=== PATIENT | male | born 1970 | race Caucasian/White ===

== ENCOUNTER 2020-09-21 17:57 | Outpatient (CLI) | payer OTHER, SELFPAY ==
--- NOTE | ~2020-09-21 | XR_ITS ---
EXAMINATION: XR chest 2V DATE: 09/21/2020 18:23 INDICATION: Cough and wheezing and shortness of breath. TECHNIQUE: Frontal and lateral views of the chest were obtained. COMPARISON: Chest 2 views 05/18/2015 FINDINGS: The chest demonstrates clear lungs without pneumonia, pleural effusion, or pneumothorax. Th e heart size is normal. Calcified hilar and mediastinal lymph nodes are consistent with old granuloma tous disease. IMPRESSION: 1. No acute cardiopulmonary disease. Reviewed, dictated and finalized at location A. 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
== END 2020-09-21 17:58 | disposition home or self-care (01) ==
PROVIDERS: PCP Family Medicine; Visit Provider Family Medicine
DX: R05 Cough (principal); R06.2 Wheezing; R06.02 Shortness of breath
CPT/HCPCS: 71046

== ENCOUNTER 2020-12-08 13:31 | Outpatient (CLI) | payer OTHER, SELFPAY ==
--- NOTE | 2020-12-12 09:39 | WPDPFTINT ---
PFT Interpretation PFT Interpretation: This PFT met all criteria for ATS standards and reproducibility FEV/FVC post bronchodilator 69% FEV1 89% FVC 97% TLC 95% RV 75% RV/TLC 25% DLCO 81% when adjusted for alveolar volume but not adjusted for hemoglobin Flow volume loops showed some expiratory coving Impression: Mild airflow obstruction. This pattern may be suggestive of asthma or COPD. Clinical correlation is advised.
== END 2020-12-08 13:32 | disposition home or self-care (01) ==
PROVIDERS: Family Provider Family Medicine Adolescent Medicine; PCP Family Medicine; Visit Provider Family Medicine
DX: R06.2 Wheezing (principal); F17.200 Nicotine dependence, unspecified, uncomplicated; R94.2 Abnormal results of pulmonary function studies
CPT/HCPCS: 94060; 94726; 94729

== ENCOUNTER 2021-07-12 17:14 | Outpatient (CLI) | payer OTHER, SELFPAY ==
--- NOTE | ~2021-07-12 | XR_ITS ---
XR shoulder RT min 2V DATE: 07/12/2021 17:33 INDICATION: Shoulder pain for 2.5 mm TECHNIQUE: 4 views COMPARISON: None FINDINGS: Normal alignment at the acromioclavicular and glenohumeral joints. No fracture or dislocati on, periosteal reaction or bone destruction or abnormal soft tissue calcification. IMPRESSION: Negative Reviewed, dictated and finalized at location A. IMPRESSION: Negative
--- NOTE | ~2021-07-12 | XR_ITS ---
XR shoulder LT min 2V DATE: 07/12/2021 17:34 INDICATION: Left shoulder pain for 2.5 years TECHNIQUE: 4 views COMPARISON: None FINDINGS: There is mild degenerative spurring of the left acromioclavicular joint. No fracture, dislocation, periosteal reaction or bone destruction or abnormal soft tissue calcificati on. IMPRESSION: Mild degenerative change at the left acromioclavicular joint Reviewed, dictated and finalized at location A.
== END 2021-07-12 17:15 | disposition home or self-care (01) ==
LOC: ANHIMG 17:16
PROVIDERS: PCP Family Medicine; Visit Provider Family Medicine
DX: M25.511 Pain in right shoulder (principal); M25.512 Pain in left shoulder
CPT/HCPCS: 73030

== ENCOUNTER 2022-04-12 00:37 | Day surgery (SDC) | payer OTHER, SELFPAY ==
[2022-04-02 10:29] VITALS: BMI 31.1
[2022-04-12 06:58] VITALS: BP 117/90; PULSE 67; RESP 17; O2SAT 100
[2022-04-12] MEDS: LACTATED RINGERS 1,000 ML 150 ML IV CONT (07:05)
--- NOTE | 2022-04-12 07:27 | WPDANESEPPF ---
Anes - Initial Pre Proc Eval Procedure: Operation Date: 04/12/22 08:00 Proposed Procedures p Screening Colonoscopy - Kostas Holm MD Date/Time: 04/12/22 07:27 Surgeon: Kostas Holm MD Pre Op Diagnosis: hx of colon polyps Patient Data Age: 51 Gender: M Height: 1.73 m Weight: 92.6 kg Last Vital Signs Pulse 67 04/12/22 06:58 Resp 17 04/12/22 06:58 BP 117/90 04/12/22 06:58 Pulse Ox 100 04/12/22 06:58 O2 Del Method Room Air 04/12/22 06:58 Allergies Allergy/AdvReac Type Severity Reaction Status Date / Time No Known Allergies Allergy Verified 04/12/22 06:55 Home Medications Medication Instructions Recorded Confirmed Type omeprazole 20 mg capsule,delayed 20 mg PO DAILY #30 caps 03/14/20 04/12/22 Rx release carbamazepine 200 mg tablet 200 mg PO Q12H #60 tabs 12/24/20 04/12/22 Rx icosapent ethyl 1 gram capsule 2 g PO BID #120 caps 11/07/21 04/12/22 Rx (Vascepa) atorvastatin 20 mg tablet 20 mg PO DAILY 04/02/22 04/12/22 History celecoxib 200 mg capsule 200 mg PO BID 04/02/22 04/12/22 History varenicline 1 mg tablet 1 mg PO BID 04/02/22 04/12/22 History Patient hx anesthesia problems: none Family hx anesthesia problems: none Results Review: All pre-operative results and documents have been reviewed as part of the pre-operative evaluation. [facility] Past Medical History Medical History (Updated 08/29/21 @ 08:25 by Patrizia Khalil, PARitikaC) Bipolar disorder Bipolar disorder in remission Chronic otitis media GERD (gastroesophageal reflux disease) Mixed hyperlipidemia Tobacco dependence Surgical History Surgical History Myringotomy tube status Family History Family History Father Hypertension Mother Family history of diabetes mellitus in first degree relative Family history of malignant neoplasm of bone Family history of malignant neoplasm of urinary bladder Family history of malignant neoplasm of kidney Patient's mother is Social History Social History (Updated 08/27/21 @ 15:31 by Nata Mcdonald) Social History: Smoking packs per day: 1 Smoking cigarettes per day: 20.0 Years smoked: 35 Smoking pack-years: 35.00 Smoking status: Current some day smoker Tobacco type: cigarettes Second hand tobacco smoke exposure: No Smoking end date: 10/17/20 Alcohol intake: never Substance use: never Substance use type: does not use Living arrangements: with family Gender identity (if verbalized by the patient): Male Sexual Orientation (if Verbalized by the Patient): Straight or Heterosexual Spiritual care concerns: No Anes - Eval Final PreProcedure Day of Procedure 04/12/22 07:27 Patient weight: obese Heart: regular rate and rhythm Lungs: clear to auscultation Airway: Mallampati scale class II Neurological: alert and oriented Last oral intake: >/= 8 hours ASA classification: III Emergent: no Anesthetic plan: proceed Anesthesia type and monitoring: general GIVS and standard monitoring Results Review: All pre-operative results and documents have been reviewed as part of the pre-operative evaluation. Informed Consent: The patient's anesthetic plan and its attendant risks and benefits were discussed with the patient/family/POA. Questions were solicited and answers provided to the satisfaction of the patient/family/POA.
--- NOTE | 2022-04-12 07:56 | PM.HPGS ---
History of Present Illness History of Present Illness Consent: Risks, benefits, and alternatives have been discussed and questions answered. Patient agrees to proceed with procedure. Chief complaint: hx of colon polyps Narrative: Dagoberto Marcial Jr. is a 51 year old male with history of polyp, last colonoscopy ~ 5 years ago. Review of Systems Constitutional: Constitutional: Denies headache(s) and Denies weakness Eyes: Eyes: Denies blurry vision ENT: Reports Normal hearing present, Denies headache(s) and Denies neck pain Cardiovascular: Cardiovascular: Denies chest pain and Denies dyspnea Respiratory: Respiratory: Denies dyspnea Gastrointestinal: Gastrointestinal: Reports no additional gastrointestinal complaints Genitourinary: Genitourinary: Denies dysuria Musculoskeletal: Musculoskeletal: Denies neck pain Integumentary/Breasts: Skin/Breast: Denies dry skin Neurologic: Reports Normal hearing present, Denies headache(s) and Denies weakness Psychiatric: Psychiatric: Denies anxiety Endocrine: Endocrine: Denies change in body appearance Hematologic/Lymphatic: Hematologic/Lymphatic: Denies easy bleeding Allergic/Immunologic: Allergic/Immunologic: Denies urticaria PMFSH Past Medical History Medical History (Updated 08/29/21 @ 08:25 by Patrizia Khalil, CHAVA) Bipolar disorder Bipolar disorder in remission Chronic otitis media GERD (gastroesophageal reflux disease) Mixed hyperlipidemia Tobacco dependence Surgical History Surgical History Myringotomy tube status Family History Family History Father Hypertension Mother Family history of diabetes mellitus in first degree relative Family history of malignant neoplasm of bone Family history of malignant neoplasm of urinary bladder Family history of malignant neoplasm of kidney Patient's mother is Social History Social History (Updated 08/27/21 @ 15:31 by Nata Mcdonald) Social History: Smoking packs per day: 1 Smoking cigarettes per day: 20.0 Years smoked: 35 Smoking pack-years: 35.00 Smoking status: Current some day smoker Tobacco type: cigarettes Second hand tobacco smoke exposure: No Smoking end date: 10/17/20 Alcohol intake: never Substance use: never Substance use type: does not use Living arrangements: with family Gender identity (if verbalized by the patient): Male Sexual Orientation (if Verbalized by the Patient): Straight or Heterosexual Spiritual care concerns: No Meds Home Medications and Allergies Home Medications Medication Instructions Recorded Confirmed Type omeprazole 20 mg capsule,delayed 20 mg PO DAILY #30 caps 03/14/20 04/12/22 Rx release carbamazepine 200 mg tablet 200 mg PO Q12H #60 tabs 12/24/20 04/12/22 Rx icosapent ethyl 1 gram capsule 2 g PO BID #120 caps 11/07/21 04/12/22 Rx (Vascepa) atorvastatin 20 mg tablet 20 mg PO DAILY 04/02/22 04/12/22 History celecoxib 200 mg capsule 200 mg PO BID 04/02/22 04/12/22 History varenicline 1 mg tablet 1 mg PO BID 04/02/22 04/12/22 History Allergies Allergy/AdvReac Type Severity Reaction Status Date / Time No Known Allergies Allergy Verified 04/12/22 06:55 Vital Signs Vital Signs - 24 hr 04/12/22 06:58 Pulse Rate 67 Respiratory Rate 17 Blood Pressure 117/90 Pulse Oximetry 100 Oxygen Delivery Room Air Exam Const: General: comfortable and no acute distress HENMT: General nose exam: Normal nares present Eyes: General: appearance normal, both eyes and all related structures Neck: Neck: no JVD Resp: Auscultation: clear to auscultation bilaterally Cardio: Rate: regular rate Rhythm: regular rhythm GI: Inspection: non-distended GI Palp: Yes Soft to palpation Skin: General skin exam: normal color Neuro: General: gait normal Speech: normal speech Extrem:
[2022-04-12 08:13] VITALS: BP 116/75; PULSE 83; RESP 27; O2SAT 96
[2022-04-12 08:23] VITALS: BP 115/80; PULSE 66; RESP 23; O2SAT 99
[2022-04-12 08:33] VITALS: BP 122/88; PULSE 64; RESP 21; O2SAT 100
== END 2022-04-12 08:37 | disposition home or self-care (01) ==
PROVIDERS: PCP Family Medicine; Visit Provider Internal Medicine Gastroenterology
PROC: 0DJD8ZZ Inspection of Lower Intestinal Tract, Via Natural or Artificial Opening Endoscopic (ICD-10-PCS; CPT 45378; principal; 2022-04-12 08:00)
DX: Z12.11 Encounter for screening for malignant neoplasm of colon (principal); K57.30 Diverticulosis of large intestine without perforation or abscess without bleeding; D12.2 Benign neoplasm of ascending colon; E78.2 Mixed hyperlipidemia; K21.9 Gastro-esophageal reflux disease without esophagitis; F31.70 Bipolar disorder, currently in remission, most recent episode unspecified; F17.210 Nicotine dependence, cigarettes, uncomplicated; E66.9 Obesity, unspecified; Z68.31 Body mass index [BMI] 31.0-31.9, adult
CPT/HCPCS: 45380; 88305; J2704; J7120

== ENCOUNTER 2022-10-24 16:49 | Outpatient (CLI) | payer OTHER, SELFPAY ==
--- NOTE | ~2022-10-24 | XR_ITS ---
XR abdomen/kub 1V 10/24/2022 17:07 INDICATION: Right flank pain TECHNIQUE: KUB COMPARISON: None FINDINGS: Bowel gas pattern is normal. There is no evidence of free air, mass, organomegaly, ascites or obstruction. There is a radiopaque capsule of the right abdomen, presumably bowel content. There is a more medial radiodensity at the L2-3 level which could represent a renal stone or bowel content. Consider correlation with CT. No definite calcifications in the expected course of ureters. There ar e pelvic phleboliths. The bones appear intact. IMPRESSION: 1: Possible right renal stone versus bowel content, i.e. ingested capsule. 2: No acute abdominal abnormality. Reviewed, dictated and finalized at location A. 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
== END 2022-10-24 16:50 | disposition home or self-care (01) ==
LOC: ANHIMG 16:50
PROVIDERS: PCP Family Medicine; Visit Provider Physician Assistant
DX: R10.9 Unspecified abdominal pain (principal)
CPT/HCPCS: 74018

== ENCOUNTER 2022-10-26 09:37 | Outpatient (CLI) | payer OTHER, SELFPAY ==
[2022-10-26 10:22] LABS: Basophils Absolute Auto 0.1 K/mm3 (0.0-0.1); Basophils Percent Auto 0.6 % (0.2-1.2); Eosinophils Absolute Auto 0.3 K/mm3 (0-0.3); Eosinophils Percent Auto 2.9 % (0-4.4); Hematocrit 47.9 % (42.0-52.0); Hemoglobin 15.8 g/dL (14.0-18.0); Immature Granulocyte Absolute 0.08 K/mm3 (0.00-0.031); Immature Granulocyte Percent A 0.9 % (0-0.5); Lymphocytes Absolute Auto 2.16 K/mm3 (0.9-3.2); Lymphocytes Percent Auto 25.2 % (18.3-44.2); Mean Corpuscular Hemoglobin 30.3 pg (26-34); Mean Corpuscular Volume 91.8 fl (80-100); Mean Platelet Volume 11.6 fl (7.4-10.4); Monocytes Absolute Auto 0.6 K/mm3 (0.1-0.6); Monocytes Percent Auto 7.1 % (2.6-8.5); Neutrophils Absolute Auto 5.4 K/mm3 (1.3-6.7); Neutrophils Percent Auto 63.3 % (45.5-73.1); Platelet Count Result 197 k/mm3 (150-375); Red Blood Count 5.22 M/mm3 (4.6-6.20); Red Cell Distribution Width 12.9 % (11.5-14.5); White Blood Count 8.6 K/mm3 (4.5-10.0)
[2022-10-26 10:46] LABS: Alanine Aminotransferase 40 U/L (6-50); Albumin Level 4.3 g/dL (3.5-5.1); Alkaline Phosphatase 127 U/L (38-126); Anion Gap 5 mmol/L (8-16); Aspartate Amino Transferase 30 U/L (17-59); Bilirubin,Total 0.6 mg/dL (0.2-1.3); Blood Urea Nitrogen 11 mg/dL (9-20); Calcium 8.5 mg/dL (8.4-10.2); Carbon Dioxide 28 mmol/L (22-30); Chloride 109 mmol/L (98-107); Estimated Glomerular Filt Rate > 60; Glucose 104 mg/dL (65-110); Potassium 4.4 mmol/L (3.4-5.0); Sodium 142 mmol/L (137-145); Uric Acid 5.6 mg/dL (3.5-8.5)
[2022-10-26 12:34] LABS: Hemoglobin A1C 5.5 % (<5.7)
== END 2022-10-26 09:38 | disposition home or self-care (01) ==
PROVIDERS: Visit Provider Physician Assistant
DX: F31.9 Bipolar disorder, unspecified (principal); E79.0 Hyperuricemia without signs of inflammatory arthritis and tophaceous disease; Z13.1 Encounter for screening for diabetes mellitus
CPT/HCPCS: 36415; 80053; 83036; 84550; 85025

== ENCOUNTER → 2022-10-29 15:37 | Outpatient (CLI) | payer OTHER, SELFPAY ==
--- NOTE | ~2022-10-29 | CT_ITS ---
Non-contrast CT scan of the Abdomen and Pelvis Clinical indication: Nephrolithiasis Technique: 5 mm axial scans were obtained through the abdomen and pelvis without intravenous or oral contrast. Dose reduction technique was used on this scan by utilizing automated exposure control and iterative reconstruction technique. The dose-length product (DLP) was 486.20 mGy-cm. Findings: Images through the lung bases reveal no abnormalities. There is no evidence of renal or ureteral calculi. The kidneys and the ureters are nondilated. The liver, spleen, pancreas, gallbladder, and adrenals appear normal. There is no aortic aneurysm. There is no evidence of bowel obstruction. Images through the pelvis were performed. There is no evidence of ascites or lymphadenopathy. Urinary bladder unremarkable. Prostate gland and seminal vesicles are unremarkable. Impression: Unremarkable exam. No renal, ureteral, or bladder stone. Reviewed, dictated and finalized at location [] NISTRATIVE FELLOW Impression: Unremarkable exam. No renal, ureteral, or bladder stone.
== END ==
PROVIDERS: PCP Family Medicine; Visit Provider Physician Assistant
DX: R93.89 Abnormal findings on diagnostic imaging of other specified body structures (principal)
CPT/HCPCS: 74176

== ENCOUNTER → 2022-12-06 15:23 | Outpatient (CLI) | payer OTHER, SELFPAY ==
--- NOTE | ~2022-12-06 | CT_ITS ---
EXAMINATION:CT lung screening DATE: 12/06/2022 15:38 INDICATION: Tobacco use. Current smoker with 60 pack year history. TECHNIQUE: Computed tomography (CT) of the chest was performed without intravenous contrast. Automate d exposure control and iterative reconstruction technique were employed. The dose-length product (DLP ) was 129.51 mGy-cm. COMPARISON: CT abdomen and pelvis 10/29/2022 FINDINGS: There is mild emphysema. There is minimal atelectasis bilaterally. There is a 2 mm nodule i n right middle lobe. Calcified bilateral lung nodules and calcified left hilar and mediastinal lymph nodes are consistent with old granulomatous disease. No pleural effusion. The heart size is normal. T here are coronary artery calcifications. No pericardial effusion. There are bridging endplate osteoph ytes at multiple levels in the spine, consistent with diffuse idiopathic skeletal hyperostosis (DISH) . IMPRESSION: 1. Lung-RADS category 2: Benign appearance or behavior. Continue annual screening with noncontrast lo w-dose chest CT in 12 months. Reviewed, dictated and finalized at location A. SYSTEM OPERATOR IMPRESSION: 1. Lung-RADS category 2: Benign appearance or behavior. Continue annual screeni ng with noncontrast low-dose chest CT in 12 months.
== END ==
PROVIDERS: PCP Family Medicine; Visit Provider Nurse Practitioner Gerontology
DX: Z12.2 Encounter for screening for malignant neoplasm of respiratory organs (principal); F17.210 Nicotine dependence, cigarettes, uncomplicated
CPT/HCPCS: 71271

== ENCOUNTER 2023-06-28 07:24 | Outpatient (CLI) | payer OTHER, SELFPAY ==
[2023-06-28 07:47] LABS: Basophils Percent Auto 0.4 % (0.2-1.2); Eosinophils Absolute Auto 0.5 K/mm3 (0-0.3); Eosinophils Percent Auto 6.4 % (0-4.4); Hematocrit 50.7 % (42.0-52.0); Hemoglobin 16.8 g/dL (14.0-18.0); Immature Granulocyte Absolute 0.05 K/mm3 (0.00-0.031); Immature Granulocyte Percent A 0.7 % (0-0.5); Lymphocytes Absolute Auto 2.13 K/mm3 (0.9-3.2); Lymphocytes Percent Auto 29.2 % (18.3-44.2); Mean Corpuscular HGB Conc 33.1 g/dl (32-36); Mean Corpuscular Hemoglobin 30.4 pg (26-34); Mean Corpuscular Volume 91.8 fl (80-100); Mean Platelet Volume 11.3 fl (7.4-10.4); Monocytes Absolute Auto 0.6 K/mm3 (0.1-0.6); Monocytes Percent Auto 7.7 % (2.6-8.5); Neutrophils Absolute Auto 4.1 K/mm3 (1.3-6.7); Neutrophils Percent Auto 55.6 % (45.5-73.1); Platelet Count Result 157 k/mm3 (150-375); Red Blood Count 5.52 M/mm3 (4.6-6.20); Red Cell Distribution Width 12.7 % (11.5-14.5); White Blood Count 7.3 K/mm3 (4.5-10.0)
[2023-06-28 08:00] LABS: Alanine Aminotransferase 33 U/L (6-50); Albumin Level 4.4 g/dL (3.5-5.1); Alkaline Phosphatase 130 U/L (38-126); Anion Gap 5 mmol/L (8-16); Aspartate Amino Transferase 29 U/L (17-59); Bilirubin,Total 0.5 mg/dL (0.2-1.3); Blood Urea Nitrogen 12 mg/dL (9-20); Calcium 9.1 mg/dL (8.4-10.2); Carbon Dioxide 27 mmol/L (22-30); Chloride 105 mmol/L (98-107); Cholesterol 166 mg/dL (0-200); Estimated Glomerular Filt Rate > 60; Glucose 104 mg/dL (65-110); HDL Direct 36 mg/dL; Potassium 4.2 mmol/L (3.4-5.0); Sodium 137 mmol/L (137-145); Triglycerides 98 mg/dL (<150); Uric Acid 6.2 mg/dL (3.5-8.5)
[2023-06-28 08:11] LABS: LDL Cholesterol Direct 100 mg/dL
[2023-06-28 08:39] LABS: Hemoglobin A1C 5.3 % (<5.7)
== END 2023-06-28 07:25 | disposition home or self-care (01) ==
PROVIDERS: PCP Family Medicine; Visit Provider Physician Assistant
DX: F31.9 Bipolar disorder, unspecified (principal); Z13.1 Encounter for screening for diabetes mellitus; E79.0 Hyperuricemia without signs of inflammatory arthritis and tophaceous disease; E78.2 Mixed hyperlipidemia
CPT/HCPCS: 36415; 80053; 80061; 83036; 84550; 85025

== ENCOUNTER 2023-08-11 07:48 | Outpatient (CLI) | payer OTHER, SELFPAY ==
[2023-08-11 09:35] LABS: Estimated Glomerular Filt Rate > 60
[2023-08-11 14:06] LABS: Collection Time Urine 24 HOURS
[2023-08-11 14:14] LABS: Creatinine Urine 161.8 mg/dL
[2023-08-11 14:19] LABS: Total Volume 24 Hour Urine 1200 ml
[2023-08-11 17:35] LABS: Serum Creat 0.8
[2023-08-12 11:04] LABS: Creatinine Clearance Urine 146.4 ml/min (75-125); Patient Weight 185 Lbs
== END 2023-08-11 07:49 | disposition home or self-care (01) ==
LOC: ANHLAB 07:49
PROVIDERS: PCP Family Medicine; Visit Provider Internal Medicine Nephrology
DX: Z52.4 Kidney donor (principal)
CPT/HCPCS: 36415; 82565; 82575

== ENCOUNTER 2024-11-13 07:06 | Outpatient (CLI) | payer OTHER, SELFPAY ==
[2024-11-13 08:12] LABS: Basophils Absolute Auto 0.1 K/mm3 (0.0-0.1); Basophils Percent Auto 0.5 % (0.2-1.2); Eosinophils Absolute Auto 0.4 K/mm3 (0-0.3); Eosinophils Percent Auto 4.3 % (0-4.4); Hematocrit 46.9 % (42.0-52.0); Hemoglobin 15.9 g/dL (14.0-18.0); Immature Granulocyte Absolute 0.06 K/mm3 (0.00-0.031); Immature Granulocyte Percent A 0.6 % (0-0.5); Lymphocytes Absolute Auto 1.88 K/mm3 (0.9-3.2); Mean Corpuscular HGB Conc 33.9 g/dl (32-36); Mean Corpuscular Hemoglobin 30.8 pg (26-34); Mean Corpuscular Volume 90.9 fl (80-100); Mean Platelet Volume 11.4 fl (7.4-10.4); Monocytes Absolute Auto 0.6 K/mm3 (0.1-0.6); Monocytes Percent Auto 6.1 % (2.6-8.5); Neutrophils Absolute Auto 6.4 K/mm3 (1.3-6.7); Neutrophils Percent Auto 68.5 % (45.5-73.1); Platelet Count Result 153 k/mm3 (150-375); Red Blood Count 5.16 M/mm3 (4.6-6.20); Red Cell Distribution Width 12.9 % (11.5-14.5); White Blood Count 9.4 K/mm3 (4.5-10.0)
[2024-11-13 08:23] LABS: Alanine Aminotransferase 34 U/L (6-50); Albumin Level 4.2 g/dL (3.5-5.1); Alkaline Phosphatase 123 U/L (38-126); Anion Gap 1 mmol/L (4-12); Aspartate Amino Transferase 28 U/L (17-59); Bilirubin,Total 0.4 mg/dL (0.2-1.3); Blood Urea Nitrogen 13 mg/dL (9-20); Calcium 8.9 mg/dL (8.4-10.2); Carbon Dioxide 26 mmol/L (22-30); Chloride 113 mmol/L (98-107); Cholesterol 249 mg/dL (0-200); Estimated Glomerular Filt Rate 58; Glucose 97 mg/dL (65-110); HDL Direct 31 mg/dL; Phosphorus 3.1 mg/dL (2.5-4.5); Potassium 4.4 mmol/L (3.4-5.0); Sodium 140 mmol/L (137-145); Triglycerides 356 mg/dL (<150)
[2024-11-13 08:34] LABS: LDL Cholesterol Direct 116 mg/dL
--- OUTSIDE RECORDS SUMMARY | 2024-11-20 04:22 | XMS_ITS | Encounter Summary ---
Author Organization [facility] Healthcare Address [address] [place] [address] Care Team Providers Care Dermatology Technician Name Role Phone Lindsey Bal RN Unavailable [phone] Elke Mcmillan MD Primary Care Provider Reason for Visit * Reason Onset Date Comments Post Donation Follow Up 08/04/2024 Encounter Details Date Type Department Care Team (Late st Contact Info) Description 08/04/[address] [facility] Transplant Kidney [address] [facility] [address] [phone] [place], [place] [id number] Lindsey Bal, ROSANGELA [address] [facility] [address] [place], [place] [id number] Post Donation Follow Up Social History Tobacco Use Types Packs/Day Years Used Date Smoking Tobacco: Every Day Cigarettes Smokeless Tobacco: Never [facility] Utilities Answer Date Recorded In the past 12 months has [employer], [employer], oil, or water [employer] threatened to shut off services in your home? No 03/10/2024 Social Connection and Isolat ion Panel [NHANES] Answer Date Recorded In a typical week, how many times do you talk on the phone with family, friends, or neighbors? More than three times a week 03/10/2024 How often do you get togethe r with friends or relatives? More than three times a week 03/10/2024 How often do you attend chur or episcopal services? More than 4 times per year 03/10/2024 Do you belong to any clubs o r organizations such as judaism groups, unions, fraternal or athletic groups, or school groups? Yes 03/10/2024 How often do you attend meet ings of the clubs or organizations you belong to? More than 4 times per year 03/10/2024 Are you , , di vorced, , never , or living with a partner? 03/10/2024 AUDIT-C Answer Date Recorded Q1: How often do you have a drink containing alcohol? Never 02/10/2024 Q2: How many drinks containi ng alcohol do you have on a typical day when you are drinking? Patient does not drink Q3: How often do you have si x or more drinks on one occasion? Never 02/10/2024 Overall Financial Resource Strain (CARDIA) Answe r Date Recorded How hard is it for you to pa y for the very basics like food, housing, medical care, and heating? Somewhat hard 03/10/2024 Hunger Vital Sign Answer Date Recorded Within the past 12 months, y ou worried that your food would run out before you got the money to buy more. Never true 03/10/20 Within the past 12 months, t he food you bought just didn't last and you didn't have money to get more. Never true 03/10/2024 PRAPARE - Transportation Answer Date Re corded In the past 12 months, has l ack of transportation kept you from medical appointments or from getting medications? No 02/16 In the past 12 months, has l ack of transportation kept you from meetings, work, or from getting things needed for daily living? No 03/10/2024 Housing Stability Vital Sign Answer [place] e Recorded In the last 12 months, was t here a time when you were not able to pay the mortgage or rent on time? No 03/10/2024 In the last 12 months, how many places have you lived? 1 03/10/2024 In the last 12 months, was t here a time when you did not have a steady place to sleep or slept in a jail (including now)? No 03/10/2024 Personal Safety Answer Date Recorded Have you ever been in or are you currently in a harmful physical or emotional relationship or is someone making you feel afraid or unsafe? 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 Reminded him that orders are in system for [facility]. Re-sent copy of follow-up questionnaire. Smita- I am going to forward document to you. Can you please have it mailed to this donor the next time you are in the office. Thanks! * Telephone Encounter - Lindsey Bal RN - 08/04/2024 10:15 AM CDT Sent reminder that we still need to complete donor follow-up. Reviewed orders are in for [facility] . Included a copy of questionnaire. Told to let me know if there's any questions. documented in this encounter Plan of Treatment Not on file documented as of this encounter Visit Diagnoses Not on filedocumented in this encounter Care Teams Dermatology Technician Relationship Specialty Start Date End Date Elke Mcmillan MD [address] [place] [address] PCP - General Family Medicine 08/15/23 Lindsey Bal, ROSANGELA [address] [place] [address] Hydroelectric Component Machinist 07/04/23 documented as of this encounter
--- OUTSIDE RECORDS SUMMARY | 2024-11-20 04:22 | XMS_ITS | Encounter Summary ---
Author Organization [facility] Healthcare Address [address] [place] [address] Care Team Providers Care Traffic Enumerator Name Role Phone Lindsey Bal RN Unavailable [phone] Elke Mcmillan MD Primary Care Provider Reason for Visit * Reason Onset Date Comments Post-Op Call 03/19/2024 Encounter Details Date Type Department Care Team (Late st Contact Info) Description 03/19/2024 Telephone [facility] Transplant Kidney [address] [facility] [address] [phone] [place], [place] [phone] Lindsey Bal, ROSANGELA [address] [facility] [address] [place], [place] [phone] Post-Op Call Social History Tobacco Use Types Packs/Day Years Used Date Smoking Tobacco: Every Day Cigarettes Smokeless Tobacco: Never [facility] Utilities Answer Date Recorded In the past 12 months has [employer], [employer], oil, or water [employer] threatened to shut off services in your [...] How often do you attend chur or tenriism services? More than 4 times per year [...] place to sleep or slept in a retirement (including now)? No 03/10/2024 Personal Safety Answer Date Recorded Have you ever been in or are you currently in a harmful physical or emotional relationship or is someone making you feel afraid or unsafe? 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 He reports to be doing well. Incisions are getting a little itchy. Discussed that is his incisions healing/ closing. He reports that he has some aches when he coughs at times, but otherwise doing well. He also reports to be having 1-2 BM's a day. Staying active. Reminded him to contact sheet ironworker coordinator if he needs anything over the weekend. Verbalized understanding. * Telephone Encounter - Lindsey Bal RN - 03/19/2024 12:27 PM CDT Attempted to call Avel to see how he was doing. Not able to leave a VM. Emailed him and let him know that I was just checking in. Told him to let me or call nurse know if he needs anything. documented in this encounter Plan of Treatment Not on file documented as of this encounter Visit Diagnoses Not on filedocumented in this encounter Care Teams Traffic Enumerator Relationship Specialty Start Date End Date Elke Mcmillan MD [address] [place] [address] PCP - General Family Medicine 08/15/23 Lindsey Bal, RN [address] [facility] [address] [place] [address] Instrument Tech 07/04/23 documented as of this encounter
--- OUTSIDE RECORDS SUMMARY | 2024-11-20 04:22 | XMS_ITS | Encounter Summary ---
Author Organization [facility] Healthcare Address [address] [place] [address] Care Team Providers Care Stove Polisher Name Role Phone Lindsey Bal RN Unavailable [phone] Elke Mcmillan MD Primary Care Provider Reason for Visit * Auth/Cert (Routine) Specialty Diagnoses / Procedures Referred By Anne melton Referred To Contact Diagnoses Kidney donor Kidney donor [Z52.4] Procedures [place] LAPAROSCOPY DONOR NEPHRECTOMY LIVING DONOR XI ROBOTIC ASSISTED DONOR NEPHRECTOMY Referral ID Status Reason Start Date Expiration Date Visits Re quested Visits Authorized [id number] 1 1 Encounter Details Date Type Department Care Team (Latest Contact Info) Description 03/09/2024 5:20 AM CDT - 03/10/2024 1:32 PM CDT Hospital Encounter [facility] [address] [place] [address] Roberto Cannon MD 1 [facility] [address] [place] [address] Discharge Disposition: Discharge to home or self care Social History Tobacco Use Types Packs/Day Years Used Date Smoking Tobacco: Every Day Cigarettes Smokeless Tobacco: Never Tobacco Cessation:Ready to Q uit: No; Counseling Given: No [facility] Utilities Answer Date Recorded In the past 12 months has [employer], gas, oil, or water company threatened to shut off services in your [...] 03/10/2024 How often do you attend chur ch or oriental orthodox services? More than 4 times per year 03/10/2024 Do you belong to any clubs o r organizations such as yarsani groups, unions, fraternal or athletic groups, or [...] money to buy more. Never true 03/10/20 24 Within the past 12 months, t he [...] place to sleep or slept in a [facility] (including now)? No 03/10/2024 Personal Safety Answer Date Recorded Have you ever been in or are you currently in a harmful physical or emotional relationship or is someone making you feel afraid or unsafe? 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[employer] Gender Identity Not on file Sexual Orientation Not on file documented as of this encounter Last Filed Vital Signs Vital Sign Reading Time Taken Comments Blood Pressure 103/60 03/10/2024 3:15 AM CDT Pulse 75 03/10/2024 3:15 AM CDT Temperature 36.7 ??C (98.1 ??F) 03/10/2024 3:15 AM CD T Respiratory Rate 16 03/10/2024 3:15 AM CDT Oxygen Saturation 94% 03/10/2024 3:15 AM CDT Inhaled Oxygen Concentration - - Weight 86.5 kg (190 lb 11.2 oz) 03/10/2024 3:15 AM CDT Height 175.3 cm (5' 9 ) 02/10/2024 10:4 0 AM CDT Body Mass Index 28.16 02/27/2024 1:17 PM CDT documented in this encounter Discharge Summaries * Nela Canales NP - 03/10/2024 10:32 AM CDT Inpatient Discharge Summary BRIEF OVERVIEW Admitting Provider: Roberto Cannon MD Discharge Provider: Roberto Cannon MD Primary Care Physician at Discharge: Elke Mcmillan MD [phone] Admission Date: 03/09/2024 Discharge Date: 03/10/2024 Admission Location: [facility] Problems/Diagnoses: Principal Problem: Kidney donor Resolved Problems: No resolved hospital problems. DETAILS OF HOSPITAL STAY Presenting Problem/History of Present Illness: Mr. Marcial is a 53 y.o. male wishing to donate a kidney to his cousin, who began the donor evaluation in 11/19/2023 and has been cleared by our independent donor advocate for donation. A right LEFTdonor nephrectomy is scheduled on 03/09/2024. He denies changes in health since evaluation by nephrology. No history of diabetes, hypertension, kidney stones, or frequent urinary tract infections. Hospital Course: The patient was taken to the OR on 03/[address] Cannon for a robotic left donor nephrectomy. For details of the operation, please see the OP note in EPIC. Postoperatively, pain controlled with PO medications. Diet slowly advanced to low fat. Carrasco removed on POD 1 without incident. Discharge creatinine of 1.56. The patient was discharged to home on 03/10 in stable condition. Scripts: Oxycodone 5mg (#15), senna-s, miralax, gabapentin x2 weeks, zofran ODT (#10) Follow-up with Dr. Cannon on 04/01 @ 1030 Test Results Pending at Discharge: Operative Procedures Performed: Procedure(s): XI ROBOTIC ASSISTED LEFT DONOR NEPHRECTOMY and TAP BLOCK Discharge Details Physical Exam at Discharge: Discharge Condition: good Pulse: 75 Resp: 16 BP: 103/60 Temp: 36.7 ??C (98.1 ??F) Weight: 86.5 kg (190 lb 11.2 oz) Pertinent Exam Findings at Discharge: none Discharge Disposition: Discharge to home or self care Code Status at Discharge: full Discharge Instructions: Kidney Donor Discharge Instructions: Call 911 or go to your local emergency room if: You have worrisome bleeding from your wound. You have chest pain. You feel like you can???t catch your breath. You faint or pass out. Call your metal control coordinator if: You have a fever of 101.5 F degrees or higher. It is hard for you to urinate. You have nausea, vomiting or diarrhea. You have bright red blood or bad smelling drainage from your incision site(s). You have any questions about your medications. You have belly pain that is getting worse. The kidney transplant office is open Friday-Friday from 8:00am-4:30pm. The phone number is or . If you need to talk to a transplant nurse after regular hours; you will still need to call the office. Follow the directions for an emergency on the voice mail and someone will call you back. Do NOT leave a message on the voice mail. These messages won???t be heard until the next business day. Diet low fat diet x7 days then regular diet Activity: You may perform activities as you feel up to it. It is very important to stay active. Try to take several short walks each day. Do NOT lift anything over 10 pounds until approved by your surgeon. This includes babies and pets. Do NOT drive while taking narcotic pain medicine. Care Instructions: You may take showers. Pat wounds dry. Do NOT rub. Keep your incision site dry and clean. Do NOT take tub baths, go swimming or use a hot tub until approved by your doctor. You may have shoulder pain after your surgery. This is very common. It is also normal to have swelling in your belly. Walking and staying active will help ease these symptoms. If you are still takingpain medications, continue to take a stool softener. However, do NOT use stool softeners if you have loose stools or diarrhea. Follow Up You should have been given a follow up appointment by your transplant nurse before discharge. If you were not given an appointment or have questions, call your nurse coordinator at or . Discharge Medications: Current Medications TAKE these medications acetaminophen 500 mg tablet Take 2 tablets (1,000 mg total) by mouth every 6 (six) hours as needed Commonly known as: TYLENOL atorvastatin 20 mg tablet Take 1 tablet (20 mg total) by mouth nightly For: excessive fat in the blood Commonly known as: LIPITOR carBAMazepine 200 mg tablet Take 1 tablet (200 mg total) by mouth nightly For: manic-depression Commonly known as: TEGretol gabapentin 100 mg capsule Take 1 capsule (100 mg total) by mouth 2 (two) times a day for 14 days Commonly known as: NEURONTIN icosapent ethyL 1 gram capsule Take 2 capsules (2 g total) by mouth 2 (two) times a day For: high amount of triglyceride in the blood Commonly known as: VASCEPA omeprazole 20 mg capsule Take 1 capsule (20 mg total) by mouth nightly For: Treatment of Non-Bleeding Gastric Disorder Commonly known as: PriLOSEC ondansetron ODT 4 mg disintegrating tablet Take 1 tablet (4 mg total) by mouth every 8 (eight) hours as needed for nausea or vomiting Commonly known as: ZOFRAN-ODT oxyCODONE 5 mg immediate release tablet Take 1 tablet (5 mg total) by mouth every 4 (four) hours as needed for pain For: pain Commonly known as: ROXICODONE polyethylene glycol 17 gram packet Take 1 packet (17 g total) by mouth daily For: constipation Commonly known as: MIRALAX senna-docusate 8.6-50 mg Take 1 tablet by mouth 2 (two) times a day Commonly known as: PERICOLACE Outpatient Follow-Up: Future Appointments Date Time Provider Department Center 04/01/2024 10:30 AM Roberto Cannon MD [facility] Cosigned by Roberto Cannon MD at 03/19/2024 10:31 AM CDT documented in this encounter Discharge Instructions * Discharge Instructions* Nela Canales NP - 03/09/2024 12:52 PM CDT Kidney Donor Discharge Instructions: Call 911 or go to your local emergency room if: You have worrisome bleeding from your wound. You have chest pain. You feel like you can???t catch your breath. You faint or pass out. Call your metal control coordinator if: You have a fever of 101.5 F degrees or higher. It is hard for you to urinate. You have nausea, vomiting or diarrhea. You have bright red blood or bad smelling drainage from your incision site(s). You have any questions about your medications. You have belly pain that is getting worse. The kidney transplant office is open Friday-Friday from 8:00am-4:30pm. The phone number is or . If you need to talk to a transplant nurse after regular hours; you will still need to call the office. Follow the directions for an emergency on the voice mail and someone will call you back. Do NOT leave a message on the voice mail. These messages won???t be heard until the next business day. Diet low fat diet x7 days then regular diet Activity: You may perform activities as you feel up to it. It is very important to stay active. Try to take several short walks each day. Do NOT lift anything over 10 pounds until approved by your surgeon. This includes babies and pets. Do NOT drive while taking narcotic pain medicine. Care Instructions: You may take showers. Pat wounds dry. Do NOT rub. Keep your incision site dry and clean. Do NOT take tub baths, go swimming or use a hot tub until approved by your doctor. You may have shoulder pain after your surgery. This is very common. It is also normal to have swelling in your belly. Walking and staying active will help ease these symptoms. If you are still takingpain medications, continue to take a stool softener. However, do NOT use stool softeners if you have loose stools or diarrhea. Follow Up You should have been given a follow up appointment by your transplant nurse before discharge. If you were not given an appointment or have questions, call your nurse coordinator at or . documented in this encounter Medications at Time of Discharge acetaminophen (TYLENOL) 500 mg tablet Take 2 tablets (1,000 mg total) by mouth every 6 (six) hours as needed 01/28/2024 atorvastatin (LIPITOR) 20 mg tabletIndications:hy perlipidemia Take 1 tablet (20 mg total) by mouth nightly 06/30/2023 carBAMazepine (TEGretol) 200 mg tabletIndications:Bi polar Disorder Take 1 tablet (200 mg total) by mouth nightly 05/30/2023 gabapentin (NEURONTIN) 100 mg capsule Take 1 capsule (100 mg total) by mouth 2 (two) times a day for 14 days 28 capsule 03/09/2024 icosapent ethyL (VASCEPA) 1 gram capsuleIndications:h ypertriglyceridemia Take 2 capsules (2 g total) by mouth 2 (two) times a day 07/30/2023 omeprazole (PriLOSEC) 20 mg capsuleIndications:T reatment of Non-Bleeding Gastric Disorder Take 1 capsule (20 mg total) by mouth nightly ondansetron ODT (ZOFRAN-ODT) 4 mg disintegrating tablet Take 1 tablet (4 mg total) by mouth every 8 (eight) hours as needed for nausea or vomiting 10 tablet 03/09/2024 oxyCODONE (ROXICODONE) 5 mg immediate release tabletIndications:Pa in Take 1 tablet (5 mg total) by mouth every 4 (four) hours as needed for pain 15 tablet 03/09/2024 polyethylene glycol (MIRALAX) 17 gram packetIndications:co nstipation Take 1 packet (17 g total) by mouth daily 30 packet 03/09/2024 senna-docusate (PERICOLACE) 8.6-50 mg Take 1 tablet by mouth 2 (two) times a day 60 tablet 03/09/2024 documented as of this encounter Ordered Prescriptions Prescription Sig Dispense Quantity Refills Last Filled Start Date End Date senna-docusate (PERICOLACE) 8.6-50 mg Take 1 tablet by mouth 2 (two) times a day 60 tablet 03/09/2024 polyethylene glycol (MIRALAX) 17 gram packetIndications:co nstipation Take 1 packet (17 g total) by mouth daily 30 packet 03/09/2024 ondansetron ODT (ZOFRAN-ODT) 4 mg disintegrating tablet Take 1 tablet (4 mg total) by mouth every 8 (eight) hours as needed for nausea or vomiting 10 tablet 03/09/2024 gabapentin (NEURONTIN) 100 mg capsule Take 1 capsule (100 mg total) by mouth 2 (two) times a day for 14 days 28 capsule 03/09/2024 oxyCODONE (ROXICODONE) 5 mg immediate release tabletIndications:Pa in Take 1 tablet (5 mg total) by mouth every 4 (four) hours as needed for pain 15 tablet 03/09/2024 documented in this encounter Discharge Disposition Disposition Code Departure Means Destination Comment s Discharge to home or self care documented in this encounter Progress Notes * Godwin Castaneda RD - 03/10/2024 11:41 AM CDT NUTRITION ASSESSMENT Nutrition Status: Patient appears adequately nourished at this time. REASON FOR ASSESSMENT: renal donor nutrition assessment Encounter Date: 03/10/24 11:42 AM Admission Date: 03/09/2024 LOS: 1 days HPI: Patient is a 53 y.o. male no pertinent nutrition assessment Objective Past Medical History: Diagnosis Date GERD (gastroesophageal reflux disease) Hyperlipidemia Past Surgical History: Procedure Laterality Date RECTAL SURGERY fissure repair and polyps-unsure of date Social History Tobacco Use Smoking status: Every Day Current packs/day: 1.00 Types: Cigarettes Smokeless tobacco: Never Substance and Sexual Activity Drug use: Never Sexual activity: Defer Alcohol Use: Not At Risk (02/10/2024) AUDIT-C Frequency of Alcohol Consumption: Never Average Number of Drinks: Patient does not drink Frequency of Binge Drinking: Never MEDICATION/LAB REVIEW: Scheduled Meds: acetaminophen, 1,000 mg, oral, Q6H atorvastatin, 20 mg, oral, Nightly carBAMazepine, 200 mg, oral, Nightly gabapentin, 100 mg, oral, BID heparin, 5,000 Units, subcutaneous, Q8H SHAHZAD pantoprazole DR, 40 mg, oral, Daily polyethylene glycol, 17 g, oral, Daily ramelteon, 8 mg, oral, Nightly senna-docusate, 1 tablet, oral, BID Continuous Infusions: Lactated Ringer's, 75 mL/hr, Last Rate: 75 mL/hr (03/10/24 0601) PRN Meds: ondansetron oxyCODONE Recent Labs Lab Units 03/10/24 0247 SODIUM mmol/L 139 POTASSIUM PLASMA mmol/L 4.2 CHLORIDE mmol/L 107 CO2 mmol/L 24 BUN SERUM mg/dL 15 CREATININE mg/dL 1.56* WFC-ANB-VKFRROH mL/min/1.73 m2 53* CALCIUM mg/dL 8.2* PHOSPHORUS PLASMA mg/dL 3.4 MAGNESIUM mg/dL 2.3 Recent Labs Lab Units 03/10/24 0247 GLUCOSE mg/dL 114 No results found for: ALT , AST , BILIRUBIN , ALKPHOS , LIPASE Lab Results Component Value Date HGBA1C 5.1 07/15/2023 HDL 38 (L) 07/15/2023 CHOL 177 07/15/2023 TRIG 204 (H) 07/15/2023 NURSING ASSESSMENT: Last BM Date: 03/09/24 Bowel Sounds (All Quadrants): Active, Passing flatus Aakash Scale Score: 20 Skin Integrity: Surgical incision Type of Wound (LDA): Surgical site Vital Signs BP: 103/60 Temp: 36.7 ??C (98.1 ??F) Pulse: 75 Resp: 16 SpO2: 94 % Intake/Output Summary (Last 24 hours) at 03/10/2024 1142 Last data filed at 03/10/2024 1017 Gross per 24 hour Intake 4274.58 ml Output 2975 ml Net 1299.58 ml Adult Malnutrition Scoring Tool (MST) What diet do you follow at home?: Rgular Have You Recently Lost Weight Without Trying?: No Have you been eating poorly because of a decreased appetite?: No Malnutrition Screening Tool (MST) Score: 0 Anthropometrics Weight: 86.5 kg (190 lb 11.2 oz) Admission Weight : 86.5 kg Weight Change: 0.31 kg (0.70 lbs) IBW/kg (Calculated) : 72.6 kg Height: 175.3 cm (5' 9 ) Weight in (lb) to have BMI = 25: 168.9 BMI (Calculated): 28.1 Wt Readings from Last 10 Encounters: 03/10/24 86.5 kg (190 lb 11.2 oz) 02/27/24 86.2 kg (190 lb) 11/19/23 86.7 kg (191 lb 3.2 oz) 08/18/23 86 kg (189 lb 9.5 oz) 08/15/23 84.6 kg (186 lb 8.2 oz) ESTIMATED NEEDS: Total Kcal/kg Estimated Needs : 1989.52 Kcal/k. Type of Weight Used for Estimated Kcals: Admission Total Fat Estimated Needs (gm): 44.21 Fat Needs Based on % of Calories: 20 Calories Used for Grams of Fat: Total Kcal/kg estimated needs Dietary Orders (From admission, onward) Start Ordered 03/10/24 0519 Adult Diet Restricted; Low Fat, Low Chol Diet effective now Question Answer Comment (BJ) Diet type Restricted Fat / Sodium Restriction: Low Fat, Low Chol 03/10/24 0519 Allergies: Reviewed. IMPRESSION: Pt reports good intake, stable weight before surgery. No diet restrictions or nutritional issues. Usually eats one large meal in the evenings. Appears to have been well nourished before surgery. ASPEN MALNUTRITION ASSESSMENT: Date of completion: 03/10/24 NUTRITION FOCUSED PHYSICAL EXAM: Not clinically indicated, no concerns for malnutrition at this time. NUTRITION DIAGNOSIS: Nutrition Diagnosis 1: Food and nutrition-related knowledge deficit Related to: Recent surgery Evidenced by: Patient interview, Physical finding INTERVENTION(S): Summary: Meals and snacks, Education, nutrition, Encouragement Continue with low fat diet. Discussed with pt reason for low fat diet and to aim for max of 45g fat (<20% jennifer/fat) per day. Provided restricted fat nutrition therapy and contact info. After 1 week, can resume regular home diet. Discussed that there are no restrictions from the kidney donation. Discussed generally healthy eating and monitoring to maintain normal BP, chol, and to attempt to prevent diabetes. Encouraged activity and good intake. Denied questions. Will continue to monitor. GOAL(S): Continue adequate PO intakes, Patient/caregiver able to teach back understanding of role of diet indisease process prior to discharge MONITORING/EVALUATION: Appetite, Plan of care, PO intake Godwin Castaneda RD LD CDE [phone]. Weekends [phone] * [place] Jose R, [facility] - 03/10/2024 11:33 AM CDT Dagoberto Marcial is a living donor who is POD1 from living donor nephrectomy. His profile has been reviewed by transplant pharmacist specialist on 03/10/24. Case reviewed on rounds with multidisciplinary team or outside of rounds with prescribers as necessary. Additional significant interventions or issues related to ongoing monitoring are listed below as appropriate. Current Medications Current Facility-Administered Medications: acetaminophen (TYLENOL) tablet 1,000 mg, 1,000 mg, oral, Q6H, Deepak Kline MD, 1,000 mg at 03/10/24 0603 atorvastatin (LIPITOR) tablet 20 mg, 20 mg, oral, Nightly, Deepak Kline MD, 20 mg at 03/09/242019 carBAMazepine (TEGretol) tablet 200 mg, 200 mg, oral, Nightly, Deepak Kline MD, 200 mg at 03/09/242019 gabapentin (NEURONTIN) capsule 100 mg, 100 mg, oral, BID, Deepak Kline MD, 100 mg at 03/10/24 0936 heparin 5,000 unit/mL injection 5,000 Units, 5,000 Units, subcutaneous, Q8H [facility], Deepak Kline MD, 5,000 Units at 03/10/24602 Lactated Ringer's (LR) infusion, 75 mL/hr, intravenous, Continuous, Nela Canales NP, Last Rate: 75 mL/hr at 03/10/24600, 75 mL/hr at 03/10/24600 ondansetron (ZOFRAN) injection 4 mg, 4 mg, intravenous, Q6H PRN, Depeak Kline MD oxyCODONE (ROXICODONE) tablet 5 mg, 5 mg, oral, Q4H PRN, Deepak Kline MD, 5 mg at 03/10/[address] (PROTONIX) extended release tablet 40 mg, 40 mg, oral, Daily, Nela Canales NP, 40 mg at 03/10/24935 polyethylene glycol (MIRALAX) packet 17 g, 17 g, oral, Daily, Deepak Kline MD, 17 g at 03/10/24935 ramelteon (ROZEREM) tablet 8 mg, 8 mg, oral, Nightly, Andi Monroe MD, 8 mg at 03/09/242026 senna-docusate (PERICOLACE) 8.6-50 mg per tablet 1 tablet, 1 tablet, oral, BID, Deepak Kline MD, 1 tablet at 03/10/24935 Objective Data Blood pressure 103/60, pulse 75, temperature 36.7 ??C (98.1 ??F), temperature source Oral, resp. rate 16, height 175.3 cm (5' 9 ), weight 86.5 kg (190 lb 11.2 oz), SpO2 94%. I and Os: I/O last 3 completed shifts: In: 3920 [P.O.:1200; I.V.:2700; IV Piggyback:20] Out: 3525 [Urine:3500; Blood:25] Recent Labs Lab Units 03/10/24 0247 WBC K/cumm 13.1* HEMOGLOBIN g/dL 13.0 HEMATOCRIT % 36.7* PLATELETS K/cumm 121* Recent Labs Lab Units 03/10/24 0247 CREATININE mg/dL 1.56* GAQ-QIN-BNPSUPX mL/min/1.73 m2 53* Brief Pharmacist Summary 53 yo M s/p living donor nephrectomy Recommendations Okay to resume home atorvastatin 20 mg daily, carbamazepine 200 mg nightly, and pantoprazole 40 mg daily (in place of home omeprazole). Hold Vascepa in immediate post-op period, but okay resume on discharge if no bleeding concerns. Signed, Jose R Bar, PharmD, BCTXP Clinical Specialist - Solid Organ Transplant * Donna Nazario LCSW - 03/09/2024 1:50 PM CDT Donor has been approved for travel expenses and lost wage reimbursement through [employer] [facility] [employer] [facility]. Living donor SW has updated [facility] that surgery was completed today so they canrelease the funds. SW to meet with donor tomorrow for SW initial inpatient assessment. * Nela Canales NP - 03/09/2024 12:48 PM CDT Kidney Donor Postoperative Check S: [place] [id number] after undergoing a Procedure(s) (LRB): XI ROBOTIC ASSISTED LEFT DONOR NEPHRECTOMY and TAP BLOCK (Left). He denies CP/SOB, Nausea/Vomiting. O: Blood pressure 134/90, pulse 79, temperature 36.7 ??C (98 ??F), resp. rate 16, height 175.3 cm (5' 9 ), weight 83.9 kg (185 lb), SpO2 95%. Abdomen: Soft, appropriately tender. Lap sites clean/dry. : Carrasco catheter in place. +Clear, yellow urine in the bag. LE: SCD's in place. A/P: S/P Donor nephrectomy. 1. IVF @125/hour. 2. Clears tonight. Plan to advance tomorrow if tolerated 3. SQH for DVT Prophylaxis. 4. Keep carrasco tonight for close I & O monitoring 5. Pain control with scheduled APAP/Toradol/Gabapentin. Breakthrough pain control with oxycodone asneeded. 6. Anticipate discharge on POD #2. documented in this encounter H&P Notes * Eduardo Navarro MD - 03/09/2024 5:53 AM CDT I have reviewed the H&P, examined the patient, and endorse the findings as written. Plan of Care : Based on the above findings, I consider Dagoberto Marcial Jr. to be an acceptable risk for : Procedure(s): XI ROBOTIC ASSISTED DONOR NEPHRECTOMY LEFT Cosigned by Roberto Cannon MD at 03/09/2024 7:24 AM CDT Source Note - Catia West NP - 02/27/2024 1:30 PM CDT PATIENT NAME: Dagoberto Marcial Jr. : 1970 02/27/2024 CHIEF COMPLAINT: Potential Kidney Donor HISTORY OF PRESENT ILLNESS: Mr. Marcial is a 53 y.o. male wishing to donate a kidney to his cousin, who began the donor evaluation in 11/19/2023 and has been cleared by our independent donor advocate for donation. A right LEFTdonor nephrectomy is scheduled on 03/09/2024. He denies changes in health since evaluation by nephrology. No history of diabetes, hypertension, kidney stones, or frequent urinary tract infections. PAST MEDICAL HISTORY: No past medical history on file. PAST SURGICAL HISTORY: Past Surgical History: Procedure Laterality Date RECTAL SURGERY fissure repair and polyps-unsure of date CURRENT MEDICATIONS: Current Outpatient Medications: atorvastatin (LIPITOR) 20 mg tablet, Take 1 tablet (20 mg total) by mouth nightly, Disp: , Rfl: azithromycin (ZITHROMAX) 500 mg tablet, Take 1 tablet (500 mg total) by mouth daily, Disp: , Rfl: carBAMazepine (TEGretol) 200 mg tablet, Take 1 tablet (200 mg total) by mouth nightly, Disp: , Rfl: fluticasone propionate (FLONASE) 50 mcg/actuation nasal spray, Administer 1 spray into each nostrilas needed for rhinitis, Disp: , Rfl: icosapent ethyL (VASCEPA) 1 gram capsule, Take 2 capsules (2 g total) by mouth 2 (two) times a day,Disp: , Rfl: omeprazole (PriLOSEC) 20 mg capsule, Take 1 capsule (20 mg total) by mouth nightly, Disp: , Rfl: ALLERGIES: No Known Allergies SOCIAL HISTORY: Social History Tobacco Use Smoking Status Every Day Current packs/day: 1.00 Types: Cigarettes Smokeless Tobacco Never Alcohol: Rarely Cigarettes: 1 - 1.5 ppd x 35 years reports no history of drug use. 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 REVIEW OF SYSTEMS: Review of Systems All other systems reviewed and are negative. Denies fever/chills, hematuria, dysuria, SOB, or Chest pain. All other systems were reviewed and are negative. PHYSICAL EXAM: Physical Exam Constitutional: General: He is not in acute distress. Appearance: Normal appearance. He is well-developed. He is not ill-appearing, toxic-appearing or diaphoretic. HENT: Head: Normocephalic and atraumatic. Right Ear: External ear normal. Left Ear: External ear normal. Cardiovascular: Rate and Rhythm: Normal rate and regular rhythm. Pulses: Normal pulses. Pulmonary: Effort: Pulmonary effort is normal. No respiratory distress. Abdominal: General: Abdomen is flat. There is no distension. Palpations: Abdomen is soft. There is no mass. Tenderness: There is no abdominal tenderness. There is no guarding. Hernia: No hernia is present. Musculoskeletal: General: No tenderness or deformity. Skin: General: Skin is warm and dry. Coloration: Skin is not pale. Findings: No erythema or rash. Neurological: Mental Status: He is alert and oriented to person, place, and time. Sensory: No sensory deficit. Psychiatric: Mood and Affect: Mood normal. Behavior: Behavior normal. Thought Content: Thought content normal. Judgment: Judgment normal. ASSESSMENT AND PLAN: 53 y.o. male without significant past medical history wishing to donate a kidney, here for preoperative evaluation prior to planned living donor nephrectomy. LABS: ABO: O Positive Lab Results Component Value Date WBC 7.9 02/27/2024 HGB 16.5 02/27/2024 HCT 50.7 (H) 02/27/2024 MCV 90.7 02/27/2024 Lab Results Component Value Date SODIUM 141 08/18/2023 POTASSIUM 4.9 08/18/2023 CHLORIDE 108 08/18/2023 CO2 26 08/18/2023 ANIONGAP 7 08/18/2023 GLUCOSE 100 08/18/2023 BUNSER 21 08/18/2023 CREATININE 0.8 11/19/2023 CALCIUM 9.3 08/18/2023 PROTEIN 7.4 07/15/2023 ALBUMIN 4.6 08/18/2023 ALKPHOS 145 (H) 08/18/2023 ALT 22 08/18/2023 AST 19 08/18/2023 BILITOT 0.2 08/18/2023 IMAGING: CTA abdomen/pelvis: RENAL FINDINGS: Right Kidney: Length: 12.9 cm Calculi: None Number of arteries: 1 Number of veins: 1 Renal artery #1 length to first bifurcation: 46 mm Renal vein #1 length to first bifurcation: 10 mm Urothelium: Normal Parenchyma: Normal Total right renal volume: 224 cc Left kidney: Length: 13.2 cm Calculi: None Number of arteries: 1 Number of veins: 1 Renal artery #1 length to first bifurcation: 42 mm Renal vein #1 length to first bifurcation: 68 mm Urothelium: Normal Parenchyma: 4 mm cyst in the mid portion, otherwise normal Total left renal volume: 234 cc Plan: -- Discussion with patient and family (if applicable ) expectations for surgery - day of planning, as well as pre-op, surgery, pain control and post-op recovery plan. -- Patient was advised to follow up with the anaesthesia department at [facility] for instructions regarding medication, surgical planning and additional testing that may be necessary -- Educated patient regarding the need for consent with procedures, including discussion of blood products and consent, if necessary. -- Discussed with patient and family expectations of post-op stay and they are aware that these expectations for [id number] and post-op planning are dependent on intraoperative findings, complications and recovery -- We discussed with him the risks, benefits, and alternatives to proceeding with robotic donor nephrectomy, including a brief description of the operative procedure and expected convalescence. He states understanding and would like to proceed with surgery. I, Catia West [facility]-, have personally taken a history, examined the patient, and documented the assessment and plan as noted. The patient was reviewed with Dr. Cannon in the [facility]. Catia West NP-BC, MSN Patient Care Team: Elke Mcmillan MD as PCP - General (Family Medicine) Lindsey Bal RN as Academic Computing Director documented in this encounter Consult Notes * Kevin Escalera MD - 03/10/2024 1:32 PM CDTAssociated Order(s): IP CONSULT TO RENAL TRANSPLANT Nephrology Consult Reason for Consult: kidney donor Requesting Provider: Dr. Cannon Subjective Patient is a 53 y.o. male with chief complaint of kidney donor. HPI: 53 y.o. yo male with no PMHx admitted for kidney donation. S/p Lt robotic nephrectomy with no immediate complication No complaint PMH As above Past Surgical History: Procedure Laterality Date RECTAL SURGERY fissure repair and polyps-unsure of date No medications prior to admission. No Known Allergies Social History Tobacco Use Smoking status: Every Day Current packs/day: 1.00 Types: Cigarettes Smokeless tobacco: Never Substance and Sexual Activity Drug use: Never Sexual activity: Defer Alcohol Use: Not At Risk (02/10/2024) AUDIT-C Frequency of Alcohol Consumption: Never Average Number of Drinks: Patient does not drink Frequency of Binge Drinking: Never History reviewed. No pertinent family history. Review of Systems: Review of systems per HPI and otherwise all systems are negative Objective Vitals: 24hr Min/Max: Temp Min: 36.7 ??C (98.1 ??F) Max: 37.2 ??C (99 ??F) Pulse Min: 73 Max: 81 BP Min: 103/60 Max: 149/87 Resp Min: 16 Max: 16 SpO2 Min: 94 % Max: 96 % Most Recent: Vitals: 03/10/24 0315 BP: 103/60 Pulse: 75 Resp: 16 Temp: 36.7 ??C (98.1 ??F) SpO2: 94% I/O last 2 completed shifts: In: 3920 [P.O.:1200; I.V.:2700; IV Piggyback:20] Out: 3525 [Urine:3500; Blood:25] I/O this shift: In: 3074.6 [P.O.:420; I.V.:2654.6] Out: 175 [Urine:175] Physical Exam: Gen: comfortable, NAD HEENT: MMM Neck: no JVD Eyes: no scleral icterus CV: RRR no m/r/g, no LE edema Resp: CTA b/l no w/r/r Abd: soft NT/ND, normoactive bowel sounds Skin: no rashes noted Psych: appropriate Neuro: CN II-XII grossly intact Lab/Radiology/Diagnostic Review: Lab Results Component Value Date WBC 13.1 (H) 03/10/2024 HGB 13.0 03/10/2024 HCT 36.7 (L) 03/10/2024 MCV 88.9 03/10/2024 LABPLAT 121 (L) 03/10/2024 Lab Results Component Value Date GLUCOSE 114 03/10/2024 CALCIUM 8.2 (L) 03/10/2024 SODIUM 139 03/10/2024 POTASSIUM 4.2 03/10/2024 CO2 24 03/10/2024 CHLORIDE 107 03/10/2024 BUNSER 15 03/10/2024 CREATININE 1.56 (H) 03/10/2024 No results found. ASSESSMENT AND PLAN S/p Lt robotic nephrectomy 03/09/24, Cr 1.5 from 0.9 - Encourage hydration - Avoid NSAID - Follow up with PCP and nephrology after discharge Seen and evaluated with the attending on service Dr. Willian Lopez. Kevin Escalera MD Transplant Nephrology Fellow PGY6 Cosigned by Krissy Gómez MD at 03/10/2024 3:48 PM CDT Associated attestation - Krissy Gómez MD - 03/10/2024 3:48 PM CDT I have seen and examined the patient on 03/10/2024. I agree with the findings and plan of care as documented in the resident's/fellow's note.. Assessment/Plan Kidney Transplant Donor on 03/09/24 Doing well post donation. Cr rise not unexpected given nephrectomy yesterday. Reminded patient to monitor his BP moving forward and f/u with surgery as scheduled, and labs at timed intervals post donation through his coordinator. We will continue to monitor. Krissy Lopez MD documented in this encounter Miscellaneous Notes * Plan of Care - Marcella Soto RN - 03/10/2024 10:29 AM CDT Goals: Clinical Goals for the Shift: monitor labs and vitals, pain control, i&o's, carrasco care, safe transfers, promote rest Summary: Problem: Discharge Planning Goal: Understanding discharge needs will improve Outcome: Progressing Problem: Lack of Knowledge Goal: Ability to develop a pain control plan will improve Outcome: Progressing Problem: Medication Goal: Satisfaction with pain management medication regimen will improve Outcome: Progressing Problem: Sensory Goal: Ability to identify factors that increase pain levels will improve while working to decrease the patient's pain levels Outcome: Progressing Problem: Coping Goal: Ability to cope will improve Outcome: Progressing Problem: Health Behavior Goal: Identification of resources available to assist in meeting health care needs will improve Outcome: Progressing Problem: Discharge Planning Goal: Understanding discharge needs will improve Outcome: Progressing Problem: Lack of Knowledge Goal: Ability to develop a pain control plan will improve Outcome: Progressing Problem: Medication Goal: Satisfaction with pain management medication regimen will improve Outcome: Progressing Problem: Sensory Goal: Ability to identify factors that increase pain levels will improve while working to decrease the patient's pain levels Outcome: Progressing Problem: Coping Goal: Ability to cope will improve Outcome: Progressing Problem: Health Behavior Goal: Identification of resources available to assist in meeting health care needs will improve Outcome: Progressing * Initial Assessments - Donna Nazario LCSW - 03/10/2024 10:14 AM CDT Living Kidney Donor Social Work Psychosocial Evaluation Donor Assessment Patient had a living donor surgery on 03/09/2024. SW met with patient inpatient at bedside to complete the initial assessment. Outpatient SW assessment was completed on 11/21/2023. Patient reports feeling well, and is ready to discharge today. He reports that he has seen his recipient and reports he is doing well. Pt's spouse is at bedside. They plan to discharge today and go stay in recipients roomto visit this afternoon. SW discussed that pt had been approved for [place] [facility] for lost wage reimbursement and travel expenses. SW explained that SW has updated DA that surgery was completed. Pt reports that he doesn't know why more people dont donate, as he has had a good experience. Patient reports feeling well. SW explained to contact SW if any additional need arise. Inpatient SW psychosocial assessment has been completed. Pt continues to be appropriate. Independent living donor advocate will continue to follow-up with pt on an outpatient bases. Outpatient assessment: Patient referred to social work per protocol for a psychosocial evaluation related to living kidneydonation. Patient referred by living donor coordinator Lindsey Bal. Assessment completed with patient via the phone on 11/21/2023. Patient's step 3 testing was scheduled on 11/19/2023. AD/DPOA Patient does not have AD/DPOA and denies the need for assistance at this time. Pt verbally names his spouse Viridiana Marcial ([phone]) as his surrogate decision maker. Care Comment Patient???s primary caregiver will be spouse Viridiana. She has paid time off. Other assistance will be available from pt's step-son. Transportation can be provided by spouse Viridiana post-donation. Family Hx and Support Patient lives with spouse Viridiana and her son in a house they own located at [address] [place] [address]. [facility], which is [place] [address] from [facility]. Patient and spouse have been for 13 years. Pt hastwo sons and a daughter. Patient was born and raised in [place]. Patient???s parents are .Patient has two brothers that he sees every once and a while. Patient reports that family is supportive of donation. Patient is independent with ADLs and drives. Education/Work Hx Patient completed a GED and an electrical science degree. 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 After recovery from donation, patient plans to return back to work. Discussed 1-3 night hospital stay, no lifting over 10lbs for 2-4 weeks, and no driving. Discussed time off work varies, but will be further discussed by medical team, likely 2-12 weeks depending on pt's type of employment. 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 Pt states he has the ability to return to work on light duty . Patient's spouse works as a high school foreign language teacher. Patient reports finances to be tight but stable. He anticipates some financial challenges due to donation. Patient denied any concerns related to S [place] questions; reports no difficulty with affording bills/food/medication, and reports no issues with transportation. Patient's household wages are through his employment, and spouse's employment. Patient reports employer is supportive of donation. Social Work provided information, and emailed brochure/application for [facility] Assistance Program for lost wages, travel expenses and dependent care expenses reimbursement. Social Work explained that applications must be submitted and approved prior to surgery. Patient has been informed to update Social Work of updates regarding possible surgery date. Coverage Information/Details Patient states he has [facility] health insurance through his employer. Patient does not anticipate any changes to insurance. Social Work discussed for patient to let coordinator know if they receive a billrelated to donor workup as bills should be filed under recipient's insurance. Alcohol Drug Tobacco Hx ETOH: Pt denies alcohol use. He denies any alcohol abuse, or concerns with his usage. Illicit Drugs: Pt denies the current use of illicit drugs. Pt states he used marijuana and cocaine when he was younger , but states that has been over 20 years ago now. Tobacco: Pt states he smokes 1 pack to 1.5 packs of cigarettes per day. Legal Issues Patient denies any legal concerns. Psychiatric history Patient states he has previous diagnosis of Bipolar disorder and depression. He was diagnosed in 1999 and states he hasn't had issues since 2008. In 2008, the pt met with a doctor who found that the pt was having seizures and this was causing some of his behaviors. This MD prescribed the pt carbamazepine. This MD has since retired and the medication is now prescribed by his PCP. Pt reports since starting this medication, he has not had any metal health episodes. He denies mental health concerns at this time. Patient denies any past suicide attempts but states he did have hospitalizations related to mental health. Pt's mental health is well managed at this time. No current mental health concerns. Social Work discussed that sometimes donor workup, surgery, and recovery can be anxiety provoking, and offered to provide resources if needed at any point. Understanding of Illness/Coping The potential recipient is the patient???s cousin Dagoberto Parrish. Patient states he has considered donating since his cousin has needed one, which has been roughly 6 months. Patient states his motivation to donate is because he has two and his cousin needs one. Patient denies receiving compensation for donation or feeling pressured. Patient recognizes that there is a chance the transplant could fail and that medical team will discuss this with him, including risks to his remaining kidney, and risk of donated kidney failing in recipient. Patient states he enjoys collecting dolls, playing video games, and fixing up cars. Patient states he randy by playing video games and putting in the work raúl task. Patient denied any significant medical/surgical history. Patient plans to use the above to cope with living donor surgery. Patient denies concerns about the medical/psychosocial/financial risks identified Social Determinants of Health: Transportation Needs: No Transportation Needs (03/10/2024) PRAPARE - Transportation Lack of Transportation (Medical): No Lack of Transportation (Non-Medical): No Social Connections: Socially Integrated (03/10/2024) Social Connection and Isolation Panel [NHANES] Frequency of Communication with Friends and Family: More than three times a week Frequency of Social Gatherings with Friends and Family: More than three times a week Attends Jain Services: More than 4 times per year Active Member of Clubs or Organizations: Yes Attends Club or Organization Meetings: More than 4 times per year Marital Status: Food Insecurity: No Food Insecurity (03/10/2024) Hunger Vital Sign Worried About Running Out of Food in the Last Year: Never true Ran Out of Food in the Last Year: Never true Housing Stability: Low Risk (03/10/2024) Housing Stability Vital Sign Unable to Pay for Housing in the Last Year: No Number of Places Lived in the Last Year: 1 Unstable Housing in the Last Year: No Financial Resource Strain: Medium Risk (03/10/2024) Overall Financial Resource Strain (CARDIA) Difficulty of Paying Living Expenses: Somewhat hard Patient is a 53 year old male, who would like to be considered for living kidney donation. Assessment was completed via the phone. Patient presents to the interview on time and was pleasant and agreeable to social work intervention. Overall, patient was a reliable historian who was forth coming with information. His affect was appropriate and he was at ease discussing personal information related to his health and relationships. 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 After donation, patient plans to return to work as soon aspossible. Spouse Viridiana and pt's step-son will be the primary caregiver support. Patient denies any current mental health concerns. Patient states finances are stable and has insurance coverage through [facility]. Patient reports no substance usage concerns. He denies any compensation has been offered for donation. He denies any coercion in his decision todonate. He is aware of risks and benefits of donation, including psychosocial risks. Social Work has determined that the living donor understands the short and long-term medical and psychosocial riskfor both the living donor and recipient associated with living donation. There were no high risk behaviors identified from the living donor questionnaire which could preclude him from donation. Patient appears to be capable of following a medical care regimen after donation. Based on the information patient provided, patient is considered an appropriate candidate for living kidney donation from a psychosocial perspective. Problems / Plans 1. Psychosocial assessment complete. 2. AD/DPOA: Patient does not have AD/DPOA and denies the need for assistance at this time. Pt verbally names his spouse Viridiana Marcial ([phone]) as his surrogate decision maker. 3. Increased Risk Behavior Assessment: Completed. 4. Education: Patient was provided information on the donation process, including psychosocial / financial / medical / surgical risks, and expectations while in the hospital and after donation. Patient was also provided with the transplant office contact information and encouraged to call with questions or concerns. 5. Employment Plan and Medication Access after Donation: Patient is employed full-time and does not plan to change at this time. Spouse is employed full-time. Per patient, household finances are considered stable. Patient has insurance through [facility] and doesnot expect to have any issues with coverage. Plan for Transplant Transplant team to determine if patient is an acceptable candidate for living kidney donation. Patient will continue to complete evaluation testing and follow the recommendations of the transplant team. Inpatient SW psychosocial assessment has been completed. Pt continues to be appropriate. Independent living donor advocate will continue to follow-up with pt on an outpatient bases. Donna Nazario RECONCILEMENT CLERK, CUSTOMER SUCCESS MANAGER Transplant Social Work [phone] * Plan of Care - Yeimy Mason RN - 03/09/2024 10:23 PM CDT Goals: Clinical Goals for the Shift: monitor labs and vitals, pain control, i&o's, carrasco care, safe transfers, promote rest Summary: * Plan of Care - Christina Olivares RN - 03/09/2024 3:01 PM CDT Goals: Summary: Problem: Discharge Planning Goal: Understanding discharge needs will improve Outcome: Progressing * Op Note - Roberto Cannon MD - 03/09/2024 8:12 AM CDT OPERATIVE REPORT DATE OF SURGERY 03/09/2024 SURGEON Roberto Cannon MD FIRST BSW MD Dr Eliud Burger is the transplant surgery fellow and services were required since there was no suitableresident available. They assisted with all portions of the case including port placement, robot docking, dissection, kidney extraction, TAP block and closure. SECOND BSW DARIEN Howard PREOPERATIVE DIAGNOSIS Living kidney donor POSTOPERATIVE DIAGNOSIS Living kidney donor SURGERY PERFORMED Robot assisted left donor nephrectomy TAP block ANESTHESIA General endotracheal. PREOPERATIVE ANTIBIOTICS Iv antibiotics within 30 minutes of incision DVT PROPHYLAXIS TEDs and SCDs. INDICATIONS Dagoberto Marcial Jr. is a 53 y.o. male was evaluated for a living donor for his cousin and found to be a suitable candidate for robot assisted LEFT nephrectomy. Informed consent has been obtained and the patient has been made aware of the risks and possible complications including risk of infection, bleeding, renal failure, need for additional surgery and small possibility of requiring larger incision. Preoperative imaging including CT angiogram has been reviewed for pertinent vascular anatomy. Decision has been made to proceed with robot assisted LEFTdonor nephrectomy FINDINGS Uneventful left donor nephrectomy Renal artery: 1 Renal vein: 1 Ureter: Single Good hemostasis at the end of the case SURGERY DETAILS The patient was taken to the operating room and placed supine on the table. After identification and timeout, anesthesia was administered and airway was established. The patient received intravenous antibiotics within 30 minutes of incision and TEDs and SCDs were used for DVT prophylaxis. Patient was positioned with left side up on a loyola bag and all bony prominences suitably padded. Safety straps were applied and abdomen was prepped with ChloraPrep and draped following sterile technique. 7 cm pfannenstiel incision was made with a skin knife. Fascia was divided transversely and peritoneum was incised longitudinally between the rectus muscles to gain access to the peritoneal cavity. GelPort was inserted and abdominal cavity was insufflated with CO2 at a pressure of 15 mm of mercury. I nspection did not reveal any obvious abnormality. Two 8 mm ports were inserted in the left subcostal and du-umbilical areas and a third 12 mm port was inserted in the left lower abdomen. PlumTV Xirobotic system was docked and instruments inserted. The left colon was carefully reflected medially keeping the mesentery intact using combination of fenestrated bipolar grasper, monopolar cautery and vessel sealant device. This was continued down to the level of the pelvic brim. Gonadal vein was identified and dissected superiorly to the junction with the left renal vein was seen. Gonadal vein was divided after clipping both sides with robotic locking clips. The ureter was similarly identified and freed up distally to the level of the pelvic brim. Care was taken to maintain its vasculature. We then dissected out the left renal vein and the adrenal vein superiorly was identified. Circumferential control was obtained and the adrenal vein was d ivided after placing robotic clips on either side. We then carefully dissected the adrenal gland off the kidney and continued the dissection superiorly dividing the splenorenal ligament. The renal artery was then identified adjacent to the renal vein and was cleared down to the level of the aorta. We then continued with lateral mobilization of the kidney and attachments were taken down using vessel sealant device extending posteriorly. Dissection was carried out carefully till the area of the hilum was reached and then the renal artery and the veins were identified from posterioraspect The remaining tissue tethering these two structures was carefully taken down. Lumbar veins draining in renal vein were clipped and divided. At this time the kidney had been completely mobilized and was only attached via the renal artery, the vein and the ureter The recipient surgeon then came into the room and after confirmation that the recipient team was ready, 2000 units of intravenous heparin was administered along with 12.5 g of mannitol and 20 mg of intravenous Lasix. The kidney was placed in neutral position. The ureter was clipped twice distally and then the renal artery was divided close to site of origin from the aorta using single firing of the robotic stapler through the 12 mm port This was followed by division of the renal vein proximal to the level of the gonadal and the adrenal veins. The ureter was then divided above the level of theclips and the kidney was extracted from the body, placed in an iced basin and handed to the recipient surgeon for back table preparation and flush The nephrectomy bed was examined for hemostasis which appeared to be good. Staple lines were intactand no bleeding was noted. Colon was reflected to its original position. TAP block was performed under direct visualization. Robot was undocked. 12 mm port site was closed using trans fascial sutures. Peritoneum was approximated using 2-O Vicryl suture. Fascia was closed using 1 PDS. Subcutaneous tissue was approximated using 3 0 Vicryl and skin for all incisions was closed using 4 Monocryl subcuticular stitch. Dermabond dressing was fashioned. ESTIMATED BLOOD LOSS <50 cc COMPLICATIONS No immediate complications. PRESENCE STATEMENT I was present and scrubbed for the entire duration of the case. Instrument, needle and sponge countwas correct at the end of surgery DISPOSITION The patient was transferred to PACU in stable condition. Roberto Cannon MD Transplant Surgery * Brief Op Note - Deepak Kline MD - 03/09/2024 8:12 AM CDT Operative Progress Note Surgical Team: Surgeons and Role: * Roberto Cannon MD - Primary * Deepak Kline MD - Fellow * Luisito Singletary MD - Co-Surgeon Anesthesiologist: Benja Bhatia MD PhD MIXER OPERATOR HELPER HOT METAL: Mannie Montgomery CRNA Signal Intelligence Analyst: Dayna Bhakta RN Physician Rfid Manager: Gracy Millan PA Signal Intelligence Analyst Relief: Maria Del Carmen Jarrett RN Scrub: Nidhi Almazan RN Orientee Signal Intelligence Analyst: Ashley Lazcano RN FLOAT: Maria Del Carmen Jarrett RN; Nata Plata RN DATE OF SURGERY : 03/09/2024 Preoperative Diagnosis: Pre-op Diagnosis * Kidney donor [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] Postoperative Diagnosis: Post-op Diagnosis * Kidney donor [Z52.4] Procedure(s): Procedure(s) (LRB): XI ROBOTIC ASSISTED LEFT DONOR NEPHRECTOMY and TAP BLOCK (Left) Operative Findings: Xi assisted left donor nephrectomy Single artery, vein, ureter Estimated Blood Loss: 25 mL Intraoperative Fluids: 2500 mls Specimens: No specimen collected in procedure Implants: Nothing was implanted during the procedure Blood/Blood Products Transfused: 0 mls Complications: None Condition on Discharge from the operating room was stable Deepak Kline MD Date: 03/09/2024 Time: 10:33 AM TEACHING ATTESTATION : I was present and directly participated in the entire procedure (including opening and closing). Cosigned by Roberto Cannon MD at 03/10/2024 11:34 AM CDT * Pre-Procedure Instructions - Deanna De La Torre NP - 03/01/2024 2:52 PM CDT [facility] Planning CPAP Clinic Location: [facility] The night before your surgery: * Do not eat anything after midnight the night before your procedure. The morning of your surgery: * You may have clear liquids on your surgery day. You must stop drinking two hours before you arrive to the surgery facility. Acceptable clear liquids include water, clear sports drinks, black coffee, tea, or clear soda. DO NOT drink any milk, creamer, or alcohol. * Your surgeon's office may have provided additional instructions or restrictions. Please follow those instructions. * You may brush your teeth and rinse your mouth out. * Do not glue your dentures. * Do not wear jewelry, body piercings, makeup, hairpins, false eyelashes or contact lenses to the hospital. * Leave any valuables at home or with your family. * If you are going to be admitted after surgery at [facility], COVID testing may be performed on the day of surgery, even if you are up to date on your COVID-19 vaccine. * If having surgery at [facility], you may want to bring a credit card if you want to use our Mobile Pharmacy for your discharge medications. Mobile pharmacy is not available at [facility], the Orthopedic Center, or the [place] for [facility]. If you are a smoker: * You should prepare for your surgery and recovery well ahead of time. Stop smoking at least 2 weeks before surgery to help prevent infection and help your body recover faster. Ask your surgeon for tools to help you quit or call 9-945-DEZSNDE ( ). Visit Smokefree.gov for more information. * Do not smoke during the 24 hours before surgery. Instructions For Your Medications: Pre-Surgery Instructions: Medication Instructions atorvastatin (LIPITOR) 20 mg tablet Take as normal azithromycin (ZITHROMAX) 500 mg tablet Take morning of surgery carBAMazepine (TEGretol) 200 mg tablet Take as normal fluticasone propionate (FLONASE) 50 mcg/actuation nasal spray Use on day of surgery if needed icosapent ethyL (VASCEPA) 1 gram capsule Take as normal omeprazole (PriLOSEC) 20 mg capsule Take as normal General Instructions For Medications: For medications that you are instructed to take on the morning of surgery, take the medications with a few sips of water. Stop all of these medications 7-14 days prior to your surgery: Vitamin E, Herbal medicines, Diet Pills If you have pain, you may take tylenol (acetaminophen). Do not take more than 6 tablets or 3000 mg (3 g) within a 24 period. Call your surgeon and the CPAP clinic if any of the following happens before surgery: Any changes in your health You have a fever You have any signs of an infection (chest, urinary tract or tooth) You have been to the Emergency Room or were in the hospital You have started taking any new medications You have questions about a bowel prep or special diet before surgery You have symptoms of COVID-19 such as a new or worsening cough, shortness of breath, fever, body aches, loss of taste or smell, diarrhea or vomiting, or sore throat. You have a household contact with COVID-19. You test positive for COVID-19. * Perioperative Nursing Note - Rissa Joyce RN - 02/10/2024 10:44 AM CDT Center for Preoperative Assessment and Planning Perioperative Nursing Note Telephone Preoperative Evaluation ([facility]) - TELEPHONE ONLY, NO PHYSICAL EXAM Date: 02/10/24 This assessment was completed with the patient. Vitals: 02/10/24 1040 Weight: 83.9 kg (185 lb) Height: 175.3 cm (5' 9 ) Social History Tobacco Use Smoking Status Every Day Current packs/day: 1.00 Types: Cigarettes Smokeless Tobacco Never Substance and Sexual Activity Drug Use Never Alcohol Use Q1: How often do you have a drink containing alcohol?: Never Q2: How many drinks containing alcohol do you have on a typical day when you are drinking?: Patientdoes not drink Q3: How often do you have six or more drinks on one occasion?: Never Outpatient Medications Marked as Taking for the 03/09/24 encounter (Hospital Encounter) Medication Sig Dispense Refill atorvastatin (LIPITOR) 20 mg tablet Take 1 tablet (20 mg total) by mouth nightly azithromycin (ZITHROMAX) 500 mg tablet Take 1 tablet (500 mg total) by mouth daily carBAMazepine (TEGretol) 200 mg tablet Take 1 tablet (200 mg total) by mouth nightly fluticasone propionate (FLONASE) 50 mcg/actuation nasal spray Administer 1 spray into each nostril as needed for rhinitis icosapent ethyL (VASCEPA) 1 gram capsule Take 2 capsules (2 g total) by mouth 2 (two) times a day omeprazole (PriLOSEC) 20 mg capsule Take 1 capsule (20 mg total) by mouth nightly Implants No active implants to display in this view. SKIN Piercings Remaining: No Wound (LDAs) Type of Wound (LDA): (denies) SCREENINGS Gadiel index score: 100 PATIENT CARE PLANNING Advance Directives (For Healthcare) Have you reviewed your Advance Directive and is it valid for this stay?: No Advance Directive: Patient does not have advance directive Communication/Medical Records Supervisor Needs Communication Needs: None Assistive Devices/DME: Dentures upper Hearing - Right Ear: Functional Hearing - Left Ear: Functional Discharge Planning Type of Residence: Private residence Living Arrangements: Spouse/significant other Support Systems: Spouse/significant other Patient expects to be discharged to:: Private residence [facility] HOST NO ADDITIONAL COMMENTS/ FOLLOW UP * Pre-Procedure Instructions - Rissa Joyce RN - 02/10/2024 10:43 AM CDT CENTER FOR PREOPERATIVE ASSESSMENT AND PLANNING (CPAP) PRE-SURGICAL NURSING INSTRUCTIONS Telephone Assessment General Information Discussed with Patient: Surgery location provided to patient. Arrival time and surgical time will be provided to the patient by their surgeon. You should wear clothing that is clean, loose, comfortable and easy to get in and out of on the dayof surgery. You should remove nail coverings, artificial nails and nail hong konger prior to the day of surgery. You should leave your valuables and any jewelry at home. No metal or piercings are allowed in the operating room. You should bring your insurance card, a photo ID (example: Work From Home's License) and a method of payment for any insurance copay, deductible or copay for discharge medications. You should bring a complete, up-to-date, list of all your medications on the day of surgery, including any over the counter medications or supplements you may take. Please note on your medication list, the last date & time you took each medication. The healthcare team, on the day of surgery, will ask for this information. You should bring your Advanced Directive and/or Living Will with you on the day of surgery if you have not verified a copy is already in your Epic Chart. A Guide for Patients Having Surgery: Your Pathway to Excellent Care OUR GOAL IS TO PROVIDE YOU WITH EXCELLENT CARE Use this guide to learn about what you can do before, during and after surgery to help your recovery. You are the most important person on your health care team. By becoming informed and involved, you can contribute to the success of your surgery. If your surgeon's directions are different than those in this guide, talk with your nurse or surgeon to confirm the information. It is important that you understand how to take care of yourself at home after surgery. Be sure to bring this guide with you on the day of surgery and take it home with you after surgery. Write down questions for your nurse or surgeon on the last page of this booklet. Important pages to be reviewed BEFORE surgery: Page 1: QR codes for Surgery Center maps Page 3: Types of Anesthesia Page 5: Tips for the day & night before surgery Page 6: When to stop eating BEFORE surgery and examples of clear liquids Page 7-10: Preventing Infection: Chlorhexidine Gluconate (CHG) Bathing Instructions You may access A Guide for Patients Having Surgery: Your Pathway to Excellent Care by the followinglink: [email or web address] How To Prepare Your Skin For Surgery Below is the Pre-Surgical Bathing Protocol you should follow for your surgery. If your surgeon provides you different bathing instructions, please follow your surgeon's orders. 2 Day CHG Bathing Protocol (no nasal ointment) PREVENTING INFECTION (DECOLONIZATION): Decolonization is the use of a topical antiseptic soap and sometimes a nasal ointment to remove bacteria (germs) from the skin's surface. Antiseptic soap: Chlorhexidine gluconate or CHG (brand name: Hibiclens??) Before surgery, your entire body must be thoroughly cleaned. CHG helps to reduce the bacteria on your skin. You may be given one or more bottles of CHG or you may be asked to obtain from your preferred pharmacy. Be sure to ask your pharmacist if you need help finding this product. SHOWERING WITH ANTISEPTIC SOAP (CHG) What You Need For Each Shower 60 mL (?? cup) of CHG 2 clean washcloths CHG Bathing Instructions First, shampoo and rinse your hair with your own shampoo (no conditioners). Do this so the antiseptic soap isn't washed off by your shampoo. Wash face with warm water. Turn off shower and stand away from the water. Use 2 clean washcloths to apply the antiseptic soap to all areas as described below: Pour 30 mL (1/8 cup) of CHG on washcloth #1: Using washcloth- start at jawline and firmly massage the soap into the skin in a circular motion to clean neck, shoulders, chest, back, both armpits, arms, hands and abdomen. Finish with legs and feet. Pour 30 mL (1/8 cup) of CHG on washcloth #2: Using washcloth- firmly massage the soap into the skinin a circular motion to clean groin area, perineum and buttocks. (Do not use CHG on genital area.) [place] Points: The CHG antiseptic soap will not bubble or lather very much. If you get soap in your eyes, ears or mouth, rinse well with cool water. When finished, leave the soap on your skin for 2 minutes before rinsing. Dry off with a clean fresh towel. Wear clean clothes or pajamas to sleep in. After showering DO NOT put on deodorant, hair products or conditioners, lotions or creams, powders,Vaseline or any non-essential products. If you cannot reach the surgical site, such as the back, please have someone help you. Shaving: You may shave your face, legs and underarms during your evening shower before you apply the CHG antiseptic soap. Be careful not to cut or bharath your skin. Avoid shaving on the day of surgery. 2-Day CHG Bathing Protocol The Evening Before Surgery: Take a shower with Antiseptic soap (CHG). Follow the steps for ???Showering with Antiseptic Soap (CHG)?? above. Change all linens on your bed so you are sleeping in clean fresh sheets and pillowcases. Remove nail coverings, artificial nails and nail hong konger. The Morning of Surgery: Take a shower with Antiseptic soap (CHG). Follow the steps for ???Showering with Antiseptic Soap (CHG)?? above. Put clean clothes on after you shower. Travel/Exposure Screening: Travel Screening Have you traveled outside the [place] in the last 6 months?: No Exposure Screening Have you been exposed to anyone who is sick in the last 30 days?: No Have you been exposed to or tested positive for COVID-19 within the last 10 days?: No Infectious Disease Screening Are you having any of the following:: None As of 09/10/2022 any COVID TESTING required for surgery will be set up by your surgeon's office. Please reach out to your surgeon's office if you develop any COVID symptoms, test positive for COVID or are exposed to a COVID positive person. If you have questions, please call the CPAP Staff at [phone], Friday-Friday 8am-4:30pm. All patients should read the below section: COVID 19 Updates & Visitor Policy: Please access [email or web address] for the most updated information. Information on [facility] & the Orthopedic Center: Please view [email or web address] (Patient & Visitor Information) for additional details regarding Advanced Directive forms, AWARE, directions, parking information, lodging, Internet access, dining and more. Information on [facility] or [facility] ([facility]): Please view [email or web address] (Patient and Visitor Information) for parking/directions and more. For MyChart information, to activate account or password recovery, please go to [email or web address] or call [phone] (toll-free: [phone]), Fri- Friday 8am-5pm. Information for Suicide Prevention: National Suicide Prevention [employer] (6-051- 618-FPPI (0214)) or call or text 137. Chat resources: [employer].PolicyStat. Surgery Times: For patients having surgery @ [facility] or [facility] ([facility]), if your surgeon's office has not notified you of your surgery time by NOON THE BUSINESS DAY BEFORE your surgery, please call [phone] and ask for your surgeon's office Dr. Al Cannon. The Center for Preoperative Assessment & Planning (CPAP) does not provide arrival times for the day of surgery or provide the duration of surgery. This information is provided by your surgeon'soffice or by the center where you are having surgery. We appreciate your understanding. documented in this encounter Plan of Treatment Not on file documented as of this encounter Procedures Procedure Name Priority Date/Time Associated Diagnosis Comments EGFR Routine 03/10/2024 2:47 AM CDT DIFFERENTIAL AUTO Routine 03/10/2024 2:4 7 AM CDT CBC WITH AUTO DIFFERENTIAL Routine 03/10/2024 2:47 AM CDT PHOSPHORUS Routine 03/10/2024 2:47 AM CDT MAGNESIUM Routine 03/10/2024 2:47 AM CDT BASIC METABOLIC PANEL Routine 03/10/2024 2:47 AM CDT XI ROBOTIC ASSISTED DONOR NEPHRECTOMY 03/09/2024 7:31 AM CDT Kidney donor Case Notes 03/01@1351 Per Jing via phone, I need to add a note to the case, please drop to the depot CF TYPE AND SCREEN Timed 03/09/2024 7:26 AM CDT COLLECTION TASK FOR HLA PLASMA STORAGE Routine 03/09/2024 5:47 AM CDT COLLECTION TASK FOR HLA SERUM STORAGE Routine 03/09/2024 5:47 AM CDT documented in this encounter Results * (ABNORMAL) eGFR (03/10/2024 2:47 AM CDT) eGFR 53(L) >=60 mL/min/1. 73 m2 Comment: Interpretive Data Reference Interval Normal ?>/= 90 mL/min/1.73m2 Mildly decreased* ? 60 - 89 mL/min/1.73m2 Mildly to moderately decreased ?45 - 59 mL/min/1.73m2 Moderately to severely decreased ??30 - 44 mL/min/1.73m2 Severely decreased ?15 - 29 mL/min/1.73m2 Kidney Failure ?< 15 ??mL/min/1.73m2 *Relative to young adult level Estimated glomerular filtration rate is determined by the 2020 CKD-EPI equation recommended by the National Kidney Foundation (A Unifying Approach to GFR Estimation: Recommendations of the NKF-ASK Task Force on Reassessing the Inclusion of Race in Diagnosing Kidney Disease, JASN 2020). The CKD-EPI equation should not be used for patients with unstable renal function and has not been validated in children and those over 70. Current interpretive data was last reviewed 2021. Blood 03/10/2024 2:47 AM CDT 03/10/2024 3:53 AM CDT us Roberto Cannon MD LAB BLOOD ORDERABLES Final Result [facility] [place] [address] * (ABNORMAL) Differential, auto (03/10/2024 2:47 AM CDT) Neutrophil abs 10.2(H) 1.5 - 6.5 K/cumm Imm gran abs 0.1 0.0 - 0.1 K/cumm [facility] Lymphocyte abs 1.8 0.8 - 3.3 K/cumm [facility] Monocyte abs 0.9(H) 0.2 - 0.8 K/cumm [facility] Eosinophil abs 0.0 0.0 - 0.5 K/cumm [facility] Basophil abs 0.0 0.0 - 0.1 K/cumm [facility] Neutrophil pct 78.2 % [facility] Comment: Interpretive Data Percent cell count reference ranges are not reported, since discordance with absolute values may lead to misinterpretation of CBC data. Current Interpretive Data was last revised on 2018. Imm gran pct 0.5 % [facility] Comment: Interpretive Data Percent cell count reference ranges are not reported, since discordance with absolute values may lead to misinterpretation of CBC data. Current Interpretive Data was last revised on 2018. Lymphocyte pct 13.9 % [facility] Comment: Interpretive Data Percent cell count reference ranges are not reported, since discordance with absolute values may lead to misinterpretation of CBC data. Current Interpretive Data was last revised on 2018. Monocyte pct 7.0 % [facility] Comment: Interpretive Data Percent cell count reference ranges are not reported, since discordance with absolute values may lead to misinterpretation of CBC data. Current Interpretive Data was last revised on 2018. Eosinophil pct 0.2 % [facility] Comment: Interpretive Data Percent cell count reference ranges are not reported, since discordance with absolute values may lead to misinterpretation of CBC data. Current Interpretive Data was last revised on 2018. Basophil pct 0.2 % [facility] Comment: Interpretive Data Percent cell count reference ranges are not reported, since discordance with absolute values may lead to misinterpretation of CBC data. Current Interpretive Data was last revised on 2018. Blood 03/10/2024 2:47 AM CDT 03/10/2024 3:53 AM CDT us Roberto Cannon MD LAB BLOOD ORDERABLES Final Result [facility] [place] [address] * (ABNORMAL) CBC with auto differential (03/10/2024 2:47 AM CDT) WBC 13.1(H) 3.8 - 9.9 K/cumm Hgb 13.0 13.0 - 17.5 g/dL [facility] Hct 36.7(L) 38.9 - 50.3 % [facility] Plt 121(L) 150 - 400 K/cumm [facility] MPV 12.1 9.1 - 12.3 fL [facility] RBC 4.13(L) 4.30 - 5.80 M/cumm [facility] MCV 88.9 81.3 - 96.4 fL [facility] MCH 31.5 27.1 - 33.3 pg [facility] MCHC 35.4 32.3 - 35.7 g/dL [facility] RDW CV 12.9 11.1 - 14.9 % [facility] RDW SD 42.2 35.7 - 48.1 fL [facility] NRBC abs 0.00 0.00 - 0.01 K/cumm [facility] Blood 03/10/2024 2:47 AM CDT 03/10/2024 3:53 AM CDT Roberto Cannon MD LAB BLOOD ORDERABLES Final Result Performing Organization Address City/[facility]/ZIP Co de Phone Number [facility] [place] [address] * Phosphorus (03/10/2024 2:47 AM CDT) [facility] Phosphorus, pl 3.4 2.3 - 4.5 mg/dL Blood 03/10/2024 2:47 AM CDT 03/10/2024 3:53 AM CDT Roberto Cannon MD LAB BLOOD ORDERABLES Final Result Performing Organization Address City/[facility] Co de Phone Number [facility] [place] [address] * Magnesium (03/10/2024 2:47 AM CDT) [facility] Magnesium 2.3 1.4 - 2.5 mg/dL Blood 03/10/2024 2:47 AM CDT 03/10/2024 3:53 AM CDT Roberto Cannon MD LAB BLOOD ORDERABLES Final Result Performing Organization Address City/[facility]/ZIP Co de Phone Number [facility] [place] [address] * (ABNORMAL) Basic metabolic panel (03/10/2024 2:47 AM CDT) [facility] Sodium 139 135 - 145 mmol/L Potassium, pl 4.2 3.3 - 4.9 mmol/L [facility] Chloride 107 97 - 110 mmol/L [facility] CO2 24 22 - 32 mmol/L [facility] Anion gap 8 2 - 15 mmol/L [facility] BUN 15 6 - 25 mg/dL [facility] Creatinine 1.56(H) 0.80 - 1.30 mg/dL [facility] Glucose 114 70 - 199 mg/dL [facility] Comment: Interpretive Data Fasting glucose >/= 126 mg/dl is diagnostic for diabetes. ?? Fasting is defined as no caloric intake for at least 8 hours. Fasting glucose between 100 mg/dl to 125 mg/dl is diagnostic of prediabetes. In a patient with classic symptoms of hyperglycemia or hyperglycemic crisis, a random glucose >/= 200 mg/dl is diagnostic for diabetes. In the absence of unequivocal hyperglycemia, results should be confirmed by repeat testing. The classification and Diagnosis of Diabetes Diabetes Care 2021; 46: S19-S40. Current interpretive data was last revised 2022. Calcium 8.2(L) 8.5 - 10.3 mg/dL [facility] Blood 03/10/2024 2:47 AM CDT 03/10/2024 3:53 AM CDT us Roberto Cannon MD LAB BLOOD ORDERABLES Final Result Performing Organization Address City/[facility]/ZIP Co de Phone Number [facility] [place] [address] * Type and screen (03/09/2024 7:26 AM CDT) Monster, indirect Negative ABO Rh O Positive [facility] Blood 03/09/2024 7:26 AM CDT 03/09/2024 7:32 AM CDT Narrative [facility] - 03/09/2024 8:27 AM CDT Has the patient had Daratumumab or Isatuximab in the past 6 months?->No us Gracy LEDEZMA LAB BLOOD BANK TEST OR DERABLES Final Result [facility] [place] [address] * Collection task for HLA plasma storage (03/09/2024 5:47 AM CDT) HLA Plasma Storage Received Blood 03/09/2024 5:47 AM CDT 03/09/2024 2:12 PM CDT Roberto Cannon MD LAB BLOOD ORDERABLES Final Result Performing Organization Address [facility] Co de Phone Number [facility] [place] [address] * Collection task for HLA serum storage (03/09/2024 5:47 AM CDT) Pathologist [facility] HLA Serum Storage Received Blood 03/09/2024 5:47 AM CDT 03/09/2024 2:12 PM CDT Roberto Cannon MD LAB BLOOD ORDERABLES Final Result Performing Organization Address [facility] de Phone Number [facility] [place] [id number] documented in this encounter Visit Diagnoses Diagnosis Kidney donor- Primary documented in this encounter Admitting Diagnoses Diagnosis Kidney donor documented in this encounter Administered Medications Inactive Administered Medications - up to 3 most recent administrations Medication Order MAR Action Action Date Dose Rate Site acetaminophen (TYLENOL) tablet 1,000 mg 1,000 mg, oral, Every 6 hours, First dose on Fri03/09/24 at 1315 Given 03/10/2024 6:03 AM CDT 1,000 mg Given 03/10/2024 1:22 AM CDT 1,000 mg Given 03/09/2024 8:19 PM CDT 1,000 mg atorvastatin (LIPITOR) tablet 20 mg 20 mg, oral, Nightly, First dose on Fri03/09/24 at 2100, Indications: hyperlipidemiaIndications:hyperlipidemia Given 03/09/2024 8:20 PM CDT 20 mg carBAMazepine (TEGretol) tablet 200 mg 200 mg, oral, Nightly, First dose on Fri03/09/24 at 2100, Indications: Bipolar DisorderIndications:Bipolar Disorder Given 03/09/2024 8:20 PM CDT 200 mg diphenhydrAMINE (BENADRYL) tab/cap 25 mg 25 mg, oral, Once, On Fri03/09/24 at 2345, For 1 dose Given 03/09/2024 11:20 PM CDT 25 mg gabapentin (NEURONTIN) capsule 100 mg 100 mg, oral, 2 times daily, First dose on Fri03/09/24 at 1315 Given 03/10/2024 9:36 AM CDT 100 mg Given 03/09/2024 8:20 PM CDT 100 mg Given 03/09/2024 1:07 PM CDT 100 mg heparin 5,000 unit/mL injection 5,000 Units 5,000 Units, subcutaneous, Every 8 hours scheduled, First dose on Fri03/09/24 at 2200, Indications: Deep Vein Thrombosis PreventionIndications:Deep Vein Thrombosis Prevention Given 03/10/2024 6:03 AM CDT 5,000 Units Left Lower Abdomen Given 03/09/2024 8:19 PM CDT 5,000 Units L eft Lower Abdomen ketorolac (TORADOL) 15 mg/mL injection 15 mg 15 mg, intravenous, Every 6 hours, First dose on Fri03/09/24 at 1315, For 24 hours, For Adult IV push, administer over 15 seconds Given 03/10/2024 6:03 AM CDT 15 mg Given 03/10/2024 1:22 AM CDT 15 mg Given 03/09/2024 8:19 PM CDT 15 mg Lactated Ringer's (LR) infusion 30 mL/hr, intravenous, Continuous, Starting on Fri03/09/24 at 0615, Pre-Op New Bag 03/09/2024 8:45 AM CDT Restarted 03/09/2024 7:28 AM CDT New Bag 03/09/2024 6:03 AM CDT 30 mL/hr 30 mL/hr Lactated Ringer's (LR) infusion 75 mL/hr, intravenous, Continuous, Starting on Fri03/09/24 at 1130 Rate/Dose Change 03/10/2024 6:01 AM CDT 75 mL/hr 75 mL/hr New Bag 03/10/2024 2:56 AM CDT 125 mL/hr 125 mL/hr New Bag 03/09/2024 7:17 PM CDT 125 mL/hr 125 mL/hr oxyCODONE (ROXICODONE) tablet 5 mg 5 mg, oral, Every 4 hours PRN, 1st line for pain, Starting on Fri03/09/24 at 1243, Indications: PainIndications:Pain Given 03/10/2024 9:36 AM CDT 5 mg Given 03/09/2024 9:39 PM CDT [address] (PROTONIX) extended release tablet 40 mg 40 mg, oral, Daily, First dose on Fri03/10/24 at 0900, Do not crush, chew, cut, dissolve, open or otherwise manipulate tablet/capsule., Indications: Stress Ulcer ProphylaxisIndications:Stress Ulcer Prophylaxis Given 03/10/2024 9:36 AM CDT 40 mg polyethylene glycol (MIRALAX) packet 17 g 17 g, oral, Daily, First dose on Fri03/09/24 at 1315, Hold for diarrhea., Indications: constipationIndications:constipation Given 03/10/2024 9:36 AM CDT 17 g Given 03/09/2024 1:06 PM CDT 17 g ramelteon (ROZEREM) tablet 8 mg 8 mg, oral, Nightly, First dose on Fri03/09/24 at 2100, Indications: Sleep-Onset InsomniaIndications:Sleep-Onset Insomnia Given 03/09/2024 8:27 PM CDT 8 m g senna-docusate (PERICOLACE) 8.6-50 mg per tablet 1 tablet 1 tablet, oral, 2 times daily, First dose on Fri03/09/24 at 1315, Hold for diarrhea. Given 03/10/2024 9:36 A M CDT 1 tablet Given 03/09/2024 8:19 PM CDT 1 tablet Given 03/09/2024 1:07 PM CDT 1 tablet documented in this encounter Discontinued Medications Medication Sig Discontinue Reason Start Date End Da te azithromycin (ZITHROMAX) 500 mg tabletIndications:ear infection Take 1 tablet (500 mg total) by mouth daily Therapy completed 03/09/2024 cefdinir (OMNICEF) 300 mg capsule Take 1 capsule (300 mg total) by mouth every 12 (twelve) hours Therapy completed 02/03/2024 03/09/2024 fluticasone propionate (FLONASE) 50 mcg/actuation nasal spray Administer 1 spray into each nostril as needed for rhinitis Therapy completed 12/22/2023 03/09/2024 lidocaine (LIDODERM) 5 % Apply 1 patch topically daily Therapy completed 01/28/2024 03/09/2024 methocarbamoL (ROBAXIN) 500 mg tablet Take 1 tablet (500 mg total) by mouth 4 (four) times a day Therapy completed 01/28/2024 03/09/2024 naproxen (NAPROSYN) 500 mg tablet Take 1 tablet (500 mg total) by mouth every 12 (twelve) hours as needed Therapy completed 01/28/2024 03/09/2024 documented as of this encounter Historical Medications * This list may reflect changes made after this encounter. acetaminophen (TYLENOL) 500 mg tablet Take 2 tablets (1,000 mg total) by mouth every 6 (six) hours as needed 01/28/2024 naproxen (NAPROSYN) 500 mg tablet Take 1 tablet (500 mg total) by mouth every 12 (twelve) hours as needed 01/28/2024 methocarbamoL (ROBAXIN) 500 mg tablet Take 1 tablet (500 mg total) by mouth 4 (four) times a day 01/28/2024 lidocaine (LIDODERM) 5 % Apply 1 patch topically daily 01/28/2024 cefdinir (OMNICEF) 300 mg capsule Take 1 capsule (300 mg total) by mouth every 12 (twelve) hours 02/03/2024 azithromycin (ZITHROMAX) 500 mg tabletIndication s:ear infection Take 1 tablet (500 mg total) by mouth daily fluticasone propionate (FLONASE) 50 mcg/actuation nasal spray Administer 1 spray into each nostril as needed for rhinitis 12/22/2023 added in this encounter Active and Recently Administered Medications Times are shown in CDT. Scheduled Medication Order 03/08/2024 03/09/2024 03/10/2024 acetaminophen (TYLENOL) tablet 1,000 mg 1,000 mg, oral, Every 6 hours, First dose on Fri03/09/24 at 1315 1307 (Given - Provider: Christina Olivares RN)2019 (Given - Provider: Yeimy Mason RN) 0122 (Given - Provider: Yeimy Mason RN)0603 (Given - Provider: Yeimy Mason RN)1315 (Due) atorvastatin (LIPITOR) tablet 20 mg 20 mg, oral, Nightly, First dose on Fri03/09/24 at 2100, Indications: hyperlipidemia 2020 (Given - Provider: Yeimy Mason RN) carBAMazepine (TEGretol) tablet 200 mg 200 mg, oral, Nightly, First dose on Fri03/09/24 at 2100, Indications: Bipolar Disorder 2020 (Given - Provider: Yeimy Mason RN) ceFAZolin (ANCEF) 2,000 mg/20 mL in sterile water (premix) 2,000 mg (COMPLETED) 2,000 mg, intravenous, at 400 mL/hr, Administer over 3 Minutes, Once, On Fri03/09/24 at 0615, For 1 dose, Pre-Op, Indications: Prophylaxis, Surgical 0743 (Given - Provider: Mannie Montgomery CRNA) diphenhydrAMINE (BENADRYL) tab/cap 25 mg (COMPLETED) 25 mg, oral, Once, On Fri03/09/24 at 2345, For 1 dose 2320 (Given - Provider: Yeimy Mason RN) gabapentin (NEURONTIN) capsule 100 mg 100 mg, oral, 2 times daily, First dose on Fri03/09/24 at 1315 1307 (Given - Provider: Christina Olivares RN)2020 (Given - Provider: Yeimy Mason RN) 0936 (Given - Provider: Marcella Soto RN) heparin 5,000 unit/mL injection 5,000 Units 5,000 Units, subcutaneous, Every 8 hours scheduled, First dose on Fri03/09/24 at 2200, Indications: Deep Vein Thrombosis Prevention 2019 (Given - Provider: Yeimy Mason RN) 0603 (Given - Provider: Yeimy Mason RN) ketorolac (TORADOL) 15 mg/mL injection 15 mg (COMPLETED) 15 mg, intravenous, Every 6 hours, First dose on Fri03/09/24 at 1315, For 24 hours, For Adult IV push, administer over 15 seconds 1307 (Given - Provider: Christina Olivares RN)2019 (Given - Provider: Yeimy Mason RN) 012 (Given - Provider: Yeimy Mason RN)0603 (Given - Provider: Yeimy Mason RN) pantoprazole DR (PROTONIX) extended release tablet 40 mg 40 mg, oral, Daily, First dose on Fri03/10/24 at 0900, Do not crush, chew, cut, dissolve, open or otherwise manipulate tablet/capsule., Indications: Stress Ulcer Prophylaxis 0936 (Given - Provid er: Marcella Soto RN) polyethylene glycol (MIRALAX) packet 17 g 17 g, oral, Daily, First dose on Fri03/09/24 at 1315, Hold for diarrhea., Indications: constipation 1306 (Given - Provider: Christina Olivares RN) 0936 (Given - Provider: Marcella Soto RN) ramelteon (ROZEREM) tablet 8 mg 8 mg, oral, Nightly, First dose on Fri03/09/24 at 2100, Indications: Sleep-Onset Insomnia 2026 (Given - Provider: Yeimy Mason RN) senna-docusate (PERICOLACE) 8.6-50 mg per tablet 1 tablet 1 tablet, oral, 2 times daily, First dose on Fri03/09/24 at 1315, Hold for diarrhea. 1307 (Given - Provider: Christina Olivares RN)2018 (Given - Provider: Yeimy Mason RN) 0936 (Given - Provider: Marcella Soto RN) Continuous Medication Order 03/08/2024 03/09/2024 03/10/2024 Lactated Ringer's (LR) infusion (CANCELED) 30 mL/hr, intravenous, Continuous, Starting on Fri03/09/24 at 0615, Pre-Op 0603 (New Bag - Provider: Vikki Reagan, ROSANGELA)0727 (Paused - Provider: Mannie Montgomery CRNA - Comment: Switch to gravity)0728 (Restarted - Provider: Mannie Montgomery CRNA)0845 (New Bag - Provider: Mannie Montgomery CRNA)1025 (Anesthesia Volume Adjustment - Provider: Mannie Montgomery CRNA)1254 (Stopped - Provider: Christina Olivares RN) Lactated Ringer's (LR) infusion 75 mL/hr, intravenous, Continuous, Starting on Fri03/09/24 at 1130 1055 (Canceled Entry - Provider: Gibran Kaye RN)1103 (New Bag - Provider: Gibran Kaye RN)1917 (New Bag - Provider: Yeimy Mason RN) 0256 (New Bag - Provider: Beatriz Ridley RN)0601 (Rate/Dose Change - Provider: Yeimy Mason RN)1732 (Due: Stopped) PRN Medication Order 03/08/2024 03/09/2024 03/10/2024 dexAMETHasone (DECADRON) 4 mg, BUPivacaine (MARCAINE) 60 mL solution (CANCELED) As needed, Starting on Fri03/09/24 at 1003, Intra-Op 1003 (Given - Provider: Ashley Lazcano RN - Comment: TAP block) ondansetron (ZOFRAN) injection 4 mg 4 mg, intravenous, Administer over 2 Minutes, Every 6 hours PRN, nausea, vomiting, Starting on Fri03/09/24 at 1243, Indications: Nausea and Vomiting oxyCODONE (ROXICODONE) tablet 5 mg 5 mg, oral, Every 4 hours PRN, 1st line for pain, Starting on Fri03/09/24 at 1243, Indications: Pain 2139 (Given - Provider: Yeimy Mason RN) 0936 (Given - Provider: Marcella Soto RN) sodium chloride 0.9% irrigation (CANCELED) As needed, Starting on Fri03/09/24 at 0809, Intra-Op 0809 (Given - Provider: Roberto Cannon MD - Comment: 1L suction spent grain dryer 3L for slush) documented in this encounter Orders Medications Ordered That Cayden ht Not Have Been Administered Count Last Ordered Date First Ordered Date Carrier Fluids for Secondary Infusion - 0.9% Sodium Chloride 1 03/09/2024 ceFAZolin (ANCEF) 2,000 mg/2 0 mL in sterile water (premix) 2,000 mg 1 03/09/2024 dexAMETHasone (DECADRON) 4 m g, BUPivacaine (MARCAINE) 60 mL solution 1 03/09/2024 famotidine (PEPCID) tablet 20 mg 1 03/09/20 fentaNYL (SUBLIMAZE) preserv ative free injection 50 mcg 1 03/09/2024 heparin 10,000 units in HTK (CUSTODIOL) 1,000 mL 1 03/09/2024 HYDROmorphone (DILAUDID) injection 0.2 mg 1 03/09/2024 lidocaine (PF) (XYLOCAINE) 1 0 mg/mL (1 %) preservative free injection 2-10 mg 1 03/09/2024 naloxone (NARCAN) 0.4 mg/mL injection 0.04-0.4 mg 1 03/09/2024 ondansetron (ZOFRAN) injection 4 mg 1 03/09 sodium chloride 0.9% flush 0.5-20 mL 1 02/16 sodium chloride 0.9% irrigation 1 Nursing Count Last Ordered Date First Orde red Date CARRASCO CATHETER - DISCONTINUE 1 03/10/2024 Consult Count Last Ordered Date First Orde red Date IP CONSULT TO RENAL TRANSPLANT 1 03/09/2024 Admission Count Last Ordered Date First Orde red Date ADMIT TO INPATIENT 1 03/09/2024 Discharge Count Last Ordered Date First Orde red Date DISCHARGE PATIENT 1 03/10/2024 documented in this encounter Care Teams Stove Polisher Relationship Specialty Start Date End Date Elke Mcmillan MD [address] [address] PCP - General Family Medicine 08/15/23 Lindsey Bal, RN [address] [facility] [address] [place] [address] Academic Computing Director 07/04/23 documented as of this encounter
--- OUTSIDE RECORDS SUMMARY | 2024-11-20 04:22 | XMS_ITS | Encounter Summary ---
Author Organization [facility] Healthcare Address [address] [place] [address] Care Team Providers Care Guitar Repairer Name Role Phone Lindsey Bal RN Unavailable [phone] Elke Mcmillan MD Primary Care Provider Reason for Visit * Reason Onset Date Comments SETH 4-5 Week Post-Op 04/08/2024 Encounter Details Date Type Department Care Team (Late st Contact Info) Description 04/08/2024 Documentation [facility] [address] [facility], [address] Floor, [place] [address] Jason Chambers, MECHANICAL DRAWING TEACHER SETH 4-5 Week Post-Op Social History Tobacco Use Types Packs/Day Years Used Date Smoking Tobacco: Every Day Cigarettes Smokeless Tobacco: Never [facility] Utilities Answer Date Recorded In the past 12 months has [employer] Writer electric, gas, oil, or water company threatened to [...] often do you attend chur ch or scientology services? More than 4 times per year 03/10/2024 Do you belong to any clubs o r organizations such as congregation groups, unions, fraternal or athletic groups, or [...] place to sleep or slept in a correction (including now)? No 03/10/2024 Personal Safety Answer Date Recorded Have you ever been in or are you currently in a harmful physical or emotional relationship or is someone making you feel afraid or unsafe? 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 Goal/plan: SETH spoke with donor via phone 4-5 weeks post-surgery to provide support and assess coping with ongoing recovery. From our discussion, SETH notes that pt seems to be coping within normal limits and denied any concerns at this time. SETH terminated with donor at this time given no needs and encouraged patient to follow-up with primary care provider or kidney donor team for any needs moving forward. Patient verbalized understanding and agreement with plan. TYRA Francisco, LOG[facility] Advocate [phone] documented in this encounter Plan of Treatment Not on file documented as of this encounter Visit Diagnoses Not on filedocumented in this encounter Care Teams Guitar Repairer Relationship Specialty Start Date End Date Elke Mcmillan MD [address] [place] [address] PCP - General Family Medicine 08/15/23 Lindsey Bal, ROSANGELA [address] [facility] [address] [place] [address] Logistics Clerk 07/04/23 documented as of this encounter
--- OUTSIDE RECORDS SUMMARY | 2024-11-20 04:22 | XMS_ITS | Data Portability ---
Author Organization [facility], [facility] IP Address [address] [place] [id number] Assessment No assessment recorded. Plan of Treatment Reminders Order Date Submit Date Provider Last Modified By Organization Details Last Modified Time Details Appointments None recorded. Lab None recorded. Referral None recorded. Procedures None recorded. Surgeries myringotomy , with ventilating tube insertion (SURG) 2023 [facility] (Surgery Sched), [address] [place], [address], 08:39:11 Imaging None recorded. Medication Orders Zithromax Z-Everette 250 mg tablet 2023 [facility] [id number], [place], [address], 4 15:29:21 fluticasone propionate 50 mcg/actuati on nasal spray,suspe nsion 2023 [facility] [address], [place], [address], 15:29:21 Patient TargetsNo targets recorded. Patient InstructionsNo instructions recorded. Reason for Referral None Reported. Procedures Surgical History Date Name Laterality Status Provider Name and Address Organization Details Recorded Time 4 MYRINGOTOMY, WITH VENTILATING TUBE INSERTION (SURG) completed Paul Zelaya MD [address] [place], [address], [facility] 09/21/2024 14:10:42 4 Cerumen removal without microscope completed Lizbeth Gan MA [facility] 12/22/2023 15:26:18 Imaging Results None recorded. Procedure Notes None recorded. Medical Equipment None Reported. Allergies No known drug allergies Medications Name Sig Start Date Stop Date Status Note LastModified by Organization Details LastModified Time celecoxib 200 mg capsule TAKE 1 CAPSULE BY MOUTH TWICE A DAY active Not Available Not Available No t Available amoxicillin 500 mg capsule 500 MG ORALLY EVERY 8 HOURS active Not Available Not Available No t Available methocarbamo l 500 mg tablet TAKE 1 TABLET (500 MG) BY MOUTH 4 TIMES DAILY. active Not Available Not Available No t Available atorvastatin 20 mg tablet TAKE 1 TABLET BY MOUTH EVERY DAY active Not Available Not Available No t Available azithromycin 250 mg tablet TAKE 2 TABLETS BY MOUTH TODAY, THEN TAKE 1 TABLET DAILY FOR 4 DAYS DIRECTED active Not Available Not Available No t Available ketorolac 10 mg tablet TAKE 1 TABLET BY MOUTH EVERY 6 HOURS NEEDED FOR PAIN active Not Available Not Available No t Available carbamazepin e 200 mg tablet TAKE 1 TABLET BY MOUTH EVERY 12 HOURS active Not Available Not Available No t Available olopatadine 0.1 % eye drops 1 DROP INTO EACH EYE TWICE A DAY SEPARATE DOSES BY AT LEAST 6-8 HOURS active Not Available Not Available No t Available lidocaine 5 % topical patch APPLY 1 PATCH TO AFFECTED AREA EVERY 24 HOURS. active Not Available Not Available No t Available cefdinir 300 mg capsule TAKE 1 CAPSULE BY MOUTH EVERY 12 HOURS active Not Available Not Available No t Available fluticasone propionate 50 mcg/actuatio n nasal spray,suspen nelida INSTILL 2 SPRAYS BY INTRANASAL ROUTE EVERY DAY active Not Available Not Available No t Available naproxen 500 mg tablet TAKE 1 TABLET (500 MG) BY MOUTH EVERY 12 HOURS NEEDED FOR PAIN. active Not Available Not Available No t Available icosapent ethyl 1 gram capsule TAKE 2 CAPSULES BY MOUTH TWICE A DAY active Not Available Not Available No t Available Vitals Date Recorded Body height Body mass index (BMI) Body weight Heart rate Respiratory rate Body temperature Systolic blood pressure Diastolic blood pressure Provider Name and Address Organization Details Last Updated DateTime 4 175.26 cm 28.2 kg/m2 71290.8 6 g 82 /min 18 /min 99.7 [degF] 138 mm[Hg] 98 mm[Hg] Lizbeth Gan [place] - [facility] 4 15:26:54 Date Recorded Body height Body mass index (BMI) Body weight Heart rate Body temperature Systolic blood pressure Diastolic blood pressure Provider Name and Address Organization Details Last Updated DateTime 4 175.26 cm 27.7 kg/m2 35285.9 3 g 68 /min 98.8 [degF] 137 mm[Hg] 85 mm[Hg] Sebas Coulter MA [facility] 4 16:29:39 Date Recorded Body height Body mass index (BMI) Body weight Heart rate Body temperature Systolic blood pressure Diastolic blood pressure Provider Name and Address Organization Details Last Updated DateTime 4 175.26 cm 27.5 kg/m2 68759.1 8 g 71 /min 98 [degF] 134 mm[Hg] 86 mm[Hg] Arley Pereira MA [facility] 15:34:08 Social History Question Answer Notes LastModified by Organization Details LastModified Time Tobacco Smoking Status Current Every Day Smoker Lizbeth Gan MA null, [facility] 12/22/2023 15:27:37 Do You Have An Advance Directive? No [email or web address] Information not available 12/22/2023 What Is Your Level Of Alcohol Consumption? None Information not available 01/19/2024 Are You Blind Or Do You Have Difficulty Seeing? No Information not available 01/19/2024 What Is Your Level Of Caffeine Consumption? Occasional Information not available 01/19/2024 In The 14 Days Before Symptom Onset, Have You Had Close Contact With A Laboratory-con firmed COVID-19 While That Case Was Ill? No Information not available 01/19/2024 In The 14 Days Before Symptom Onset, Have You Had Close Contact With A Person Who Is Under Investigation For COVID-19 While That Person Was Ill? No Information not available 01/19/2024 Have You Been To An Area Known To Be High Risk For COVID-19? No Information not available 01/19/2024 Are You Deaf Or Do You Have Serious Difficulty Hearing? No Information not available 01/19/2024 What Type Of Diet Are You Following? REGULAR Information not available 01/19/2024 What Was The Date Of Your Most Recent Tobacco Screening? 01/19/2024 Information not available 01/19/2024 Do You Have Any Pets? No Information not available 01/19/2024 How Much Tobacco Do You Smoke? 1 PPW Information not available 01/19/2024 Do You Feel Stressed (tense, Restless, Nervous, Or Anxious, Or Unable To Sleep At Night)? [id number] Information not available 01/19/2024 Do You Use Any Illicit Or Recreational Drugs? No Information not available 01/19/2024 Do You Use Sunscreen Routinely? No Information not available 01/19/2024 Has Tobacco Cessation Counseling Been Provided? No Information not available 01/19/2024 What Type Of Noise Exposure Are You Exposed To? NoExposureToExcessiveNoise Infor mation not available 01/19/2024 Do You Or Have You Ever Used Any Other Forms Of Tobacco Or Nicotine? No Information not available 01/19/2024 Sex: Male Functional Status Question Answer Note LastModified by Organization D etails LastModified Time What is your exercise level? Heavy Information not available 01/19/2024 Mental Status None recorded. Family History Nothing Reported. Medical History No medical history recorded. Past Encounters Encounter ID Performer Location Encounter Start Date Encounter Closed Date Diagnosis/Indication Diagnosis SNOMED-CT Code Diagnosis ICD10 Code Diagnosis Note [id number] Paul Zelaya MD [facility] [address] [place] [address] 12/22/2023 15:05:32 12/23/2023 08:16:28 Impacted cerumen 98199376 H61.20 Chronic se jake otitis media of left ear 590566255 H65.22 follow-up 1 month Chronic rhinitis 6398723 6 J31.0 [id number] Paul Zelaya MD [facility] [address] [place] [address] 01/19/2024 15:59:08 01/23/2024 12:59:04 Chronic serous otitis media of left ear 589387549 H65.22 follow-up 1 month continue Flonase follow back in a month if it does not clear he will need a tube [id number] Paul Zelaya MD [facility] [address] [place] [address] 02/23/2024 15:11:44 02/26/2024 13:17:59 Chronic serous otitis media of left ear 716495732 H65.22 follow-up 1 month continue Flonase follow back in a month if it does not clear he will need a tube Health Concerns Section Related Observation LastModified by Organization Detai ls LastModified Time None Recorded Concern Status LastModified by Organization Details LastModified Time None Recorded Advance Directives Directive N: Payers Encounter Date Sequence Insurance Name Policy Number Policy Abdi Covered Member ID Abdi Member ID Guarantor Name 12/22/2023 1 [facility] [id number] Evan Yadira Marcial [id number] Dagoberto Marcial 01/19/2024 1 [facility] [id number] Evan May Marcial [id number] Dagoberto Marcial 02/23/2024 1 [facility] [id number] Evan Yadira Marcial [id number] Dagoberto Marcial Notes Date Note Type Note Provider Name and Address Organization Details Recorded Time 12/22/2023 text/html patient complaining of blockage of his left ear. He has a long history of serous otitis media and has had multiple tubes in the past. He is looking for other options. Paul Zelaya MD [address], [place], [address], [facility] 12/22/2023 15:29:39 01/19/2024 text/html patient complaining of blockage of his left ear. He has a history of serous otitis media with tubes in the past. He is recently started Flonase and thinks it might be a bit better. Paul Zelaya MD [address], [place], [address], [facility] 01/19/2024 16:40:26 02/23/2024 text/html patient complaining of persistent fluid in his left ear. He has had tubes in the past. He did not respond to Flonase. Paul Zelaya MD [address], [place], [address], [facility] 02/23/2024 15:42:21
--- OUTSIDE RECORDS SUMMARY | 2024-11-20 04:22 | XMS_ITS | Encounter Summary ---
Author Organization [facility] Healthcare Address [address] [place] [address] Care Team Providers Care Bicycle Inspector Name Role Phone Lindsey Bal RN Unavailable [phone] Elke Mcmillan MD Primary Care Provider Reason for Visit * Reason Onset Date Comments Post-Op Call 03/10/2024 Encounter Details Date Type Department Care Team (Late st Contact Info) Description 03/10/2024 Telephone [facility] Transplant Kidney [address] [facility] [address] [phone] [place], [place] [phone] Lindsey Bal, ROSANGELA [address] [facility] [address] [place], [place] [phone] Post-Op Call Social History Tobacco Use Types Packs/Day Years Used Date Smoking Tobacco: Every Day Cigarettes Smokeless Tobacco: Never [facility] Utilities Answer Date Recorded In the past 12 months has [employer], [employer], oil, or water [employer] threatened to shut off services in your [...] How often do you attend chur or gnosticism services? 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 He is just getting home from being discharged from the hospital. He is doing great. Reports some aches in his abdomen, but manageable with Gabapentin. Slightly bloated, butis passing gas and moving around good. Reviewed medication regimen. Told him to let meknow if he needs anything. Reviewed certified personal finance counselor coordinator is available should he need anything. Verbalized understanding. Told him I would check on him tomorrow. Smita- can we please ship this donor a size L hoodie the next time you are in the office. Thanks! documented in this encounter Plan of Treatment Not on file documented as of this encounter Visit Diagnoses Not on filedocumented in this encounter Care Teams Bicycle Inspector Relationship Specialty Start Date End Date Elke Mcmillan MD [address] [place] [address] PCP - General Family Medicine 08/15/23 Lindsey Bal RN [address] [facility] [address] [place] [address] Power Generation Technician 07/04/23 documented as of this encounter
--- OUTSIDE RECORDS SUMMARY | 2024-11-20 04:22 | XMS_ITS | Clinical Summary ---
Author Organization [facility] Address [facility] [place] [address] Care Team Providers Care Hoop Driving Machine Operator Name Role Phone Lindsey Bal RN Unavailable [phone] Elke Mcmillan MD Primary Care Provider Allergies No known active allergies Medications atorvastatin (LIPITOR) 20 mg tabletIndications:h yperlipidemia Take 1 tablet (20 mg total) by mouth nightly 3 Active carBAMazepine (TEGretol) 200 mg tabletIndications:B ipolar Disorder Take 1 tablet (200 mg total) by mouth nightly 3 Active icosapent ethyL (VASCEPA) 1 gram capsuleIndications: hypertriglyceridemi a Take 2 capsules (2 g total) by mouth 2 (two) times a day 3 Active omeprazole (PriLOSEC) 20 mg capsuleIndications: Treatment of Non-Bleeding Gastric Disorder Take 1 capsule (20 mg total) by mouth nightly Active acetaminophen (TYLENOL) 500 mg tablet Take 2 tablets (1,000 mg total) by mouth every 6 (six) hours as needed 4 Active oxyCODONE (ROXICODONE) 5 mg immediate release tabletIndications:P ain Take 1 tablet (5 mg total) by mouth every 4 (four) hours as needed for pain 15 tablet 4 Active gabapentin (NEURONTIN) 100 mg capsule Take 1 capsule (100 mg total) by mouth 2 (two) times a day for 14 days 28 capsule 4 Active ondansetron ODT (ZOFRAN-ODT) 4 mg disintegrating tablet Take 1 tablet (4 mg total) by mouth every 8 (eight) hours as needed for nausea or vomiting 10 tablet 4 Active polyethylene glycol (MIRALAX) 17 gram packetIndications:c onstipation Take 1 packet (17 g total) by mouth daily 30 packet 4 Active senna-docusate (PERICOLACE) 8.6-50 mg Take 1 tablet by mouth 2 (two) times a day 60 tablet 4 Active Active Problems Problem Noted Date Diagnosed Date Kidney donor 11/19/2023 Encounters Date Type Department Care Team Description 11/16/2024 Documentation [facility] Transplant Kidney [address] [facility] [address] [phone] [place] [address] Lindsey Bal RN Post Donation Follow Up 11/16/2024 Telephone [facility] Transplant Kidney [address] [facility] [address] [phone] [place] [address] Lindsey Bal, ROSANGELA Post Donation Follow Up 11/16/2024 Documentation [facility] Transplant Kidney [address] [facility] [address] -[phone] [place] [address] Smita Lancaster 11/15/2024 Documentation [facility] Transplant Kidney [address] [facility] [address] [phone] [place] [address] Smita Lancaster 11/15/2024 Telephone [facility] Transplant Kidney [address] [facility] [address] [phone] [place] [address] Lindsey Bal, ROSANGELA Post Donation Follow Up from Last 3 Months Surgical History Surgery Date Site/Laterality Comments RECTAL SURGERY fissure repair and polyps-unsure of date Medical History Medical History Date Comments Hyperlipidemia GERD (gastroesophageal reflux disease) Social History Tobacco Use Types Packs/Day Years Used Date Smoking Tobacco: Every Day Cigarettes Smokeless Tobacco: Never Tobacco Cessation:Ready to Q uit: Not Asked; Counseling Given: Not Answered [facility] Utilities Answer Date Recorded In the past 12 months has th e electric, gas, oil, or water company threatened [...] often do you attend chur ch or quaker services? 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 Gender Identity Not on file Sexual Orientation Not on file Obstetrics History Last Filed Vital Signs Vital Sign Reading [...] CDT Height 175.3 cm (5' 9 ) 02/27/2024 1:17 PM CDT Body Mass Index 28.16 02/27/2024 1:17 PM CDT Plan of Treatment Health Maintenance Due Date Last Done Comments Colon Cancer Screening-Colonoscopy 1971 Depression Screening 1971 Pneumococcal vaccine <65 (1 of 2 - PCV) 1977 DTaP/Tdap/Td Vaccine (1 - Tdap) 1982 Regular Well Visit/Exam 18-64 1989 Zoster Vaccine (1 of 2) 1990 Covid-19 Vaccine (3 - Pfizer risk series) 08/24/2021 07/27/2021, 06/28/2021 Influenza Vaccine (#1) 2024 Prostate Cancer Screening-PSA 07/15/2025 07/15/2023 Hepatitis B Screening Completed 02/27/2024 Hepatitis C Screening Completed 02/27/2024 , 02/27/2024, 07/15/2023 Procedures Procedure Name Priority Date/Time Associated Diagnosis Comments HEPATITIS C ANTIBODY Routine 02/27/2024 12:22 PM CDT Kidney donor PSA SCREEN Routine 07/15/2023 3:01 PM CDT from Last 3 Months or Most Recently Relevant to Health Maintenance Results * Hepatitis C antibody Blood (02/27/2024 12:22 PM CDT) Hep C Ab Nonreactive Nonreactive Comment:Antibodies to HCV no t detected. Does NOT exclude the possibility of recent exposure to HCV. Current interpretive data was last revised on 22 Blood 02/27/2024 12:2 2 PM CDT 02/27/2024 1:16 PM CDT Roberto Cannon MD LAB MICROBIOLOGY - GENERAL ORDERABLES Final Result [facility] [address] [facility] [place] [address] * PSA screen (07/15/2023 3:01 PM CDT) PSA 0.46 < OR = 4.00 ng/mL [facility] Comment: The total PSA value from this assay system is standardized against the WHO standard. The test result will be approximately 20% lower when compared to the equimolar-standardized total PSA (Johnna Ariella). Comparison of serial PSA results should be interpreted with this fact in mind. This test was performed using the Siemens chemiluminescent method. Values obtained from different assay methods cannot be used interchangeably. PSA levels, regardless of value, should not be interpreted as absolute evidence of the presence or absence of disease. 07/15/2023 3:01 PM CDT 07/15/2023 3:07 PM CDT Narrative [facility] - 07/16/2023 9:08 PM CDT FASTING:NO FASTING: NO us Zach Morocho MD LAB BLOOD ORDERABLES Final Resu lt [employer] [address] [place] [phone] from Last 3 Months or Most Recently Relevant to Health Maintenance Insurance * Guarantor: [facility] Account Type Relation to Patient Date of Phone Billing Address Donor Other [facility] Advance Directives For more information, please contact: [phone] * Full Code (Latest Code Status on File) Date Activated Date Inactivated Comments 03/09/2024 12:43 PM 03/10/2024 5:32 PM Care Teams Hoop Driving Machine Operator Relationship Specialty Start Date End Date Elke Mcmillan MD [address] [place] [address] PCP - General Family Medicine 08/15/23 Lindsey Bal, RN [address] [address] High Pressure Operator 07/04/23
--- OUTSIDE RECORDS SUMMARY | 2024-11-20 04:22 | XMS_ITS | Encounter Summary ---
Author Organization [facility] Healthcare Address [address] [place] [address] Care Team Providers Care Wafer Line Worker Name Role Phone Lindsey Bal RN Unavailable [phone] Elke Mcmillan MD Primary Care Provider Encounter Details Date Type Department Care Team (Late st Contact Info) Description 03/10/2024 Telephone [facility] Transplant Kidney [address] [facility] [address] [phone] [place] [address] Anna San Social History Tobacco Use Types Packs/Day Years Used Date Smoking Tobacco: Every Day Cigarettes Smokeless Tobacco: Never [facility] Utilities Answer Date Recorded In the past 12 months has [employer] electric, gas, oil, or water company threatened [...] often do you attend chur ch or lutheran services? More than 4 times per year 03/10/2024 Do you belong to any clubs o r organizations such as anglican groups, unions, fraternal or athletic groups, or [...] place to sleep or slept in a intermediate (including now)? No 03/10/2024 Personal Safety Answer Date Recorded Have you ever been in or are you currently in a harmful physical or emotional relationship or is someone making you feel afraid or unsafe? 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 The patient is scheduled to be discharged. Please dispense medications. documented in this encounter Plan of Treatment Not on file documented as of this encounter Visit Diagnoses Not on filedocumented in this encounter Care Teams Wafer Line Worker Relationship Specialty Start Date End Date Elke Mcmillan MD [address] [place] [address] PCP - General Family Medicine 08/15/23 Lindsey Bal RN 4590 [facility] [address] [place] [address] Glove Former 07/04/23 documented as of this encounter
--- OUTSIDE RECORDS SUMMARY | 2024-11-20 04:22 | XMS_ITS | Data Portability ---
Author Organization [place] [facility] Address [address] [place] [address] [address] [place] [address] Assessment No assessment recorded. Plan of Treatment Reminders Order Date Submit Date Provider Last Modified By Organization Details Last Modified Time Details Appointments None recorded. Lab rapid flu (A+B) 2021 [facility], [address] [place] [address], [address], [place], [address], 10:27:44 Referral None recorded. Procedures None recorded. Surgeries None recorded. Imaging None recorded. Medication Orders Tamiflu 75 mg capsule 2021 [id number], [address] [place], [address], 10:27:47 Ventolin HFA 90 mcg/actuat ion aerosol inhaler 2021 [id number], [address] [place], [address], 10:31:22 codeine 10 mg-guaifen esin 100 mg/5 mL oral liquid 2021 [id number], [address] [place], [address], 10:31:22 Patient TargetsNo targets recorded. Patient Instructions Encounter Date Encounter Id Patient Instructions Last Modified By Organization Details Last Modified Time 10/14/2022 [id number] Discharge Instructions Not available 10/14/2022 10:27:44 influenza (flu): care instructions Not available 10/14/2022 10:27:44 Reason for Referral None Reported. Results Created Date Observation Date Name Description Value Unit Range Abnormal Flag Note LastModifiedBy Organization Detail LastModifiedTime 10/14/2010/14/2022 rapid flu (A+B) Flu A positi ve [place] [address] [address], [place], [address], 10/14/2022 10:16:53 10/14/20 22 10/14/2022 rapid flu (A+B) Flu B negati ve [place] [address] [address] [address], [place], [address], 10/14/2022 10:16:53 Result Notes None recorded. Problems Name Problem SNOMED Code Status Onset Date Resolution Date Notes Provider Name and Address Organization Details Recorded Time Sweating 225555534 Active [facility], [facility] 10:19:30 Stomach ache 604330861 [facility], [facility] 10:19:40 Dyspnea 026773495 Active [facility] 10:19:50 Cough 53540039 [facility], [facility] 10:19:58 Nasal congestion 54609780 Active [facility] 10:20:08 Problem Notes None recorded. Medical Equipment None Reported. Allergies No known drug allergies Medications Name Sig Start Date Stop Date Status Note LastModified by Organization Details LastModified Time celecoxib 200 mg capsule TAKE 1 CAPSULE BY MOUTH TWICE A DAY 10/14 completed Not Available Not Available Not Available amoxicillin 500 mg capsule TAKE 1 CAPSULE BY MOUTH EVERY 8 HOURS 10/14 completed Not Available Not Available Not Available atorvastati n 20 mg tablet TAKE 1 TABLET BY MOUTH EVERY DAY active Not Available Not Available No t Available nicotine 14 mg/24 hr daily transdermal patch APPLY 1 PATCH TRANSDERM AL DAILY FOR 4 WEEKS 10/14 completed Not Available Not Available Not Available acetaminoph en 300 mg-codeine 30 mg tablet TAKE 1 TABLET BY MOUTH FOUR TIMES A DAY NEEDED FOR PAIN 10/14 completed Not Available Not Available Not Available amoxicillin 500 mg tablet TAKE 1 TABLET BY MOUTH EVERY 8 HOURS 10/14 completed Not Available Not Available Not Available carbamazepi ne 200 mg tablet TAKE 1 TABLET BY MOUTH EVERY 12 HOURS active Not Available Not Available No t Available Guaiatussin AC 10 mg-100 mg/5 mL oral liquid TAKE 10 ML EVERY 4 HOURS BY ORAL ROUTE NEEDED FOR 3 DAYS. active Not Available Not Available No t Available tamsulosin 0.4 mg capsule TAKE 1 CAPSULE BY MOUTH EVERYDAY AT BEDTIME active Not Available Not Available No t Available oseltamivir 75 mg capsule TAKE 1 CAPSULE BY MOUTH TWICE A DAY FOR 5 DAYS active Not Available Not Available No t Available azelastine 137 mcg (0.1 %) nasal spray USE 1 SPRAY INTO EACH NOSTRIL EVERY 12 HOURS active Not Available Not Available No t Available albuterol sulfate HFA 90 mcg/actuati on aerosol inhaler INHALE 2 PUFFS EVERY 4 HOURS BY INHALATIO N ROUTE NEEDED active Not Available Not Available No t Available fluticasone propionate 50 mcg/actuati on nasal spray,suspe nsion SPRAY 1 SPRAY INTO EACH NOSTRIL DAILY active Not Available Not Available No t Available varenicline tartrate 1 mg tablet TAKE 1 TABLET BY MOUTH TWICE A DAY 10/14 completed Not Available Not Available Not Available icosapent ethyl 1 gram capsule TAKE 2 CAPSULES BY MOUTH TWICE A DAY active Not Available Not Available No t Available Vitals Date Recorded Heart rate Respiratory rate Oxygen saturation Oxygen saturation in Arterial blood by Pulse oximetry Body temperature Body height Body weight Systolic blood pressure Diastolic blood pressure Provider Name and Address Organization Details Last Updated DateTime 2 102 /min 18 /min 97 % 97 % 97.8 [degF] 175.26 cm 06684.5 5 g 144 mm[Hg] 84 mm[Hg] Maggy Dobson [place] - [facility] 10:18:37 Social History Question Answer Notes LastModified by Organizat ion Details LastModified Time Tobacco Smoking Status Current Every Day Smoker Maggy Dobson [place], [place] - [facility] 10/14/2022 10:20:28 Alcohol Use None [email or web address] Information n ot available 10/14/2022 What Was The Date Of Your Most Recent Tobacco Screening? 10/14/2022 [email or web address] Information not available 10/14/2022 Are You Passively Exposed To Smoke? No [email or web address] Information not available 10/14/2022 How Much Tobacco Do You Smoke? 2 PPD [email or web address] Information not available 10/14/2022 Do You Or Have You Ever Used Any Other Forms Of Tobacco Or Nicotine? No [email or web address] Information not available 10/14/2022 Sex: Unknown Functional Status None recorded. Mental Status None recorded. Family History Nothing Reported. Medical History Condition Response Discussed with patient No Past Medical H x Y Past Encounters Encounter ID Performer Location Encounter Start Date Encounter Closed Date Diagnosis/Indication Diagnosis SNOMED-CT Code Diagnosis ICD10 Code [id number] Jeb Noriega MD [facility] [address] [facility] [address] [place] [address] 10/14/2022 10:02:25 10/14/2022 10:34:05 Influenza caused by Influenza A virus 295731631 J09.X2 Health Concerns Section Related Observation LastModified by Organization Detai ls LastModified Time None Recorded Concern Status LastModified by Organization Details LastModified Time None Recorded Advance Directives Directive None Recorded Payers Encounter Date Sequence Insurance Name Policy Number Policy Abdi Covered Member ID Abdi Member ID Guarantor Name 10/14/2022 1 [facility] [id number] Evan Marcial [id number] Dagoberto Marcial Notes Date Note Type Note Provider Name and Address Organization Details Recorded Time 10/14/2022 text/html InfluenzaReporte d bypatient.Location:hea d; chest; throat Quality:hacking cough;productive cough;congested Severity:moderate Onset/Duration:1-2 day(s) ago Timing:episodic; constant Context:no foreign travel;sick contact Associated Symptoms:fatigue;sweat s;fever Took home Covid [place] [address], [place], [address], [facility] - [facility], [facility] 10/14/2022 10:31:25
--- OUTSIDE RECORDS SUMMARY | 2024-11-20 04:22 | XMS_ITS | Encounter Summary ---
Author Organization [facility] Healthcare Address [address] [place] [address] Care Team Providers Care Computing Architect Name Role Phone Yoshi Razo RN Unavailable [phone] Elke Mcmillan MD Primary Care Provider Reason for Visit * Reason Onset Date Comments Post Donation Follow Up 06/30/2024 Encounter Details Date Type Department Care Team (Late st Contact Info) Description 06/30/2024 Telephone [facility] Transplant Kidney 4590 [facility] [address] [phone] [place], [place] [phone] Yoshi Razo, ROSANGELA 45[address] [facility] [address] [place], [place] [phone] Post Donation Follow Up Social History Tobacco Use Types Packs/Day Years Used Date Smoking Tobacco: Every Day Cigarettes Smokeless Tobacco: Never [facility] Utilities Answer Date Recorded In the past 12 months has [employer], [employer], oil, or water [employer] threatened to shut off services in your [...] How often do you attend chur or jewish services? More than 4 times per year 03/10/2024 Do you belong to any clubs o r organizations such as sikh groups, unions, fraternal or athletic groups, or [...] place to sleep or slept in a fpc (including now)? No 03/10/2024 Personal Safety Answer Date Recorded Have you ever been in or are you currently in a harmful physical or emotional relationship or is someone making you feel afraid or unsafe? 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 Please send labs to [facility] in [place], [place]. Put orders in for [facility] and confirmed with Avel. * Telephone Encounter - Yoshi Razo RN - 06/30/2024 9:46 AM CDT Emailed living donor 6 month Follow-up lab order. Reviewed that follow-up letter and questionnaire was sent to [facility]. Asked to let me know where gets labs completed. Told to let me know if they hadany questions or needed anything. documented in this encounter Plan of Treatment Scheduled Orders Name Type Priority Associated Diagnoses Orde r Schedule Renal function panel Lab Routine Donor of kidney for transplant Expected: 07/03/2024, Expires: 06/30/2025 CBC with auto differential Lab Routine Donor of kidney for transplant Expected: 07/03/2024, Expires: 06/30/2025 Urinalysis, Complete Lab Routine Donor of kidney for transplant Expected: 07/03/2024, Expires: 06/30/2025 documented as of this encounter Visit Diagnoses Diagnosis Donor of kidney for transplant- Primary Kidney donor documented in this encounter Care Teams Computing Architect Relationship Specialty Start Date End Date Elke Mcmillan MD [address] [address] PCP - General Family Medicine 08/15/23 Yoshi Razo, RN [address] [address] Civil Engineer Land Development 07/04/23 documented as of this encounter
--- OUTSIDE RECORDS SUMMARY | 2024-11-20 04:22 | XMS_ITS | Encounter Summary ---
Author Organization [facility] Healthcare Address [address] [place] [address] Care Team Providers Care Fire Apparatus Engineer Name Role Phone Lindsey Bal RN Unavailable [phone] Elke Mcmillan MD Primary Care Provider Reason for Visit * Reason Onset Date Comments Post-Op Call 03/11/2024 Encounter Details Date Type Department Care Team (Late st Contact Info) Description 03/11/2024 Telephone [facility] Transplant Kidney [address] [facility] [id number] [place], [place] [id number] Lindsey Bal, ROSANGELA [address] [facility] [address] [place], [place] [id number] Post-Op Call Social History Tobacco Use Types Packs/Day Years Used Date Smoking Tobacco: Every Day Cigarettes Smokeless Tobacco: Never [facility] Utilities Answer Date Recorded In the past 12 months has [employer], [employer], oil, or water [employer] threatened to shut off services in your [...] How often do you attend chur or protestant services? More than 4 times per year 03/10/2024 Do you belong to any clubs o r organizations such as faith groups, unions, fraternal or athletic groups, or [...] place to sleep or slept in a assisted (including now)? No 03/10/2024 Personal Safety Answer Date Recorded Have you ever been in or are you currently in a harmful physical or emotional relationship or is someone making you feel afraid or unsafe? 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 He reports that last night was a little rough as far as getting comfortable/ having pain. Today he is doing better. Discussed alternating pain medicine and not taking at sametime. He is going to try alternating Tylenol/ Oxy tonight and encouraged him to time Gabapentin closer to bed time. He reports having a soft BM this morning with no difficulties. Told him to let us know if he needs anything or if anything changes. Reminded him that someone is sponge hooker 09/06. Verbalized understanding. * Telephone Encounter - Lindsey Bal RN - 03/11/2024 2:02 PM CDT Attempted to call and check on Avel. Left VM. Told him that I was just checking in. Told him to please let me know if he needs anything and that I would be checking in on him tomorrow. documented in this encounter Plan of Treatment Not on file documented as of this encounter Visit Diagnoses Not on filedocumented in this encounter Care Teams Fire Apparatus Engineer Relationship Specialty Start Date End Date Elke Mcmillan MD [address] [place] [address] PCP - General Family Medicine 08/15/23 Lindsey Bal RN [address] [facility] [address] [place] [address] Grants Analyst 07/04/23 documented as of this encounter
--- OUTSIDE RECORDS SUMMARY | 2024-11-20 04:22 | XMS_ITS | Referral Summary ---
Author Organization [facility] Address [facility] [place] [address] Care Team Providers Care Employment Specialist/Program Manager Name Role Phone Lindsey Bal RN Unavailable [phone] Elke Mcmillan MD Primary Care Provider Encounters Date Type Department Care Team Description 11/16/2024 Documentation [facility] Transplant Kidney [address] [facility] [address] [place] [address] Lindsey Bal, ROSANGELA Post Donation Follow Up 11/16/2024 Telephone [facility] Transplant Kidney [address] [facility] [address] [place] [address] Lindsey Bal, RN Post Donation Follow Up 11/16/2024 Documentation [facility] Transplant Kidney [address] [facility] [address] [place] [address] Ortbals, Smita 11/15/2024 Documentation [facility] Transplant Kidney [address] [facility] [address] [place] [address] Ortbals, Smita 11/15/2024 Telephone [facility] Transplant Kidney [address] [facility] [address] [place] [address] Lindsey Bal, RN Post Donation Follow Up from Last 3 Months Allergies No known active allergies Medications atorvastatin [...] Noted Date Diagnosed Date 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 More than 4 times per year 03/10/2024 Do you belong to any clubs o r organizations such as scientologist groups, unions, fraternal or athletic groups, or [...] place to sleep or slept in a nursing home (including now)? No 03/10/2024 Personal Safety Answer Date Recorded Have you ever been in or are you currently in a harmful physical or emotional relationship or is someone making you feel afraid or unsafe? 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 Gender Identity Not on file Sexual Orientation Not on file Last Filed Vital Signs Vital Sign Reading [...] 02/27/2024 1:17 PM CDT Plan of Treatment Not on file Procedures Procedure Name Priority Date/Time Associated Diagnosis [...] 2 PM CDT 02/27/2024 1:16 PM CDT us Roberto Cannon MD LAB MICROBIOLOGY - GENERAL ORDERABLES Final Result [facility] Department [place] [address] * PSA screen (07/15/2023 3:01 PM CDT) PSA 0.46 < OR = 4.00 ng/mL [facility] Comment: The total PSA value from this assay system is standardized against the WHO standard. The test result will be approximately 20% lower when compared to the equimolar-standardized total PSA ([place]na [place]). Comparison of serial PSA results should be [...] MD LAB BLOOD ORDERABLES Final Resu lt [facility] [address] [place] [address] from Last 3 Months or Most Recently Relevant to Health Maintenance Insurance [employer] * Guarantor: [facility] Account Type Relation to Patient Date of Phone Billing Address Donor Other [employer] Advance Directives For more information, please contact: [phone] * Full Code (Latest Code Status on File) Date Activated Date Inactivated Comments 03/09/2024 12:43 PM 03/10/2024 5:32 PM Care Teams Employment Specialist/Program Manager Relationship Specialty Start Date End Date Elke Mcmillan MD [address] [place] [address] PCP - General Family Medicine 08/15/23 Lindsey Bal, RN [address] [address] Electronic Engineering Draftsperson 07/04/23
--- OUTSIDE RECORDS SUMMARY | 2024-11-20 04:22 | XMS_ITS | Encounter Summary ---
Author Organization [facility] Healthcare Address [address] [place] [address] Care Team Providers Care Director Of Research Name Role Phone Lindsey Bal RN Unavailable [phone] Elke Mcmillan MD Primary Care Provider Encounter Details Date Type Department Care Team (Late st Contact Info) Description 03/15/2024 Documentation [facility] Transplant Kidney [address] [facility] [phone] [place] [address] Smita Lancaster Social History Tobacco Use Types Packs/Day Years Used Date Smoking Tobacco: Every Day Cigarettes Smokeless Tobacco: Never [facility] Utilities Answer Date Recorded In the past 12 months has e electric, gas, oil, or water company [...] often do you attend chur ch or buddhism services? More than 4 times per year [...] place to sleep or slept in a prison (including now)? No 03/10/2024 Personal Safety Answer Date Recorded Have you ever been in or are you currently in a harmful physical or emotional relationship or is someone making you feel afraid or unsafe? 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 Gender Identity Not on file Sexual Orientation Not on file documented as of this encounter Progress Notes * Smita Lancaster - 03/15/2024 2:27 PM CDT Mailed Large hoodie to patient documented in this encounter Plan of Treatment Not on file documented as of this encounter Visit Diagnoses Not on filedocumented in this encounter Care Teams Director Of Research Relationship Specialty Start Date End Date Elke Mcmillan MD [address] [place] [address] PCP - General Family Medicine 08/15/23 Lindsey Bal, RN [address] [address] Sales Performance Manager 07/04/23 documented as of this encounter
--- OUTSIDE RECORDS SUMMARY | 2024-11-20 04:22 | XMS_ITS | Encounter Summary ---
Author Organization [facility] Healthcare Address [address] [place] [address] Care Team Providers Care Product Support Specialist Name Role Phone Lindsey Bal RN Unavailable [phone] Elke Mcmillan MD Primary Care Provider Reason for Visit * Reason Onset Date Comments [facility] Post-Op Call 03/10/2024 Encounter Details Date Type Department Care Team (Late st Contact Info) Description 03/10/2024 Documentation [facility] and [facility] [address] [facility] Medicine, 8th Floor, [place] [address] Jason Chambers, SURGICAL SUPERVISOR SETH Post-Op Call Social History Tobacco Use Types Packs/Day Years Used Date Smoking Tobacco: Every Day Cigarettes Smokeless Tobacco: Never [facility] Utilities Answer Date Recorded In the past 12 months has [employer] electric, gas, oil, or water company threatened [...] often do you attend chur ch or hoahaoism services? More than 4 times per year 03/10/2024 Do you belong to any clubs o r organizations such as muslim groups, unions, fraternal or athletic groups, or [...] place to sleep or slept in a usp (including now)? No 03/10/2024 Personal Safety Answer Date Recorded Have you ever been in or are you currently in a harmful physical or emotional relationship or is someone making you feel afraid or unsafe? 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 Goal/Plan: SETH spoke with patient via phone following living donation of kidney. Patient seems to be coping within normal limits following surgery and denies any concerns or needs at this time. Pt stated that he was waiting on his ride and was about to discharge home because he had been doing well. Case management staff on unit will continue to assist with discharge planning per hospital protocol. SETH to follow and will continue to coordinate with interdisciplinary team as needed. SETH to follow up 4-5 weeks post-surgery via phone to provide ongoing support and to assess coping. SETH contact information provided to patient should any questions or concerns arise. TYRA Francisco, LOGAN Independent Living Donor Advocate [phone] documented in this encounter Plan of Treatment Not on file documented as of this encounter Visit Diagnoses Not on filedocumented in this encounter Care Teams Product Support Specialist Relationship Specialty Start Date End Date Elke Mcmillan MD [address] [place] [address] PCP - General Family Medicine 08/15/23 Lindsey Bal RN [address] [facility] [address] [place] [address] Simulation Specialist 07/04/23 documented as of this encounter
--- OUTSIDE RECORDS SUMMARY | 2024-11-20 04:22 | XMS_ITS | Encounter Summary ---
Author Organization [facility] Healthcare Address [address] [place] [address] Care Team Providers Care Biology Internship Name Role Phone Lindsey Bal RN Unavailable [phone] Elke Mcmillan MD Primary Care Provider Reason for Visit * Reason Onset Date Comments Post-Op Call 03/15/2024 Encounter Details Date Type Department Care Team (Late st Contact Info) Description 03/15/2024 Telephone [facility] Transplant Kidney [address] [facility] [phone] [place], [place] [phone] Lindsey Bal, ROSANGELA [address] [facility] [address] [place], [place] [phone] Post-Op Call Social History Tobacco Use Types Packs/Day Years Used Date Smoking Tobacco: Every Day Cigarettes Smokeless Tobacco: Never [facility] Utilities Answer Date Recorded In the past 12 months has [employer], [employer], oil, or water [employer] threatened to shut off services in your [...] How often do you attend chur or anabaptist services? 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 He is doing well. Reports some aches, but is managing with Gabpentin andTylenol. Reports to be having regular BM's. Knows to contact if he needs anything. documented in this encounter Plan of Treatment Not on file documented as of this encounter Visit Diagnoses Not on filedocumented in this encounter Care Teams Biology Internship Relationship Specialty Start Date End Date Elke Mcmillan MD [address] [place] [address] PCP - General Family Medicine 08/15/23 Lindsey Bal, ROSANGELA [address] [facility] [address] [place] [address] Director And Professor 07/04/23 documented as of this encounter
--- OUTSIDE RECORDS SUMMARY | 2024-11-20 04:22 | XMS_ITS | CONTINUITY OF CARE DOCUMENT ---
Author Name jimmy marquez Address Unknown Organization [facility] Address [id number] [place] [address] [address] [place] [address] Phone [phone] Care Team Providers Care Control Room Technician Name Role Phone jimmy marquez Unavailable Unavailable
--- OUTSIDE RECORDS SUMMARY | 2024-11-20 04:23 | XMS_ITS | Encounter Summary ---
Author Organization [facility] Healthcare Address [address] [place] [address] Care Team Providers Care Marketing Assistant Manager Name Role Phone Lindsey Bal RN Unavailable Elke Mcmillan MD Primary Care Provider Reason for Referral * Cardiology (Routine) - Closed Specialty Diagnoses / Procedures Referred By Contac t Referred To Contact Diagnoses Kidney donor Procedures ECG 12 lead Roberto Cannon MD [address] [place] [address] [address] [place] [address] Phone: tel: fax: [address] [phone] Referral ID Status Reason Start Date Expiration Date Visits Re quested Visits Authorized [id number] Closed 01/30/2024 02/28/2025 1 1 Reason for Visit * Reason Onset Date Comments Appointment/Schedules 01/30/2024 Encounter Details Date Type Department Care Team (Late st Contact Info) Description 01/30/2024 Telephone [facility] Transplant Kidney [address] [facility] [address] [phone] [place], [place] [id number] Lindsey Bal, ROSANGELA [address] [facility] [address] [place] [address] Appointment/Schedules Social History Tobacco Use Types Packs/Day Years Used Date Smoking Tobacco: Every Day Cigarettes [facility] Utilities Answer Date Recorded In the past 12 months has th e electric, gas, oil, or water company threatened to shut off services in your home? No 11/24/2023 Social Connection and Isolat ion Panel [NHANES] Answer Date Recorded In a typical week, how many times do you talk on the phone with family, friends, or neighbors? More than three times a week 11/24/2023 How often do you get togethe r with friends or relatives? More than three times a week 11/24/2023 How often do you attend chur ch or restorationist services? Patient declined 11/24/2023 Do you belong to any clubs o r organizations such as anglican groups, unions, fraternal or athletic groups, or school groups? Patient declined 11/24/2023 How often do you attend meet ings of the clubs or organizations you belong to? Patient declined 11/24/2023 Are you , , di vorced, , never , or living with a partner? 11/24/2023 Overall Financial Resource Strain (CARDIA) Answe r Date Recorded How hard is it for you to pa y for the very basics like food, housing, medical care, and heating? Somewhat hard 11/24/2023 Hunger Vital Sign Answer Date Recorded Within the past 12 months, y ou worried that your food would run out before you got the money to buy more. Never true 11/24/19 24 Within the past 12 months, t he food you bought just didn't last and you didn't have money to get more. Never true 11/24/2023 PRAPARE - Transportation Answer Date Re corded In the past 12 months, has l ack of transportation kept you from medical appointments or from getting medications? No 06/2024 In the past 12 months, has l ack of transportation kept you from meetings, work, or from getting things needed for daily living? No 11/24/2023 Housing Stability Vital Sign Answer [place] e Recorded In the last 12 months, was t here a time when you were not able to pay the mortgage or rent on time? No 11/24/2023 In the last 12 months, how many places have you lived? 1 11/24/2023 In the last 12 months, was t here a time when you did not have a steady place to sleep or slept in a retirement (including now)? No 11/24/2023 Personal Safety Answer Date Recorded Have you ever been in or are you currently in a harmful physical or emotional relationship or is someone making you feel afraid or unsafe? 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 His surgeon will be Dr. Cannon. Advised that Dr. Cannon does not have any clinics in February, so I had to schedule pre-op appointment with a different surgeon. Advised that they are trying to add a clinic day and if they do that, I will setup a virtual appointment so we can meet with him. Emailed pre-surgery schedule and instructions. Told him to let me know if he had any questions. Uploaded into [employer]. Orders placed. documented in this encounter Plan of Treatment Not on file documented as of this encounter Results * Protime-INR (02/27/2024 12:22 PM CDT) PT 10.9 10.3 - 13.7 sec INR 0.96 0.90 - 1.20 [facility] Comment: Interpretive data Oral anticoagulant therapeutic ranges: Venous thromboembolism prophylaxis or treatment: 2.0-3.0 CARDIOLOGY Standard range: 2.0-3.0 High-intensity range: 2.5-3.5 Refer to indication-specific guidelines for appropriate target ranges for prosthetic heart valve replacement. Current interpretive data was last revised on 2019. Blood 02/27/2024 12:2 2 PM CDT 02/27/2024 1:16 PM CDT Roberto Cannon MD LAB BLOOD ORDERABLES Final Result [facility] [place] [address] * aPTT (02/27/2024 12:22 PM CDT) [facility] aPTT 31 28 - 38 sec Comment: Interpretive Data Heparin therapeutic range: 66.0 - 100.0 seconds. Range based on correlation with therapeutic heparin activity range of 0.3 - 0.7 Units/mL. Current interpretive data was last revised on 2023. Blood 02/27/2024 12:2 2 PM CDT 02/27/2024 1:16 PM CDT us Roberto Cannon MD LAB BLOOD ORDERABLES Final Result Performing Organization Address [facility] [place] [address] * Hepatitis C (HCV) RNA PCR, quantitative Blood (02/27/2024 12:22 PM CDT) [facility] HCV RNA result Not Detected [facility] Comment: The quantifiable range of this assay is 15 IU/mL to 100,000,000 IU/mL (1.18 log IU/mL to 8.00 log IU/mL). Testing was performed by the [facility] HCV Test ([employer] Testing performed at [facility] Current Interpretive Data was last revised on 2021 Blood 02/27/2024 12:2 2 PM CDT 02/27/2024 1:31 PM CDT us Roberto Cannon MD LAB MICROBIOLOGY - GENERAL ORDERABLES Final Result Performing Organization Address [facility] [place] [address] [facility] * Hepatitis C antibody Blood (02/27/2024 12:22 PM CDT) [facility] Hep C Ab Nonreactive Nonreactive Comment:Antibodies to HCV no t detected. Does NOT exclude the possibility of recent exposure to HCV. Current interpretive data was last revised on 22 Blood 02/27/2024 12:2 2 PM CDT 02/27/2024 1:16 PM CDT Roberto Cannon MD LAB MICROBIOLOGY - GENERAL ORDERABLES Final Result [facility] [place] [address] * Hepatitis B Surface Antigen Blood (02/27/2024 12:22 PM CDT) Pathologist [facility] HepBsAg Nonreactive Nonreactive Blood 02/27/2024 12:2 2 PM CDT 02/27/2024 1:16 PM CDT Roberto Cannon MD LAB MICROBIOLOGY - GENERAL ORDERABLES Final Result Performing Organization Address [facility] [place] [address] * Hepatitis B surface antibody (immune status) Blood (02/27/2024 12:22 PM CDT) Pathologist [facility] HBsAb (immune status) Nonreactive Comment:This result is consi stent with a lack of immunity to Hepatitis B Virus when used in the setting of routine screening. Current interpretative data was last revised on 22 Blood 02/27/2024 12:2 2 PM CDT 02/27/2024 1:16 PM CDT Roberto Cannon MD LAB MICROBIOLOGY - GENERAL ORDERABLES Final Result Performing Organization Address City/State/[facility] Co de Phone Number [facility] [place] [address] * Hepatitis B (HBV) DNA PCR, quantitative Blood (02/27/2024 12:22 PM CDT) [facility] HBV DNA Result Not Detected [facility] Comment: The quantifiable range of this assay is 10 IU/mL to 1,000,000,000 IU/mL (1.00 log IU/mL to 9.00 log IU/mL). Testing was performed by the [facility]00 HBV Test version 2.0 ([employer] Testing performed at [facility] Current Interpretive Data was last revised on 2021. Blood 02/27/2024 12:2 2 PM CDT 02/27/2024 1:31 PM CDT Roberto Cannon MD LAB MICROBIOLOGY - GENERAL ORDERABLES Final Result Performing Organization Address City/[facility] Co de Phone Number [facility] Department [place] [address] [facility] * Hepatitis B core antibody, total Blood (02/27/2024 12:22 PM CDT) [facility] Hep B core IgG/IgM Nonreactive Nonreactive Blood 02/27/2024 12:2 2 PM CDT 02/27/2024 1:16 PM CDT Roberto Cannon MD LAB MICROBIOLOGY - GENERAL ORDERABLES Final Result Performing Organization Address City/[facility]/ZIP Co de Phone Number [facility] [place] [address] * HIV-1 RNA PCR, quantitative Blood (02/27/2024 12:22 PM CDT) [facility] HIV-1 RNA Not Detected [facility] Comment: The quantifiable range of this assay is 20 copies/mL to 10,000,000 copies/mL (1.30 log copies/mL to 7.00 log copies/mL). ??Testing was performed by the [facility] HIV-1 Test([employer] Testing performed at [facility] Current Interpretive Data was last revised on 2021. Blood 02/27/2024 12:2 2 PM CDT 02/27/2024 1:31 PM CDT Result [facility] Roberto Cannon MD LAB MICROBIOLOGY - GENERAL ORDERABLES Final Result Performing Organization Address [facility] Co de Phone Number [facility] [place] [address] [facility] * HIV 1/2 Antibody plus p24 Antigen Blood (02/27/2024 12:22 PM CDT) Pathologist [facility] HIV 1/2 ab + p24 ag Nonreactive Nonreactive Comment:Nonreactive for HIV- 1 antigen and HIV-1/HIV-2 antibodies. No laboratory evidence of HIV infection. If acute HIV infection is suspected, consider testing for HIV-1 RNA. Current interpretive data was last revised on 22. Blood 02/27/2024 12:2 2 PM CDT 02/27/2024 1:16 PM CDT Result [facility] Roberto Cannon MD LAB MICROBIOLOGY - GENERAL ORDERABLES Final Result Performing Organization Address [facility] de Phone Number [facility] [place] [address] * (ABNORMAL) Bryan-Winter virus (EBV) antibody panel Blood (02/27/2024 12:22 PM CDT) Pathologist [facility] EBV nuclear Ab Positive(A) Negative Comment:Indicates the presen ce of detectable IgG antibody to EBV Nuclear Antigen. EBV VCA IgG Positive(A) Negative [facility] Comment:Indicates the presen ce of antibody; 90% of the adult population will have been infected with EBV sometime in the past. EBV VCA IgM Negative Negative [facility] EBV interp Past Infection [facility] Blood 02/27/2024 12:2 2 PM CDT 02/27/2024 1:16 PM CDT Result [facility] Roberto Cannon MD LAB MICROBIOLOGY - GENERAL ORDERABLES Final Result [facility] Department [place] [address] * (ABNORMAL) Comprehensive metabolic panel (02/27/2024 12:22 PM CDT) Sodium 141 135 - 145 mmol/L Potassium, pl 4.7 3.3 - 4.9 mmol/L [facility] Chloride 105 97 - 110 mmol/L [facility] CO2 30 22 - 32 mmol/L [facility] Anion gap 6 2 - 15 mmol/L [facility] BUN 9 6 - 25 mg/dL [facility] Creatinine 0.90 0.80 - 1.30 mg/dL [facility] Glucose 86 70 - 199 mg/dL [facility] Comment: Interpretive Data Fasting glucose >/= 126 [...] classification and Diagnosis of Diabetes Diabetes Care 202; 46: S19-S40. Current interpretive data was last revised 2022. Calcium 9.6 8.5 - 10.3 mg/dL [facility] Bilirubin, total 0.2 0.1 - 1.2 mg/dL [facility] Protein, pl 7.7 6.5 - 8.5 g/dL [facility] Albumin 4.7 3.5 - 5.0 g/dL [facility] Alk phos 168(H) 40 - 130 Units/L [facility] ALT 32 7 - 55 Units/L [facility] AST 26 10 - 50 Units/L [facility] Blood 02/27/2024 12:2 2 PM CDT 02/27/2024 1:16 PM CDT Roberto Cannon MD LAB BLOOD ORDERABLES Final Result Performing Organization Address [facility] Co de Phone Number [facility] [place] [address] * CMV, IgG Blood (02/27/2024 12:22 PM CDT) [facility] CMV IgG Negative Negative Comment: Interpretive Data Negative - Individuals with negative CMV IgG results are presumed to not have had prior exposure or infection with CMV and are, therefore, considered susceptible to primary infection. Equivocal - Equivocal results may occur during acute infection or may be due to nonspecific binding reactions. Submit an additional sample for testing if clinically indicated. Positive - Indicates presence of detectable CMV IgG antibody. Results indicate past or recent CMV infection. Blood 02/27/2024 12:2 2 PM CDT 02/27/2024 1:16 PM CDT Roberto Cannon MD LAB MICROBIOLOGY - GENERAL ORDERABLES Final Result Performing Organization Address [facility] de Phone Number [facility] Department [place] [address] * (ABNORMAL) CBC with auto differential (02/27/2024 12:22 PM CDT) [facility] WBC 7.9 3.8 - 9.9 K/cumm Hgb 16.5 13.0 - 17.5 g/dL [facility] Hct 50.7(H) 38.9 - 50.3 % [facility] Plt 162 150 - 400 K/cumm [facility] MPV 12.0 9.1 - 12.3 fL [facility] RBC 5.59 4.30 - 5.80 M/cumm [facility] MCV 90.7 81.3 - 96.4 fL [facility] MCH 29.5 27.1 - 33.3 pg [facility] MCHC 32.5 32.3 - 35.7 g/dL [facility] RDW CV 12.9 11.1 - 14.9 % [facility] RDW SD 42.6 35.7 - 48.1 fL [facility] NRBC abs 0.00 0.00 - 0.01 K/cumm [facility] Blood 02/27/2024 12:2 2 PM CDT 02/27/2024 1:16 PM CDT us Roberto Cannon MD LAB BLOOD ORDERABLES Final Result Performing Organization Address [facility] Co de Phone Number [facility] [place] [address] * ABO/Rh (02/27/2024 12:22 PM CDT) ABO Rh O Positive Blood 02/27/2024 12:2 2 PM CDT 02/27/2024 1:43 PM CDT us Roberto Cannon MD LAB BLOOD BANK TEST ORDERAB LES Final Result Performing Organization Address [facility] de Phone Number [facility] [place] [address] * ECG 12 lead (02/27/2024 12:20 PM CDT) Ventricular Rate EKG/Min 63 BPM [facility] Atrial Rate 63 BPM [facility] SD-Interval (MSEC) 144 ms [facility] QRS-Interval (MSEC) 84 ms [facility] QT-Interval (MSEC) 382 ms [facility] QTc 390 ms [facility] P [place] 34 degrees [facility] R [place] 77 degrees [facility] T [place] 59 degrees [facility] Diagnosis Normal sinus rhythm Normal ECG When compared with ECG of 19-NOV-2023 13:51, No significant change was found Confirmed by REGI MILLAN M.D ([id number]) on 02/28/2024 2:54:22 PM [facility] 02/27/2024 12:2 0 PM CDT 02/28/2024 2:54 PM CDT Roberto Cannon MD ECG ORDERABLES Final Resul t [facility] * Collection Task for HLA Crossmatch, Donor (02/27/2024 12:06 PM CDT) HLA XM Donor Received Blood 02/27/2024 12:0 6 PM CDT 02/27/2024 2:22 PM CDT Roberto Cannon MD LAB BLOOD ORDERABLES Final Result [facility] Department [place] [address] * HLA Crossmatch, Donor (02/27/2024 12:06 PM CDT) NGS HISTOTRAC A First Allele A*02:01 HISTOTRAC A Second Allele A*32:01 HISTOTRAC A First Serological Equivalent A2 H[facility]OT[facility]AC A Second Serological Equivalent A32 [facility] B First Allele B*08:01 HISTOTRAC B Second Allele B*44:02 HISTOTRAC B First Serological Equivalent B8 HISTOTRAC B Second Serological Equivalent B44 HISTOTRAC Bw First Serological Equivalent Bw6 HISTOTRAC Bw Second Serological Equivalent Bw4 HISTOTRAC C First Allele C*05:01 HISTOTRAC C Second Allele C*07:01 HISTOTRAC C First Serological Equivalent Cw5 HISTOTRAC C Second Serological Equivalent Cw7 HISTOTRAC DRB1 First [place]lele DRB1*01:01 HISTOTRAC DRB1 Second Allele DRB1*03:01 HISTOTRAC [address]B1 First Serological Equivalent DR1 HISTOTRAC DRB1 Second Serological Equivalent DR17 HISTOTRAC DRB3 First [place]lele DRB3*01:01 HISTOTRAC [address]B3 First Serological Equivalent DR52 HISTOTRAC DQA1 First Allele DQA1*01:01 HISTOTRAC DQA1 Second Allele DQA1*05:01 HISTOTRAC DQB1 First Allele DQB1*02:EA HEJ HISTOTRAC DQB1 Second Allele DQB1*05:TD HE HISTOTRAC DQB1 First Serological Equivalent DQ2 HISTOTRAC DQB1 Second Serological Equivalent DQ5 HISTOTRAC DPB1 First Allele DPB1*04:02 :01G HISTOTRAC DPB1 Second Allele DBP1*13:01 :01G [facility] Blood 02/27/2024 12:0 6 PM CDT 03/08/2024 9:08 AM CDT Narrative [facility] - 03/08/2024 9:08 AM CDT DNA was extracted from whole blood or buccal cell specimens, and relevant genomic regions were amplified by polymerase chain reaction (PCR). HLA typing was performed on PCR amplicons by next-generation sequencing (NGS) using the AllType NGS assay ([employer]) on the [employer] platform, which outperforms the David Sequence-based typing (SBT) but is not FDA approved for HLA typing. The sequence-specific primers (SSP) method may be employed to resolve ambiguity using FDA approved IVD products ([place] SSP) as indicated. The performance of the above methods are validated by the [facility] Laboratory. For typing results reported using NMDP codes, all unresolved alleles represented by the code are listed under the NMDP Code Translations section. DPB1 typing may be resulted using G group codes when applicable (e.g. DPB1*01:01:01G); all alleles within a G group share the same DNA sequence for the exon 2 of DPB1, and the list of unresolved alleles within a G group can be viewed at http://hla.alleles.org/alleles/g_groups.html. Testing performed at the [facility], [address] [place] [address], 5th floor, [place], [address]. [facility] # [id number]. Albaro Bhatia M.D., Ph.D., HLA Conservation Enforcement Officer Barbara Benoit, Ph.D., Concrete Conveyor Operator, [facility] Clinical Laboratories Current methodology comment last revised on 08/15/2020. us Roberto Cannon MD LAB BLOOD ORDERABLES Edited Result - Final [facility] * Urine culture Urine, clean voided (02/27/2024 12:06 PM CDT) Report Final Report: Less than 100,000 colonies/mL (clinically insignificant growth based on current clinical standards) Organism (CLINICALLY INSIGNIFICANT GROWTH [facility] Urine, clean voided 02/27/2024 12:06 PM CDT 02/27/2024 1:19 PM CDT Narrative [facility] - 02/28/2024 2:45 PM CDT Testing performed by [facility] Microbiology Laboratory ([phone]) us Roberto Cannon MD LAB MICROBIOLOGY - GENERAL ORDERABLES Final Result [facility] Department [place] [address] * XR Chest Pa Lateral 2 Views (02/27/2024 11:59 AM CDT) Anatomical Region Laterality Modality Body, Chest N/A Computed Radiogr aphy 02/27/2024 1:08 PM CDT Impressions 02/27/2024 1:08 PM CDT The current study is compared with the prior radiograph dated ??11/19/2023. ??The heart and mediastinal contours are normal. There is no mass or consolidation. ??There is no lymphadenopathy. There are no pleural effusions. ??There is no pneumothorax.. ??there is no interval change. ??Nipple shadows are seen bilaterally Electronically signed by: Shazia Maciel M.D. Narrative 02/27/2024 1:08 PM CDT EXAMINATION: 2 view chest radiograph Procedure Note Shazia Maciel MD - 02/27/2024 EXAMINATION: 2 view chest radiograph IMPRESSION: The current study is compared with the prior radiograph dated 11/19/2023. The heart and mediastinal contours are normal. There is no mass or consolidation. There is no lymphadenopathy. There are no pleural effusions. There is no pneumothorax.. there is no interval change. Nipple shadows are seen bilaterally Electronically signed by: Shazia Maciel M.D. us Roberto Cannon MD IMG XR PROCEDURES Final Res ult documented in this encounter Visit Diagnoses Diagnosis Kidney donor- Primary Kidney donor Kidney donor documented in this encounter Care Teams Marketing Assistant Manager Relationship Specialty Start Date End Date Elke Mcmillan MD [address] [place] [id number] PCP - General Family Medicine 08/15/23 Lindsey Bal, RN [address] [facility] [address] [place] [id number] Branch Service Specialist 07/04/23 documented as of this encounter
--- OUTSIDE RECORDS SUMMARY | 2024-11-20 04:23 | XMS_ITS | Encounter Summary ---
Author Organization [facility] Healthcare Address [address] [place] [address] Care Team Providers Care Greenhouse Worker Name Role Phone Lindsey Bal RN Unavailable [phone] Elke Mcmillan MD Primary Care Provider Encounter Details Date Type Department Care Team (Latest Contact Info) Description 02/27/2024 11:55 AM CDT - 02/27/2024 11:59 PM CDT Hospital Encounter [facility] [address] [place] [address] Kidney donor Discharge Disposition: Discharge to home or self care Social History Tobacco Use Types Packs/Day Years Used Date Smoking Tobacco: Every Day Cigarettes Smokeless Tobacco: Never [facility] Utilities Answer Date Recorded In the past 12 months has [place] electric, gas, oil, or water company threatened [...] you attend chur ch or lutheran services? Patient declined 11/24/2023 Do you belong to any clubs o r organizations such as jehovah's witness groups, unions, fraternal or athletic groups, or school groups? Patient declined 11/24/2023 How often do you attend meet ings of the clubs or organizations you belong to? Patient declined 11/24/2023 Are you , , di vorced, , never , or living with a partner? 11/24/2023 AUDIT-C Answer Date Recorded Q1: How often [...] slept in a correction (including now)? No 11/24/2023 Personal Safety Answer Date Recorded Have you ever been in or are you currently in a harmful physical or emotional relationship or is someone making you feel afraid or unsafe? Denies 08/18/2023 Sex and Gender Information Value Date Recorded Sex Assigned at Not on file Legal Sex Male 7:09 PM [employer] Gender Identity Not on file Sexual Orientation Not on file documented as of this encounter Medications at Time of Discharge acetaminophen (TYLENOL) 500 mg tablet Take 2 tablets (1,000 mg total) by mouth every 6 (six) hours as needed 01/28/2024 atorvastatin (LIPITOR) 20 mg tabletIndications:h yperlipidemia Take 1 tablet (20 mg total) by mouth nightly 06/30/2023 carBAMazepine (TEGretol) 200 mg tabletIndications:B ipolar Disorder Take 1 tablet (200 mg total) by mouth nightly 05/30/2023 gabapentin (NEURONTIN) 100 mg capsule Take 1 capsule (100 mg total) by mouth 2 (two) times a day for 14 days 28 capsule 03/09/2024 icosapent ethyL (VASCEPA) 1 gram capsuleIndications: hypertriglyceridemi a Take 2 capsules (2 g total) by mouth 2 (two) times a day 07/30/2023 omeprazole (PriLOSEC) 20 mg capsuleIndications: Treatment of Non-Bleeding Gastric Disorder Take 1 capsule (20 mg total) by mouth nightly ondansetron ODT (ZOFRAN-ODT) 4 mg disintegrating tablet Take 1 tablet (4 mg total) by mouth every 8 (eight) hours as needed for nausea or vomiting 10 tablet 03/09/2024 oxyCODONE (ROXICODONE) 5 mg immediate release tabletIndications:P ain Take 1 tablet (5 mg total) by mouth every 4 (four) hours as needed for pain 15 tablet 03/09/2024 polyethylene glycol (MIRALAX) 17 gram packetIndications:c onstipation Take 1 packet (17 g total) by mouth daily 30 packet 03/09/2024 senna-docusate (PERICOLACE) 8.6-50 mg Take 1 tablet by mouth 2 (two) times a day 60 tablet 03/09/2024 azithromycin (ZITHROMAX) 500 mg tabletIndications:e ar infection Take 1 tablet (500 mg total) by mouth daily cefdinir (OMNICEF) 300 mg capsule Take 1 capsule (300 mg total) by mouth every 12 (twelve) hours 02/03/2024 fluticasone propionate (FLONASE) 50 mcg/actuation nasal spray Administer 1 spray into each nostril as needed for rhinitis 12/22/2023 4 lidocaine (LIDODERM) 5 % Apply 1 patch topically daily 01/28/2024 4 methocarbamoL (ROBAXIN) 500 mg tablet Take 1 tablet (500 mg total) by mouth 4 (four) times a day 01/28/2024 4 naproxen (NAPROSYN) 500 mg tablet Take 1 tablet (500 mg total) by mouth every 12 (twelve) hours as needed 01/28/2024 4 documented as of this encounter Discharge Disposition Disposition Code Departure Means Destination Discharge to home or self care documented in this encounter Plan of Treatment Not on file documented as of this encounter Procedures Procedure Name Priority Date/Time Associated Diagnosis Comments XR CHEST PA LATERAL 2 VIEWS Schedule Routine, Read Routine (OP Routine) 02/27/2024 11:59 AM CDT Kidney donor documented in this encounter Results * XR Chest Pa Lateral 2 Views [...] in this encounter Visit Diagnoses Diagnosis Kidney donor documented in this encounter Care Teams Greenhouse Worker Relationship Specialty Start Date End Date Elke Mcmillan MD [address] [place] [address] PCP - General Family Medicine 08/15/23 Lindsey Bal, RN [address] [facility] [address] [place] [address] Restaurant Culinary Manager 07/04/23 documented as of this encounter
--- OUTSIDE RECORDS SUMMARY | 2024-11-20 04:23 | XMS_ITS | Encounter Summary ---
Author Organization [facility] Healthcare Address [address] [place] [address] Care Team Providers Care Bullet Maker Name Role Phone Lindsey Bal RN Unavailable [phone] Elke Mcmillan MD Primary Care Provider Encounter Details Date Type Department Care Team (Late st Contact Info) Description 02/27/2024 12:05 PM CDT Lab [facility] [place] [facility] ([facility]) [address] [place] [phone] Kidney donor Social History Tobacco Use Types Packs/Day Years Used Date Smoking Tobacco: Every Day Cigarettes Smokeless Tobacco: Never [facility] Utilities Answer Date Recorded In [...] often do you attend chur ch or anabaptist services? Patient declined 11/24/2023 Do you belong to any clubs o r organizations such as gnosticism groups, unions, fraternal or athletic groups, or [...] place to sleep or slept in a longterm (including now)? No 11/24/2023 Personal Safety Answer Date Recorded Have you ever been in or are you currently in a harmful physical or emotional relationship or is someone making you feel afraid or unsafe? 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 Gender Identity Not on file Sexual Orientation Not on file documented as of this encounter Plan of Treatment Not on file documented as of this encounter Procedures Procedure Name Priority Date/Time Associated Diagnosis Comments RENAL TRANSPLANT DONOR URINALYSIS AND MICROSCOPY Routine 02/27/2024 12:22 PM CDT Kidney donor EGFR Routine 02/27/2024 12:22 PM CDT Kidney donor DIFFERENTIAL AUTO Routine 02/27/2024 12: 22 PM CDT Kidney donor URINALYSIS, MACROSCOPIC Routine 02/27/2024 12:22 PM CDT Kidney donor HIV 1/2 ANTIBODY PLUS P24 ANTIGEN Routine 02/27/2024 12:22 PM CDT Kidney donor CMV, IGG Routine 02/27/2024 12:22 PM CDT Kidney donor CBC WITH AUTO DIFFERENTIAL Routine 02/27/2024 12:22 PM CDT Kidney donor HEPATITIS C ANTIBODY Routine 02/27/2024 12:22 PM CDT Kidney donor ALEX-WINTER VIRUS VCA ANTIBODY PANEL Routine 02/27/2024 12:22 PM CDT Kidney donor HEPATITIS B CORE ANTIBODY, TOTAL Routine 02/27/2024 12:22 PM CDT Kidney donor HEPATITIS B DNA, QUANTITATIVE, PCR Routine 02/27/2024 12:22 PM CDT Kidney donor HIV-1 RNA, QUANTITATIVE, PCR Routine 02/27/2024 12:22 PM CDT Kidney donor ABO/RH Routine 02/27/2024 12:22 PM CDT Kidney donor HEPATITIS C RNA, QUANTITATIVE, PCR Routine 02/27/2024 12:22 PM CDT Kidney donor HEPATITIS B SURFACE ANTIBODY (IMMUNE STATUS) Routine 02/27/2024 12:22 PM CDT Kidney donor HEPATITIS B SURFACE ANTIGEN Routine 02/27/2024 12:22 PM CDT Kidney donor URINALYSIS, MICROSCOPIC ONLY Routine 02/27/2024 12:22 PM CDT Kidney donor APTT Routine 02/27/2024 12:22 PM CDT Kidney donor PROTIME-INR Routine 02/27/2024 12:22 PM CDT Kidney donor COMPREHENSIVE METABOLIC PANEL Routine 02/27/2024 12:22 PM CDT Kidney donor HLA CROSSMATCH, DONOR Routine 02/27/2024 12:06 PM CDT Kidney donor HLA CROSSMATCH DONOR Routine 02/27/2024 12:06 PM CDT Kidney donor URINE CULTURE Routine 02/27/2024 12:06 PM CDT Kidney donor documented in this encounter Results * eGFR (02/27/2024 12:22 PM CDT) eGFR >90 >=60 mL/min/1. 73 m2 Comment: Interpretive Data [...] Inclusion of Race in Diagnosing Kidney Disease, MISTY 2020). The CKD-EPI equation should not be used for patients with unstable renal function and has not been validated in children and those over 70. Current interpretive data was last reviewed 2021. Blood 02/27/2024 12:2 2 PM CDT 02/27/2024 1:21 PM CDT Roberto Cannon MD LAB BLOOD ORDERABLES Final Result [facility] [place] [address] * Differential, auto (02/27/2024 12:22 PM CDT) Neutrophil abs 4.9 1.5 - 6.5 K/cumm Imm gran abs 0.0 0.0 - 0.1 K/cumm [facility] Lymphocyte abs 2.2 0.8 - 3.3 K/cumm [facility] Monocyte abs 0.5 0.2 - 0.8 K/cumm [facility] Eosinophil abs 0.3 0.0 - 0.5 K/cumm [facility] Basophil abs 0.0 0.0 - 0.1 K/cumm [facility] Neutrophil pct 61.8 % [facility] Comment: Interpretive Data Percent cell count reference ranges are not reported, since discordance with absolute values may lead to misinterpretation of CBC data. Current Interpretive Data was last revised on 2018. Imm gran pct 0.4 % [facility] Comment: Interpretive Data Percent cell count reference ranges are not reported, since discordance with absolute values may lead to misinterpretation of CBC data. Current Interpretive Data was last revised on 2018. Lymphocyte pct 27.4 % [facility] Comment: Interpretive Data Percent cell count reference ranges are not reported, since discordance with absolute values may lead to misinterpretation of CBC data. Current Interpretive Data was last revised on 2018. Monocyte pct 6.2 % [facility] Comment: Interpretive Data Percent cell count reference ranges are not reported, since discordance with absolute values may lead to misinterpretation of CBC data. Current Interpretive Data was last revised on 2018. Eosinophil pct 3.7 % [facility] Comment: Interpretive Data Percent cell count reference ranges are not reported, since discordance with absolute values may lead to misinterpretation of CBC data. Current Interpretive Data was last revised on 2018. Basophil pct 0.5 % [facility] Comment: Interpretive Data Percent cell count reference ranges are not reported, since discordance with absolute values may lead to misinterpretation of CBC data. Current Interpretive Data was last revised on 2018. Blood 02/27/2024 12:2 2 PM CDT 02/27/2024 1:16 PM CDT Roberto Cannon MD LAB BLOOD ORDERABLES Final Result Performing Organization Address [facility] Co de Phone Number [facility] [place] [employer] [place] [address] * (ABNORMAL) Urinalysis, microscopic only (02/27/2024 12:22 PM CDT) WBC, ur 0-5 0 - 5 /HPF RBC, ur 0-2 0 - 2 /HPF [facility] Mucous, ur Present(A) [facility] Urine, clean voided 02/27/2024 12:22 PM CDT 02/27/2024 1:16 PM CDT Roberto Cannon MD LAB URINE ORDERABLES Final Result Performing Organization Address City/[facility] Co de Phone Number [facility] [place] [address] * Urinalysis, macroscopic Urine, clean voided (02/27/2024 12:22 PM CDT) Color, ur Straw Yellow Clarity, ur Clear Clear [facility] Specific gravity, ur 1.015 1.003 - 1.030 [facility] pH, urine 6.5 [facility] Comment: Interpretive Data ? Urine pH is affected by diet, medications, systemic acid-base disturbances, and renal tubular function. ??pH may affect urinary stone formation. ??For example, urine pH below 6.0 may help reduce the tendency for calcium phosphate stones and pH greater than 6.0 may reduce the tendency for uric acid stone formation. Source: [facility] Current Interpretive Data was last revised on 2017 Protein, ur ql Negative Negative [facility] Glucose, ur ql Negative Negative [facility] Ketones, ur Negative Negative [facility] Bilirubin, ur Negative Negative [facility] Blood, ur Negative Negative [facility] Urobilinogen, ur <2.0 <2.0 mg/dL [facility] Nitrite, ur Negative Negative [facility] Leukocyte esterase, ur Negative Negative [facility] Urine, clean voided 02/27/2024 12:22 PM CDT 02/27/2024 1:16 PM CDT Roberto Cannon MD LAB MICROBIOLOGY - GENERAL ORDERABLES Final Result Performing Organization Address [facility] de Phone Number [facility] [place] [address] * ABO/Rh (02/27/2024 12:22 PM CDT) Pathologist [facility] [place] ABO Rh O Positive Blood 02/27/2024 12:2 2 PM CDT 02/27/2024 1:43 PM CDT Roberto Cannon MD LAB BLOOD BANK TEST ORDERAB LES Final Result Performing Organization Address [facility] de Phone Number [facility] [place] [address] * (ABNORMAL) CBC with auto differential (02/27/2024 12:22 PM CDT) Pathologist [facility] WBC 7.9 3.8 - 9.9 K/cumm Hgb 16.5 13.0 - 17.5 g/dL [facility] Hct 50.7(H) 38.9 - 50.3 % [facility] Plt 162 150 - 400 K/cumm [facility] MPV 12.0 9.1 - 12.3 fL [facility] RBC 5.59 4.30 - 5.80 M/cumm [facility] MCV 90.7 81.3 - 96.4 fL [facility] MCH 29.5 27.1 - 33.3 pg [facility] MCHC 32.5 32.3 - 35.7 g/dL [facility] RDW CV 12.9 11.1 - 14.9 % [facility] RDW SD 42.6 35.7 - 48.1 fL [facility] NRBC abs 0.00 0.00 - 0.01 K/cumm [facility] Blood 02/27/2024 12:2 2 PM CDT 02/27/2024 1:16 PM CDT Roberto Cannon MD LAB BLOOD ORDERABLES Final Result Performing Organization Address [facility] de Phone Number [facility] Department [place] [employer] [place] [address] * CMV, IgG Blood (02/27/2024 12:22 PM CDT) [facility] CMV IgG Negative Negative Comment: Interpretive Data [...] GENERAL ORDERABLES Final Result Performing Organization Address [facility]/ZIP Co de Phone Number [facility] [place] [address] * (ABNORMAL) Comprehensive metabolic panel (02/27/2024 12:22 PM CDT) Sodium 141 135 - 145 mmol/L Potassium, pl 4.7 3.3 - 4.9 mmol/L [facility] Chloride 105 97 - 110 mmol/L [facility] CO2 30 22 - 32 mmol/L [facility] Anion gap 6 2 - 15 mmol/L [facility] BUN 9 6 - 25 mg/dL [facility] Creatinine 0.90 0.80 - 1.30 mg/dL [facility] Glucose 86 70 - 199 mg/dL [facility] Comment: Interpretive Data Fasting glucose >/= [...] 2022. Calcium 9.6 8.5 - 10.3 mg/dL [facility] Bilirubin, total 0.2 0.1 - 1.2 mg/dL [facility] Protein, pl 7.7 6.5 - 8.5 g/dL [facility] Albumin 4.7 3.5 - 5.0 g/dL [facility] Alk phos 168(H) 40 - 130 Units/L [facility] ALT 32 7 - 55 Units/L [facility] AST 26 10 - 50 Units/L [facility] Blood 02/27/2024 12:2 2 PM CDT 02/27/2024 1:16 PM CDT us Roberto Cannon MD LAB BLOOD ORDERABLES Final Result [facility] [place] [address] * (ABNORMAL) Alex-Winter virus (EBV) antibody panel Blood (02/27/2024 12:22 PM CDT) [facility] EBV nuclear Ab Positive(A) Negative Comment:Indicates the presen ce of detectable IgG antibody to EBV Nuclear Antigen. EBV VCA IgG Positive(A) Negative [facility] Comment:Indicates the presen ce of antibody; 90% of the adult population will have been infected with EBV sometime in the past. EBV VCA IgM Negative Negative [facility] EBV interp Past Infection [facility] Blood 02/27/2024 12:2 2 PM CDT 02/27/2024 1:16 PM CDT Roberto Cannon MD LAB MICROBIOLOGY - GENERAL ORDERABLES Final Result Performing Organization Address [facility] Co de Phone Number [facility] Department [place] [address] * HIV 1/2 Antibody plus p24 Antigen Blood (02/27/2024 12:22 PM CDT) [facility] HIV 1/2 ab + p24 ag Nonreactive [...] GENERAL ORDERABLES Final Result Performing Organization Address City/[facility]/ZIP Co de Phone Number [facility] [place] [address] * HIV-1 RNA PCR, quantitative Blood (02/27/2024 12:22 PM CDT) [facility] HIV-1 RNA Not Detected [facility] Comment: The quantifiable range of this assay is 20 copies/mL to 10,000,000 copies/mL (1.30 log copies/mL to 7.00 log copies/mL). ??Testing was performed by the [facility]ERN[facility]00 HIV-1 Test([employer] Testing performed at [facility] Current Interpretive Data was last revised on 2021. Blood 02/27/2024 12:2 2 PM CDT 02/27/2024 1:31 PM CDT Roberto Cannon MD LAB MICROBIOLOGY - GENERAL ORDERABLES Final Result Performing Organization Address [facility] Co de Phone Number [facility] [place] [address] [facility] * Hepatitis B core antibody, total Blood (02/27/2024 12:22 PM CDT) Pathologist [facility] Hep B core IgG/IgM Nonreactive Nonreactive Blood 02/27/2024 12:2 2 PM CDT 02/27/2024 1:16 PM CDT Result [facility] Roberto Cannon MD LAB MICROBIOLOGY - GENERAL ORDERABLES Final Result Performing Organization Address [facility] Co de Phone Number [facility] [place] [address] * Hepatitis B (HBV) DNA PCR, quantitative Blood (02/27/2024 12:22 PM CDT) [facility] HBV DNA Result Not Detected [facility] Comment: The quantifiable range of this assay is 10 IU/mL to 1,000,000,000 IU/mL (1.00 log IU/mL to 9.00 log IU/mL). Testing was performed by the [facility]ERNICE [employer] HBV Test version 2.0 ([employer] Testing performed at [facility] Current Interpretive Data was last revised on 2021. Blood 02/27/2024 12:2 2 PM CDT 02/27/2024 1:31 PM CDT Result [facility] Roberto Cannon MD LAB MICROBIOLOGY - GENERAL ORDERABLES Final Result Performing Organization Address [facility] [place] [address] [facility] * Hepatitis B surface antibody (immune status) Blood (02/27/2024 12:22 PM CDT) HBsAb (immune status) Nonreactive Comment:This result is consi stent with a lack of immunity to Hepatitis B Virus when used in the setting of routine screening. Current interpretative data was last revised on 22 Blood 02/27/2024 12:2 2 PM CDT 02/27/2024 1:16 PM CDT Roberto Cannon MD LAB MICROBIOLOGY - GENERAL ORDERABLES Final Result Performing Organization Address [facility] [place] [address] * Hepatitis B Surface Antigen Blood (02/27/2024 12:22 PM CDT) HepBsAg Nonreactive Nonreactive Blood 02/27/2024 12:2 2 PM CDT 02/27/2024 1:16 PM CDT Roberto Cannon MD LAB MICROBIOLOGY - GENERAL ORDERABLES Final Result Performing Organization Address [facility] [place] [address] * Hepatitis C antibody Blood (02/27/2024 12:22 PM CDT) Hep C Ab Nonreactive Nonreactive Comment:Antibodies to HCV no t detected. Does NOT exclude the possibility of recent exposure to HCV. Current interpretive data was last revised on 22 Blood 02/27/2024 12:2 2 PM CDT 02/27/2024 1:16 PM CDT Result [facility] Roberto Cannon MD LAB MICROBIOLOGY - GENERAL ORDERABLES Final Result Performing Organization Address [facility] Co de Phone Number [facility] [place] [address] * Hepatitis C (HCV) RNA PCR, quantitative Blood (02/27/2024 12:22 PM CDT) Pathologist [facility] HCV RNA result Not Detected [facility] Comment: The quantifiable range of this assay is 15 IU/mL to 100,000,000 IU/mL (1.18 log IU/mL to 8.00 log IU/mL). Testing was performed by the [facility]ERN[facility] HCV Test ([employer] Testing performed at [facility] Current Interpretive Data was last revised on 2021 Blood 02/27/2024 12:2 2 PM CDT 02/27/2024 1:31 PM CDT Result [facility] Roberto Cannon MD LAB MICROBIOLOGY - GENERAL ORDERABLES Final Result Performing Organization Address [facility] [place] [address] [facility] * aPTT (02/27/2024 12:22 PM CDT) Pathologist [facility] aPTT 31 28 - 38 sec Comment: Interpretive Data Heparin therapeutic range: 66.0 - 100.0 seconds. Range based on correlation with therapeutic heparin activity range of 0.3 - 0.7 Units/mL. Current interpretive data was last revised on 2023. Blood 02/27/2024 12:2 2 PM CDT 02/27/2024 1:16 PM CDT Result [facility] Roberto Cannon MD LAB BLOOD ORDERABLES Final Result Performing Organization Address [facility] Co de Phone Number [facility] [place] [address] * Protime-INR (02/27/2024 12:22 PM CDT) PT 10.9 10.3 - 13.7 sec INR 0.96 0.90 - 1.20 [facility] Comment: Interpretive data Oral anticoagulant therapeutic ranges: Venous thromboembolism prophylaxis or treatment: 2.0-3.0 CARDIOLOGY Standard range: 2.0-3.0 High-intensity range: 2.5-3.5 Refer to indication-specific guidelines for appropriate target ranges for prosthetic heart valve replacement. Current interpretive data was last revised on 2019. Blood 02/27/2024 12:2 2 PM CDT 02/27/2024 1:16 PM CDT Roberto Cannon MD LAB BLOOD ORDERABLES Final Result [facility] [place] [address] * HLA Crossmatch, Donor (02/27/2024 12:06 PM [...] sequencing (NGS) using the AllType NGS assay ([employer]) on the [employer] platform, which outperforms the David Sequence-based typing (SBT) but is not FDA approved for HLA typing. The sequence-specific primers (SSP) method may be employed to resolve ambiguity using FDA approved IVD products ([employer] SSP) as indicated. The performance of the above methods are validated by the [facility]. For typing results reported using [...] viewed at http://hla.alleles.org/alleles/g_groups.html. Testing performed at the [facility], [address] [place] [address], 5th floor, [place], [address]. [facility] # [id number]. Albaro Bhatia M.D., Ph.D., HLA Dispatcher Chief Oil Barbara Benoit, Ph.D., Courtesy Car Driver, [facility] Current methodology comment last revised on 08/15/2020. Roberto Cannon MD LAB BLOOD ORDERABLES Edited Result - Final Performing Organization Address [facility]/ZIP Co de Phone Number [facility] * Collection Task for HLA Crossmatch, Donor (02/27/2024 12:06 PM CDT) HLA XM Donor Received Blood 02/27/2024 12:0 6 PM CDT 02/27/2024 2:22 PM CDT Roberto Cannon MD LAB BLOOD ORDERABLES Final Result Performing Organization Address [facility] Co de Phone Number [facility] [place] [address] * Urine culture Urine, clean voided (02/27/2024 12:06 PM CDT) Report Final Report: Less than 100,000 colonies/mL (clinically insignificant growth based on current clinical standards) Organism (CLINICALLY INSIGNIFICANT GROWTH [facility] Urine, clean voided 02/27/2024 12:06 PM CDT 02/27/2024 1:19 PM CDT Narrative [facility] - 02/28/2024 2:45 PM CDT Testing performed by [facility] Microbiology Laboratory ([phone]) Roberto Cannon MD LAB MICROBIOLOGY - GENERAL ORDERABLES Final Result Performing Organization Address [facility] Co de Phone Number [facility] [place] [address] documented in this encounter Visit Diagnoses Diagnosis Kidney donor documented in this encounter Care Teams Bullet Maker Relationship Specialty Start Date End Date Elke Mcmillan MD [address] [place], [place] [id number] PCP - General Family Medicine 08/15/23 Lindsey Bal, ROSANGELA [address] [facility] [address] [place] [address] Department Store Manager 07/04/23 documented as of this encounter
--- OUTSIDE RECORDS SUMMARY | 2024-11-20 04:23 | XMS_ITS | Encounter Summary ---
Author Organization [facility] Healthcare Address [address] [place] [address] Care Team Providers Care Inspector Brake Lining Name Role Phone Lindsey Bal RN Unavailable Elke Mcmillan MD Primary Care Provider Encounter Details Date Type Department Care Team (Late st Contact Info) Description 03/02/2024 Telephone [facility] Nutrition Counseling [address] [place] [id number] [address] Social History Tobacco Use Types Packs/Day Years Used Date Smoking Tobacco: Every Day Cigarettes Smokeless Tobacco: Never [facility] Utilities Answer Date Recorded In the past 12 months has [employer] electric, gas, oil, or water company threatened [...] you attend chur ch or buddhism services? Patient declined 11/24/2023 Do you belong to any clubs o r organizations such as gnosticist groups, unions, fraternal or athletic groups, or [...] slept in a assisted (including now)? No 11/24/2023 Personal Safety Answer Date Recorded Have you ever been in or are you currently in a harmful physical or emotional relationship or is someone making you feel afraid or unsafe? 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 He is scheduled to be a kidney donor to his cousin on 03/09/24. Reviewed pts chart, medications, labs. Called him this evening, but call went to [facility] for him to return when able. I also sent him anemail to the address on file in case that is easier. RD will follow w/pt as desired. Becky Cisneros RD [employer] TEACHER LD RD On-Call documented in this encounter Plan of Treatment Not on file documented as of this encounter Visit Diagnoses Not on filedocumented in this encounter Care Teams Inspector Brake Lining Relationship Specialty Start Date End Date Elke Mcmillan MD [address] [place] [address] PCP - General Family Medicine 08/15/23 Lindsey Bal, RN [address] [facility] [address] [place] [address] Gaming Cage Worker 07/04/23 documented as of this encounter
--- OUTSIDE RECORDS SUMMARY | 2024-11-20 04:23 | XMS_ITS | Encounter Summary ---
Author Organization [facility] Healthcare Address [address] [place] [address] Care Team Providers Care Cutting Machine Fixer Name Role Phone Lindsey Bal RN Unavailable [phone] Elke Mcmillan MD Primary Care Provider Reason for Visit * Auth/Cert (Routine) Specialty Diagnoses / Procedures Referred By Anne melton Referred To Contact Diagnoses Kidney donor Kidney donor [Z52.4] Procedures AK LAPAROSCOPY DONOR NEPHRECTOMY LIVING DONOR XI ROBOTIC ASSISTED DONOR NEPHRECTOMY Referral ID Status Reason Start Date Expiration Date Visits Re quested Visits Authorized [id number] 1 1 Encounter Details Date Type Department Care Team (Late st Contact Info) Description 03/09/2024 7:30 AM CDT - 03/09/2024 11:45 AM CDT Surgery [facility] Operating Room [address] [place] [address] Roberto Cannon MD 1 [facility] [address] [place] [address] XI ROBOTIC ASSISTED LEFT DONOR NEPHRECTOMY and TAP BLOCK Surgery Details Date/Time Status Location OR Service Patient Class Case Class Case Type Trauma Case? 03/09/2024 7:30 AM Posted [facility] OR POD 5 230 Transplant Surgery Admit Elective Panel 1 Procedure LRB Anes Op Region Wound Class Comments XI ROBOTIC ASSISTED LEFT DONOR NEPHRECTOMY and TAP BLOCK Left General Flank Class II - Clean Contaminated Surgeon Surgeon Role Service Panel Deepak Kline IV, MD Fellow Transplant 1 Luisito Singletary MD Co-Surgeon Transplant 1 Roberto Cannon MD Primary Transplant 1 Case Notes 03/01@1351 Per Jing via phone, I need to add a note to the case, please drop to the depot CF documented in this encounter Social History Tobacco Use Types Packs/Day Years Used Date Smoking Tobacco: Every Day Cigarettes Smokeless Tobacco: Never Tobacco Cessation:Ready to Q uit: No; Counseling Given: No [facility] Utilities Answer Date Recorded In the past 12 months has [employer], gas, oil, or water [employer] threatened to shut off services in your [...] often do you attend chur ch or episcopalian services? More than 4 times per year 03/10/2024 Do you belong to any clubs o r organizations such as evangelical groups, unions, fraternal or athletic groups, or [...] place to sleep or slept in a mcc (including now)? No 03/10/2024 Personal Safety Answer Date Recorded Have you ever been in or are you currently in a harmful physical or emotional relationship or is someone making you feel afraid or unsafe? 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 Gender Identity Not on file Sexual Orientation Not on file documented as of this encounter Last Filed Vital Signs Vital Sign Reading Time Taken Comments Blood Pressure 151/107 03/09/2024 11:40 AM CDT Pulse 89 03/09/2024 11:45 AM CDT Temperature 36.1 ??C (97 ??F) 03/09/2024 10:50 AM CDT Respiratory Rate 16 03/09/2024 11:45 AM CDT Oxygen Saturation 96% 03/09/2024 11:45 AM CDT Inhaled Oxygen Concentration - - Weight 83.9 kg (185 lb) 02/10/2024 10:40 AM CDT Height 175.3 cm (5' 9 ) 02/10/2024 10:40 AM CDT Body Mass Index 28.16 02/27/2024 1:17 PM CDT documented in this encounter Discharge Summaries * Nela Canales NP - 03/10/2024 10:32 AM CDT Inpatient Discharge Summary BRIEF OVERVIEW Admitting Provider: Roberto Cannon MD Discharge Provider: Roberto Cannon MD Primary Care Physician at Discharge: Elke Mcmillan MD [phone] Admission Date: 03/09/2024 Discharge Date: 03/10/2024 Admission Location: [facility] Problems/Diagnoses: Principal Problem: Kidney donor Resolved Problems: [...] You faint or pass out. Call your property management coordinator if: You have a fever of [...] You faint or pass out. Call your property management coordinator if: You have a fever of [...] in this encounter Progress Notes * Godwin Castaneda, RD - 03/10/2024 11:41 AM CDT NUTRITION [...] BUN SERUM mg/dL 15 CREATININE mg/dL 1.56* FEZ-BOS-UGOFHAU mL/min/1.73 m2 53* CALCIUM mg/dL 8.2* PHOSPHORUS [...] Chol Diet effective now Question Answer Comment ([facility]) Diet type Restricted Fat / Sodium Restriction: [...] of care, PO intake Godwin Castaneda RD CDE [phone]. Weekends [phone] * [facility] - 03/10/2024 11:33 AM CDT Dagoberto Marcial . is a living donor who is POD1 [...] BID, Deepak Kline MD, 100 mg at 03/10/24935 heparin 5,000 unit/mL injection 5,000 Units, 5,000 Units, subcutaneous, Q8H SHAHZAD, Deepak Kline MD, 5,000 Units at 03/10/24602 Lactated Ringer's (LR) infusion, 75 mL/hr, intravenous, Continuous, Nela Canales NP, Last Rate: 75 mL/hr at 03/10/24600, 75 mL/hr at 03/10/24600 ondansetron (ZOFRAN) injection 4 mg, 4 mg, intravenous, Q6H PRN, Deepak Kline MD oxyCODONE (ROXICODONE) tablet 5 mg, [...] Lab Units 03/10/24 0247 CREATININE mg/dL 1.56* WNS-NCE-QRUQSPC mL/min/1.73 m2 53* Brief Pharmacist Summary 52 [...] Assistance Center. Living donor SW has updated [facility] that surgery was completed today so they canrelease the funds. SW to meet with donor tomorrow for SW initial inpatient assessment. * Nela Canales NP - 03/09/2024 12:48 PM CDT Kidney Donor Postoperative Check S: Dagoberto Y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 [...] follow up with the anaesthesia department at [facility] for instructions regarding medication, surgical planning and additional testing that may be necessary -- Educated patient regarding the need for consent with procedures, including discussion of blood products and consent, if necessary. -- Discussed with patient and family expectations of post-op stay and they are aware that these expectations for buh-rk-blsydpt and post-op planning are dependent on intraoperative findings, complications and recovery -- We discussed with him the risks, benefits, and alternatives to proceeding with robotic donor nephrectomy, including a brief description of the operative procedure and expected convalescence. He states understanding and would like to proceed with surgery. [facility] have personally taken a history, examined the patient, and documented the assessment and plan as noted. The patient was [facility]. Catia West NP-, MSN Patient Care Team: Elke Mcmillan MD as PCP - General (Family Medicine) Lindsey Bal RN as Pharmacy Operations Manager documented in this encounter Consult Notes * [...] discussed that pt had been approved for National Living Donor Assistance Center for lost wage reimbursement and travel expenses. SW explained that has updated DA that surgery was completed. Pt reports that he doesn't know why more people dont donate, as he has had a good experience. Patient reports feeling well. SW explained to contact if any additional need arise. Inpatient psychosocial assessment has been completed. Pt continues [...] Pt verbally names his spouse Viridiana Marcial ([phone]) as his surrogate decision maker. Care Comment Patient???s primary caregiver will be spouse Viridiana. She has paid time off. Other assistance will be available from pt's step-son. Transportation can be provided by spouse Viridiana post-donation. Family Hx and Support Patient lives with spouse Viridiana and her son in a house they own located at [address] [place] [address]. [facility], which is [place] [address] from [facility]. Patient and spouse have been for 13 years. Pt hastwo sons and a daughter. Patient was born and raised in [place]. Patient???s parents are .Patient has two brothers that he sees every once and a while. Patient reports that family is supportive of donation. Patient is independent with ADLs and drives. Education/Work Hx Patient completed a GED and an electrical science degree. 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 After recovery from donation, patient plans to [...] duty . Patient's spouse works as a school secretary. Patient reports finances to be tight but [...] brochure/application for National Living Donor Assistance Center (NLDAC) Financial Assistance Program for lost wages, travel expenses and dependent care expenses reimbursement. Social Work explained that applications must be submitted and approved prior to surgery. Patient has been informed to update Social Work of updates regarding possible surgery date. Coverage Information/Details Patient states he has [facility] health insurance through his employer. Patient [...] More than three times a week Attends [employer]: More than 4 times per year [...] his health and relationships. Patient is working multimedia artist and likely will nothave paid leave of absence for recovery. After donation, patient plans to return to work as soon aspossible. Spouse Viridiana and pt's step-son will be the primary caregiver support. Patient denies any current mental health concerns. Patient states finances are stable and has insurance coverage through [facility]. Patient reports no substance usage concerns. [...] Pt verbally names his spouse Viridiana Marcial ([phone]) as his surrogate decision maker. 3. Increased [...] are considered stable. Patient has insurance through [facility] and doesnot expect to have any [...] pt on an outpatient bases. Donna Nazario MSW, PSYCHIATRY ADULT PHYSICIAN Transplant Social Work [phone] * Plan of Care - Yeimy Mason [...] SURGERY 03/09/2024 SURGEON Roberto Cannon MD FIRST REGISTER OF DEEDS MD Dr Eliud Burger is the transplant surgery fellow and services were required since there was no suitableresident available. They assisted with all portions of the case including port placement, robot docking, dissection, kidney extraction, TAP block and closure. SECOND REGISTER OF DEEDS DARIEN Howard PREOPERATIVE DIAGNOSIS Living kidney donor [...] was inserted in the left lower abdomen. Elasticainci Xirobotic system was docked and instruments inserted. [...] - Co-Surgeon Anesthesiologist: Benja Bhatia MD PhD AUTOMOTIVE HEAVY MECHANIC: Mannie Montgomery CRNA Vending Supervisor: Dayna Bhakta RN Physician Charter Coordinator: Gracy Millan PA Vending Supervisor Relief: Maria Del Carmen Jarrett RN Scrub: Nidhi Almazan RN Orientee Vending Supervisor: Ashley Lazcano RN FLOAT: Maria Del Carmen [...] Preoperative Assessment and Planning CPAP Clinic Location: [facility] The night before your surgery: * Do [...] going to be admitted after surgery at [facility], COVID testing may be performed on the day of surgery, even if you are up to date on your COVID-19 vaccine. * If having surgery at [facility], you may want to bring a credit card if you want to use our Mobile Pharmacy for your discharge medications. Mobile pharmacy is not available at [facility], the Orthopedic Center, or [facility] [place] [facility]. If you are a smoker: * You should prepare for your surgery and recovery well ahead of time. Stop smoking at least 2 weeks before surgery to help prevent infection and help your body recover faster. Ask your surgeon for tools to help you quit or call 1-588-AJSGZOQ ( ). Visit Smokefree.gov for more information. [...] Planning Perioperative Nursing Note Telephone Preoperative Evaluation ([facility]) - TELEPHONE ONLY, NO PHYSICAL EXAM Date: [...] Directive: Patient does not have advance directive Communication/Publications Production Supervisor Needs Communication Needs: None Assistive Devices/DME: Dentures upper Hearing - Right Ear: Functional Hearing - Left Ear: Functional Discharge Planning Type of Residence: Private residence Living Arrangements: Spouse/significant other Support Systems: Spouse/significant other Patient expects to be discharged to:: Private residence SALON/SPA MANAGER NO ADDITIONAL COMMENTS/ FOLLOW UP * Pre-Procedure [...] remove nail coverings, artificial nails and nail angolan prior to the day of surgery. You should leave your valuables and any jewelry at home. No metal or piercings are allowed in the operating room. You should bring your insurance card, a photo ID (example: Room Service Waiter/Waitress's License) and a method of payment for [...] Remove nail coverings, artificial nails and nail angolan. The Morning of Surgery: Take a shower [...] questions, please call the CPAP Staff at [phone], Friday-Friday 8am-4:30pm. All patients should read the below section: COVID 19 Updates & Visitor Policy: Please access [email or web address] for the most updated information. Information on [facility] & the [facility] Center: Please view [email or web address] (Patient & Visitor Information) for additional details regarding Advanced Directive forms, AWARE, directions, parking information, lodging, Internet access, dining and more. Information on [facility] or [facility] Surgery [place] ([facility]): Please view [email or web address] (Patient and Visitor Information) for parking/directions and more. For MyChart information, to activate account or password recovery, please go to [email or web address] or call [phone] (toll-free: [phone]), Fri- Friday 8am-5pm. Information for Suicide Prevention: National Suicide Prevention Lifeline (6-071- 157-KPAC (1865)) or call or text 022. Chat resources: [email or web address]. Surgery Times: For patients having surgery @ [facility] or [facility] Surgery [place] ([facility]), if your surgeon's office has not notified you of your surgery time by NOON THE BUSINESS DAY BEFORE your surgery, please call [phone] and ask for your surgeon's office Dr. [...] BLOOD ORDERABLES Final Result Performing Organization Address City/State/[facility] Co de Phone Number [facility] [place] [address] * (ABNORMAL) Differential, auto (03/10/2024 2:47 AM CDT) Neutrophil abs 10.2(H) 1.5 - 6.5 K/cumm Imm gran abs 0.1 0.0 - 0.1 K/cumm [facility] Lymphocyte abs 1.8 0.8 - 3.3 K/cumm [facility] Monocyte abs 0.9(H) 0.2 - 0.8 K/cumm [facility] Eosinophil abs 0.0 0.0 - 0.5 K/cumm [facility] Basophil abs 0.0 0.0 - 0.1 K/cumm [facility] Neutrophil pct 78.2 % [facility] Comment: Interpretive Data Percent cell count reference ranges are not reported, since discordance with absolute values may lead to misinterpretation of CBC data. Current Interpretive Data was last revised on 2018. Imm gran pct 0.5 % [facility] Comment: Interpretive Data Percent cell count reference ranges are not reported, since discordance with absolute values may lead to misinterpretation of CBC data. Current Interpretive Data was last revised on 2018. Lymphocyte pct 13.9 % [facility] Comment: Interpretive Data Percent cell count reference ranges are not reported, since discordance with absolute values may lead to misinterpretation of CBC data. Current Interpretive Data was last revised on 2018. Monocyte pct 7.0 % [facility] Comment: Interpretive Data Percent cell count reference ranges are not reported, since discordance with absolute values may lead to misinterpretation of CBC data. Current Interpretive Data was last revised on 2018. Eosinophil pct 0.2 % [facility] Comment: Interpretive Data Percent cell count reference ranges are not reported, since discordance with absolute values may lead to misinterpretation of CBC data. Current Interpretive Data was last revised on 2018. Basophil pct 0.2 % [facility] Comment: Interpretive Data Percent cell count reference ranges are not reported, since discordance with absolute values may lead to misinterpretation of CBC data. Current Interpretive Data was last revised on 2018. Blood 03/10/2024 2:47 AM CDT 03/10/2024 3:53 AM CDT us Roberto Cannon MD LAB BLOOD ORDERABLES Final Result [facility] Department of Laboratories [place], [place] [id number] * (ABNORMAL) CBC with auto differential (03/10/2024 2:47 AM CDT) WBC 13.1(H) 3.8 - 9.9 K/cumm Hgb 13.0 13.0 - 17.5 g/dL [facility] Hct 36.7(L) 38.9 - 50.3 % [facility] Plt 121(L) 150 - 400 K/cumm [facility] MPV 12.1 9.1 - 12.3 fL [facility] RBC 4.13(L) 4.30 - 5.80 M/cumm [facility] MCV 88.9 81.3 - 96.4 fL [facility] MCH 31.5 27.1 - 33.3 pg [facility] MCHC 35.4 32.3 - 35.7 g/dL [facility] RDW CV 12.9 11.1 - 14.9 % [facility] RDW SD 42.2 35.7 - 48.1 fL [facility] NRBC abs 0.00 0.00 - 0.01 K/cumm [facility] Blood 03/10/2024 2:47 AM CDT 03/10/2024 3:53 AM CDT Roberto Cannon MD LAB BLOOD ORDERABLES Final Result [facility] [place] [address] * Phosphorus (03/10/2024 2:47 AM CDT) Pathologist [facility] Phosphorus, pl 3.4 2.3 - 4.5 mg/dL Blood 03/10/2024 2:47 AM CDT 03/10/2024 3:53 AM CDT Roberto Cannon MD LAB BLOOD ORDERABLES Final Result [facility] Department [place] [address] * Magnesium (03/10/2024 2:47 AM CDT) Magnesium 2.3 1.4 - 2.5 mg/dL Blood 03/10/2024 2:47 AM CDT 03/10/2024 3:53 AM CDT us Roberto Cannon MD LAB BLOOD ORDERABLES Final Result [facility] Department [place] [address] * (ABNORMAL) Basic metabolic panel (03/10/2024 2:47 AM CDT) Sodium 139 135 - 145 mmol/L Potassium, pl 4.2 3.3 - 4.9 mmol/L [facility] Chloride 107 97 - 110 mmol/L [facility] CO2 24 22 - 32 mmol/L [facility] Anion gap 8 2 - 15 mmol/L [facility] BUN 15 6 - 25 mg/dL [facility] Creatinine 1.56(H) 0.80 - 1.30 mg/dL [facility] Glucose 114 70 - 199 mg/dL [facility] Comment: Interpretive Data Fasting glucose >/= [...] 2022. Calcium 8.2(L) 8.5 - 10.3 mg/dL [facility] Blood 03/10/2024 2:47 AM CDT 03/10/2024 3:53 AM CDT us Roberto Cannon MD LAB BLOOD ORDERABLES Final Result [facility] [place] [address] * Type and screen (03/09/2024 7:26 AM CDT) Monster, indirect Negative ABO Rh O Positive [facility] Blood 03/09/2024 7:26 AM CDT 03/09/2024 7:32 AM CDT Narrative [facility] - 03/09/2024 8:27 AM CDT Has the patient had Daratumumab or Isatuximab in the past 6 months?->No Gracy LEDEZMA LAB BLOOD BANK TEST OR DERABLES Final Result Performing Organization Address City/[facility] Co de Phone Number [facility] [place] [address] * Collection task for HLA plasma storage (03/09/2024 5:47 AM CDT) HLA Plasma Storage Received Blood 03/09/2024 5:47 AM CDT 03/09/2024 2:12 PM CDT Roberto Cannon MD LAB BLOOD ORDERABLES Final Result Performing Organization Address [facility] Co de Phone Number [facility] [place] [address] * Collection task for HLA serum storage (03/09/2024 5:47 AM CDT) HLA Serum Storage Received Blood 03/09/2024 5:47 AM CDT 03/09/2024 2:12 PM CDT Roberto Cannon MD LAB BLOOD ORDERABLES Final Result Performing Organization Address [facility] Co de Phone Number [facility] [place] [address] documented in this encounter Visit Diagnoses Diagnosis Kidney donor- Primary Kidney donor documented in this encounter Admitting Diagnoses Diagnosis [...] First dose on Fri03/09/24 at 2100, Indications: hyperlipidemiaIndications:hyper lipidemia Given 03/09/2024 8:20 PM CDT 20 mg carBAMazepine (TEGretol) tablet 200 mg 200 mg, oral, Nightly, First dose on Fri03/09/24 at 2100, Indications: Bipolar DisorderIndications:Bipolar Disorder Given 03/09/2024 8:20 PM CDT 200 mg dexAMETHasone (DECADRON) 4 mg, BUPivacaine (MARCAINE) 60 mL solution As needed, Starting on Fri03/09/24 at 1003, Intra-Op Given 03/09/2024 10:03 AM CDT 61 mL Other (Comment) gabapentin (NEURONTIN) capsule 100 mg 100 mg, [...] CDT 5,000 Units L eft Lower Abdomen Lactated Ringer's (LR) infusion 75 mL/hr, intravenous, [...] Given 03/09/2024 1:07 PM CDT 1 tablet sodium chloride 0.9% irrigation As needed, Starting on Fri03/09/24 at 0809, Intra-Op Given 03/09/2024 8:09 AM CDT 4,000 mL Other (Comment) documented in this encounter Discontinued Medications Medication [...] nostril as needed for rhinitis 12/22/2023 4 added in this encounter Active and Recently [...] Provider: Christina Olivares RN)2020 (Given - Provider: eYimy Mason RN) 0936 (Given - Provider: Marcella [...] seconds 1307 (Given - Provider: Christina Olivares RN)2018 (Given - Provider: Yeimy Mason RN) 012 (Given - Provider: Yeimy Mason RN)06 (Given - Provider: Yeimy Mason RN) pantoprazole [...] Pre-Op 0603 (New Bag - Provider: Vikki Reagan RN)0727 (Paused - Provider: Mannie Montgomery CRNA - [...] Roberto Cannon MD - Comment: 1L suction wall scraper 3L for slush) documented in this encounter Orders Medications Ordered That Cayden ht Not Have Been Administered Count Last Ordered Date First Ordered Date acetaminophen (TYLENOL) tablet 1,000 mg 1 0 03/09/2024 atorvastatin (LIPITOR) tablet 20 mg 1 03/09 carBAMazepine (TEGretol) tablet 200 mg 1 Carrier Fluids for Secondary Infusion - 0.9% Sodium Chloride 1 03/09/2024 ceFAZolin (ANCEF) 2,000 mg/2 0 mL in sterile water (premix) 2,000 mg 1 03/09/2024 diphenhydrAMINE (BENADRYL) tab/cap 25 mg 1 03/09/2024 famotidine (PEPCID) tablet 20 mg 1 03/09/20 24 fentaNYL (SUBLIMAZE) preserv ative free injection 50 mcg 03/09/2024 gabapentin (NEURONTIN) capsule 100 mg 1 heparin 10,000 units in HTK (CUSTODIOL) 1,000 mL 03/09/2024 heparin 5,000 unit/mL inject ion 5,000 Units 03/09/2024 HYDROmorphone (DILAUDID) injection 0.2 mg 1 03/09/2024 ketorolac (TORADOL) 15 mg/mL injection 15 mg 1 03/09/2024 Lactated Ringer's (LR) infusion 2 lidocaine (PF) (XYLOCAINE) 1 0 mg/mL (1 %) preservative free injection 2-10 mg 1 03/09/2024 naloxone (NARCAN) 0.4 mg/mL injection 0.04-0.4 mg 1 03/09/2024 ondansetron (ZOFRAN) injection 4 mg 03/09 oxyCODONE (ROXICODONE) tablet 5 mg [address] (PROTONIX) e xtended release tablet 40 mg 03/09/2024 polyethylene glycol (MIRALAX) packet 17 g 03/09/2024 ramelteon (ROZEREM) tablet 8 mg 1 senna-docusate (PERICOLACE) 8.6-50 mg per tablet 1 tablet 1 03/09/2024 sodium chloride 0.9% flush 0.5-20 mL 1 02/16 Nursing Count Last Ordered Date First Orde [...] 03/10/2024 documented in this encounter Care Teams Cutting Machine Fixer Relationship Specialty Start Date End Date Elke Mcmillan MD [address] [place] [address] PCP - General Family Medicine 08/15/23 Lindsey Bal RN [address] [address] Pharmacy Operations Manager 07/04/23 documented as of this encounter
--- OUTSIDE RECORDS SUMMARY | 2024-11-20 04:23 | XMS_ITS | Encounter Summary ---
Author Organization [facility] Healthcare Address [address] [place] [address] Care Team Providers Care Master Sonar Technician Name Role Phone Lindsey Bal RN Unavailable Elke Mcmillan MD Primary Care Provider Reason for Visit * Reason Onset Date Comments Test Results 12/08/2023 Encounter Details Date Type Department Care Team (Late st Contact Info) Description 12/08/2023 Telephone [facility] Transplant Kidney [address] [facility] [address] [id number] [place], [place] [id number] Lindsey Bal, RN [address] [facility] [address] [place], [place] [id number] Test Results Social History Tobacco Use Types Packs/Day Years Used Date Smoking Tobacco: Every Day Cigarettes [facility] Utilities Answer Date Recorded In the past 12 months has [employer], gas, oil, or water [employer] threatened to shut off services in your [...] often do you attend chur ch or latter-day services? 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 He was happy to hear that. Discussed that his approval is good for 1 year. Advised by recipientcoordinator that the recipient isn't quite ready for surgery and has something he needs to take care of. Once he hat that completed we will be okay to proceed with scheduling surgery. Verbalized understanding. ATRIC SURGEON documented in this encounter Plan of Treatment Not on file documented as of this encounter Visit Diagnoses Not on filedocumented in this encounter Care Teams Master Sonar Technician Relationship Specialty Start Date End Date Elke Mcmillan MD [address] [place] [address] PCP - General Family Medicine 08/15/23 Lindsey Bal RN [address] [address] Electrical Superintendent 07/04/23 documented as of this encounter
--- OUTSIDE RECORDS SUMMARY | 2024-11-20 04:23 | XMS_ITS | Encounter Summary ---
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 Name Role Phone Lindsey Bal RN Unavailable [phone] Elke Mcmillan MD Primary Care Provider Encounter Details Date Type Department Care Team (Late st Contact Info) Description 01/28/2024 Documentation [facility] Transplant Kidney [address] [facility][1] [address] [id number] [place] [address] Smita Lancaster Social History Tobacco Use Types Packs/Day Years Used Date Smoking Tobacco: Every Day Cigarettes [facility] Utilities Answer Date Recorded In [...] often do you attend chur ch or voodoo services? Patient declined 11/24/2023 Do you belong to any clubs o r organizations such as scientology groups, unions, fraternal or athletic groups, or [...] place to sleep or slept in a long term (including now)? No 11/24/2023 Personal Safety Answer Date Recorded Have you ever been in or are you currently in a harmful physical or emotional relationship or is someone making you feel afraid or unsafe? 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 Gender Identity Not on file Sexual Orientation Not on file documented as of this encounter Progress Notes * Smita Lancaster - 01/28/2024 10:19 AM CDT Obtained UNOS ID for Left Kidney ID # [id number] documented in this encounter Plan of Treatment Not on file documented as of this encounter Visit Diagnoses Not on filedocumented in this encounter Care Teams Deoiling Machine Operator Relationship Specialty Start Date End Date Rostovtseva, Elke Y., MD [address] [place] [address] PCP - General Family Medicine 08/15/23 Lindsey Bal, ROSANGELA [address] [facility] [address] [place] [id number] Piping Design Specialist 07/04/23 documented as of this encounter
--- OUTSIDE RECORDS SUMMARY | 2024-11-20 04:23 | XMS_ITS | Encounter Summary ---
Author Organization [facility] Healthcare Address [address] [place] [address] Care Team Providers Care Integration Consultant Name Role Phone Lindsey Bal RN Unavailable [phone] Elke Mcmillan MD Primary Care Provider Reason for Visit * Auth/Cert (Routine) Specialty Diagnoses / Procedures Referred By Anne melton Referred To Contact Diagnoses Kidney donor Kidney donor [Z52.4] Procedures ID LAPAROSCOPY DONOR NEPHRECTOMY LIVING DONOR XI ROBOTIC ASSISTED DONOR NEPHRECTOMY Referral ID Status Reason Start Date Expiration Date Visits Re quested Visits Authorized [id number] 1 1 Encounter Details Date Type Department Care Team (Late st Contact Info) Description 03/09/2024 7:28 AM CDT Anesthesia Event [facility] Operating Room [address] [place] [address] Benja Bhatia MD PhD [address] [facility] [address] [place] [address] Deanna De La Torre NP [address] [facility] [id number] [place] [address] Anesthesia Record Procedure Summary Procedure Name Responsible Anesthesiologist Anesthesia Start Time Anesthesia Stop Time XI ROBOTIC ASSISTED LEFT DONOR NEPHRECTOMY and TAP BLOCK (Left: Flank) Benja Bhatia MD PhD 03/09/24 0728 03/09/24 1052 Events Date Time Event Comment 03/09/2024 0529 In Preop 0719 0728 An Start 0731 In Room 0731 An Start Data 0739 An Induction The patient was reevaluated immediately before moderate or deep sedation use and before anesthesia induction. 0742 An Intubation 0745 Anesthesia Ready 0756 Patient Positioned Laterally 0812 Proc Start 0812 Incision Start 0931 Quick Note PEEP and inspir atory time increased in attempt to recruit more lung and improve spo2. 1028 Proc Fin 1038 An Extubation 1041 an stop data 1041 Out of Room 1052 Handoff to RN I completed my handoff to the receiving nurse during which we: 1. Patient identified 2. Responsible provider identified 3. Pertinent medical history reviewed 4. Procedure type and surgical course discussed 5. Intraoperative anesthetic management and any significant issues discussed 6. Expectations and concerns for postop period discussed 7. Questions solicited from receiving nurse 8. Patient disposition at the time of handoff: No value filed. 1052 An Stop Meds Name Total midazolam PF 2 mg lidocaine (cardiac) syringe 2 % 60 mg propofol 150 mg fentaNYL 300 mcg rocuronium 120 mg phenylephrine 1 mg/10 mL syringe (100 mc g/mL) 100 mcg phenylephrine 1 mg/10 mL syringe (100 mc g/mL) 100 mcg ceFAZolin (ANCEF) 2,000 mg/20 mL in ster ile water (premix) 2,000 mg 2,000 mg HYDROmorphone 2 mg/mL 2 mg dexmedeTOMIDine infusion 200mcg/50mL 97. 69 mcg magnesium sulfate 2 g/50 mL 2 g lidocaine (LTA) solution 4 % 4 mL phenylephrine infusion (100 mcg/mL) 0.71 mg heparin 1,000 unit/ml 2,000 Units furosemide 20 mg mannitol 25 % 12.5 g sugammadex 200 mg ondansetron PF (ZOFRAN) 2 mg/mL injectio n 4 mg dexAMETHasone 4 mg/mL 4 mg famotidine 20 mg Lactated Ringer's (LR) infusion 1,300 mL NS 0.9% 1,400 mL * Agents Name O2% N2O O2 Air Sevoflurane Inspired Sevoflurane * Blood No blood administrations on file. Lines, Drains, and Airways Type Details Placement Removal Peripheral IV Placement Date: 03/09/24; Placement Time: 0602; Catheter Size: 18 G; Orientation: Left; Location: Arm; Removal Date: 03/10/24; Removal Time: 1150; Removal Reason: Discharge 03/09/24 0602 by Vikki Reagan, ROSANGELA 03/10/24 1150 by Marcella Soto RN Peripheral IV Placement Date: 03/09/24; Placement Time: 0745 (created via procedure documentation); Catheter Size: 16 G; Orientation: Right; Location: Hand; Site Prep: Chlorhexidine; Insertion Attempts: 1; Removal Date: 03/10/24; Removal Time: 1150; Removal Reason: Discharge 03/09/24 0745 by Benja Bhatia MD PhD 03/10/24 1150 by Marcella Soto RN Urethral Catheter Placement Date: 03/09/24; Placement Time: 0804; Inserted by: DARIEN Zuñiga; Type: Non-latex, Straight-tip; Balloon Size: 10 mL; Urine Returned: Yes; Removal Date: 03/10/24; Removal Time: 0601; Removal Reason: Per order 03/09/24 0804 by Dayna Bhakta RN 03/10/24 0601 by Yeimy Mason RN ETT Placement Date: 03/09/24; Placement Time: 0845 (created via procedure documentation); Mask Ventilation: 0; Technique: Video laryngoscopy; Type: ETT - single; Single Lumen Tube Size: 8 mm; Cuffed: Yes; Laryngoscope: Eve; Blade Size: 4; Location: Oral; Insertion Attempts: 1; Placement Verification: Auscultation, Capnometry; Airway Comment: Atraumatic intubation x 1 attempt. ETT cuff set to 25 cm H20 using manometer. ; Removal Date: 03/09/24; Removal Time: 1038 03/09/24 0845 by Mannie Montgomery CRNA 03/09/24 1038 by Mannie Montgomery CRNA RETIRED Surgical Site 03/09/24; 0846; Le ft; Abdomen; pfannensteil and 3 port sites; 10/19/24 (Retired LDA, Removed/Completed by [facility] with LDA Utility); 1213 (Retired LDA, Removed/Completed by [facility] with LDA Utility) 03/09/24 0846 by Dayna Bhakta RN 10/19/24 1213 by Discharge Provider, Automatic documented in this encounter Social History Tobacco Use Types Packs/Day Years Used Date Smoking Tobacco: Every Day Cigarettes Smokeless Tobacco: Never [facility] Utilities Answer Date Recorded In [...] often do you attend chur ch or anglican services? More than 4 times per year [...] place to sleep or slept in a chcf (including now)? No 03/10/2024 Personal Safety Answer Date Recorded Have you ever been in or are you currently in a harmful physical or emotional relationship or is someone making you feel afraid or unsafe? 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 Procedure Summary Date: 03/09/24 Room / Location: [facility] OR POD 5 ROOM 230 / [facility] OR POD 5 Anesthesia Start: 727 Anesthesia Stop: 1051 Procedure: XI ROBOTIC ASSISTED LEFT DONOR NEPHRECTOMY and TAP BLOCK (Left: Flank) Diagnosis: Kidney donor (Kidney donor [Z52.4]) Surgeons: Roberto Cannon MD Responsible Provider: Benja Bhatia MD PhD Anesthesia Type: general ASA Status: 2 Anesthesia Type: general Last vitals BP (!) 150/115 Pulse 86 Temp 36.1 ??C (97 ??F) (Temporal) Resp 18 SpO2 95% Anesthesia Post Evaluation Patient location during evaluation: PACU Patient participation: complete - patient participated Level of consciousness: fully awake Pain management: adequate Airway patency: adequate Evidence of recall: no Cardiovascular status: acceptable and hemodynamically stable Respiratory status: acceptable Hydration status: acceptable Pt is: normothermic Nausea/Vomiting status: none No notable events documented. * Anesthesia Procedure Notes - Mannie Montgomery CRNA - 03/09/2024 8:51 AM CDTAssociated Order(s): Peripheral IV Catheter Peripheral IV Catheter Patient location: OR End time: 03/09/2024 7:45 AM Staff: Supervising provider: Benja Bhatia MD PhD Placed by: HIV PREVENTION SPECIALIST: Mannie Montgomery CRNA Preprocedure prep: Prep solution: chlorhexadine PPE: provider hat/mask and gloves PIV line: Laterality: right Site: hand Catheter size: 16 g Number of attempts: 1 * Anesthesia Procedure Notes - Mannie Montgomery CRNA - 03/09/2024 8:17 AM CDTAssociated Order(s): Airway Airway Patient location: OR Urgency: elective Indications for airway management: anesthesia Difficult airway: no Staff: Supervising provider: Benja Bhatia MD PhD Placed by: HIV PREVENTION SPECIALIST: Mannie Montgomery CRNA Emergent airway documentation: Risks and benefits discussed: yes Consent obtained: yes Consent given by: patient Airway prep: Preoxygenated: yes Patient position: sniffing and reverse Trendelenburg MILS maintained throughout: yes Mask difficulty assessment: 0 - not attempted Spontaneous ventilation during airway: absent Sedation level during airway: GA Final airway details: Final airway type: endotracheal airway Tube type: ETT ETT size: 8.0 mm Cuffed: yes Technique used for successful ETT placement: video laryngoscopy Devices/Methods used in placement: intubating stylet Insertion site: oral Blade type: Eve Video blade type: Belle Blade size: 4 Cormack-Lehane (video): grade I - full view of glottis Initial cuff pressure: 25 cm H2O Cuff inflated with: air ETT to gums: 24 cm Placement verified by: auscultation and CO2 detection Airway secured with: silk tape Number of attempts: 1 Additional comments: Atraumatic intubation x 1 attempt. ETT cuff set to 25 cm H20 using manometer. * Anesthesia Preprocedure Evaluation - Benja Bhatia MD PhD - 03/01/2024 2:50 PM CDT Images from the original note were not included. [facility]operative Assessment [facility] Planning Preoperative Evaluation Record Evaluation type/location: TPAP from [facility] Planned procedure site: [facility] (Pods 2/3/5/SPICE CLEANER) Date: 03/01/24 Anesthesia Evaluation Dagoberto Marcial Jr. is a 53 y.o. male XI ROBOTIC ASSISTED DONOR NEPHRECTOMY (Left: Flank) Pre-Op Diagnosis Codes: * Kidney donor [Z52.4] HISTORY HPI Dagoberto Riggs Jr is a 53 year old male with a PMH of anxiety/depression, HLD, GERD and current tobacco user who is being evaluated prior to undergoing robotic assisted donor nephrectomy for kidney donor . Past Medical History Information obtained from: patient and chart. Information obtained during: Telephone Visit NOTE: This note represents a preoperative evaluation initiated via virtual (video or telephone) interview. NO PHYSICAL EXAM was performed at the time of initial assessment. A physical exam may be added to this note and documented below. Neurological + Seizures + Psychiatric history - anxiety and depression Pertinent negatives: neuromuscular disease; CVA/stroke; TIA; CEA; ICA stenosis; dementia/mild cognitive impairment and carotid artery stent Cardiovascular + Hyperlipidemia Pertinent negatives: hypertension ; CAD ; PA ; CABG ; valvular heart disease; valve replacement; atrial fibrillation; arrhythmia; pacemaker/ICD; PVD; DVT/PE; negative for CHF; drug-eluting stent(s); bare metal stent(s) and coronary angioplasty Respiratory + Current smoker - Counseled to abstain from smoking the day of surgery. Pertinent negatives: COPD; asthma; sleep apnea (JAMIA); pulmonary hypertension and no O2 use outside the hospital Hepatic / Heme Pertinent negatives: liver disease; history of anemia; history of thrombocytopenia and history of Monster positive Gastrointestinal + GERD - on daily therapy. Asymptomatic. Pertinent negatives: hiatal hernia Renal / Pertinent negatives: renal disease; dialysis and nephrolithiasis Musculoskeletal/Pain Pertinent negatives: chronic pain; chronic opioid use and previous treatment for opioid use disorder Endocrine / Other Pertinent negatives: diabetes mellitus; thyroid disease; obesity (BMI >30); cancer history; rheumatological disease and transplanted organ Functional Capacity Functional capacity: 4-6 METs Comments: Patient states that they can walk 4 blocks at a moderate pace w/no SOB or CP Review of Systems + hard of hearing (reports decreasing B) + dentures/partials (upper denture) Pertinent negatives: productive cough; wheezing; SOB; recent cold/flu; fever; chest pain; palpitations; orthopnea; pedal edema; PND; Sickle Cell disease/trait; previous transfusion; transfusion reaction; melena/hematochezia; easy bruising; bleeding problems; syncope; dizziness; muscle weakness; chronic pain; numbness/tingling; vision loss; heartburn; nausea; dysphagia; diarrhea; chipped/loose teeth; abdominal pain; diaphoresis and no unexpected weight change PAT Summary and Plans Cardiac risk classification of planned procedure: intermediate cardiac risk. Preoperative assessment status: complete. Additional comments: Dagoberto Marcial Jr. is a 53 y.o. male who is being evaluated prior to undergoing an intermediate cardiac risk surgery. Revised Cardiac Risk Index factors are (none) for a totalRCRI of 0 out of 6. Functional capacity is 4-6 METs. Obstructive sleep apnea (JAMIA) screening status is STOP-BANG incomplete at 3-4 suggesting MODERATE risk for JAMIA. Neck circumference pending. May need JAMIA order set initiated if Co2 >27. This assessment was performed via telephone. Therefore the physical exam has been deferred to the day of surgery team. The patient was provided with preoperative instructions for their medications. Patient instructions were provided by telephone and electronically sent via [employer]. Patient verbalized understanding of instructions. Blood bank needs for day of procedure: No type and screen needed Pending labs/tests include: None TPAP process complete. Preoperative evaluation performed by Deanna De La Torre NP on 03/01/24 at 3:02 PM . Patient Active Problem List Diagnosis Date Noted Kidney donor 11/19/2023 Past Medical History: Diagnosis Date GERD (gastroesophageal reflux disease) Hyperlipidemia Past Surgical History: Procedure Laterality Date RECTAL SURGERY fissure repair and polyps-unsure of date No Known Allergies Med List Status: Nurse Complete Set By: Rissa Joyce RN at 02/10/2024 10:40 AM Taking? Last Dose Start Date End Date Provider atorvastatin (LIPITOR) 20 mg tablet 02/09/2024 08/14/23 -- José Miguel Cordero MD azithromycin (ZITHROMAX) 500 mg tablet 02/10/2024 -- -- José Miguel Cordero MD carBAMazepine (TEGretol) 200 mg tablet 02/09/2024 05/30/23 -- José Miguel Cordero MD Notes: Pt taking 200 mg 1 time per day at bedtime fluticasone propionate (FLONASE) 50 mcg/actuation nasal spray Past Month 12/22/23 -- José Miguel Cordero MD icosapent ethyL (VASCEPA) 1 gram capsule 02/10/2024 07/30/23 -- José Miguel Cordero MD Notes: Pt taking 2 capsules 1 timer per day at bedtime omeprazole (PriLOSEC) 20 mg capsule 02/09/2024 -- -- José Miguel Cordero MD No current facility-administered medications for this encounter. Current Outpatient Medications: atorvastatin (LIPITOR) 20 mg tablet azithromycin (ZITHROMAX) 500 mg tablet carBAMazepine (TEGretol) 200 mg tablet fluticasone propionate (FLONASE) 50 mcg/actuation nasal spray icosapent ethyL (VASCEPA) 1 gram capsule omeprazole (PriLOSEC) 20 mg capsule Social History Tobacco Use Smoking Status Every Day Current packs/day: 1.00 Types: Cigarettes Smokeless Tobacco Never Alcohol Use: Not At Risk (02/10/2024) AUDIT-C Frequency of Alcohol Consumption: Never Average Number of Drinks: Patient does not drink Frequency of Binge Drinking: Never Substance and Sexual Activity Drug Use Never History reviewed. No pertinent family history. There were no vitals filed for this visit. PT: 02/27/2024: 10.9 sec INR: 02/27/2024: 0.96 APTT: 02/27/2024: 31 sec Hgb A1C: No results found for requested labs within last 30 days. CBC RBC: 02/27/2024: 5.59 M/cumm RDW: No results found for requested labs within last 30 days. MCHC: 02/27/2024: 32.5 g/dL MCH: 02/27/2024: 29.5 pg MCV: 02/27/2024: 90.7 fL Hct: 02/27/2024: 50.7 % (H) Hgb: 02/27/2024: 16.5 g/dL WBC: 02/27/2024: 7.9 K/cumm MPV: 02/27/2024: 12.0 fL Platelets: 02/27/2024: 162 K/cumm RDW CV: 02/27/2024: 12.9 % RDW Sd: 02/27/2024: 42.6 fL BMP Glucose: 02/27/2024: 86 mg/dL Calcium: 02/27/2024: 9.6 mg/dL Sodium: 02/27/2024: 141 mmol/L Potassium: 02/27/2024: 4.7 mmol/L CO2: 02/27/2024: 30 mmol/L Chloride: 02/27/2024: 105 mmol/L BUN: 02/27/2024: 9 mg/dL Creatinine: 02/27/2024: 0.90 mg/dL Gadiel index score: 100 DOS Physical Exam Medical history, medications, and allergies reviewed. Attestation: I endorse the findings of the anesthesia pre-evaluation assessment dated: 03/01/2024. Airway Exam: Mallampati: II Cervical ROM: FROM TM distance: 3.5 Patient presents with wynn. Cardiovascular Exam: Rate: regular Rhythm: regular Negative for Murmur Pulmonary Exam: LCTA, bilat EENT Exam: trachea midline Dental Exam: Missing (No upper teeth and missing a few lower teeth.) Skin Exam: Skin is warm. Abdominal Exam: Abdomen is soft. Bowel sounds are present. Current state: Patient's current state is cooperative. Anesthesia Plan ASA 2 My patient is approved for the Anesthesia Controlled Medication protocol when under care of a HIV PREVENTION SPECIALIST Planned anesthesia: General Team communication plan: oral ET tube Induction: Induction: intravenous. Postoperative Plan: Patient's planned disposition post procedure is Floor. Informed Consent: Discussed plan with HIV PREVENTION SPECIALIST. Anesthesia plan and risks discussed with patient. Consent and Attending signature: I and/or my designee have discussed the anesthesia plan, benefits, possible alternatives, parental presence at time of induction (if indicated), and clinically relevant risks that may include dental injury, unintentional awareness, and/or other complications. The patient and/or parent/legal guardian understand, and agree to proceed. All questions answered. documented in this encounter Plan of Treatment Not on file documented as of this encounter Procedures Procedure Name Priority Date/Time Associated Diagnosis Comments ID AN PROCEDURE PLACEHOLDER Routine 03/09/2024 8:51 AM CDT ID AN PROCEDURE PLACEHOLDER Routine 03/09/2024 8:17 AM CDT ID AN ELECTIVE ENDOTRACHEAL AIRWAY Routine 03/09/2024 8:17 AM CDT documented in this encounter Results * ID AN PROCEDURE PLACEHOLDER (03/09/2024 8:51 AM CDT) Narrative Mannie Montgomery CRNA - 03/09/2024 8:51 AM CDT Mannie Montgomery CRNA ? 03/09/2024 ??8:51 AM Peripheral IV Catheter Patient location: OR End time: 03/09/2024 7:45 AM Staff: Supervising provider: Benja Bhatia MD PhD Placed by: HIV PREVENTION SPECIALIST: Mannie Montgomery CRNA Preprocedure prep: Prep solution: chlorhexadine PPE: provider hat/mask and gloves PIV line: Laterality: right Site: hand Catheter size: 16 g Number of attempts: 1 us Benja Bhatia MD PhD ANESTHESIA ORDERABLES Final R esult * ID AN ELECTIVE ENDOTRACHEAL AIRWAY, ID AN PROCEDURE PLACEHOLDER (03/09/2024 8:17 AM CDT) Narrative Mannie Montgomery CRNA - 03/09/2024 8:17 AM CDT Mannie Montgomery CRNA ? 03/09/2024 ??8:45 AM Airway Patient location: OR Urgency: elective Indications for airway management: anesthesia Difficult airway: no Staff: Supervising provider: Benja Bhatia MD PhD Placed by: HIV PREVENTION SPECIALIST: Mannie Montgomery CRNA Emergent airway documentation: Risks and benefits discussed: yes Consent obtained: yes Consent given by: patient Airway prep: Preoxygenated: yes Patient position: sniffing and reverse Trendelenburg MILS maintained throughout: yes Mask difficulty assessment: 0 - not attempted Spontaneous ventilation during airway: absent Sedation level during airway: GA Final airway details: Final airway type: endotracheal airway Tube type: ETT ETT size: 8.0 mm Cuffed: yes Technique used for successful ETT placement: video laryngoscopy Devices/Methods used in placement: intubating stylet Insertion site: oral Blade type: Eve Video blade type: Belle Blade size: 4 Cormack-Lehane (video): grade I - full view of glottis Initial cuff pressure: 25 cm H2O Cuff inflated with: air ETT to gums: 24 cm Placement verified by: auscultation and CO2 detection Airway secured with: silk tape Number of attempts: 1 Additional comments: Atraumatic intubation x 1 attempt. ETT cuff set to 25 cm H20 using manometer. us Benja Bhatia MD PhD ANESTHESIA ORDERABLES Final R esult documented in this encounter Visit Diagnoses Not on filedocumented in this encounter Administered Medications Inactive Administered Medications - up to 3 most recent administrations Medication Order MAR Action Action Date Dose Rate Site ceFAZolin (ANCEF) 2,000 mg/20 mL in sterile water (premix) 2,000 mg 2,000 mg, intravenous, at 400 mL/hr, Administer over 3 Minutes, Once, On Fri03/09/24 at 0615, For 1 dose, Pre-Op, Indications: Prophylaxis, SurgicalIndications:Pro phylaxis, Surgical Given 03/09/2024 7:43 AM CDT 2,000 mg dexAMETHasone (DECADRON) 4 mg/mL injection intravenous, Administer over 2 Minutes, As needed, Starting on Fri03/09/24 at 1012, Anesthesia Intra-op Given 03/09/2024 10:12 AM CDT 4 mg dexmedeTOMIDine in 0.9% sodium chloride (PRECEDEX) 200 mcg/50 mL (4 mcg/mL) infusion (premix) intravenous, As needed, Starting on Fri03/09/24 at 0830, Anesthesia Intra-op New Bag 03/09/2024 8:40 AM CDT 0.5 mcg/kg/hr 10.775 mL/hr Given 03/09/2024 8:30 AM CDT 25.86 mcg famotidine (PEPCID) injection intravenous, Administer over 2 Minutes, As needed, Starting on Fri03/09/24 at 1010, Anesthesia Intra-op Given 03/09/2024 10:10 AM CDT 20 mg fentaNYL (SUBLIMAZE) preservative free injection intravenous, As needed, Starting on Fri03/09/24 at 0739, Anesthesia Intra-op Given 03/09/2024 7:39 AM CDT 100 mcg Given 03/09/2024 7:36 AM CDT 100 mcg Given 03/09/2024 7:33 AM CDT 100 mcg furosemide (LASIX) 10 mg/mL injection intravenous, As needed, Starting on Fri03/09/24 at 0950, Anesthesia Intra-op Given 03/09/2024 9:50 AM CDT 20 mg heparin 1,000 unit/mL injection intravenous, As needed, Starting on Fri03/09/24 at 0950, Anesthesia Intra-op New Bag 03/09/2024 9:50 AM CDT 2,000 Units HYDROmorphone (DILAUDID) injection intravenous, Administer over 2 Minutes, As needed, Starting on Fri03/09/24 at 0830, Anesthesia Intra-op Given 03/09/2024 8:45 AM CDT 1 mg Given 03/09/2024 8:30 AM CDT 1 mg Lactated Ringer's (LR) infusion 30 mL/hr, intravenous, Continuous, Starting on Fri03/09/24 at 0615, Pre-Op New Bag 03/09/2024 8:45 AM CDT Restarted 03/09/2024 7:28 AM CDT New Bag 03/09/2024 6:03 AM CDT 30 mL/hr 30 mL/hr lidocaine (cardiac) (XYLOCAINE) preservative free injection intravenous, As needed, Starting on Fri03/09/24 at 0739, Anesthesia Intra-op, Indications: Ventricular ArrhythmiasIndications:Vent ricular Arrhythmias Given 03/09/2024 7:39 AM CDT 60 mg lidocaine (LTA) 4 % laryngotracheal solution nebulization, As needed, Starting on Fri03/09/24 at 0742, Anesthesia Intra-op Given 03/09/2024 7:42 AM CDT 4 mL magnesium sulfate 2 g/50 mL in water (premix) intravenous, Administer over 60 Minutes, As needed, Starting on Fri03/09/24 at 0815, Anesthesia Intra-op Given 03/09/2024 8:15 AM CDT 2 g mannitol 25 % injection intravenous, Administer over 30 Minutes, As needed, Starting on Fri03/09/24 at 0950, Anesthesia Intra-op Given 03/09/2024 9:50 AM CDT 12.5 g midazolam (VERSED) 2 mg/2 mL preservative free injection intravenous, Administer over 2 Minutes, As needed, Starting on Fri03/09/24 at 0730, Anesthesia Intra-op Given 03/09/2024 7:30 AM CDT 2 mg ondansetron (ZOFRAN) injection intravenous, Administer over 2 Minutes, As needed, Starting on Fri03/09/24 at 1014, Anesthesia Intra-op Given 03/09/2024 10:14 AM CDT 4 mg phenylephrine (SONIA-SYNEPHRINE) 1 mg/10 mL (100 mcg/mL) in sodium chloride 0.9% (premix) intravenous, As needed, Starting on Fri03/09/24 at 0739, Anesthesia Intra-op Given 03/09/2024 7:39 AM CDT 100 mcg phenylephrine (SONIA-SYNEPHRINE) 1 mg/10 mL (100 mcg/mL) in sodium chloride 0.9% (premix) intravenous, As needed, Starting on Fri03/09/24 at 0936, Anesthesia Intra-op Given 03/09/2024 9:36 AM CDT 100 mcg phenylephrine (SONIA-SYNEPHRINE) 5 mg/50 mL (100 mcg/mL) in sodium chloride 0.9% (premix) intravenous, Continuous PRN, Starting on Fri03/09/24 at 0936, Anesthesia Intra-op Rate/Dose Change 03/09/2024 9:57 AM CDT 0.1 mcg/kg/min 5.172 mL/hr New Bag 03/09/2024 9:36 AM CDT 0.3 mcg/kg/min 15.516 mL /hr propofoL (DIPRIVAN) 10 mg/mL IV intravenous, As needed, Starting on Fri03/09/24 at 0739, Anesthesia Intra-op New Bag 03/09/2024 7:39 AM CDT 150 mg rocuronium (ZEMURON) injection intravenous, As needed, Starting on Fri03/09/24 at 0739, Anesthesia Intra-op Given 03/09/2024 9:55 AM CDT 20 mg Given 03/09/2024 8:15 AM CDT 30 mg Given 03/09/2024 7:39 AM CDT 70 mg sodium chloride 0.9% infusion intravenous, Continuous PRN, Starting on Fri03/09/24 at 0745, Anesthesia Intra-op New Bag 03/09/2024 9:45 AM CDT New Bag 03/09/2024 7:45 AM CDT sugammadex (BRIDION) 100 mg/mL intravenous solution intravenous, As needed, Starting on Fri03/09/24 at 1016, Anesthesia Intra-op Given 03/09/2024 10:16 AM CDT 200 mg documented in this encounter Care Teams Integration Consultant Relationship Specialty Start Date End Date Elke Mcmillan MD [id number] [address] [place] [address] PCP - General Family Medicine 08/15/23 Lindsey Bal RN [address] [address] Drive Away Driver 07/04/23 documented as of this encounter
--- OUTSIDE RECORDS SUMMARY | 2024-11-20 04:23 | XMS_ITS | Encounter Summary ---
Author Organization [facility] Healthcare Address [address] [place] [address] Care Team Providers Care Traffic I Manager Name Role Phone Lindsey Bal RN Unavailable [phone] Elke Mcmillan MD Primary Care Provider Encounter Details Date Type Department Care Team (Late st Contact Info) Description 03/05/2024 Telephone [facility] [address] [place] [id number] [address] Social History Tobacco Use Types Packs/Day Years Used Date Smoking Tobacco: Every Day Cigarettes Smokeless Tobacco: Never [facility] Utilities Answer Date Recorded In the past 12 months has [employer], gas, oil, or water company threatened [...] often do you attend chur ch or anabaptism services? Patient declined 11/24/2023 Do you belong to any clubs o r organizations such as lutheran groups, unions, fraternal or athletic groups, or [...] place to sleep or slept in a group home (including now)? No 11/24/2023 Personal Safety Answer Date Recorded Have you ever been in or are you currently in a harmful physical or emotional relationship or is someone making you feel afraid or unsafe? 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 Pt is scheduled for their kidney donation on 03/09/24 to his cousin. Past Medical History: Diagnosis Date GERD (gastroesophageal reflux disease) Hyperlipidemia Medications: Current Outpatient Medications Medication Instructions atorvastatin (LIPITOR) 20 mg, oral, Nightly azithromycin (ZITHROMAX) 500 mg, oral, Daily carBAMazepine (TEGRETOL) 200 mg, oral, Nightly fluticasone propionate (FLONASE) 50 mcg/actuation nasal spray 1 spray, each nostril, As needed icosapent ethyL (VASCEPA) 2 g, oral, 2 times daily omeprazole (PRILOSEC) 20 mg, oral, Nightly Labs: Latest Reference Range & Units 02/27/24 12:22 Sodium 135 - 145 mmol/L 141 Potassium, pl 3.3 - 4.9 mmol/L 4.7 Chloride 97 - 110 mmol/L 105 CO2 22 - 32 mmol/L 30 Anion gap 2 - 15 mmol/L 6 BUN 6 - 25 mg/dL 9 Creatinine 0.80 - 1.30 mg/dL 0.90 Glucose 70 - 199 mg/dL 86 Calcium 8.5 - 10.3 mg/dL 9.6 Bilirubin, total 0.1 - 1.2 mg/dL 0.2 Protein, pl 6.5 - 8.5 g/dL 7.7 Albumin 3.5 - 5.0 g/dL 4.7 eGFR >=60 mL/min/1.73 m2 >90 Alk phos 40 - 130 Units/L 168 (H) AST 10 - 50 Units/L 26 ALT 7 - 55 Units/L 32 Latest Reference Range & Units 07/15/23 15:01 Alk phos 35 - 144 U/L 128 Chol/HDL ratio <5.0 (calc) 4.7 Cholesterol <200 mg/dL 177 HDL Cholesterol > OR = 40 mg/dL 38 (L) Hgb A1C <5.7 % of total Hgb 5.1 LDL mg/dL (calc) 107 (H) Non-HDL Cholesterol <130 mg/dL (calc) 139 (H) PSA < OR = 4.00 ng/mL 0.46 Triglycerides <150 mg/dL 204 (H) Assessment: Attempted to reach pt earlier this week via phone and email; however did not receive a reply from him. Attempted to call again this afternoon - his answered. She said that she's the main contact for him as he is not able to hear on the phone while he's at work d/t background noise.She said she's not aware of any specific questions/concerns they had. Pt is looking forward to his donation next week. She did ask if someone could check in with him post op - discussed that one of my coworkers could check in on him and assure he doesn't have any nutritional needs. Discussed basic recommendations for post op kidney donation as listed below. was understanding, and had no further questions. Discussed that she can contact me anytime if they have questions. Recommendations: Follow a low sodium diet usp of 2000 mg and avoid salt to promote adequate BP management. Adequate hydration consistently - recommended 64 oz of fluids daily unless directed otherwise by healthcare team. Limit ETOH intake and caffeinated beverages. Maintain a healthful weight and lifestyle, and stay active as able after donation. Aim to create a well balanced and healthful diet supervisor long goods that includes a variety of fresh fruits and vegetables, lean protein sources, lean dairy sources, legumes/nuts/seeds, healthful starch/grainoptions, etc. Follow up with all doctor appointments and follow recommendations provided by your care team post donation to assure adequate care and f/u moving forward. All questions answered. Provided contact information for any nutritional questions/concerns moving forward. Becky Cisneros RD CHURCH MUSICIAN LD Contact: documented in this encounter Plan of Treatment Not on file documented as of this encounter Visit Diagnoses Not on filedocumented in this encounter Care Teams Traffic I Manager Relationship Specialty Start Date End Date Elke Mcmillan MD [address] [place] [address] PCP - General Family Medicine 08/15/23 Lindsey Bal, ROSANGELA [address] [facility] [address] [place] [address] Hepatologist 07/04/23 documented as of this encounter
--- OUTSIDE RECORDS SUMMARY | 2024-11-20 04:23 | XMS_ITS | Encounter Summary ---
Author Organization [facility] Healthcare Address [address] [place] [address] Care Team Providers Care Oil Program Compliance Specialist Name Role Phone Lindsey Bal RN Unavailable [phone] Elke Mcmillan MD Primary Care Provider Reason for Visit * Reason Onset Date Comments Lab Results 03/02/2024 Encounter Details Date Type Department Care Team (Late st Contact Info) Description 03/02/2024 Telephone [facility] Transplant Kidney [address] [facility] [address] [id number] [place], [place] [phone] Lindsey Bal, RN [address] [facility] [address] [place], [place] [id number] Lab Results Social History Tobacco Use Types Packs/Day Years Used Date Smoking Tobacco: Every Day Cigarettes Smokeless Tobacco: Never [facility] Utilities Answer Date Recorded In the past 12 months has [employer], gas, oil, or water [employer] threatened to shut off services in your [...] 11/24/2023 How often do you attend chur or advent services? 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 Confirmed we are fine to proceed as planned. Reviewed that I have a disclosure/ consent to go over with him sometimesbefore surgery and to let me know a good time to call and go over with him documented in this encounter Plan of Treatment Not on file documented as of this encounter Visit Diagnoses Not on filedocumented in this encounter Care Teams Oil Program Compliance Specialist Relationship Specialty Start Date End Date Elke Mcmillan MD [address] [place] [address] PCP - General Family Medicine 08/15/23 Lindsey Bal, RN [address] [facility] [address] [place] [address] Tobacco Sample Puller 07/04/23 documented as of this encounter
--- OUTSIDE RECORDS SUMMARY | 2024-11-20 04:23 | XMS_ITS | Encounter Summary ---
Author Organization [facility] Healthcare Address [address] [place] [address] Care Team Providers Care Small Engine Specialist Name Role Phone Lindsey Bal RN Unavailable [phone] Elke Mcmillan MD Primary Care Provider Reason for Visit * Reason Onset Date Comments Donor Evaluation Update/Follow Up 01/27/2024 Encounter Details Date Type Department Care Team (Late st Contact Info) Description 01/27/2024 Telephone [facility] Transplant Kidney [address] [facility] [address] [phone] [place], [place] [phone] Lindsey Bal, RN [address] [facility] [address] [place], [place] [id number] Donor Evaluation Update/Follow Up Social History Tobacco Use Types Packs/Day Years Used Date Smoking Tobacco: Every Day Cigarettes [facility] Utilities Answer Date Recorded In the past 12 months has [employer], [employer], oil, or water [employer] threatened to shut off services in your [...] How often do you attend chur or synagogue services? Patient declined 11/24/2023 Do you belong to any clubs o r organizations such as holiness groups, unions, fraternal or athletic groups, or [...] place to sleep or slept in a custodial (including now)? No 11/24/2023 Personal Safety Answer Date Recorded Have you ever been in or are you currently in a harmful physical or emotional relationship or is someone making you feel afraid or unsafe? 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 Told him that I would work on getting scheduled and then would get his pre-op appointments scheduled. Verbalized understanding. No donor surgeons available 03/04, Avel wanted to go with 03/09/24. Told him I would work on getting it scheduled. Verbalized understanding. * Telephone Encounter - Lindsey Bal RN - 01/27/2024 9:01 AM CDT Notified by recipient coordinator that recipient is signed off and active on the list and okay to look at surgery dates. Reviewed this information with Dagoberto. Told him that if he wants to look at surgery dates to let me know. Reviewed next available dates. Advised that his approval is good until 11/19/24 so as long as the date is before then, we are good to go. Told him to let me know if he had any questions. documented in this encounter Plan of Treatment Not on file documented as of this encounter Visit Diagnoses Not on filedocumented in this encounter Care Teams Small Engine Specialist Relationship Specialty Start Date End Date Elke Mcmillan MD [address] [place] [address] PCP - General Family Medicine 08/15/23 Lindsey Bal, ROSANGELA [address] [place] [address] Boarder Hand 07/04/23 documented as of this encounter
--- OUTSIDE RECORDS SUMMARY | 2024-11-20 04:23 | XMS_ITS | Encounter Summary ---
Author Organization [facility] Healthcare Address [address] [place] [address] Care Team Providers Care Director Motion Picture Name Role Phone Lindsey Bal RN Unavailable [phone] Elke Mcmillan MD Primary Care Provider Reason for Visit * Reason Onset Date Comments Consents 03/03/2024 Encounter Details Date Type Department Care Team (Late st Contact Info) Description 03/03/[address] [facility] Transplant Kidney [address] [facility] [address] [phone] [place], [place] [phone] Lindsey Bal, RN [address] [facility] [address] [place], [place] [phone] Consents Social History Tobacco Use Types Packs/Day Years Used Date Smoking Tobacco: Every Day Cigarettes Smokeless Tobacco: Never [facility] Utilities Answer Date Recorded In the past 12 months has [employer], gas, oil, or water [employer] threatened to shut off services in your [...] How often do you attend chur or restorationist services? Patient declined 11/24/2023 Do [...] place to sleep or slept in a care home (including now)? No 11/24/2023 Personal Safety Answer Date Recorded Have you ever been in or are you currently in a harmful physical or emotional relationship or is someone making you feel afraid or unsafe? 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 Discussed hospital stay and what to expect. Answered his questions. Told him to let me know if he had any other questions or concerns. Verbalized understanding. documented in this encounter Plan of Treatment Not on file documented as of this encounter Visit Diagnoses Not on filedocumented in this encounter Care Teams Director Motion Picture Relationship Specialty Start Date End Date Elke Mcmillan MD [address] [place] [address] PCP - General Family Medicine 08/15/23 Lindsey Bal RN [address] [address] Drier And Grinder Tender 07/04/23 documented as of this encounter
--- OUTSIDE RECORDS SUMMARY | 2024-11-20 04:23 | XMS_ITS | Encounter Summary ---
Author Organization [facility] Healthcare Address [address] [place] [address] Care Team Providers Care Registered Client Associate Name Role Phone Lindsey Bal RN Unavailable Elke Mcmillan MD Primary Care Provider Reason for Visit * Reason Onset Date Comments UNOS ID 01/28/2024 Encounter Details Date Type Department Care Team (Late st Contact Info) Description 01/28/2024 Documentation [facility] Transplant Kidney 45[address] [facility] [address] [phone] [place], [place] [phone] Lindsey Bal, ROSANGELA [address] [facility] [address] [place], [place] [phone] UNOS ID Social History Tobacco Use Types Packs/Day Years Used Date Smoking Tobacco: Every Day Cigarettes [facility] Utilities Answer Date Recorded In the past 12 months has [employer], gas, oil, or water [employer] threatened to shut off services in your [...] How often do you attend chur or lutheran services? Patient declined 11/24/2023 Do you belong to any clubs o r organizations such as voodoo groups, unions, fraternal or athletic groups, or [...] place to sleep or slept in a penitentiary (including now)? No 11/24/2023 Personal Safety Answer Date Recorded Have you ever been in or are you currently in a harmful physical or emotional relationship or is someone making you feel afraid or unsafe? 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 He is scheduled for Left Laparoscopic Donor Nephrectomy to his [id number] 03/09/[address] Cannon as his surgeon. Thanks! documented in this encounter Plan of Treatment Not on file documented as of this encounter Visit Diagnoses Not on filedocumented in this encounter Care Teams Registered Client Associate Relationship Specialty Start Date End Date Elke Mcmillan MD [address] [place] [address] PCP - General Family Medicine 08/15/23 Lindsey Bal, ROSANGELA [address] [address] Formstone Fitter 07/04/23 documented as of this encounter
--- OUTSIDE RECORDS SUMMARY | 2024-11-20 04:23 | XMS_ITS | Encounter Summary ---
Author Organization [facility] Address [address] [facility] [address] [place] [address] Phone Care Team Providers Care Health Center Associate Name Role Phone MallyLindsey Melina RN Unavailable [phone] Elke Mcmillan MD Primary Care Provider Encounter Details Date Type Department Care Team (Late st Contact Info) Description 02/27/2024 1:30 PM CDT Office Visit [facility] Surgery [address] [facility] Advanced Medicine 12th [place] [address] [place] [address] Yulissa Vicente MD [address] [facility] [address] [place] [address] Kidney donor (Primary Dx) Social History Tobacco Use Types Packs/Day Years Used Date Smoking Tobacco: Every Day Cigarettes Smokeless Tobacco: Never Tobacco Cessation:Ready to Q uit: Not Asked; Counseling Given: Not Answered [facility] Utilities Answer Date Recorded In the past 12 months has [employer], gas, oil, or water [employer] threatened to shut off services in your [...] often do you attend chur ch or bahai services? Patient declined 11/24/2023 Do you belong [...] slept in a chcf (including now)? No 11/24/2023 Personal Safety Answer Date Recorded Have you ever been in or are you currently in a harmful physical or emotional relationship or is someone making you feel afraid or unsafe? 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 Gender Identity Not on file Sexual Orientation Not on file documented as of this encounter Last Filed Vital Signs Vital Sign Reading Time Taken Comments Blood Pressure 136/84 02/27/2024 1:17 PM CDT Pulse 73 02/27/2024 1:17 PM CDT Temperature 36.9 ??C (98.4 ??F) 02/27/2024 1:17 PM CD T Respiratory Rate - - Oxygen Saturation - - Inhaled Oxygen Concentration - - Weight 86.2 kg (190 lb) 02/27/2024 1:17 PM CDT Height 175.3 cm (5' 9 ) 02/27/2024 1:17 PM CDT Body Mass Index 28.06 02/27/2024 1:17 PM CDT documented in this encounter Progress Notes * Catia West, ELECTRICIAN'S HELPER - 02/27/2024 1:30 PM CDT PATIENT NAME: [...] is and presents to clinic with 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 [...] follow up with the anaesthesia department at [facility] for instructions regarding medication, surgical planning and additional testing that may be necessary -- Educated patient regarding the need for consent with procedures, including discussion of blood products and consent, if necessary. -- Discussed with patient and family expectations of post-op stay and they are aware that these expectations for [id number] and post-op planning are dependent on intraoperative findings, complications and recovery -- We discussed with him the risks, benefits, and alternatives to proceeding with robotic donor nephrectomy, including a brief description of the operative procedure and expected convalescence. He states understanding and would like to proceed with surgery. I, Catia West, [facility]-, have personally taken a history, examined the patient, and documented the assessment and plan as noted. The patient was [facility]. Catia West NP-, MSN Patient Care Team: Elke Mcmillan MD as PCP - General (Family Medicine) Lindsey Bal RN as Intellectual Property Paralegal documented in this encounter Plan of Treatment Not on file documented as of this encounter Visit Diagnoses Diagnosis Kidney donor- Primary documented in this encounter Care Teams Health Center Associate Relationship Specialty Start Date End Date Elke Mcmillan MD [address] [place] [address] PCP - General Family Medicine 08/15/23 Lindsey Bal, RN [address] [employer] [address] [place] [address] Intellectual Property Paralegal 07/04/23 documented as of this encounter
--- OUTSIDE RECORDS SUMMARY | 2024-11-20 04:23 | XMS_ITS | Encounter Summary ---
Author Organization [facility] Healthcare Address [address] [place] [address] Care Team Providers Care Hydraulic Assembler Name Role Phone Lindsey Bal RN Unavailable [phone] Elke Mcmillan MD Primary Care Provider Reason for Referral * Cardiology (Routine) - Closed Specialty Diagnoses / Procedures Referred By Contac t Referred To Contact Diagnoses Kidney donor Procedures ECG 12 lead Roberto Cannon MD [address] [place] [address] Phone: tel: fax: [address] [phone] Referral ID Status Reason Start Date Expiration Date Visits Re quested Visits Authorized [id number] Closed 01/30/2024 02/28/2025 1 1 Reason for Visit * Cardiology (Routine) - Closed Specialty Diagnoses / Procedures Referred By Contdave t Referred To Contact Diagnoses Kidney donor Procedures ECG 12 lead Roberto Cannon MD [address] [place] [address] Phone: tel: fax: [address] [phone] Referral ID Status Reason Start Date Expiration Date Visits Re quested Visits Authorized [id number] Closed 01/30/2024 02/28/2025 1 1 Encounter Details Date Type Department Care Team (Latest Contact Info) Description 02/27/2024 11:56 AM CDT - 02/27/2024 11:59 PM CDT Hospital Encounter [facility] [address] [place] [address] Kidney donor Discharge Disposition: Discharge to home or self care Social History Tobacco Use Types Packs/Day Years Used Date Smoking Tobacco: Every Day Cigarettes Smokeless Tobacco: Never [facility] Utilities Answer Date Recorded In the past 12 months has [employer], gas, oil, or water company [...] often do you attend chur ch or islam services? Patient declined 11/24/2023 Do you belong to any clubs o r organizations such as taoism groups, unions, fraternal or athletic groups, or [...] place to sleep or slept in a senior living (including now)? No 11/24/2023 Personal Safety Answer Date Recorded Have you ever been in or are you currently in a harmful physical or emotional relationship or is someone making you feel afraid or unsafe? 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 Gender Identity Not on file Sexual [...] tablet (500 mg total) by mouth daily 4 cefdinir (OMNICEF) 300 mg capsule Take 1 capsule (300 mg total) by mouth every 12 (twelve) hours 02/03/2024 4 fluticasone propionate (FLONASE) 50 mcg/actuation nasal spray [...] Procedure Name Priority Date/Time Associated Diagnosis Comments ECG 12-LEAD Routine 02/27/2024 12:20 PM CDT Kidney donor documented in this encounter Results * ECG 12 lead (02/27/2024 12:20 PM CDT) Ventricular Rate EKG/Min 63 BPM [facility] Atrial Rate 63 BPM [facility] CA-Interval (MSEC) 144 ms [facility] QRS-Interval (MSEC) 84 ms [facility] QT-Interval (MSEC) 382 ms [facility] QTc 390 ms [facility] P [place] 34 degrees [facility] R [place] 77 degrees [facility] T [place] 59 degrees [facility] Diagnosis Normal sinus rhythm Normal ECG When compared with ECG of 19-NOV-2023 13:51, No significant change was found Confirmed by REGI MILLAN M.D ([id number]) on 02/28/2024 2:54:22 PM [facility] 02/27/2024 12:2 0 PM CDT 02/28/2024 2:54 PM CDT us Roberto Cannon MD ECG ORDERABLES Final Resul t [facility] documented in this encounter Visit Diagnoses Diagnosis Kidney donor documented in this encounter Care Teams Hydraulic Assembler Relationship Specialty Start Date End Date Elke Mcmillan MD [address] [place] [address] PCP - General Family Medicine 08/15/23 Lindsey Bal, ROSANGELA [address] [address] Deck Supervisor 07/04/23 documented as of this encounter
--- OUTSIDE RECORDS SUMMARY | 2024-11-20 04:23 | XMS_ITS | Encounter Summary ---
Author Organization [facility] Healthcare Address [address] [place] [address] Care Team Providers Care Audio Visual Design Engineer Name Role Phone Lindsey Bal RN Unavailable [phone] Elke Mcmillan MD Primary Care Provider Reason for Visit * Reason Onset Date Comments [facility]LD[facility] Ian Program 01/29/2024 Encounter Details Date Type Department Care Team (Late st Contact Info) Description 01/29/2024 [address]ation [facility] Social Work [address] [place] [address] Donna Nazario LCSW NLD[facility] Ian Program Social History Tobacco Use Types Packs/Day Years Used Date Smoking Tobacco: Every Day Cigarettes [facility] Utilities Answer Date Recorded In the past 12 months has th [employer] electric, gas, oil, or water company threatened [...] often do you attend chur ch or temple services? 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 Donor has been approved for travel expenses and lost wage reimbursement through [facility]. KANDIS will update NLDAC once surgery has been completed so they can release the funds. documented in this encounter Plan of Treatment Not on file documented as of this encounter Visit Diagnoses Not on filedocumented in this encounter Care Teams Audio Visual Design Engineer Relationship Specialty Start Date End Date Elke Mcmillan MD [address] [place] [address] PCP - General Family Medicine 08/15/23 Lindsey Bal, RN [address] [facility] [address] [place] [address] Arboriculture Instructor 07/04/23 documented as of this encounter
--- OUTSIDE RECORDS SUMMARY | 2024-11-20 04:24 | XMS_ITS | Encounter Summary ---
Author Organization [facility] Address [address] [place] [address] Phone Care Team Providers Care Professor Of Law Name Role Phone Lindsey Bal Melina RN Unavailable [phone] Elke Mcmillan MD Primary Care Provider Encounter Details Date Type Department Care Team (Late st Contact Info) Description 11/19/2023 2:30 PM COMMERCIAL CARPENTER Office Visit [facility] Nephrology [address] [facility] Advanced Medicine 5th [place] [address] [place] [address] Amee Morocho MD [address] [facility] [address] [place] [address] Kidney donor (Primary Dx) Social History Tobacco Use Types Packs/Day Years Used Date Smoking Tobacco: Every Day Cigarettes Tobacco Cessation:Ready to Q uit: Not Asked; Counseling Given: Not Answered Personal Safety Answer Date Recorded Have you ever been in or are you currently in a harmful physical or emotional relationship or is someone making you feel afraid or unsafe? Denies 08/18/2023 Sex and Gender Information Value Date Recorded Sex Assigned at Not on file Legal Sex Male 7:09 PM COMMERCIAL CARPENTER Gender Identity Not on file Sexual Orientation Not on file documented as of this encounter Last Filed Vital Signs Vital Sign Reading Time Taken Comments Blood Pressure 129/88 11/19/2023 2:27 PM COMMERCIAL CARPENTER Pulse 72 11/19/2023 2:27 PM COMMERCIAL CARPENTER Temperature 36.7 ??C (98.1 ??F) 11/19/2023 2:27 PM CS T Respiratory Rate - - Oxygen Saturation - - Inhaled Oxygen Concentration - - Weight 86.7 kg (191 lb 3.2 oz) 11/19/2023 2:27 P M COMMERCIAL CARPENTER Height 175.3 cm (5' 9 ) 11/19/2023 2:27 PM COMMERCIAL CARPENTER Body Mass Index 28.24 11/19/2023 2:27 PM COMMERCIAL CARPENTER documented in this encounter Progress Notes * Sujata Feliciano MD - 11/19/2023 2:30 PM CST CHIEF COMPLAINT: Patient is referred by Dr. Randle for evaluation for potential living kidney donation. HISTORY OF PRESENT ILLNESS: Dagoberto Marcial Jr. is a 53 y.o. male who presents for living kidney donor evaluation for 's cousin, Dagoberto Parrish, who he has known for 15 years. Patient lives in [place], [place]. No prior history of kidney disease, kidney stones, diabetes, hypertension, cancer. No acute complaints, and denies dysuria, hematuria, or changes in urine output. Patient present voluntarily without evidence of coercion. Outside BP 116/69, 118/71, 112/68. No NSAIDs. PAST MEDICAL/SURGICAL HISTORY: MDD/Bipolar disorder GERD Seizure disorder No prior surgical history ALLERGIES: NKDA MEDICATIONS: Current Outpatient Medications: atorvastatin (LIPITOR) 20 mg tablet, Take 1 tablet (20 mg total) by mouth nightly, Disp: , Rfl: carBAMazepine (TEGretol) 200 mg tablet, Take 1 tablet (200 mg total) by mouth 2 (two) times a day, Disp: , Rfl: icosapent ethyL (VASCEPA) 1 gram capsule, Take 2 capsules (2 g total) by mouth 2 (two) times a day,Disp: , Rfl: omeprazole (PriLOSEC) 20 mg capsule, Take 1 capsule (20 mg total) by mouth nightly, Disp: , Rfl: ketorolac (TORADOL) 10 mg tablet, Take 1 tablet (10 mg total) by mouth every 6 (six) hours as needed for pain, Disp: 20 tablet, Rfl: 0 No current facility-administered medications for this visit. FAMILY HISTORY: Mother; bone cancer Grandfather; stomach cancer No family history of kidney disease SOCIAL HISTORY: + tobacco smoker; 1-1.5 PPD x 35 years Prior cocaine/marijuana use > 20 years ago, no IVDA No recent travel outside of [place] REVIEW OF SYSTEMS: General: No fevers, chills, weight changes Eyes: No vision changes ENT: No hearing changes CV: No chest pain Resp: No shortness of breath GI: No nausea, vomiting, constipation, diarrhea : No dysuria, hematuria Musculoskeletal: No joint deformities, no edema Skin: No rash Neuro: No weakness, seizures Hematology: No bleeding EXAM: Vitals: 11/19/23 1427 BP: 129/88 BP Location: Left arm Patient Position: Sitting Pulse: 72 Temp: 36.7 ??C (98.1 ??F) TempSrc: Oral Weight: 86.7 kg (191 lb 3.2 oz) Height: 175.3 cm (5' 9 ) General: Awake, alert, in no acute distress Eyes: No scleral icterus, pupils equally round and reactive to light/accommodation, EOMI ENT: Moist mucosal membranes, no oropharyngeal exudates Neck: Supple, no JVD, no thyromegaly Lymphatics: No cervical lymphadenopathy Heart: Regular rate and rhythm, normal S1, S2, no rubs, murmurs, or gallops Chest: Lungs clear to auscultation bilaterally Abdomen: Soft, non-tender, non-distended, normal bowel sounds throughout Musculoskeletal: No lower extremity edema, no joint deformities Skin: No rash, lesions, or moles visualized on sun-exposed areas of body Neuro: Moving all extremities, no focal deficits, strength 5/5 on flexion/extension/bunch trimmer mold of upper extremities bilaterally, strength 5/5 on flexion/extension of lower extremities bilaterally LABS: K 4.9 Cr 1.0 CKD EPI 85 24hr CrCl 146.4 Gluc 100 A1C 5.1% Microalb 3 UA bland HIV HBV HCV RPR all negative CMV neg EBV pos ASSESSMENT & PLAN: 1) Donor evaluation: Patient has completed much of donor evaluation and thus far completed appears to be a good candidate for donation, pending an EKG and CT scan. I have discussed PPI association with CKD with patient, given benefits > risks, he will continueto take his PPI. I have spent several minutes with the patient explaining the short-term and long-term risks associated with donor nephrectomy. I have explained that based on the current data, the life expectancy would be normal and the risk of kidney failure is approximately 4-10 per 10,000 patients. The risk of hypertension is comparable to that of the general population. There is a slightly increased risk overthe short-term in terms of mortality on the scale of 3 out of 10,000. I have advised the patient tofollow-up regularly with a prior physician for blood pressure monitoring, routine blood work and urine testing after a potential donation and would recommend against the use of over the counter products with ibuprofen products as they can aggravate hypertension or lead to renal insufficiency. Discussed the fact that fci medical implications of organ donation have not been fully identified. We have discussed briefly the pros and cons of laparoscopic versus mini-nephrectomy and the patient will need to inquire further with the surgical team regarding specific preferences. We have answeredall of the patient's questions to their satisfaction and would need to first establish normal EKG and CT scan prior to proceeding with donor nephrectomy. Disposition: patient is to follow up as needed, to call with questions or concerns should they arise. Cosigned by Amee Morocho MD at 11/20/2023 11:22 AM COMMERCIAL CARPENTER ERCIAL CARPENTER ERCIAL CARPENTER Associated attestation - Amee Morocho MD - 11/20/2023 11:22 AM COMMERCIAL CARPENTER I have seen and examined the patient. I agree with the findings and plan of care as documented in the resident/fellow's note. My total encounter time on 11/19/2023 was 65 minutes which was spent in theactivities documented in the note. This includes time spent prior to the visit and after the visit in direct care of the patient. This time does not include time spent in any separately reportable ser vices. documented in this encounter Miscellaneous Notes * Addendum Note - Amee Morocho MD - 11/19/2023 2:30 PM CSTAddended by: AMEE MOROCHO on: 11/20/2023 11:23 AM Modules accepted: Orders ERCIAL CARPENTER documented in this encounter Plan of Treatment Not on file documented as of this encounter Visit Diagnoses Diagnosis Kidney donor- Primary documented in this encounter Discontinued Medications Medication Sig Discontinue Reason Start Date End Da te ketorolac (TORADOL) 10 mg tablet Take 1 tablet (10 mg total) by mouth every 6 (six) hours as needed for pain 08/15/2023 11/20/2023 documented as of this encounter Care Teams Professor Of Law Relationship Specialty Start Date End Date Elke Mcmillan MD [address] [place] [address] PCP - General Family Medicine 08/15/23 Lindsey Bal, ROSANGELA [address] [address] Plane Captain 07/04/23 documented as of this encounter
--- OUTSIDE RECORDS SUMMARY | 2024-11-20 04:24 | XMS_ITS | Encounter Summary ---
Author Organization [facility] Healthcare Address [address] [place] [address] Care Team Providers Care Director Of District Office Name Role Phone Lindsey Bal RN Unavailable [phone] Encounter Details Date Type Department Care Team (Late st Contact Info) Description 07/17/[address] 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 Explained that since it was positive, that just means that he had been exposed to virus at some time and body developed antibodies. Okay to be positive or negative. Told him I would contact him after I got the rest ofhis lab results. documented in this encounter Plan of Treatment Not on file documented as of this encounter Visit Diagnoses Not on filedocumented in this encounter Care Teams Director Of District Office Relationship Specialty Start Date End Date Lindsey Bal, RN 45[address] [facility] [address] [place] [address] Medical Coding Instructor 07/04/23 documented as of this encounter
--- OUTSIDE RECORDS SUMMARY | 2024-11-20 04:24 | XMS_ITS | Encounter Summary ---
Author Organization [facility] Healthcare Address [address] [place] [address] Care Team Providers Care Funeral Pre Need Consultant Name Role Phone Lindsey Bal RN Unavailable [phone] Elke Mcmillan MD Primary Care Provider Encounter Details Date Type Department Care Team (Late st Contact Info) Description 10/14/2023 Documentation [facility] Transplant Kidney [address] [facility] [id number] [place] [address] Smita Lancaster Social History Tobacco Use Types Packs/Day Years Used Date Smoking Tobacco: Never Assessed Personal Safety Answer Date Recorded Have you ever been in or are you currently in a harmful physical or emotional relationship or is someone making you feel afraid or unsafe? Denies 08/18/2023 Sex and Gender Information Value Date Recorded Sex Assigned at Not on file Legal Sex Male 7:09 PM HIDE DYER Gender Identity Not on file Sexual Orientation Not on file documented as of this encounter Progress Notes * Smita Lancaster - 10/14/2023 3:40 PM CST Scheduled Testing for 11-19-2023 Created schedule letter E-Mailed schedule, map, and instructions to patient DYER documented in this encounter Plan of Treatment Not on file documented as of this encounter Visit Diagnoses Not on filedocumented in this encounter Care Teams Funeral Pre Need Consultant Relationship Specialty Start Date End Date Elke Mcmillan MD [address] [place] [address] PCP - General Family Medicine 08/15/23 Lindsey Bal, RN [address] [facility] [address] [place] [address] Office Helper Clerical 07/04/23 documented as of this encounter
--- OUTSIDE RECORDS SUMMARY | 2024-11-20 04:24 | XMS_ITS | Encounter Summary ---
Author Organization [facility] Healthcare Address [address] [place] [address] Care Team Providers Care Hotel Operation Manager Name Role Phone Lindsey Bal RN Unavailable [phone] Reason for Visit * Reason Onset Date Comments Forms/questionnaires 07/04/2023 Encounter Details Date Type Department Care Team (Late st Contact Info) Description 07/04/2023 Telephone [facility] Transplant Kidney [address] [facility] [address] [place] [address]op [phone] [place] [address] Lindsey Bal, RN [address] [facility] [address] [place] [id number] Forms/questionnaires Social History Tobacco Use Types Packs/Day Years Used Date Smoking Tobacco: Never Assessed Sex and Gender Information Value Date Recorded Sex Assigned at Not on file Legal Sex Male 7:09 PM HUMAN RESOURCES SUPPORT SPECIALIST Gender Identity Not on file Sexual Orientation Not on file documented as of this encounter Miscellaneous Notes * Telephone Encounter - Lindsey Bal RN - 07/07/2023 7:54 AM CDT His response: I was incarcerated 18 years ago in 2004. Does this stop me from being a donor? I don't understand why that matters? I look forward to hearing from the Living Donor Advocate. If she calls and I don't answer, I'm probably at work. If that happens please call my , and I will call back as soon as I can If I need to get labs done, I prefer that to be done at [facility] in [place], [place]. I can come to [facility] for anything else. Thank you, Dagoberto Marcial Emailed him and reviewed that will be fine and that we only ask as we want to ensure that the potential donor isn't currently incarcerated and that we have to make sure that they have been out of residential for at least 12 months. Reviewed that we will be able to go to [facility] and that I will send an order with the [facility] codes after the LDA has spoken with him. * Telephone Encounter - Lindsey Bal RN - 07/04/2023 3:59 PM CDT Attempted to call to review questionnaire. Not available and spoke to . Asked her to let him know that I called and that I would be emailing him as well. Emailed him and advised that we have reviewed his questionnaire and are fine to proceed with donor evaluation. Asked about his history of being incarcerated or in retirement. Reviewed that before we can order any testing, [facility] has to call and go over some things with him. Told him we can order for a [facility] facility or can send order to go elsewhere after they have spoken. Told him to let me know if he had any questions. documented in this encounter Plan of Treatment Not on file documented as of this encounter Visit Diagnoses Not on filedocumented in this encounter Care Teams Hotel Operation Manager Relationship Specialty Start Date End Date Lindsey Bal RN [address] [facility] [address] [place] [address] Food Tester 07/04/23 documented as of this encounter
--- OUTSIDE RECORDS SUMMARY | 2024-11-20 04:24 | XMS_ITS | Encounter Summary ---
Author Organization [facility] Healthcare Address [address] [place] [address] Care Team Providers Care Audit Control Clerk Name Role Phone Lindsey Bal RN Unavailable [phone] Elke Mcmillan MD Primary Care Provider Encounter Details Date Type Department Care Team (Late st Contact Info) Description 08/19/2023 Orders Only [facility] Health Information Management [address] [place] [address] Lindsey Bal, RN [address] [facility] [address] [place] [address] Social History Tobacco Use Types Packs/Day Years Used Date Smoking Tobacco: Never Assessed Personal Safety Answer Date Recorded Have you ever been in or are you currently in a harmful physical or emotional relationship or is someone making you feel afraid or unsafe? 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 Gender Identity Not on file Sexual Orientation Not on file documented as of this encounter Plan of Treatment Not on file documented as of this encounter Procedures Procedure Name Priority Date/Time Associated Diagnosis Comments SCAN - LABS 08/19/2023 10:48 AM CDT documented in this encounter Results * SCAN - LABS (08/19/2023 10:48 AM CDT) us Lindsey Bal RN Final Resu lt documented in this encounter Visit Diagnoses Not on filedocumented in this encounter Care Teams Audit Control Clerk Relationship Specialty Start Date End Date Elke Mcmillan MD [address] [place] [address] PCP - General Family Medicine 08/15/23 Lindsey Bal, ROSANGELA [address] [facility] [address] [place] [address] Gre Instructor 07/04/23 documented as of this encounter
--- OUTSIDE RECORDS SUMMARY | 2024-11-20 04:24 | XMS_ITS | Encounter Summary ---
Author Organization [facility] Address [address] [place] [address] Phone Care Team Providers Care Postbed Stitcher Name Role Phone PrashanthLindsey rodriguez Melina RN Unavailable [phone] Encounter Details Date Type Department Care Team (Late st Contact Info) Description 07/15/2023 Orders Only [facility] Nephrology [address] [facility] Advanced Medicine 5th [place] [address] [place] [address] Zach Morocho MD [address] [facility] [address] [place] [address] Social History Tobacco Use Types Packs/Day Years Used Date Smoking Tobacco: Never Assessed Sex and Gender Information Value Date Recorded Sex Assigned at Not on file 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 Gender Identity Not on file Sexual Orientation Not on file documented as of this encounter Plan of Treatment Not on file documented as of this encounter Procedures Procedure Name Priority Date/Time Associated Diagnosis Comments COPY(IES) SENT TO: Routine 07/15/2023 3: 01 PM CDT EBV VIRAL CAPSID AG (VCA) AB (IGG) Routine 07/15/2023 3:01 PM CDT URINALYSIS, COMPLETE Routine 07/15/2023 3:01 PM CDT RPR TITER Routine 07/15/2023 3:01 PM CDT PSA SCREEN Routine 07/15/2023 3:01 PM CDT HIV 1/2 ANTIBODY PLUS P24 ANTIGEN Routine 07/15/2023 3:01 PM CDT CMV, IGG Routine 07/15/2023 3:01 PM CDT CBC WITH AUTO DIFFERENTIAL Routine 07/15/2023 3:01 PM CDT HEPATITIS C ANTIBODY Routine 07/15/2023 3:01 PM CDT ALBUMIN CREATININE RATIO, URINE Routine 07/15/2023 3:01 PM CDT HEPATITIS B CORE ANTIBODY, TOTAL Routine 07/15/2023 3:01 PM CDT ABO/RH Routine 07/15/2023 3:01 PM CDT HEPATITIS B SURFACE ANTIBODY (IMMUNE STATUS) Routine 07/15/2023 3:01 PM CDT HEPATITIS B SURFACE ANTIGEN Routine 07/15/2023 3:01 PM CDT APTT Routine 07/15/2023 3:01 PM CDT PROTIME-INR Routine 07/15/2023 3:01 PM CDT URINE CULTURE Routine 07/15/2023 3:01 PM CDT URIC ACID Routine 07/15/2023 3:01 PM CDT PHOSPHORUS Routine 07/15/2023 3:01 PM CDT HEMOGLOBIN A1C Routine 07/15/2023 3:01 PM CDT GAMMA GT Routine 07/15/2023 3:01 PM CDT LIPID PANEL Routine 07/15/2023 3:01 PM CDT COMPREHENSIVE METABOLIC PANEL Routine 07/15/2023 3:01 PM CDT documented in this encounter Results * Urine culture (07/15/2023 3:01 PM CDT) [facility]rine culture [facility] Comment: ??CULTURE, URINE, ROUTINE ?Micro Number: ?[id number] ??Test Status: ? Final ??Specimen Source: ?? Urine, clean catch ??Specimen Quality: ??Adequate ??Result: ?No Growth 07/15/2023 3:01 PM CDT 07/15/2023 3:07 PM CDT Narrative [facility] - 07/16/2023 9:08 PM CDT FASTING:NO FASTING: NO Zach Morocho MD LAB MICROBIOLOGY - [facility] Final Result Performing Organization Address [facility]/ZIP Co de Phone Number [facility] [address] [place] [address] * ABO/Rh (07/15/2023 3:01 PM CDT) ABO typing O [facility] Rho(D) typing RH(D) POSITIVE [facility] Comment: For additional information, please refer to http://education.bunkersofa/faq/BBQ926 (This link is being provided for informational/ educational purposes only.) 07/15/2023 3:01 PM CDT 07/15/2023 3:07 PM CDT Narrative [facility] - 07/16/2023 9:08 PM CDT FASTING:NO FASTING: NO Result [facility] Zach Morocho MD LAB BLOOD BANK TEST ORDERABLES Final Result Performing Organization Address City/[facility]/ZIP Co de Phone Number [facility] [address] [place] [address] * CMV, IgG (07/15/2023 3:01 PM CDT) CMV IgG <0.60 U/mL [facility] Comment: ? U/mL ? Interpretation ? ----- ? <0.60 ? Negative ? 0.60-0.69 ? Equivocal ? > or = 0.70 ?? Positive A positive result indicates that the patient has antibody to CMV. It does not differentiate between an active or past infection. 07/15/2023 3:01 PM CDT 07/15/2023 3:[address] [facility] 07/16/2023 9:08 PM CDT FASTING:NO FASTING: NO Zach Morocho MD LAB MICROBIOLOGY - [facility] HAILE DENNISON Final Result Performing Organization Address City/State/[facility] Co de Phone Number [facility]LL [email or web address] [address] [place] [address] * Comprehensive metabolic panel (07/15/2023 3:01 PM CDT) Pathologist [facility] Glucose 80 65 - 139 mg/dL [email or web address] Comment: ? Non-fasting reference interval BUN 12 7 - 25 mg/dL [facility] Creatinine 1.06 0.70 - 1.30 mg/dL [facility] Owen eGFR 85 > OR = 60 mL/min/1.7 3m2 [facility] Owen BUN/creat ratio SEE NOTE: (calc) [facility] Comment: ?? Not Reported: BUN and Creatinine are within ?? reference range. ? Sodium 139 135 - 146 mmol/L Dontrell ChavisAnastacia Owen Potassium, pl 3.7 3.5 - 5.3 mmol/L [facility]ontrell ChavisAnastacia Owen Chloride 107 98 - 110 mmol/L Dontrell ChavisAnastacia Owen CO2 24 20 - 32 mmol/L Dontrell ChavisAnastacia Owen Calcium 9.5 8.6 - 10.3 mg/dL Dontrell ChavisAnastacia Owen Protein, sr 7.4 6.1 - 8.1 g/dL Dontrell ChavisAnastacia Owen Albumin 4.6 3.6 - 5.1 g/dL Dontrell ChavisAnastacia Owen GLOBULIN 2.8 1.9 - 3.7 g/dL (calc) Dontrell Owen Alb/glob ratio 1.6 1.0 - 2.5 (calc) Donrtell ChavisAnastacia Owen Bilirubin, total 0.5 0.2 - 1.2 mg/dL Dontrell ChavisAnastacia Owen Alk phos 128 35 - 144 U/L Dontrell ChavisAnastacia Owen AST 18 10 - 35 U/L Dontrell ChavisAnastacia Owen ALT (SGPT) 24 9 - 46 U/L Dontrell ChavisAnastacia Owen 07/15/2023 3:01 PM CDT 07/15/2023 3:07 PM CDT Narrative [facility] - 07/16/2023 9:08 PM CDT FASTING:NO FASTING: NO us Zach Morocho MD LAB BLOOD ORDERABLES Final Resu lt [facility] [address] [place] [address] * Uric acid (07/15/2023 3:01 PM CDT) Uric acid 6.3 4.0 - 8.0 mg/dL Dontrell [facility] Comment: Therapeutic target for gout patients: <6.0 mg/dL ?? 07/15/2023 3:01 PM CDT 07/15/2023 3:07 PM CDT Narrative [facility] - 07/16/2023 9:08 PM CDT FASTING:NO FASTING: NO Zach Morocho MD LAB BLOOD ORDERABLES Final Resu lt Performing Organization Address [facility] Co de Phone Number [facility] [address] [place] [address] * Phosphorus (07/15/2023 3:01 PM CDT) Phosphorus, sr 3.8 2.5 - 4.5 mg/dL [facility] 07/15/2023 3:01 PM CDT 07/15/2023 3:07 PM CDT Narrative [facility] - 07/16/2023 9:08 PM CDT FASTING:NO FASTING: NO Zach Morocho MD LAB BLOOD ORDERABLES Final Resu lt Performing Organization Address [facility]/RUST de Phone Number [facility] [place] [address] [place] [address] * Gamma GT (07/15/2023 3:01 PM CDT) GGT 87 3 - 95 U/L [facility] 07/15/2023 3:01 PM CDT 07/15/2023 3:07 PM CDT Narrative [facility] - 07/16/2023 9:08 PM CDT FASTING:NO FASTING: NO Zach Morocho MD LAB BLOOD ORDERABLES Final Resu lt Performing Organization Address [facility] Co de Phone Number [facility] [place] [address] [place] [address] * (ABNORMAL) Lipid panel (07/15/2023 3:01 PM CDT) Cholesterol 177 <200 mg/dL [facility] HDL 38(L) > OR = 40 mg/dL [facility] Triglycerides 204(H) <150 mg/dL [facility] Comment: If a non-fasting specimen was collected, consider repeat triglyceride testing on a fasting specimen if clinically indicated. Leann et al. J. of Clin. Lipidol. 2015;9:129-169. LDL 107(H) mg/dL (calc) [facility] Comment: Reference range: <100 Desirable range <100 mg/dL for primary prevention; ?? <70 mg/dL for patients with CHD or diabetic patients with > or = 2 CHD risk factors. LDL-C is now calculated using the Sandra calculation, which is a validated novel method providing better accuracy than the Friedewald equation in the estimation of LDL-C. Joni SS et al. JOSE. 2013;310(19): 7338-2093 (http://education.bunkersofa/faq/RFE293) Chol/HDL ratio 4.7 <5.0 (calc) Dontrell Owen Non-HDL, (LDL+VLDL) 139(H) <130 mg/dL (calc) [facility] Owen Comment: For patients with diabetes plus 1 major ASCVD risk factor, treating to a non-HDL-C goal of <100 mg/dL (LDL-C of <70 mg/dL) is considered a therapeutic option. 07/15/2023 3:01 PM CDT 07/15/2023 3:07 PM CDT [facility] - 07/16/2023 9:08 PM CDT FASTING:NO FASTING: NO us Zach Morocho MD LAB BLOOD ORDERABLES Final Resu lt [facility] [address] [place] [address] * (ABNORMAL) EBV VIRAL CAPSID AG (VCA) AB (IGG) (07/15/2023 3:01 PM CDT) EBV VCA IgG 413.00(H) U/mL [facility] Comment: ? U/mL ? Interpretation ? ---- ? <18.00 ? Negative ? 18.00-21.99 ?Equivocal ? >21.99 ? Positive 07/15/2023 3:01 PM CDT 07/15/2023 3:07 PM CDT Narrative [facility] - 07/16/2023 9:08 PM CDT FASTING:NO FASTING: NO Zach Morocho MD LAB BLOOD ORDERABLES Final Resu lt Performing Organization Address [facility]/RUST de Phone Number [facility] [address] [place] [address] * Albumin Creatinine Ratio, Urine (07/15/2023 3:01 PM CDT) [facility] Creatinine, ur 191 20 - 320 mg/dL [facility] Microalbumin, ur 0.6 See Note: mg/dL [facility] Comment: Reference Range: Reference Range Not established Microalbumin/creat ratio 3 <30 mcg/mg creat [facility] Comment: The ADA defines abnormalities in albumin excretion as follows: Albuminuria Category ?Result (mcg/mg creatinine) Normal to Mildly increased ?? <30 Moderately increased ? 30-299 Severely increased ? > OR = 300 The ADA recommends that at least two of three specimens collected within a 3-6 month period be abnormal before considering a patient to be within a diagnostic category. 07/15/2023 3:01 PM CDT 07/15/2023 3:07 PM CDT Narrative [facility] - 07/16/2023 9:08 PM CDT FASTING:NO FASTING: NO Zach Morocho MD LAB URINE ORDERABLES Final Resu lt Performing Organization Address [facility]/RUST de Phone Number [facility] [address] [place] [address] * RPR Titer (07/15/2023 3:01 PM CDT) RPR NON-REACTIV E NON-REACTI VE [facility] 07/15/2023 3:01 PM CDT 07/15/2023 3:07 PM CDT Narrative [facility] - 07/16/2023 9:08 PM CDT FASTING:NO FASTING: NO Zach Morocho MD LAB MICROBIOLOGY - [facility] Final Result Performing Organization Address [facility]/ZIP Co de Phone Number [facility] [address] [place] [address] * HIV 1/2 Antibody plus p24 Antigen (07/15/2023 3:01 PM CDT) Pathologist [facility] HIV Ag/Ab, 4th gen NON-REACT ENMANUEL NON-REACT ENMANUEL [facility] Comment: HIV-1 antigen and HIV-1/HIV-2 antibodies were not detected. There is no laboratory evidence of HIV infection. PLEASE NOTE: This information has been disclosed to you from records whose confidentiality may be protected by state law. ??If your state requires such protection, then the state law prohibits you from making any further disclosure of the information without the specific written consent of the person to whom it pertains, or as otherwise permitted by law. A general authorization for the release of medical or other information is NOT sufficient for this purpose. ?? For additional information please refer to http://education.restorgenex corp.HEROZ/faq/EHF750 (This link is being provided for informational/ educational purposes only.) The performance of this assay has not been clinically validated in patients less than 2 years old. 07/15/2023 3:01 PM CDT 07/15/2023 3:07 PM CDT Narrative [facility] - 07/16/2023 9:08 PM CDT FASTING:NO FASTING: NO Zach Morocho MD LAB MICROBIOLOGY - GENERAL BER[facility]OL[facility]essa DENNISON Final Result Performing Organization Address [facility]/ZIP Co de Phone Number [facility] [address] [place] [address] * Hepatitis C antibody (07/15/2023 3:01 PM CDT) Pathologist [facility] Hep C Ab NON-REACTI VE NON-REACT ENMANUEL [facility] Comment: HCV antibody was non-reactive. There is no laboratory evidence of HCV infection. In most cases, no further action is required. However, if recent HCV exposure is suspected, a test for HCV RNA (test code 27290) is suggested. For additional information please refer to http://V-me Media.Dianwoba/faq/TVG85i3 (This link is being provided for informational/ educational purposes only.) 07/15/2023 3:01 PM CDT 07/15/2023 3:07 PM CDT Narrative [facility] - 07/16/2023 9:08 PM CDT FASTING:NO FASTING: NO Zach Morocho MD LAB MICROBIOLOGY - [facility] Final Result Performing Organization Address [facility] Co de Phone Number [facility] [address] [place] [address] * Hepatitis B core antibody, total (07/15/2023 3:01 PM CDT) Pathologist [facility] Hep B core IgG/IgM NON-REACTI VE NON-REACTI VE [facility] Comment: For additional information, please refer to http://V-me Media.Dianwoba/faq/DNP265 (This link is being provided for informational/ educational purposes only.) 07/15/2023 3:01 PM CDT 07/15/2023 3:07 PM CDT Narrative [facility] - 07/16/2023 9:08 PM CDT FASTING:NO FASTING: NO Zach Morocho MD LAB MICROBIOLOGY - GENERAL [facility] Final Result Performing Organization Address [facility] Co de Phone Number [facility] [address] [place] [address] * Hepatitis B Surface Antigen (07/15/2023 3:01 PM CDT) Pathologist [facility] HepBsAg NON-REACTI VE NON-REACTI VE [facility] Comment: For additional information, please refer to http://education.Dianwoba/faq/UZM838 (This link is being provided for informational/ educational purposes only.) 07/15/2023 3:01 PM CDT 07/15/2023 3:07 PM CDT Narrative [facility] - 07/16/2023 9:08 PM CDT FASTING:NO FASTING: NO Zach Morocho MD LAB MICROBIOLOGY - GENERAL ORDE RABLES Final Result Performing Organization Address [facility] Co de Phone Number [facility] [address] [facility] [place] [address] * PSA screen (07/15/2023 3:01 PM CDT) [facility] PSA 0.46 < OR = 4.00 ng/mL [facility] Comment: The total PSA value from this assay system is standardized against the WHO standard. The test result will be approximately 20% lower when compared to the equimolar-standardized total PSA (Johnna Hamburg). Comparison of serial PSA results should be [...] 07/16/2023 9:08 PM CDT FASTING:NO FASTING: NO Zach Morocho MD LAB BLOOD ORDERABLES Final Resu lt Performing Organization Address [facility] Co de Phone Number [facility] [address] [place] [address] * Hepatitis B surface antibody (immune status) (07/15/2023 3:01 PM CDT) Pathologist [facility] HBsAb (immune status) NON-REACTI VE NON-REACTI VE [facility] 07/15/2023 3:01 PM CDT 07/15/2023 3:07 PM CDT Narrative [facility] - 07/16/2023 9:08 PM CDT FASTING:NO FASTING: NO us Zach Morocho MD LAB MICROBIOLOGY - [facility] Final Result [facility] [address] [place] [address] * Urinalysis, Complete (07/15/2023 3:01 PM CDT) Color, ur YELLOW YELLOW [facility] Appearance, ur CLEAR CLEAR [facility] Specific gravity 1.024 1.001 - 1.035 [facility] pH, ur < OR = 5.0 5.0 - 8.0 [facility] Glucose, ur NEGATIVE NEGATIVE [facility] Bilirubin, ur NEGATIVE NEGATIVE [facility] Ketones, ur NEGATIVE NEGATIVE [facility] Blood, ur NEGATIVE NEGATIVE [facility] Protein, ur, quant NEGATIVE NEGATIVE [facility] Nitrites, ur NEGATIVE NEGATIVE [facility] Leukocyte esterase, ur NEGATIVE NEGATIVE [facility] WBC, ur NONE SEEN < OR = 5 /HPF [facility] RBC, ur 0-2 < OR = 2 /HPF [facility] Epithelial cells, squamous, ur NONE SEEN < OR = 5 /HPF [facility] Bacteria, ur, quant NONE SEEN NONE SEEN /HPF [facility] Hyaline cast NONE SEEN NONE SEEN /LPF [facility] 07/15/2023 3:01 PM CDT 07/15/2023 3:07 PM CDT Narrative [facility] - 07/16/2023 9:08 PM CDT FASTING:NO FASTING: NO us Zach Morocho MD LAB URINE ORDERABLES Final Resu lt DONTRELL [facility] [address] [place] [address] * Protime-INR (07/15/2023 3:01 PM CDT) INR 0.9 [facility] Comment: Reference Range ? 0.9-1.1 Moderate-intensity Warfarin Therapy 2.0-3.0 Higher-intensity Warfarin Therapy ?? 3.0-4.0 PT 10.0 9.0 - 11.5 sec [facility] Comment: For additional information, please refer to http://V-me Media.Dianwoba/faq/ASL193 (This link is being provided for informational/ educational purposes only.) 07/15/2023 3:01 PM CDT 07/15/2023 3:07 PM CDT Narrative [facility] - 07/16/2023 9:08 PM CDT FASTING:NO FASTING: NO Result [facility] Zach Morocho MD LAB BLOOD ORDERABLES Final Resu lt Performing Organization Address [facility]/RUST de Phone Number [facility] [address] [place] [address] * aPTT (07/15/2023 3:01 PM CDT) Pathologist [facility] aPTT 28 23 - 32 sec [facility] Comment: This test has not been validated for monitoring unfractionated heparin therapy. For testing that is validated for this type of therapy, please refer to the Heparin Anti-Xa assay (test code 52246). For additional information, please refer to http://V-me Media.bunkersofa/faq/HSS279 (This link is being provided for informational/educational purposes only.) 07/15/2023 3:01 PM CDT 07/15/2023 3:07 PM CDT Narrative [facility] - 07/16/2023 9:08 PM CDT FASTING:NO FASTING: NO Zach Morocho MD LAB BLOOD ORDERABLES Final Resu lt Performing Organization Address [facility]/ZIP Co de Phone Number [facility] [address] [place] [address] * Hemoglobin A1c (07/15/2023 3:01 PM CDT) [facility] Hgb A1C 5.1 <5.7 % of total Hgb [facility] Comment: For the purpose of screening for the presence of diabetes: <5.7% ? Consistent with the absence of diabetes 5.7-6.4% ?Consistent with increased risk for diabetes ?(prediabetes) > or =6.5% ??Consistent with diabetes This assay result is consistent with a decreased risk of diabetes. Currently, no consensus exists regarding use of hemoglobin A1c for diagnosis of diabetes in children. According to [place] Diabetes Association (ADA) guidelines, hemoglobin A1c <7.0% represents optimal control in non- diabetic patients. Different metrics may apply to specific patient populations. Standards of Medical Care in Diabetes(ADA). ?? 07/15/2023 3:01 PM CDT 07/15/2023 3:07 PM CDT Narrative [facility] - 07/16/2023 9:08 PM CDT FASTING:NO FASTING: NO us Zach Morocho MD LAB BLOOD ORDERABLES Final Resu lt [facility] [address] [place] [address] * CBC with auto differential (07/15/2023 3:01 PM CDT) [facility] WBC 9.0 3.8 - 10.8 Thousand/u L [facility] RBC, POC 5.47 4.20 - 5.80 Million/uL [facility] Hgb 16.4 13.2 - 17.1 g/dL [facility] Hct 50.0 38.5 - 50.0 % [facility] MCV 91.4 80.0 - 100.0 fL [facility] MCH 30.0 27.0 - 33.0 pg [facility] MCHC 32.8 32.0 - 36.0 g/dL [facility] Rdw 12.9 11.0 - 15.0 % [facility] Platelets 143 140 - 400 Thousand/u L [facility] MPV 11.9 7.5 - 12.5 fL [facility] Neutrophils, abs 5,877 1,500 - 7,800 cells/uL [facility] Lymphocytes, abs 2,196 850 - 3,900 cells/uL [facility] Monocyte abs 459 200 - 950 cells/uL [facility] Eosinophils, abs 432 15 - 500 cells/uL [facility] Basophils, abs 36 0 - 200 cells/uL [facility] Neutrophils 65.3 % [facility] Lymphocyte pct 24.4 % [facility] Monocytes 5.1 % [facility] Eosinophils 4.8 % [facility] Basophils 0.4 % [facility] 07/15/2023 3:01 PM CDT 07/15/2023 3:07 PM CDT Narrative [facility] - 07/16/2023 9:08 PM CDT FASTING:NO FASTING: NO Zach Morocho MD LAB BLOOD ORDERABLES Final Resu lt [facility] [address] [place] [address] * COPY(IES) SENT TO: (07/15/2023 3:01 PM CDT) COPY(IES) SENT TO: [facility] Comment: ?[facility] - COPY TO ACCT ?[address] [facility] [place] [address] 07/15/2023 3:01 PM CDT 07/15/2023 3:07 PM CDT Narrative [facility] - 07/16/2023 9:08 PM CDT FASTING:NO FASTING: NO Zach Morocho MD LAB BLOOD ORDERABLES Final Resu lt [facility] documented in this encounter Visit Diagnoses Not on filedocumented in this encounter Care Teams Postbed Stitcher Relationship Specialty Start Date End Date Lindsey Bal, RN [address] [facility] [address] [place] [id number] Criminal Justice Program Director 07/04/23 documented as of this encounter
--- OUTSIDE RECORDS SUMMARY | 2024-11-20 04:24 | XMS_ITS | Encounter Summary ---
Author Organization [facility] Healthcare Address [address] [place] [address] Care Team Providers Care Personnel Research Psychologist Name Role Phone Lindsey Bal RN Unavailable [phone] Elke Mcmillan MD Primary Care Provider Encounter Details Date Type Department Care Team (Late st Contact Info) Description 12/05/2023 Telephone [facility] Social Work [address] [place] [id number] Charli Mooney MSW Social History Tobacco Use Types Packs/Day Years Used Date Smoking Tobacco: Every Day Cigarettes [facility] Utilities Answer Date Recorded In the past 12 months has [employer], gas, oil, or water company threatened [...] often do you attend chur ch or baptism services? Patient declined 11/24/2023 Do you belong [...] slept in a intermediate (including now)? No 11/24/2023 Personal Safety Answer Date Recorded Have you ever been in or are you currently in a harmful physical or emotional relationship or is someone making you feel afraid or unsafe? Denies 08/18/2023 Sex and Gender Information Value Date Recorded Sex Assigned at Not on file Legal Sex Male 7:09 PM CRITICAL CARE UNIT NURSE Gender Identity Not on file Sexual Orientation Not on file documented as of this encounter Miscellaneous Notes * Telephone Encounter - Charli Mooney MSW - 12/05/2023 12:44 PM CRITICAL CARE UNIT NURSE Pt was approved for travel reimbursement and lost wages reimbursement through [facility]. See detailed information below. Booker Arenas, The National [facility] ([facility]) has approved your application for help with travel costs and lost wages as a living organ donor. Please call [phone] and ask for Curry to receive instructions about the program. Thank you. Sincerely, Curry Reference Number: [id number] December 05, 2023 [address] [place] [address] Dear Dagoberto, The National [facility] ([facility]) has approved your application for help with travel costs and lost wages as a living organ donor. Please read this letter carefully to learn what toexpect and what your responsibilities are. This program is funded by a federal andie from the Health Resources and Services Administration. Coverage of your expenses depends on availability of funding and is not guaranteed. Type of reimbursement Status Estimated maximum budget Travel Approved See below Lost wages Approved $3104.28 Dependent care Not requested $0 We can help with these expenses starting now and continuing through your 2-year follow-up appointment, up to $6,000. There are some other important limits you will learn about below. We have sent you a special credit card to pay for your travel expenses on trips to and from the transplant center. It will arrive at [address] [place] [address] in 10 business days. We reimburse lost wages by direct deposit or check. Please sign up for direct deposit here. Call us at [phone] before each appointment to tell us about your plans and request funding. Weare open Friday through Friday, 9am to 5pm Eastern Time. We are closed on weekends and federal holidays. For help with the travel card while our office is closed, call the number on the back of the card. We are here to help you, so please call us if you have any problems or questions. Your experience is important to us, and your feedback will help us improve the program for future donors. Please helpus by completing the short survey we will send after your evaluation or donation surgery to tell usabout your experience. It is your responsibility to: Tell us about your appointments in advance. Use the travel card according to the rules below. Pre-pay inside the gas station for a specific amount of gas. Pay for any charges beyond $6,000 in the travel card. Report the reimbursement of lost wages costs on your taxes and pay any taxes due. Tell us about any other support you get for lost wages, like paid time off or short-term disability. Tell us if your wages change, or if you stop working for a reason not related to the donation. Travel We have sent you a [employer] card to use for your travel expenses as a donor. When it comes, activateit by calling the phone number on the card. Call [facility] at before each appointment toset up a budget. Then use this card to pay for your transportation, hotel, and meals on your trips to the transplant center for your evaluation, surgery, and follow-ups. [facility] will pay the balance onthe card, unless you spend more than we agreed to provide. Travel Expenses Evaluation Trip Surgery Trip Follow Up Trip Hotel Expenses # Nights [place] Budget # Nights [place] Budget # Nights [place] Budget Total Hotel Expenses $0.00 $0.00 $0.00 Food Spinner Iron Expenses # Days [place] Budget # Days [place] Budget # Days [place] Budget Partial Day (Donor + Acc. Person) $48.00 4 $48.00 $192.00 2 $48.00 $96.00 Full Day: Accompanying Person 1 $64.00 1 $64.00 $64.00 $64.00 Total Spinner [place] Expenses $0.00 $256.00 $96.00 Transportation Expenses Qty [place] Budget Qty [place] Budget Qty [place] Budget Car - Round Trip Mileage 34 $0.65 $22.10 34 $0.65 $22.10 Parking 3 $16.00 $48.00 Total Transportation Expenses $0.00 $70.10 $22.10 Total Estimated Budget $0.00 $326.10 $118.10 Allowable Travel Expenses You must use the travel funding we provide according to the budget. Just call us if your plans change so we can change your budget. There are three things you can use this card to pay for on your trips: Transportation: gas, cross country coach class flights, public transportation, standard rental cars, taxi, ride share services, tolls, and parking. Hotel: hotel room charges and taxes, and short-term rentals like Airbnb, at up to 150% of the [facility] lodging rate. This is a rate set by the federal government that reflects the cost of hotels in different cities. Meals: meals you eat on your trip. You can use the card to buy food at restaurants, cafeterias, convenience stores, and grocery stores. Meal delivery services, like DoorDash and Uber Eats are allowed, but may cause a fraud alert, so call [employer] if the card is declined. Some places that sell food are not classified as food merchants with [employer], so the card does not allow them. These include newsstands like [place], and grocery delivery services like Instacart. In addition to your travel expenses, you can also use this card to pay for the travel of a support person on two trips. You cannot use the card to pay for the recipient's travel, or for you to go to the recipient's appointment with them. Planning Your Travel You are responsible for making your own travel arrangements. Here are some tips for a smooth trip. Flights - Book your flights as early to get the best blanton. Use your home address as the billing address for the card. [facility] can only pay for cross country coach class tickets. Gas - Go inside the gas station and tell the mutuel cashier you want to pre-pay for a specific amount of gas. Do not pay at the pump. If you pay at the pump, the gas station will hold $150 - $200 of your budget for about a week. Paying inside also lowers the risk of a fraud alert. Hotel - You can ask your transplant center to recommend a hotel. Many hospitals have deals with nearby hotels, which give a discount to patients. Call the hotel of your choice and use the donor travel card to reserve a room. Your appointments may be rescheduled, so ask about the cancellation policy. Many Airbnbs do not offer refunds. Monitoring All transactions in the travel card are recorded and reviewed by [facility]. If you do not use the moneybudgeted for hotel or airfare, you must leave it in the account; you cannot spend it on other travel expenses. If you have an unexpected travel expense that is not in your budget, please call us so we can adjust the budget, if possible. We will do our best to make the budget fit your plans, but we do have to close cards that are used inappropriately. Once you return home after your trip, the cardwill be closed until you notify us of another appointment. Any unused money will be saved for a later trip. Travel Card Declines If your travel card declines, please call us at [phone] so we can help you. If our office is closed, call [employer] customer service at the phone number on the back of the card. There are a few reasons a travel card may decline, and often we can fix them for you: Hotels, airlines, and rental car companies charge a hold, which can make part of your budget temporarily unavailable. If you try to make a purchase that exceeds your budget, the card will decline. The card will also decline at ATMs if you try to withdraw more than 10% of your budget in willard, unless you have made a previous arrangement with us. The card will decline when swiped at merchants not categorized as food, lodging, or transportation,even if what you are trying to buy is a travel expense. There may be a fraud alert on the card to protect your budget. If this happens, call [employer] customer service and ask to review the flagged transactions. They will reopen your account or replace yourcard, as needed. If you forgot to tell us about your trip, the card will decline transactions until you request a budget. Willard You can withdraw up to 10% of the travel budget in willard to use for travel expenses that you cannot pay for with a card, like tolls, or as a back-up in case you have a problem with the card. To withdraw willard, make a PIN by calling [employer] at the number on the card and then go to an in-network IVANA. The 10% of your budget dedicated to willard can only be withdrawn in willard (it cannot be spent directly from the card), so if you don't want to withdraw willard, let us know and we will remove it so you can spend it directly from the card. Registering Your Account Online To see your credit limit and transactions, go to [email or web address] and register for online access to the travel card. You can also call [employer] at the toll-free number on the back of the card andask for your available credit. This is the money available in your account. The balance refers to transactions that have posted recently. We recommend keeping a record of your spending, so you know how much is available. Lost Wages We reimburse lost wages by direct deposit or by check. Please follow this link to sign up for direct deposit to your bank account or pre-paid debit card. We recommend direct deposit as the fastest, safest way to receive this reimbursement, but you can leave the direct deposit form blank and receivewage reimbursement by check if you prefer. Once the transplant center has confirmed your appointment or donation surgery and [facility] has set up the payment, you can expect a direct deposit to arrive within 2 business days, while checks take 5 business days to arrive by mail. The payment will come from the [place] [employer]. Please call us right away if there is any delay or pro blem with your wage reimbursement so we can help you. Within the overall limit of $6,000, you can request reimbursement of lost wages for: Up to 3 days of evaluation appointments Up to 4 weeks of recovery from donation surgery Up to 2 weeks of follow-up appointments or in case of hospitalization due to complications You must notify us of your expected lost wages before each appointment. It is your responsibility to contact a qualified taxonomist to determine your tax liability.? If we reimburse you for lost wages, you will receive an IRS Form 1099 from the [place] [employer] the following December. If your mailing address changes, tell us to make sure you receive this form. Use the 1099 when you file your income tax return to declare the income and pay any taxes that are due on it. Need help? Please call us at [phone] or email [email or web address] so we can help! Sincerely, Augustine Choudhary BA, Senior Line Assembly Utility Worker Leonor Lopez BA, Assisted Living Housekeeper Line Assembly Utility Worker TYRA Lopez, PRODUCT ASSURANCE ENGINEER, [facility], Potato Peeler TYRA Ballesteros, PRODUCT ASSURANCE ENGINEER, Senior Psychological Operations TYRA Ramos, Senior Psychological Operations Curry Clifton MA, Psychological Operations Bonifacio Alvarez BA, Psychological Operations TYRA Valles, [facility] Transplant Space Scheduler [phone] ICAL CARE UNIT NURSE documented in this encounter Plan of Treatment Not on file documented as of this encounter Visit Diagnoses Not on filedocumented in this encounter Care Teams Personnel Research Psychologist Relationship Specialty Start Date End Date Elke Mcmillan MD [address] [place] [address] PCP - General Family Medicine 08/15/23 Lindsey Bal, RN [address] [facility] [address] [place] [address] Government Relations Director 07/04/23 documented as of this encounter
--- OUTSIDE RECORDS SUMMARY | 2024-11-20 04:24 | XMS_ITS | Encounter Summary ---
Author Organization [facility] Healthcare Address [address] [place] [address] Care Team Providers Care Track Layer Head Name Role Phone Lindsey Bal RN Unavailable [phone] Elke Mcmillan MD Primary Care Provider Encounter Details Date Type Department Care Team (Late st Contact Info) Description 08/18/2023 Telephone [facility] Transplant Kidney [address] [facility] [address] [phone] [place] [address] Lindsey Bal, RN [address] [facility] [address] [place], [place] [id number] Social History Tobacco Use Types Packs/Day Years Used Date Smoking Tobacco: Never Assessed Personal Safety Answer Date Recorded Have you ever been in or are you currently in a harmful physical or emotional relationship or is someone making you feel afraid or unsafe? 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 Asked to confirm where he had completed so I can be sure to get the results. documented in this encounter Plan of Treatment Not on file documented as of this encounter Visit Diagnoses Not on filedocumented in this encounter Care Teams Track Layer Head Relationship Specialty Start Date End Date Elke Mcmillan MD [address] [place] [address] PCP - General Family Medicine 08/15/23 Lindsey Bal, ROSANGELA [address] [address] Heel Sorter 07/04/23 documented as of this encounter
--- OUTSIDE RECORDS SUMMARY | 2024-11-20 04:24 | XMS_ITS | Encounter Summary ---
Author Organization [facility] Healthcare Address [address] [place] [address] Care Team Providers Care Insulation Mechanic Name Role Phone Lindsey Bal RN Unavailable [phone] Elke Mcmillan MD Primary Care Provider Reason for Referral * Cardiology (Routine) - Closed Specialty Diagnoses / Procedures Referred By Anne melton Referred To Contact Diagnoses Kidney donor Procedures ECG 12 lead Zach Morocho MD [address] [facility] [address] [place] [address] Phone: tel: fax: [address] [phone] Referral ID Status Reason Start Date Expiration Date Visits Re quested Visits Authorized [id number] Closed 10/14/2023 11/12/2024 1 1 ATIONS SUPPORT SPECIALIST Reason for Visit * Cardiology (Routine) - Closed Specialty Diagnoses / Procedures Referred By Contdave t Referred To Contact Diagnoses Kidney donor Procedures ECG 12 lead Zach Morocho MD [address] [facility] [address] [place] [address] Phone: tel: fax: [address] [phone] Referral ID Status Reason Start Date Expiration Date Visits Re quested Visits Authorized [id number] Closed 10/14/2023 11/12/2024 1 1 Encounter Details Date Type Department Care Team (Latest Contact Info) Description 11/19/2023 1:40 PM OPERATIONS SUPPORT SPECIALIST - 11/19/2023 11:59 PM OPERATIONS SUPPORT SPECIALIST Hospital Encounter [facility] [address] [place] [address] Kidney donor Discharge Disposition: Discharge to home or self care Social History Tobacco Use Types Packs/Day Years Used Date Smoking Tobacco: Every Day Cigarettes Personal Safety Answer Date Recorded Have you ever been in or are you currently in a harmful physical or emotional relationship or is someone making you feel afraid or unsafe? Denies 08/18/2023 Sex and Gender Information Value Date Recorded Sex Assigned at Not on file Legal Sex Male 7:09 PM OPERATIONS SUPPORT SPECIALIST Gender Identity Not on file Sexual Orientation Not on file documented as of this encounter Medications at Time of Discharge atorvastatin (LIPITOR) 20 mg tabletIndication s:hyperlipidemia Take 1 tablet (20 mg total) by mouth nightly 06/30/2023 carBAMazepine (TEGretol) 200 mg tabletIndication s:Bipolar Disorder Take 1 tablet (200 mg total) by mouth nightly 05/30/2023 icosapent ethyL (VASCEPA) 1 gram capsuleIndicatio ns:hypertriglyce ridemia Take 2 capsules (2 g total) by mouth 2 (two) times a day 07/30/2023 omeprazole (PriLOSEC) 20 mg capsuleIndicatio ns:Treatment of Non-Bleeding Gastric Disorder Take 1 capsule (20 mg total) by mouth nightly ketorolac (TORADOL) 10 mg tablet Take 1 tablet (10 mg total) by mouth every 6 (six) hours as needed for pain 20 tablet 08/15/2023 11/20/2023 documented as of this encounter Discharge Disposition Disposition Code Departure Means Destination Discharge to home or self care documented in this encounter Plan of Treatment Not on file documented as of this encounter Procedures Procedure Name Priority Date/Time Associated Diagnosis Comments ECG 12-LEAD Routine 11/19/2023 1:51 PM OPERATIONS SUPPORT SPECIALIST Kidney donor documented in this encounter Results * ECG 12 lead (11/19/2023 1:51 PM OPERATIONS SUPPORT SPECIALIST) Ventricular Rate EKG/Min 65 BPM [facility] Atrial Rate 65 BPM [facility] DE-Interval (MSEC) 148 ms [facility] QRS-Interval (MSEC) 86 ms [facility] QT-Interval (MSEC) 400 ms [facility] QTc 416 ms [facility] P [place] 55 degrees [facility] R [place] 78 degrees [facility] T [place] 66 degrees [facility] Diagnosis Normal sinus rhythm Normal ECG When compared with ECG of 08-MAY-2001 07:22, No significant change was found Confirmed by PAULA CAMPUZANO M.D ([id number]) on 11/20/2023 7:31:18 AM [facility] 11/19/2023 1:51 PM OPERATIONS SUPPORT SPECIALIST 11/20/2023 7:31 AM OPERATIONS SUPPORT SPECIALIST us Zach Morocho MD ECG ORDERABLES Final Result [facility] documented in this encounter Visit Diagnoses Diagnosis Kidney donor documented in this encounter Care Teams Insulation Mechanic Relationship Specialty Start Date End Date Elke Mcmillan MD [address] [place] [address] PCP - General Family Medicine 08/15/23 Lindsey Bal, RN [address] [facility] [address] [place] [address] Safety Associate 07/04/23 documented as of this encounter
--- OUTSIDE RECORDS SUMMARY | 2024-11-20 04:24 | XMS_ITS | Encounter Summary ---
Author Organization [facility] Address [address] [place] [address] Care Team Providers Care Director Of Income Tax Name Role Phone Lindsey Bal RN Unavailable [phone] Reason for Visit * Reason Onset Date Comments SETH Step 1 Pre Assessment 07/08/2023 Encounter Details Date Type Department Care Team (Late st Contact Info) Description 07/08/2023 Documentation [facility] Transplant Kidney [address] 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 Dagoberto Parrish, cousin in law. How did you find out that the patient needed a kidney? He lives with me. Tell me briefly how the conversation (if there was one) about you becoming a potential donor took place. (Did you offer to donate, did they ask?) I offered, He's Special needs. Me and discussed it. Do you feel any pressure to do this? No Has anyone tried to coerce you or force you to do this? No Comments: SETH provided personal contact information and explained to the living donor candidate the SETH's roles and responsibilities throughout the entire evaluation, donation, and post-donation processes. Recommendations: Patient should proceed with the donor evaluation. TYRA Cortes, LITHOGRAPHIC CAMERA OPERATOR [phone] Independent Living Donor Advocate documented in this encounter Plan of Treatment Not on file documented as of this encounter Visit Diagnoses Not on filedocumented in this encounter Care Teams Director Of Income Tax Relationship Specialty Start Date End Date Lindsey Bal, RN [address] [facility] [address] [place] [address] Mechanical Maintenance Supervisor 07/04/23 documented as of this encounter
--- OUTSIDE RECORDS SUMMARY | 2024-11-20 04:24 | XMS_ITS | Encounter Summary ---
Author Organization [facility] Healthcare Address [address] [place] [address] Care Team Providers Care Food And Beverage Checker Name Role Phone Lindsey Bal RN Unavailable [phone] Elke Mcmillan MD Primary Care Provider Reason for Visit * Reason Onset Date Comments SETH Step 3 10/20/2023 Encounter Details Date Type Department Care Team (Late st Contact Info) Description 10/20/2023 Documentation [facility] [address] [facility], 8th Floor, [place] [address] Jason Chambers LCSW SETH Step 3 Social History Tobacco Use Types Packs/Day Years Used Date Smoking Tobacco: Never Assessed Personal Safety Answer Date Recorded Have you ever been in or are you currently in a harmful physical or emotional relationship or is someone making you feel afraid or unsafe? Denies 08/18/2023 Sex and Gender Information Value Date Recorded Sex Assigned at Not on file Legal Sex Male 7:09 PM ECHOCARDIOGRAPHER Gender Identity Not on file Sexual Orientation Not on file documented as of this encounter Progress Notes * Jason Chambers LCSW - 10/20/2023 5:09 PM CST Independent Living Donor Advocate Assessment Donor Name: Dagoberto Riggsbalaji Nunez : 1970 Recipient Name: Dagoberto Parrish Relationship Of Donor To Recipient: cousins by marriage Anticipated Date of Surgery: TBD OVERVIEW OF PATIENT'S PRESENTING SITUATION Dagoberto Marcial present for a living donor, an Independent Living Donor Advocate evaluation for kidney donation. REVIEW OF ADVOCATE ROLE Advocate for the rights of the living donor; act as a resource to assist the donor in obtaining additional information at any point in the donation process; assess factors impacting the donor's decision to donate OVERVIEW OF EDUCATION PROCESS Review if the patient has received information on each of the following areas and document that each topic was reviewed: CONTENT REVIEWED Informed Consent Yes Evaluation Process Yes Alternatives to Living Donation Yes Benefits to recipient and donor Yes Surgical procedure Yes Social, emotional, and financial considerations including future insurability issues Yes Follow-up requirements and the benefit/need for participation in follow-up Yes Confidentiality and the right to withdrawal decision at any time Yes RECOMMENDATIONS I spent several minutes via phone with Dagoberto and introduced myself as his Living Donor Advocate. Ihad the opportunity to address Dagoberto's questions and answer them all to his satisfaction. Dagoberto reports full understanding. Dagoberto reports that he does not feel pressured or coerced to donate his kidney and that his decision to complete evaluation and donation is voluntary. I again reviewed my role as the Living Donor Advocate as well as my independence from the transplant team. I reviewed my availability to him throughout the entire process. I encouraged Dagoberto to ask any questions of the team. He is aware that he can contact me with any additional questions or concerns at any time. I provi ded Dagoberto my contact number. Jason Chambers LCSW 10/20/2023 CARDIOGRAPHER documented in this encounter Plan of Treatment Not on file documented as of this encounter Visit Diagnoses Not on filedocumented in this encounter Care Teams Food And Beverage Checker Relationship Specialty Start Date End Date Elke Mcmillan MD [address] [place] [address] PCP - General Family Medicine 08/15/23 Lindsey Bal, ROSANGELA [address] [facility] [address] [place] [address] College Advisor 07/04/23 documented as of this encounter
--- OUTSIDE RECORDS SUMMARY | 2024-11-20 04:24 | XMS_ITS | Encounter Summary ---
Author Organization [facility] Healthcare Address [address] [place] [address] Care Team Providers Care Movable Bulkhead Installer Name Role Phone Unavailable Primary Care Provider Unavailabl e Encounter Details Date Type Department Care Team (Late st Contact Info) Description 06/30/2023 Documentation [facility] Transplant Kidney [address] [facility] [address] [phone] [place] [address] Smita Lancaster Social History Tobacco Use Types Packs/Day Years Used Date Smoking Tobacco: Never Assessed Sex and Gender Information Value Date Recorded Sex Assigned at Not on file Legal Sex Male 7:09 PM RECEIVING WEIGHER Gender Identity Not on file Sexual Orientation Not on file documented as of this encounter Progress Notes * Smita Lancaster - 06/30/2023 11:21 AM CDT Received completed Donor Questionnaire, WINDY, Consent for Living Donor Evaluation and Kidney Paired Donation Consent Saved to Chart Recipient Coordinator - Rosette Rowan Donor Coordinator - Lindsey Bal Possible Living Donor for: Dagoberto Parrish - (Cousin by marriage) Patient Has Insurance documented in this encounter Plan of Treatment Not on file documented as of this encounter Visit Diagnoses Not on filedocumented in this encounter
--- OUTSIDE RECORDS SUMMARY | 2024-11-20 04:24 | XMS_ITS | Encounter Summary ---
Author Organization [facility] Healthcare Address [address] [place] [address] Care Team Providers Care Roofer Vinyl Coating Name Role Phone Lindsey Bal RN Unavailable [phone] Reason for Visit * Reason Onset Date Comments Lab Results 07/18/2023 Encounter Details Date Type Department Care Team (Late st Contact Info) Description 07/18/2023 Telephone [facility] Transplant Kidney [address] [facility] [address] [phone] [place], [place] [id number] Lindsey Bal, RN [address] [facility] [address] [place], [place] [id number] Lab Results Social History Tobacco Use Types Packs/Day Years Used Date Smoking Tobacco: Never Assessed Sex and Gender Information Value Date Recorded Sex Assigned at Not on file Legal Sex Male 7:09 PM BRUISE TRIMMER Gender Identity Not on file Sexual Orientation Not on file documented as of this encounter Miscellaneous Notes * Telephone Encounter - Lindsey Bal RN - 07/18/2023 3:00 PM CDT Emailed Dagoberto and reviewed that his lab results all look good and we are fine to proceed to next step of evaluation. Reviewed 24hr urine collection and how to complete. Sent hi instructions and Rx. Asked him to let me know where he gets completed so I can be sure to get the results. Told him to let me know if he had any questions. documented in this encounter Plan of Treatment Not on file documented as of this encounter Visit Diagnoses Not on filedocumented in this encounter Care Teams Roofer Vinyl Coating Relationship Specialty Start Date End Date Lindsey Bal, RN [address] [facility] [address] [place] [address] Pari Mutuel Ticket Cashier 07/04/23 documented as of this encounter
--- OUTSIDE RECORDS SUMMARY | 2024-11-20 04:24 | XMS_ITS | Encounter Summary ---
Author Organization [facility] Healthcare Address [address] [place] [address] Care Team Providers Care Lining Cleaner Name Role Phone Lindsey Bal RN Unavailable [phone] Elke Mcmillan MD Primary Care Provider Reason for Visit * Reason Onset Date Comments HLA Result Review 11/28/2023 Encounter Details Date Type Department Care Team (Late st Contact Info) Description 11/28/2023 Telephone [facility] Transplant Kidney [address] [facility] [address] [phone] [place], [place] [id number] Lindsey Bal, ROSANGELA [address] [facility] [address] [place] [address] HLA Result Review Social History Tobacco Use Types Packs/Day Years Used Date Smoking Tobacco: Every Day Cigarettes [facility] Utilities Answer Date Recorded In the past 12 months has Be Spotted, gas, oil, or water i-marker threatened to shut off services in your [...] How often do you attend chur or restoration services? Patient declined 11/24/2023 Do you belong to any clubs o r organizations such as mandaeism groups, unions, fraternal or athletic groups, or [...] place to sleep or slept in a alf (including now)? No 11/24/2023 Personal Safety Answer Date Recorded Have you ever been in or are you currently in a harmful physical or emotional relationship or is someone making you feel afraid or unsafe? Denies 08/18/2023 Sex and Gender Information Value Date Recorded Sex Assigned at Not on file Legal Sex Male 7:09 PM MANAGER MED SURG Gender Identity Not on file Sexual Orientation Not on file documented as of this encounter Miscellaneous Notes * Telephone Encounter - Lindsey Bal RN - 11/28/2023 10:53 AM MANAGER MED SURG Reviewed compatibility results: ABO Compatible, No DSA, 1-2-1 MM. Advised that I'm waiting for the physician and surgeon to review his CT and that I'm hoping to have him signed off after they do. Advised that I have him on our agenda for our next meeting and will call him with results after we havemet. GER MED SURG documented in this encounter Plan of Treatment Not on file documented as of this encounter Visit Diagnoses Not on filedocumented in this encounter Care Teams Lining Cleaner Relationship Specialty Start Date End Date Elke Mcmillan MD [address] [place] [address] PCP - General Family Medicine 08/15/23 Lindsey Bal, ROSANGELA [address] [facility] [address] [place] [address] Plain Clothes Police Officer 07/04/23 documented as of this encounter
--- OUTSIDE RECORDS SUMMARY | 2024-11-20 04:24 | XMS_ITS | Encounter Summary ---
Author Organization [facility] Healthcare Address [address] [place] [address] Care Team Providers Care Chiropractic Care Name Role Phone Lindsey Bal RN Unavailable [phone] Elke Mcmillan MD Primary Care Provider Encounter Details Date Type Department Care Team (Late st Contact Info) Description 10/15/2023 Documentation [facility] Transplant Kidney [address] [facility] [address] [phone] [place] [address] Smita Lancaster Social History Tobacco Use Types [...] on file Legal Sex Male 7:09 PM CENTER MGR Gender Identity Not on file Sexual Orientation Not on file documented as of this encounter Progress Notes * Smita Lancaster - 10/15/2023 12:47 PM CST The [facility]: from [facility] and saved to Chart ER MGR documented in this encounter Plan of Treatment Not on file documented as of this encounter Visit Diagnoses Not on filedocumented in this encounter Care Teams Chiropractic Care Relationship Specialty Start Date End Date Elke Mcmillan MD [address] [place] [address] PCP - General Family Medicine 08/15/23 Lindsey Bal, RN [address] [facility] [address] [place] [address] Tool Pusher 07/04/23 documented as of this encounter
--- OUTSIDE RECORDS SUMMARY | 2024-11-20 04:24 | XMS_ITS | Encounter Summary ---
Author Organization [facility] Healthcare Address [address] [place] [address] Care Team Providers Care Merchandise Pickup/Receiving Associate Name Role Phone Lindsey Bal RN Unavailable [phone] Elke Mcmillan MD Primary Care Provider Encounter Details Date Type Department Care Team (Late st Contact Info) Description 2023 Orders Only [facility] Health Information Management [address] [place] [address] Lindsey Bal, RN [address] [facility] [address] [place] [address] Social History Tobacco Use Types Packs/Day Years Used Date Smoking Tobacco: Never Assessed Sex and Gender Information Value Date Recorded Sex Assigned at Not on file Legal Sex Male 7:09 PM BODY SHOP MECHANIC Gender Identity Not on file Sexual Orientation Not on file documented as of this encounter Plan of Treatment Not on file documented as of this encounter Procedures Procedure Name Priority Date/Time Associated Diagnosis Comments SCAN - LABS 2023 documented in this encounter Results * SCAN - LABS (2023) us Lindsey Bal RN Final Resu lt documented in this encounter Visit Diagnoses Not on filedocumented in this encounter Care Teams Merchandise Pickup/Receiving Associate Relationship Specialty Start Date End Date Elke Mcmillan MD [address] [place] [address] PCP - General Family Medicine 08/15/23 Lindsey Bal, RN [address] [address] Rubber Flap Cutter 07/04/23 documented as of this encounter
--- OUTSIDE RECORDS SUMMARY | 2024-11-20 04:24 | XMS_ITS | Encounter Summary ---
Author Organization [facility] Healthcare Address [address] [place] [address] Care Team Providers Care Maintenance Planner Name Role Phone Lindsey Bal RN Unavailable [phone] Elke Mcmillan MD Primary Care Provider Encounter Details Date Type Department Care Team (Late st Contact Info) Description 11/19/2023 Telephone [facility] Social Work [address] [place] [address] Charli Mooney MSW Social History Tobacco Use [...] on file Legal Sex Male 7:09 PM BUSINESS TRAVEL CONSULTANT Gender Identity Not on file Sexual Orientation Not on file documented as of this encounter Miscellaneous Notes * Telephone Encounter - Charli Mooney MSW - 11/19/2023 3:04 PM BUSINESS TRAVEL CONSULTANT KANDIS attempted to contact pt in order to complete/schedule donor social work assessment. Pt unavailable. KANDIS LVM asking for return call. SW to remain available. TYRA Valles, CARDIAC REHABILITATION SPECIALIST Transplant Senior Sales Consultant [phone] NESS TRAVEL CONSULTANT documented in this encounter Plan of Treatment Not on file documented as of this encounter Visit Diagnoses Not on filedocumented in this encounter Care Teams Maintenance Planner Relationship Specialty Start Date End Date Elke Mcmillan MD [address] [place] [address] PCP - General Family Medicine 08/15/23 Lindsey Bal RN [address] [address] Service Consultant 07/04/23 documented as of this encounter
--- OUTSIDE RECORDS SUMMARY | 2024-11-20 04:24 | XMS_ITS | Encounter Summary ---
Author Organization [facility] Healthcare Address [address] [place] [address] Care Team Providers Care Feed Miller Name Role Phone Lindsey Bal RN Unavailable [phone] Elke Mcmillan MD Primary Care Provider Encounter Details Date Type Department Care Team (Late st Contact Info) Description 11/19/2023 3:00 PM VP MEDICAL Lab [facility] Advanced Medicine [facility] Advanced Medicine ([facility]) [address] [place] [phone] Kidney donor Social History Tobacco Use Types [...] on file Legal Sex Male 7:09 PM VP MEDICAL Gender Identity Not on file Sexual Orientation Not on file documented as of this encounter Plan of Treatment Not on file documented as of this encounter Procedures Procedure Name Priority Date/Time Associated Diagnosis Comments HLA CLASS I DNA (ABC) DONOR Routine 11/19/2023 4:02 PM VP MEDICAL Kidney donor HLA CLASS II DNA (DR, DQ, DP) DONOR Routine 11/19/2023 4:02 PM VP MEDICAL Kidney donor LR HLA TYPING (CLASS I AND CLASS II) Routine 11/19/2023 1:46 PM VP MEDICAL Kidney donor ABO/RH Routine 11/19/2023 1:46 PM VP MEDICAL Kidney donor documented in this encounter Results * Collection Task for HLA Typing 1, Donor (11/19/2023 4:02 PM VP MEDICAL) HLA Class I DNA (ABC) Donor Received [facility] Blood 11/19/2023 4:02 PM VP MEDICAL 11/19/2023 4:02 PM VP MEDICAL Zach Morocho MD LAB BLOOD ORDERABLES Final Resu lt Performing Organization Address City/[facility] Co de Phone Number [facility] [place] [place] [address] * Collection Task for HLA Typing 2 (11/19/2023 4:02 PM VP MEDICAL) Pathologist [facility] HLA Class II DNA (DR, DQ, DP) Donor Received [facility] Blood 11/19/2023 4:02 PM VP MEDICAL 11/19/2023 4:02 PM VP MEDICAL Zach Morocho MD LAB BLOOD ORDERABLES Final Resu lt Performing Organization Address City/[facility]/ZIP Co de Phone Number [facility] [place] [place] [address] * LR HLA Typing (Class I and Class II) (11/19/2023 1:46 PM VP MEDICAL) Pathologist [facility] Test Method r-SSO HISTOTRAC A First Allele A*02 HISTOTRAC A Second Allele A*32 HISTOTRAC A First Serological Equivalent A2 HISTOTRAC A Second Serological Equivalent A32 HISTOTRAC B First Allele B*08 HISTOTRAC B Second Allele B*44 HISTOTRAC B First Serological Equivalent B8 HISTOTRAC B Second Serological Equivalent B44 HISTOTRAC Bw First Serological Equivalent Bw6 HISTOTRAC Bw Second Serological Equivalent Bw4 HISTOTRAC C First Allele C*05 HISTOTRAC C Second Allele C*07 HISTOTRAC C First Serological Equivalent Cw5 HISTOTRAC C Second Serological Equivalent Cw7 HISTOTRAC DRB1 First Allele DRB1*[address] HISTOTRAC [address]B1 Second Allele DRB1*[address] HISTOTRAC [address]B1 First Serological Equivalent DR1 HISTOTRAC DRB1 Second Serological Equivalent DR17 HISTOTRAC DRB3 First Allele DRB3*01 HISTOTRAC DRB3 First Serological Equivalent DR52 HISTOTRAC DQA1 First Allele DQA1*01 HISTOTRAC DQA1 Second Allele DQA1*05 HISTOTRAC DQB1 First Allele DQB1*02 HISTOTRAC DQB1 Second Allele DQB1*05 HISTOTRAC DQB1 First Serological Equivalent DQ2 HISTOTRAC DQB1 Second Serological Equivalent DQ5 HISTOTRAC DPB1 First Allele DPB1*04:02 :01G HISTOTRAC DPB1 Second Allele DBP1*13:01 :01G HISTOTRAC Blood 11/19/2023 1:46 PM VP MEDICAL 11/21/2023 6:18 AM VP MEDICAL Narrative HISTOTRAC - 11/21/2023 6:18 AM VP MEDICAL DNA was extracted from whole blood or buccal cell specimens, and relevant genomic regions were amplified by polymerase chain reactions (PCR). HLA typing was performed on PCR amplicons using reverse sequence-specific oligonucleotide (r-SSO) and/or sequence-specific primers (SSP) based techniques. r-SSO and SSP are FDA approved as IVD tests and validated by the [facility]. Testing performed at the [facility], [address] [place] [address], 5th floor, [place], [address]. [place] # [id number]. Jessika Walden M.D., Associate HLA Tipple Mechanic Albaro Bhatia M.D., Ph.D., HLA Tipple Mechanic Barbara Benoit, Ph.D., Felt Hat Mellowing Machine Operator, [facility] Current methodology comment last revised on 07/22/17. us Zach Morocho MD LAB BLOOD ORDERABLES Final Resu lt HISTOTRAC * ABO/Rh (11/19/2023 1:46 PM VP MEDICAL) ABO Rh O Positive Blood 11/19/2023 1:46 PM VP MEDICAL 11/19/2023 3:13 PM VP MEDICAL us Zach Morocho MD LAB BLOOD BANK TEST ORDERABLES Final Result [facility] Department [place] [address] documented in this encounter Visit Diagnoses Diagnosis Kidney donor documented in this encounter Care Teams Feed Miller Relationship Specialty Start Date End Date Elke Mcmillan MD [address] [place] [address] PCP - General Family Medicine 08/15/23 Lindsey Bal, RN [address] [facility] [address] [place] [address] Clubhouse Attendant 07/04/23 documented as of this encounter
--- OUTSIDE RECORDS SUMMARY | 2024-11-20 04:24 | XMS_ITS | Encounter Summary ---
Author Organization [facility] Healthcare Address [address] [place] [address] Care Team Providers Care Anesthesiologists' Assistant Name Role Phone Lindsey Bal RN Unavailable [phone] Elke Mcmillan MD Primary Care Provider Encounter Details Date Type Department Care Team (Late st Contact Info) Description 11/21/2023 3:30 PM TOE SEWER Social Work [facility] [address] [place] [address], 8th Floor, [place] [address] Charli Mooney, TYRA Social History Tobacco Use Types Packs/Day Years Used Date Smoking Tobacco: Every Day Cigarettes [facility] Utilities Answer Date Recorded In the past [...] often do you attend chur ch or uatsdin services? Patient declined 11/24/2023 Do you belong [...] on file Legal Sex Male 7:09 PM TOE SEWER Gender Identity Not on file Sexual Orientation Not on file documented as of this encounter Progress Notes * Charli Mooney, TYRA - 11/21/2023 3:30 PM CST Living Kidney Donor Social Work Psychosocial Evaluation Donor Assessment Patient referred to social work per protocol for a psychosocial evaluation related to living kidneydonation. Patient referred by living donor coordinator Lindsey Bal. Assessment completed with patient via the phone on 11/21/2023. Patient's step 3 testing was scheduled on 11/19/2023. AD/DPOA Patient does not have AD/DPOA and denies the need for assistance at this time. Pt verbally names his spouse Viridiana Marcial ([phone]) as his surrogate decision maker. Care Comment Patient???s primary caregiver will be spouse Viridiana. She has paid time off. Other assistance will be available from pt's step-son. Transportation can be provided by spouse Viridiana post-donation. Family Hx and Support Patient lives with spouse Viridiana and her son in a house they own located at [address] [place] [address], which is [place] from [facility]. Patient and spouse have been for 13 years. Pt hastwo sons and a daughter. Patient was born and raised in [place]. Patient???s parents are .Patient has two brothers that he sees every once and a while. Patient reports that family is supportive of donation. Patient is independent with ADLs and drives. Education/Work Hx Patient completed a GED and an electrical science degree. 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 After recovery from donation, patient plans to [...] duty . Patient's spouse works as a elementary summer school teacher. Patient reports finances to be tight [...] date. Coverage Information/Details Patient states he has [facility] health insurance through his employer. Patient [...] Patient denies concerns about the medical/psychosocial/financial risks identified. Social Determinants of Health: Transportation Needs: No Transportation Needs (11/24/2023) PRAPARE - Transportation Lack of Transportation (Medical): No Lack of Transportation (Non-Medical): No Social Connections: Unknown (11/24/2023) Social Connection and Isolation Panel [NHANES] Frequency of Communication with Friends and Family: More than three times a week Frequency of Social Gatherings with Friends and Family: More than three times a week Attends Christianity Services: Patient declined Active Member of Clubs or Organizations: Patient declined Attends Club or Organization Meetings: Patient declined Marital Status: Food Insecurity: No Food Insecurity (11/24/2023) Hunger Vital Sign Worried About Running Out of Food in the Last Year: Never true Ran Out of Food in the Last Year: Never true Housing Stability: Low Risk (11/24/2023) Housing Stability Vital Sign Unable to Pay for Housing in the Last Year: No Number of Places Lived in the Last Year: 1 Unstable Housing in the Last Year: No Financial Resource Strain: Medium Risk (11/24/2023) Overall Financial Resource Strain (CARDIA) Difficulty of Paying Living Expenses: Somewhat hard Impression Patient is a 53 year old male, [...] health and relationships. 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 After donation, patient plans to return to work as soon aspossible. Spouse Viridiana and pt's step-son will be the primary caregiver support. Patient denies any current mental health concerns. Patient states finances are stable and has insurance coverage through [facility]. Patient reports no substance usage concerns. [...] Pt verbally names his spouse Viridiana Marcial ([phone]) as his surrogate decision maker. 3. Increased [...] are considered stable. Patient has insurance through [facility] and doesnot expect to have any issues with coverage. Plan for Transplant Transplant team to determine if patient is an acceptable candidate for living kidney donation. Patient will continue to complete evaluation testing and follow the recommendations of the transplant team. TYRA Valles, [facility] Transplant Investigations Manager [phone] SEWER * Charli Mooney MSW - 11/21/2023 3:30 PM CST LIVING DONOR QUESTIONNAIRE Please answer the following questions: Questions Please [place] your answer below Yes No N/A Have you had sex with a person known or suspected to have HIV, Hepatitis B, or Hepatitis C infections in the preceding 30 days? x If you are a male, have you had sex with another man in the preceding 30 days? x Have you had sex in exchange for money or drugs in the preceding 30 days? x Have you had sex with a person who has sex in exchange for money or drugs in the preceding 30 days?x Have you had sex with a person who injected drugs by any method for nonmedical reasons in the preceding 30 days? x Have you injected drugs by any method for nonmedical reasons in the preceding 30 days? x Have you been in lock up, group home, chcf, or a juvenile correction facility for more than 72 hours inthe preceding 30 days? x Are you a child who is <= 18 months of age and born to a mother known to be infected with, or atincreased risk for, HIV, Hepatitis B or Hepatitis C infection? N/A N/A N/A Are you a child who has been breastfed within the preceding 12 months and the mother is known to beinfected with, or at increased risk for, HIV infection? N/A N/A N/A TYRA Valles, [facility] Transplant Investigations Manager [phone] Cosigned by Zach Morocho MD at 11/24/2023 8:17 PM TOE SEWER SEWER SEWER SEWER documented in this encounter Plan of Treatment Not on file documented as of this encounter Visit Diagnoses Not on filedocumented in this encounter Care Teams Anesthesiologists' Assistant Relationship Specialty Start Date End Date Elke Mcmillan MD [address] [place] [address] PCP - General Family Medicine 08/15/23 Lindsey Bal, RN [address] [facility] [address] [place] [address] Annual Giving Director 07/04/23 documented as of this encounter
--- OUTSIDE RECORDS SUMMARY | 2024-11-20 04:24 | XMS_ITS | Encounter Summary ---
Author Organization [facility] Healthcare Address [address] [place] [address] Care Team Providers Care Mechanical Design Engineer Facilities Name Role Phone Lindsey Bal RN Unavailable [phone] Reason for Visit * Reason Onset Date Comments Donor Evaluation Update/Follow Up 07/08/2023 Encounter Details Date Type Department Care Team (Late st Contact Info) Description 07/08/2023 Telephone [facility] Transplant Kidney [address] 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 Emailed instructions and Rx to get [facility] at local [facility]. Faxed Rx to [phone]. Told him to let me know if he had any questions. documented in this encounter Plan of Treatment Not on file documented as of this encounter Visit Diagnoses Not on filedocumented in this encounter Care Teams Mechanical Design Engineer Facilities Relationship Specialty Start Date End Date Lindsey Bal, RN [address] [facility] [address] [place] [address] Stud Sheep Farmer 07/04/23 documented as of this encounter
--- OUTSIDE RECORDS SUMMARY | 2024-11-20 04:24 | XMS_ITS | Encounter Summary ---
Author Organization [facility] Healthcare Address [address] [place] [address] Care Team Providers Care Technical Inspector Name Role Phone Lindsey Bal RN Unavailable Elke Mcmillan MD Primary Care Provider Encounter Details Date Type Department Care Team (Late st Contact Info) Description 12/02/2023 Telephone [facility] Social Work [address] [place] [id number] Charli Mooney MSW Social History Tobacco Use Types Packs/Day Years Used Date Smoking Tobacco: Every Day Cigarettes [facility] Utilities Answer Date Recorded In the past 12 months has [employer] electric, gas, oil, or water company threatened [...] often do you attend chur ch or muslim services? Patient declined 11/24/2023 Do you belong to any clubs o r organizations such as yazidi groups, unions, fraternal or athletic groups, or [...] place to sleep or slept in a detention (including now)? No 11/24/2023 Personal Safety Answer Date Recorded Have you ever been in or are you currently in a harmful physical or emotional relationship or is someone making you feel afraid or unsafe? Denies 08/18/2023 Sex and Gender Information Value Date Recorded Sex Assigned at Not on file Legal Sex Male 7:09 PM CLERK TELEGRAPH SERVICE Gender Identity Not on file Sexual Orientation Not on file documented as of this encounter Miscellaneous Notes * Telephone Encounter - Charli Mooney MSW - 12/02/2023 9:18 AM CLERK TELEGRAPH SERVICE Living Donor Curriculum And Instruction Specialist has uploaded [facility] donor attestation form into [facility] per [facility] protocol. Application ID: [id number]. Please see attached. Donor has completed application for reimbursement of travel expenses, and reimbursement of lost wages. TYRA Valles, SPEECH PROFESSOR Transplant Curriculum And Instruction Specialist [phone] K TELEGRAPH SERVICE documented in this encounter Plan of Treatment Not on file documented as of this encounter Visit Diagnoses Not on filedocumented in this encounter Care Teams Technical Inspector Relationship Specialty Start Date End Date Elke Mcmillan MD [address] [place] [address] PCP - General Family Medicine 08/15/23 Lindsey Bal, RN [address] [facility] [address] [place] [id number] Chemical Research Technician 07/04/23 documented as of this encounter
--- OUTSIDE RECORDS SUMMARY | 2024-11-20 04:24 | XMS_ITS | Encounter Summary ---
Author Organization [facility] Healthcare Address [address] [place] [address] Care Team Providers Care Glass Technician/Installer Name Role Phone Lindsey Bal RN Unavailable [phone] Elke Mcmillan MD Primary Care Provider Reason for Visit * Reason Onset Date Comments Appointment/Schedules 10/14/2023 Encounter Details Date Type Department Care Team (Late st Contact Info) Description 10/14/2023 Telephone [facility] Transplant Kidney 45[address] [facility] [address] [phone] [place], [place] [phone] Lindsey Bal, RN 4590 [facility] [address] [place], [place] [id number] Appointment/Schedules Social History Tobacco Use Types Packs/Day [...] on file Legal Sex Male 7:09 PM CHRONIC DISEASE EPIDEMIOLOGIST Gender Identity Not on file Sexual Orientation Not on file documented as of this encounter Miscellaneous Notes * Telephone Encounter - Lindsey Bal RN - 10/14/2023 12:23 PM CHRONIC DISEASE EPIDEMIOLOGIST Emailed Avel and reviewed that we are fine then to schedule his afternoon of appointments. Reviewed what that would include. Told him to let me know if there is a Friday date he would be interested in scheduling and that we have dates open starting 11/19/23. Also reviewed needing colonoscopy records. Reports completed in 2021 at [facility] on questionnaire, will request those records. Smita- can we please request colonoscopy completed at [facility] by Dr. Heber Ybarra in 2021. NIC DISEASE EPIDEMIOLOGIST documented in this encounter Plan of Treatment Not on file documented as of this encounter Visit Diagnoses Not on filedocumented in this encounter Care Teams Glass Technician/Installer Relationship Specialty Start Date End Date Elke Mcmillan MD [address] [place], [place] [id number] PCP - General Family Medicine 08/15/23 Lindsey Bal, ROSANGELA 45[address] [facility] [address] [place] [address] Locomotive Crane Operator Helper 07/04/23 documented as of this encounter
--- OUTSIDE RECORDS SUMMARY | 2024-11-20 04:24 | XMS_ITS ---
Author Organization [facility] Address [address] [place] [id number] Care Team Providers Care Office Coordinator Receptionist Name Role Phone Lindsey Bal RN Unavailable [phone] Elke Mcmillan MD Primary Care Provider Transplant Episode Kidney Donor [facility] ([place], [place]) - [facility] Organ Donated: Left Kidney Recovered on 03/09/2024 Marked as Active Follow-up on 03/09/2024 Kidney CoordinatorLindsey Bal RN Fax: N/A Email: N/A Care Team Name Role Phone Fax Email Lindsey Bal RN Kidney Coordinator [phone] N/A N/A Events Post-Donation Pre-Donation Admitted: 03/09/2024 Referred: 06/17/2023 Recovered: 03/09/2024 Evaluation began: 07/08/2023 Discharged: 03/10/2024 Committee: 12/03/2023
--- OUTSIDE RECORDS SUMMARY | 2024-11-20 04:24 | XMS_ITS | Encounter Summary ---
Author Organization [facility] Healthcare Address [address] [place] [address] Care Team Providers Care Supportive Employment Case Manager Name Role Phone Lindsey Bal RN Unavailable [phone] Elke Mcmillna MD Primary Care Provider Reason for Visit * Reason Onset Date Comments Donor Evaluation Update/Follow Up 10/22/2023 Encounter Details Date Type Department Care Team (Late st Contact Info) Description 10/22/2023 Telephone [facility] Transplant Kidney [address] [facility] [address] [phone] [place], [place] [phone] Lindsey Bal, RN [address] [facility] [address] [place] [id number] Donor Evaluation Update/Follow Up Social History Tobacco [...] file Legal Sex Male 7:09 PM MANAGER ASSET MANAGEMENT Gender Identity Not on file Sexual Orientation Not on file documented as of this encounter Miscellaneous Notes * Telephone Encounter - Lindsey Bal RN - 10/22/2023 1:39 PM MANAGER ASSET MANAGEMENT Received email from [facility] with a couple questions pt had. Emailed Dagoberto to discuss. He asked about having to pee more after donating. Advised that in my experience, donors do pee more, but that is mostly because it seems that after one donates, pt is more conscious of their fluid intake and find themselves drinking more and ultimately peeing more. Advised him to also have this discussion with donor physician as they will be better to answer for him. Pt also had asked that if he isn't a match forintended recipient if he could see if he was a match for a different recipient. Advised that we canabsolutely check and see if we're match for someone else, if they are a [facility] patient. If they are with another center, we would not be able to test and see if we are a match for them. Told him to let me know if he had any other questions. GER ASSET MANAGEMENT documented in this encounter Plan of Treatment Not on file documented as of this encounter Visit Diagnoses Not on filedocumented in this encounter Care Teams Supportive Employment Case Manager Relationship Specialty Start Date End Date Elke Mcmillan MD [address] [place] [address] PCP - General Family Medicine 08/15/23 Lindsey Bal RN [address] [facility] [address] [place] [id number] Apparel Stock Checker 07/04/23 documented as of this encounter
--- OUTSIDE RECORDS SUMMARY | 2024-11-20 04:24 | XMS_ITS | Encounter Summary ---
Author Organization [facility] Healthcare Address [address] [place] [address] Care Team Providers Care Stull Hewer Name Role Phone Lindsey Bal RN Unavailable [phone] Elke Mcmillan MD Primary Care Provider Reason for Visit * Reason Onset Date Comments Medical Records Request 09/05/2023 Encounter Details Date Type Department Care Team (Late st Contact Info) Description 09/05/2023 Documentation [facility] [place] [facility] Transplant Kidney [address] [facility] [address] [id number] [place] [address] Saida Garrison Medical Records Request Social History Tobacco Use Types Packs/Day Years Used Date Smoking Tobacco: Never Assessed Personal Safety Answer Date Recorded Have you ever been in or are you currently in a harmful physical or emotional relationship or is someone making you feel afraid or unsafe? Denies 08/18/2023 Sex and Gender Information Value Date Recorded Sex Assigned at Not on file Legal Sex Male 7:09 PM WEATHERIZATION AND HOUSING INSPECTOR Gender Identity Not on file Sexual Orientation Not on file documented as of this encounter Progress Notes * Saida Garrison - 09/05/2023 9:07 AM CDT Received the following message via [employer] with [facility] - stated all their records can be found in [facility]. Closing location. Thank You, Christina documented in this encounter Plan of Treatment Not on file documented as of this encounter Visit Diagnoses Not on filedocumented in this encounter Care Teams Stull Hewer Relationship Specialty Start Date End Date Elke Mcmillan MD [address] [facility] [address] [place] [address] PCP - General Family Medicine 08/15/23 Lindsey Bal, ROSANGELA [address] [address] Crime Analyst 07/04/23 documented as of this encounter
--- OUTSIDE RECORDS SUMMARY | 2024-11-20 04:24 | XMS_ITS | Encounter Summary ---
Author Organization [facility] Healthcare Address [address] [place] [address] Care Team Providers Care Web Site Designer Name Role Phone Lindsey Bal RN Unavailable Elke Mcmillan MD Primary Care Provider Reason for Visit * Reason Comments Abdominal Pain Rectal Bleeding Encounter Details Date Type Department Care Team (Late st Contact Info) Description 08/18/2023 2:03 PM CDT - 08/18/2023 4:23 PM CDT Emergency [facility] Emergency Department [address] [place] [address] [place] [address] [place] [address] [place] [address] Strain of abdominal wall, initial encounter (Primary Dx); Rectal bleeding Discharge Disposition: Discharge to home or self [...] on file Legal Sex Male 7:09 [employer] Gender Identity Not on file Sexual Orientation Not on file documented as of this encounter Last Filed Vital Signs Vital Sign Reading Time Taken Comments Blood Pressure 122/86 08/18/2023 3:30 PM CDT Pulse 62 08/18/2023 3:30 PM CDT Temperature 36.7 ??C (98.1 ??F) 08/18/2023 10:32 AM C DT Respiratory Rate 18 08/18/2023 10:32 AM CDT Oxygen Saturation 97% 08/18/2023 3:30 PM CDT Inhaled Oxygen Concentration - - Weight 86 kg (189 lb 9.5 oz) 08/18/2023 10:32 AM CDT Height 175.3 cm (5' 9 ) 08/18/2023 10:32 AM CDT Body Mass Index 28 08/18/2023 10:32 AM CDT documented in this encounter Discharge Instructions * Discharge Instructions* Christiano Valverde DO - 08/18/2023 4:04 PM CDT Call your primary care or plaster whittler to discuss your symptoms and follow-up. * Attachments The following attachments cannot be sent through Care Everywhere. * Rectal Bleeding (AfterCare(R) Instructions(ER/ED)) (Estonian) documented in this encounter Medications at Time [...] or self care documented in this encounter ED Notes * Christiano Valverde DO - 08/18/2023 4:00 PM CDT HPI Chief Complaint Patient presents with Abdominal Pain Rectal Bleeding HPI 4:00 PM Dagoberto Marcial Jr. is a 53 y.o. male presenting to the ED c/o blood in stool. Patient states he has had right lower quadrant pain intermittent since 1 week ago. Patient was seen in the emergency room 3 days ago for symptoms and had negative CT scan. Diagnosed with abdominal strain. He states pain is only when trying to set up or cough. He denies feeling any bulge or history of hernia. He denies any fevers, nausea or vomiting. States his bowel movements have been normal, but 2 days ago he noted blood in his stool. He states yesterday was fine and then this morning he had a lot of red blood that filled the toilet. States he had a bowel movement after that that had no blood. He denies known history of hemorrhoids. Patient History: No past medical history on file. No past surgical history on file. No family history on file. Social History Tobacco Use Smoking status: Not on file Smokeless tobacco: Not on file Substance and Sexual Activity Drug use: Not on file Sexual activity: Not on file Alcohol Use: Not on file No current facility-administered medications for this encounter. Current Outpatient Medications: atorvastatin (LIPITOR) 20 mg tablet carBAMazepine (TEGretol) 200 mg tablet icosapent ethyL (VASCEPA) 1 gram capsule ketorolac (TORADOL) 10 mg tablet omeprazole (PriLOSEC) 20 mg capsule Review of Systems Review of Systems All other systems reviewed and are negative. Physical Exam ED Triage Vitals Temp Pulse Resp BP SpO2 08/18/23 1032 08/18/23 1032 08/18/23 1032 08/18/23 1032 08/18/23 1032 36.7 ??C (98.1 ??F) 65 18 (!) 139/102 100 % Temp src Heart Rate Source Patient Position BP Location FiO2 (%) 08/18/23 1032 08/18/23 1408 08/18/23 1411 08/18/23 1411 -- Oral Monitor Sitting Right arm Height Height Method Weight Weight Method 08/18/23 1032 08/18/23 1032 08/18/23 1032 08/18/23 1032 1.753 m (5' 9 ) Stated 86 kg (189 lb 9.5 oz) Standing scale Physical Exam Vitals and nursing note reviewed. Exam conducted with a herbarium worker present (ROSANGELA Carpenter). Constitutional: Appearance: Normal appearance. HENT: Head: Normocephalic and atraumatic. Nose: Nose normal. Mouth/Throat: Mouth: Mucous membranes are moist. Eyes: Pupils: Pupils are equal, round, and reactive to light. Cardiovascular: Rate and Rhythm: Normal rate and regular rhythm. Heart sounds: Normal heart sounds. Pulmonary: Effort: Pulmonary effort is normal. Breath sounds: Normal breath sounds. Abdominal: General: Abdomen is flat. Palpations: Abdomen is soft. Tenderness: There is no abdominal tenderness. Genitourinary: Comments: No external hemorrhoids or e/o external blood Musculoskeletal: General: No swelling. Cervical back: Neck supple. Skin: General: Skin is warm and dry. Neurological: Mental Status: He is alert. Mental status is at baseline. Psychiatric: Mood and Affect: Mood normal. Behavior: Behavior normal. Procedures MDM Labs Reviewed CBC WITH AUTO DIFFERENTIAL - Abnormal Result Value WBC 9.2 Hgb 15.9 Hct 46.9 Plt 145 (*) MPV 11.2 RBC 5.10 MCV 92.0 MCH 31.2 MCHC 33.9 RDW CV 12.6 RDW SD 42.7 NRBC abs 0.00 COMPREHENSIVE METABOLIC PANEL - Abnormal Sodium 141 Potassium, pl 4.9 Chloride 108 CO2 26 Anion gap 7 BUN 21 Creatinine 1.00 Glucose 100 Calcium 9.3 Bilirubin, total 0.2 Protein, pl 7.2 Albumin 4.6 Alk phos 145 (*) ALT 22 AST 19 URINALYSIS AND REFLEX TO MICROSCOPIC AND CULTURE Color, ur Yellow Clarity, ur Clear Specific gravity, ur 1.023 pH, urine 5.0 Protein, ur ql Negative Glucose, ur ql Negative Ketones, ur Negative Bilirubin, ur Negative Blood, ur Negative Urobilinogen, ur <2.0 Nitrite, ur Negative Leukocyte esterase, ur Negative UA reflex comment Value: Reflex conditions for microscopic UA and culture not met. LIPASE Lipase 97 DIFFERENTIAL AUTO Neutrophil abs 6.1 Imm gran abs 0.1 Lymphocyte abs 2.1 Monocyte abs 0.6 Eosinophil abs 0.3 Basophil abs 0.0 Neutrophil pct 66.7 Imm gran pct 0.5 Lymphocyte pct 22.3 Monocyte pct 6.6 Eosinophil pct 3.6 Basophil pct 0.3 EGFR eGFR 91 No orders to display BP 122/86 (BP Location: Right arm) Pulse 62 Temp 36.7 ??C (98.1 ??F) (Oral) Resp 18 Ht 175.3 cm (5' 9 ) Wt 86 kg (189 lb 9.5 oz) SpO2 97% BMI 28.00 kg/m?? MDM Amount and/or Complexity of Data Reviewed Clinical lab tests: reviewed Decide to obtain previous medical records or to obtain history from someone other than the patient:yes ED Course as of 08/18/23 160 Time: 08/18 1603 Comment: No evidence of hernia, consistent with muscle strain. Previous CT reviewed showed no acutefindings. Blood work unremarkable with hemoglobin of 15.9. Suspect internal hemorrhoids. Stable fordischarge. By: Christiano Valverde DO This examination was transcribed using the [employer] voice recognition system without human hat forming machine operator. In an effort to expedite patient care, this report has not been adjusted for typographical, grammatical, and syntax by a trained medical assembler. Clinical Impression: Strain of abdominal wall, initial encounter Rectal bleeding Christiano Valverde DO 08/18/231604 * Leslie Perrin RN - 08/18/2023 10:28 AM CDT Pt c/o RT lower abd pain x 1 wk. Pain only hurts with coughing or sneezing. Pt states he was seen here on Friday and was dx with a muscle strain to his RT groin. On Fri pt had some rectal bleeding. He noticed that he passed some blood clots. On Friday no bleeding. Today he said the toilet was full of blood. He states they did a CT on Friday and found nothing. documented in this encounter Plan of Treatment Not on file documented as of this encounter Procedures Procedure Name Priority Date/Time Associated Diagnosis Comments URINALYSIS AND REFLEX TO MICROSCOPIC AND CULTURE STAT 08/18/2023 2:31 PM CDT EGFR STAT 08/18/2023 10:37 AM CDT DIFFERENTIAL AUTO STAT 08/18/2023 10: 37 AM CDT CBC WITH AUTO DIFFERENTIAL STAT 08/18/2023 10:37 AM CDT LIPASE STAT 08/18/2023 10:37 AM CDT COMPREHENSIVE METABOLIC PANEL STAT 08/18/2023 10:37 AM CDT documented in this encounter Results * Urinalysis reflex to microscopic and culture Urine (08/18/2023 2:31 PM CDT) Color, ur Yellow Yellow [facility] Comment:Testing performed by : [address] [address] Clarity, ur Clear Clear [facility] Comment:Testing performed by : [address] [address] Specific gravity, ur 1.023 1.003 - 1.030 [facility] Comment:Testing performed by : [address] [address] pH, urine 5.0 [facility] Comment: Interpretive Data ? Urine pH is affected by diet, medications, systemic acid-base disturbances, and renal tubular function. ??pH may affect urinary stone formation. ??For example, urine pH below 6.0 may help reduce the tendency for calcium phosphate stones and pH greater than 6.0 may reduce the tendency for uric acid stone formation. Source: [employer] Current Interpretive Data was last revised on 2017 Testing performed by: [address] [address] Protein, ur ql Negative Negative [facility] Comment:Testing performed by : [address] [address] Glucose, ur ql Negative Negative [facility] Comment:Testing performed by : [facility], [address] [place] [address], [place]., [address] Ketones, ur Negative Negative [facility] Comment:Testing performed by : [facility], [address] [place] [address], [place]., [address] Bilirubin, ur Negative Negative [facility] Comment:Testing performed by : [address], [place]., [address] Blood, ur Negative Negative [facility] Comment:Testing performed by : [address], [place]., [address] Urobilinogen, ur <2.0 <2.0 mg/dL [facility] Comment:Testing performed by : [address], [place]., [address] Nitrite, ur Negative Negative [facility] Comment:Testing performed by : [address], [place]., [address] Leukocyte esterase, ur Negative Negative [facility] Comment:Testing performed by : [address], [place]., [address] UA reflex comment Reflex conditions for microscopic UA and culture not met. [facility] Comment:Testing performed by : [address], [place]., [address] Urine 08/18/2023 2:31 PM CDT 08/18/2023 2:37 PM CDT Christiano Valverde DO LAB MICROBIOLOGY - GENERAL ORDERABLES Final Result Performing Organization Address City/State/[facility] Co de Phone Number [facility] [address] [facility] Department [place] [address] * eGFR (08/18/2023 10:37 AM CDT) Pathologist [facility] Emergency Department eGFR 91 mL/min/1. 73 m2 [facility] Comment: Interpretive Data Reference Interval Normal ?>/= [...] Current interpretive data was last reviewed 2021. Testing performed by: [address] [address] Blood 08/18/2023 10:3 7 AM CDT 08/18/2023 10:43 AM CDT us Christiano Valverde DO LAB BLOOD ORDERABLES Final Result [facility] [address] [facility] Department of Laboratories [place], [place] [id number] * Differential, auto (08/18/2023 10:37 AM CDT) Neutrophil abs 6.1 1.7 - 6.5 K/cumm [facility] Comment:Testing performed by : [address] [address] Imm gran abs 0.1 0.0 - 0.1 K/cumm [facility] Comment:Testing performed by : [address] [address] Lymphocyte abs 2.1 0.8 - 3.3 K/cumm [facility] Comment:Testing performed by : [address] [address] Monocyte abs 0.6 0.2 - 0.8 K/cumm [facility] Comment:Testing performed by : [address] [address] Eosinophil abs 0.3 0.0 - 0.5 K/cumm [facility] Comment:Testing performed by : [address] [address] Basophil abs 0.0 0.0 - 0.1 K/cumm [facility] Comment:Testing performed by : [address] [address] Neutrophil pct 66.7 % [facility] Comment: Interpretive Data Percent cell count reference ranges are not reported, since discordance with absolute values may lead to misinterpretation of CBC data. Current Interpretive Data was last revised on 2018. Testing performed by: [address] [address] Imm gran pct 0.5 % [facility] Comment: Interpretive Data Percent cell count reference ranges are not reported, since discordance with absolute values may lead to misinterpretation of CBC data. Current Interpretive Data was last revised on 2018. Testing performed by: [address] [address] Lymphocyte pct 22.3 % [facility] Comment: Interpretive Data Percent cell count reference ranges are not reported, since discordance with absolute values may lead to misinterpretation of CBC data. Current Interpretive Data was last revised on 2018. Testing performed by: [address] [address] Monocyte pct 6.6 % [facility] Comment: Interpretive Data Percent cell count reference ranges are not reported, since discordance with absolute values may lead to misinterpretation of CBC data. Current Interpretive Data was last revised on 2018. Testing performed by: [address] [address] Eosinophil pct 3.6 % [facility] Comment: Interpretive Data Percent cell count reference ranges are not reported, since discordance with absolute values may lead to misinterpretation of CBC data. Current Interpretive Data was last revised on 2018. Testing performed by: [address] [place]., [address] Basophil pct 0.3 % [facility] Comment: Interpretive Data Percent cell count reference ranges are not reported, since discordance with absolute values may lead to misinterpretation of CBC data. Current Interpretive Data was last revised on 2018. Testing performed by: [address] [address] Blood 08/18/2023 10:3 7 AM CDT 08/18/2023 10:43 AM CDT Christiano Valverde LAB BLOOD ORDERABLES Final Result Performing Organization Address City/[facility]/ZIP Co de Phone Number [id number] [place] [address] * Lipase (08/18/2023 10:37 AM CDT) Lipase 97 10 - 99 Units/L [facility] Comment:Testing performed by : [address] [address] Blood (Blood, Venous) 08/18/2023 10:37 AM CDT 08/18/2023 10:43 AM CDT Christiano Valverde LAB BLOOD ORDERABLES Final Result Performing Organization Address [facility] Co de Phone Number [id number] [address] * (ABNORMAL) Comprehensive metabolic panel (08/18/2023 10:37 AM CDT) Sodium 141 135 - 145 mmol/L [facility] Comment:Testing performed by : [address] [address] Potassium, pl 4.9 3.3 - 4.9 mmol/L [facility] Comment:Testing performed by : [address] [address] Chloride 108 97 - 110 mmol/L [facility] Comment:Testing performed by : [address] [address] CO2 26 22 - 32 mmol/L [facility] Comment:Testing performed by : [address] [address] Anion gap 7 2 - 15 mmol/L [facility] Comment:Testing performed by : [address], [place]., [address] BUN 21 6 - 25 mg/dL [facility] Comment:Testing performed by : [address], [place]., [address] Creatinine 1.00 0.80 - 1.30 mg/dL [facility] Comment:Testing performed by : [address], [place]., [address] Glucose 100 70 - 199 mg/dL [facility] Comment: Interpretive Data Fasting glucose >/= 126 [...] Current interpretive data was last revised 2022. Testing performed by: [address] [address] Calcium 9.3 8.5 - 10.3 mg/dL [facility] Comment:Testing performed by : [address] [address] Bilirubin, total 0.2 0.1 - 1.2 mg/dL [facility] Comment:Testing performed by : [address] [address] Protein, pl 7.2 6.5 - 8.5 g/dL [facility] Comment:Testing performed by : [address] [address] Albumin 4.6 3.5 - 5.0 g/dL [facility] Comment:Testing performed by : [address] [address] Alk phos 145(H) 40 - 130 Units/L [facility] Comment:Testing performed by : [address] [address] ALT 22 7 - 55 Units/L [facility] Comment:Testing performed by : [address] [address] AST 19 10 - 50 Units/L [facility] Comment:Testing performed by : [address] [address] Blood 08/18/2023 10:3 7 AM CDT 08/18/2023 10:43 AM CDT us Christiano Valverde DO LAB BLOOD ORDERABLES Final Result [facility] Department [place] [address] * (ABNORMAL) CBC with auto differential (08/18/2023 10:37 AM CDT) WBC 9.2 3.8 - 9.9 K/cumm [facility] Comment:Testing performed by : [address] [address] Hgb 15.9 13.0 - 17.5 g/dL [facility] Comment:Testing performed by : [address] [address] Hct 46.9 38.9 - 50.3 % [facility] Comment:Testing performed by : [address] [address] Plt 145(L) 150 - 400 K/cumm [facility] Comment:Testing performed by : [address] [address] MPV 11.2 9.1 - 12.3 fL [facility] Comment:Testing performed by : [address] [address] RBC 5.10 4.30 - 5.80 M/cumm [facility] Comment:Testing performed by : [address] [address] MCV 92.0 81.3 - 96.4 fL [facility] Comment:Testing performed by : [address] [address] MCH 31.2 27.1 - 33.3 pg [facility] Comment:Testing performed by : [address] [address] MCHC 33.9 32.3 - 35.7 g/dL [facility] Comment:Testing performed by : [address] [address] RDW CV 12.6 11.1 - 14.9 % [facility] Comment:Testing performed by : [address] [address] RDW SD 42.7 35.7 - 48.1 fL [facility] Comment:Testing performed by : [address] [address] NRBC abs 0.00 0.00 - 0.01 K/cumm [facility] Comment:Testing performed by : [address] [address] Blood (Blood, Venous) 08/18/2023 10:37 AM CDT 08/18/2023 10:43 AM CDT Christiano Valverde DO LAB BLOOD ORDERABLES Final Result Performing Organization Address City/State/[facility] Co de Phone Number [facility] Department [place] [address] documented in this encounter Visit Diagnoses Diagnosis Strain of abdominal wall, initial encounter- Primary Rectal bleeding Hemorrhage of rectum and anus documented in this encounter Historical Medications * This list may reflect changes made after this encounter. omeprazole (PriLOSEC) 20 mg capsuleIndication s:Treatment of Non-Bleeding Gastric Disorder Take 1 capsule (20 mg total) by mouth nightly icosapent ethyL (VASCEPA) 1 gram capsuleIndication s:hypertriglyceri demia Take 2 capsules (2 g total) by mouth 2 (two) times a day 07/30/2023 carBAMazepine (TEGretol) 200 mg tabletIndications :Bipolar Disorder Take 1 tablet (200 mg total) by mouth nightly 05/30/2023 atorvastatin (LIPITOR) 20 mg tabletIndications :hyperlipidemia Take 1 tablet (20 mg total) by mouth nightly 06/30/2023 added in this encounter Orders IV Count Last Ordered Date First Orde red Date SALINE LOCK IV 1 08/18/2023 documented in this encounter Care Teams Web Site Designer Relationship Specialty Start Date End Date Elke Mcmillan MD [address] [place] [address] PCP - General Family Medicine 08/15/23 Lindsey Bal, RN [address] [address] Watch [employer]er 07/04/23 documented as of this encounter
--- OUTSIDE RECORDS SUMMARY | 2024-11-20 04:24 | XMS_ITS | Encounter Summary ---
Author Organization [facility] Address [address] [place] [address] Care Team Providers Care Alarm Investigator Name Role Phone Lindsey Bal RN Unavailable [phone] Elke Mcmillan MD Primary Care Provider Reason for Referral * MRI/CAT/PET Scan (Routine) - Closed Specialty Diagnoses / Procedures Referred By Contac t Referred To Contact Radiology Diagnoses Kidney donor Procedures CTA Abdomen Pelvis Zach Morocho MD [address] [facility] [address] [address] Phone: tel: fax: [address] [phone] Referral ID Status Reason Start Date Expiration Date Visits Re quested Visits Authorized [id number] Closed 10/14/2023 11/12/2024 1 1 NCIAL SALES ADVISOR * Cardiology (Routine) - Closed Specialty Diagnoses / Procedures Referred By Contac t Referred To Contact Diagnoses Kidney donor Procedures ECG 12 lead Zach Morocho MD [address] [facility] [address] [address] Phone: tel: fax: [address] [phone] Referral ID Status Reason Start Date Expiration Date Visits Re quested Visits Authorized [id number] Closed 10/14/2023 11/12/2024 1 1 NCIAL SALES ADVISOR Reason for Visit * Reason Onset Date Comments Appointment/Schedules 10/14/2023 Encounter Details Date Type Department Care Team (Late st Contact Info) Description 10/14/2023 Telephone [facility] Transplant Kidney [address] [facility] [phone] [place] [address] Lindsey Bal, ROSANGELA [address] [facility] [address] [place] [address] Appointment/Schedules Social History Tobacco Use Types Packs/Day [...] on file Legal Sex Male 7:09 PM FINANCIAL SALES ADVISOR Gender Identity Not on file Sexual Orientation Not on file documented as of this encounter Miscellaneous Notes * Telephone Encounter - Lindsey Bal RN - 10/14/2023 1:20 PM FINANCIAL SALES ADVISOR Avel responded that he would like to schedule his appointments for 11/19/23. Told him that we wouldwork on getting scheduled and would email to him once completed. Smita- can we please schedule this donor for Step 3 on 11/19/23 to include: Dr. Morocho at [address] Testing at [facility] to include Labs, CXR, and EKG. SW & LDA to complete phone assessments. Will email them and let them know. Please let me review before emailing to him. Thanks so much! NCIAL SALES ADVISOR documented in this encounter Plan of Treatment Not on file documented as of this encounter Results * Collection Task for HLA Typing 2 (11/19/2023 4:02 PM FINANCIAL SALES ADVISOR) HLA Class II DNA (DR, DQ, DP) Donor Received [facility] Blood 11/19/2023 4:02 PM FINANCIAL SALES ADVISOR 11/19/2023 4:02 PM FINANCIAL SALES ADVISOR Result [facility] Zach Morocho MD LAB BLOOD ORDERABLES Final Resu lt Performing Organization Address City/[facility]/ZIP Co de Phone Number [facility] [place] [address] * Collection Task for HLA Typing 1, Donor (11/19/2023 4:02 PM FINANCIAL SALES ADVISOR) HLA Class I DNA (ABC) Donor Received [facility] Blood 11/19/2023 4:02 PM FINANCIAL SALES ADVISOR 11/19/2023 4:02 PM FINANCIAL SALES ADVISOR Result [facility] Zach Morocho MD LAB BLOOD ORDERABLES Final Resu lt Performing Organization Address [facility] Co de Phone Number [facility] [place] [address] * ECG 12 lead (11/19/2023 1:51 PM FINANCIAL SALES ADVISOR) Pathologist [facility] Ventricular Rate EKG/Min 65 BPM [facility] Atrial Rate 65 BPM [facility] CA-Interval (MSEC) 148 ms [facility] QRS-Interval (MSEC) 86 ms [facility] QT-Interval (MSEC) 400 ms [facility] QTc 416 ms [facility] P [place] 55 degrees [facility] R [place] 78 degrees [facility] T [place] 66 degrees [facility] Diagnosis Normal sinus rhythm Normal ECG When compared with ECG of 08-MAY-2001 07:22, No significant change was found Confirmed by PAULA CAMPUZANO M.D ([id number]) on 11/20/2023 7:31:18 AM [facility] 11/19/2023 1:51 PM FINANCIAL SALES ADVISOR 11/20/2023 7:31 AM FINANCIAL SALES ADVISOR Result [facility] Zach Morocho MD ECG ORDERABLES Final Result Performing Organization Address [facility]/ZIP Co de Phone Number [facility] * XR Chest Pa Lateral 2 Views (11/19/2023 1:48 PM FINANCIAL SALES ADVISOR) Anatomical Region Laterality Modality Body, Chest N/A Computed Radiogr aphy 11/19/2023 1:56 PM FINANCIAL SALES ADVISOR Impressions 11/19/2023 2:36 PM FINANCIAL SALES ADVISOR No prior chest radiographs available for comparison. Lungs are clear without focal consolidation. No pleural effusion or pneumothorax. Cardiomediastinal silhouette is normal. ??Diffuse idiopathic skeletal hyperostosis of the thoracic spine is noted. Dictated by: Blake Samson MD The radiology attending physician has personally reviewed this study, and had reviewed and/or edited this written report and agrees with it. Electronically signed by: Shazia Maciel M.D. Narrative 11/19/2023 2:36 PM FINANCIAL SALES ADVISOR EXAMINATION: 2 view chest radiograph Procedure Note Shazia Maciel MD - 11/19/2023 EXAMINATION: 2 view chest radiograph IMPRESSION: No prior chest radiographs available for comparison. Lungs are clear without focal consolidation. No pleural effusion or pneumothorax. Cardiomediastinal silhouette is normal. Diffuse idiopathic skeletal hyperostosis of the thoracic spine is noted. Dictated by: Blake Samson MD The radiology attending physician has personally reviewed this study, and had reviewed and/or edited this written report and agrees with it. Electronically signed by: Shazia Maciel M.D. Zach Morocho MD IMG XR PROCEDURES Final Result * LR HLA Typing (Class I and Class II) (11/19/2023 1:46 PM FINANCIAL SALES ADVISOR) r-SSO H[facility]OTRAC [place] A*02 HISTOTRAC [...] DBP1*13:01 :01G [facility] Blood 11/19/2023 1:46 PM FINANCIAL SALES ADVISOR 11/21/2023 6:18 AM FINANCIAL SALES ADVISOR Narrative HISTOTRAC - 11/21/2023 6:18 AM FINANCIAL SALES ADVISOR DNA was extracted from whole blood or buccal cell specimens, and relevant genomic regions were amplified by polymerase chain reactions (PCR). HLA typing was performed on PCR amplicons using reverse sequence-specific oligonucleotide (r-SSO) and/or sequence-specific primers (SSP) based techniques. r-SSO and SSP are FDA approved as IVD tests and validated by the [facility]. Testing performed at the [facility], [address] [place] [address], 5th floor, [place], [address]. [place] # [id number]. Jessika Walden M.D., Associate HLA Medical Device Sales Albaro Bhatia M.D., Ph.D., HLA Medical Device Sales Barbara Benoit, Ph.D., Auricular Detoxification Specialist, [facility] Current methodology comment last revised on 07/22/17. us Zach Morocho MD LAB BLOOD ORDERABLES Final Resu lt HISTOTRAC * ABO/Rh (11/19/2023 1:46 PM FINANCIAL SALES ADVISOR) ABO Rh O Positive Blood 11/19/2023 1:46 PM FINANCIAL SALES ADVISOR 11/19/2023 3:13 PM FINANCIAL SALES ADVISOR us Zach Morocho MD LAB BLOOD BANK TEST ORDERABLES Final Result [facility] Department [place] [address] * CTA Abdomen Pelvis (11/19/2023 1:29 PM FINANCIAL SALES ADVISOR) Anatomical Region Laterality Modality Body N/A Computed Tomogra phy 11/20/2023 2:19 PM FINANCIAL SALES ADVISOR Impressions 11/20/2023 4:09 PM FINANCIAL SALES ADVISOR 1. No renal stones. ??4 mm cyst in the mid left kidney. 2. Single right renal artery and single right renal vein. Length to the 1st bifurcation of the right renal vein is 10 mm. 3. Single left renal artery and single left renal vein. No early bifurcation. Dictated by: Shannan Salinas M.D. The radiology attending physician has personally reviewed this study, and had reviewed and/or edited this written report and agrees with it. Electronically signed by: Kelsey Gao M.D. Narrative 11/20/2023 4:09 PM FINANCIAL SALES ADVISOR EXAMINATION: CT ANGIOGRAPHY OF THE ABDOMEN AND PELVIS WITH AND WITHOUT CONTRAST HISTORY: Potential renal donor. TECHNIQUE: CT angiography of the abdomen and pelvis was performed without contrast through the abdomen and with contrast in the arterial and combined nephrographic/delayed phases through the abdomen and pelvis, according to the living renal donor protocol. 125 ml Optiray-350 was administered intravenously without immediately complications after injection. Vascular 3D images were generated on a dedicated workstation and also reviewed. COMPARISON: 08/15/2023 FINDINGS: RENAL FINDINGS: Right Kidney: Length: 12.9 cm [...] normal Total left renal volume: 234 cc NON-RENAL FINDINGS: Mild bibasilar atelectasis. ??No focal liver lesion. ??Unchanged focal thickening of the gallbladder fundus likely adenomyomatosis. ??Spleen, adrenal glands, and pancreas are normal. Bladder is normal. ??No free fluid. ??No free air. ??No abdominal or pelvic lymphadenopathy. ??No bowel obstruction or bowel wall thickening. ??No suspicious osseous lesion. Procedure Note Kelsey Gao MD - 11/20/2023 EXAMINATION: CT ANGIOGRAPHY OF THE ABDOMEN AND PELVIS WITH AND WITHOUT CONTRAST HISTORY: Potential renal donor. TECHNIQUE: CT angiography of the abdomen and pelvis was performed without contrast through the abdomen and with contrast in the arterial and combined nephrographic/delayed phases through the abdomen and pelvis, according to the living renal donor protocol. 125 ml Optiray-350 was administered intravenously without immediately complications after injection. Vascular 3D images were generated on a dedicated workstation and also reviewed. COMPARISON: 08/15/2023 FINDINGS: RENAL FINDINGS: Right Kidney: Length: 12.9 cm [...] normal Total left renal volume: 234 cc NON-RENAL FINDINGS: Mild bibasilar atelectasis. No focal liver lesion. Unchanged focal thickening of the gallbladder fundus likely adenomyomatosis. Spleen, adrenal glands, and pancreas are normal. Bladder is normal. No free fluid. No free air. No abdominal or pelvic lymphadenopathy. No bowel obstruction or bowel wall thickening. No suspicious osseous lesion. IMPRESSION: 1. No renal stones. 4 mm cyst in the mid left kidney. 2. Single right renal artery and single right renal vein. Length to the 1st bifurcation of the right renal vein is 10 mm. 3. Single left renal artery and single left renal vein. No early bifurcation. Dictated by: Shannantalat Salinas M.D. The radiology attending physician has personally reviewed this study, and had reviewed and/or edited this written report and agrees with it. Electronically signed by: Kelsey Gao M.D. Zach Morocho MD IMG CT PROCEDURES Final Result documented in this encounter Visit Diagnoses Diagnosis Kidney donor- Primary Kidney donor Kidney donor Kidney donor documented in this encounter Care Teams Alarm Investigator Relationship Specialty Start Date End Date Elke Mcmillan MD [address] [place] [address] PCP - General Family Medicine 08/15/23 Lindsey Bal, ROSANGELA [address] [address] Mining Hel[employer] 07/04/23 documented as of this encounter
--- OUTSIDE RECORDS SUMMARY | 2024-11-20 04:24 | XMS_ITS | Encounter Summary ---
Author Organization [facility] Healthcare Address [address] [place] [address] Care Team Providers Care Dean Of Admissions Name Role Phone Lindsey Bal RN Unavailable [phone] Elke Mcmillan MD Primary Care Provider Reason for Visit * Reason Comments Groin Pain Encounter Details Date Type Department Care Team (Late st Contact Info) Description 08/15/2023 5:49 PM CDT - 08/15/2023 9:09 PM CDT Emergency [facility] Emergency Department [address] [place] [id number] Abdominal pain (Primary Dx) Discharge Disposition: Discharge to home or self care Social History Tobacco Use Types Packs/Day Years Used Date Smoking Tobacco: Never Assessed Sex and Gender Information Value Date Recorded Sex Assigned at Not on file Legal Sex Male 7:09 PM [employer]LECT[employer] Gender Identity Not on file Sexual Orientation Not on file documented as of this encounter Last Filed Vital Signs Vital Sign Reading Time Taken Comments Blood Pressure 139/93 08/15/2023 9:07 PM CDT Pulse 60 08/15/2023 9:07 PM CDT Temperature 36.6 ??C (97.9 ??F) 08/15/2023 5:39 PM CD T Respiratory Rate 16 08/15/2023 9:07 PM CDT Oxygen Saturation 98% 08/15/2023 9:07 PM CDT Inhaled Oxygen Concentration - - Weight 84.6 kg (186 lb 8.2 oz) 08/15/2023 5:39 P M CDT Height - - Body Mass Index - - documented in this encounter Discharge Instructions * Discharge Instructions* Tori Bella NP - 08/15/2023 9:03 PM CDT Lab work, CT of her abdomen and pelvis does not show any abnormalities, your pain appear to be muscular in nature, take this pain medicine prescribed, avoid repetitive turning, twisting or bending over, lifting or moving heavy stuff, follow-up with primary care doctor next 2-3 days for re-evaluation, return to ED immediately for any worsening symptoms. documented in this encounter Medications at Time [...] mouth 2 (two) times a day 07/30/2023 ketorolac (TORADOL) 10 mg tablet Take 1 tablet (10 mg total) by mouth every 6 (six) hours as needed for pain 20 tablet 08/15/2023 11/20/2023 documented as of this encounter Ordered Prescriptions Prescription Sig Dispense Quantity Refills Last Filled Start Date End Date ketorolac (TORADOL) 10 mg tablet Take 1 tablet (10 mg total) by mouth every 6 (six) hours as needed for pain 20 tablet 08/15/2023 11/20/2023 documented in this encounter Discharge Disposition Disposition Code Departure Means Destination Comment s Discharge to home or self care documented in this encounter ED Notes * Tori Bella NP - 08/15/2023 7:04 PM CDT CHIEF COMPLAINT: Chief Complaint Patient presents with Groin Pain HPI 9:04 PM Dagoberto Marcial Jr. is a 53 y.o. male presenting to the ED c/o abdominal pain. He states that from last approximately 1 week he is having pain to his right lower quad abdominal region that is progressively getting worse. His pain get worse with movement, activities, cough and sneezing. Hedenies any injury to it. Denies any fever, chill, nausea, vomiting. Denies any urinary urgency, frequency, dysuria or hematuria denies any diarrhea or constipation. He went to see his primary care doctor earlier this week, who advised him that this could be muscular pain however his pain gotten worse 2 days so he came in here. History provided by patient. PCP: Elke Mcmillan MD PAST MEDICAL HISTORY No past medical history on file. PAST SURGICAL HISTORY No past surgical history on file. FAMILY HISTORY No family history on file. MEDICATIONS GIVEN IN THE ED Medications ioversoL (OPTIRAY 350) syringe 100 mL (100 mL intravenous Contrast Given 08/15/231928) ketorolac (TORADOL) 30 mg/mL (1 mL) injection 30 mg (30 mg intravenous Given 08/15/232102) CURRENT HOME MEDICATIONS No current facility-administered medications for this encounter. Current Outpatient Medications: ketorolac (TORADOL) 10 mg tablet, Take 1 tablet (10 mg total) by mouth every 6 (six) hours as needed for pain, Disp: 20 tablet, Rfl: 0 ALLERGIES No Known Allergies SOCIAL HISTORY Social History Tobacco Use Smoking status: Not on file Smokeless tobacco: Not on file Substance and Sexual Activity Drug use: Not on file Sexual activity: Not on file Alcohol Use: Not on file PHYSICAL EXAM TRIAGE VITAL SIGNS: ED Triage Vitals Temp Pulse Resp BP SpO2 08/15/23173808/15/23173808/15/23173808/15/23173808/15/231738 36.6 ??C (97.9 ??F) 78 18 144/91 98 % Temp src Heart Rate Source Patient Position BP Location FiO2 (%) 08/15/23173808/15/23192008/15/23 19208/15/231920 -- Oral Pulse Oximetry Sitting Left arm Height Height Method Weight Weight Method -- -- 08/15/23173808/15/231738 84.6 kg (186 lb 8.2 oz) Standing scale Physical Exam Vitals and nursing note reviewed. Constitutional: General: He is not in acute distress. Appearance: Normal appearance. He is well-developed. He is not ill-appearing, toxic-appearing or diaphoretic. HENT: Head: Normocephalic and atraumatic. Jaw: There is normal jaw occlusion. Right Ear: Hearing and external ear normal. Left Ear: Hearing and external ear normal. Nose: Nose normal. Mouth/Throat: Mouth: Mucous membranes are moist. Eyes: General: Lids are normal. Vision grossly intact. Extraocular Movements: Extraocular movements intact. Conjunctiva/sclera: Conjunctivae normal. Neck: Trachea: Trachea and phonation normal. Cardiovascular: Rate and Rhythm: Normal rate and regular rhythm. Pulses: Normal pulses. Radial pulses are 2+ on the right side and 2+ on the left side. Dorsalis pedis pulses are 2+ on the right side and 2+ on the left side. Heart sounds: No murmur heard. Pulmonary: Effort: Pulmonary effort is normal. No respiratory distress. Breath sounds: Normal breath sounds and air entry. Abdominal: Palpations: Abdomen is soft. Tenderness: There is abdominal tenderness in the right lower quadrant. Musculoskeletal: General: No swelling. Cervical back: Full passive range of motion without pain, normal range of motion and neck supple. Right lower leg: No edema. Left lower leg: No edema. Skin: General: Skin is warm and dry. Capillary Refill: Capillary refill takes less than 2 seconds. Neurological: General: No focal deficit present. Mental Status: He is alert and oriented to person, place, and time. GCS: GCS eye subscore is 4. GCS verbal subscore is 5. GCS motor subscore is 6. Psychiatric: Attention and Perception: Attention normal. Mood and Affect: Mood normal. Speech: Speech normal. Behavior: Behavior normal. Behavior is cooperative. Thought Content: Thought content normal. LABS Labs Reviewed COMPREHENSIVE METABOLIC PANEL - Abnormal Result Value Sodium 141 Potassium, pl 3.8 Chloride 104 CO2 26 Anion gap 11 BUN 10 Creatinine 0.90 Glucose 95 Calcium 9.6 Bilirubin, total 0.3 Protein, pl 7.7 Albumin 4.9 Alk phos 145 (*) ALT 24 AST 21 URINALYSIS, MICROSCOPIC ONLY - Abnormal WBC, ur 0-5 RBC, ur 0-2 Mucous, ur Present (*) Culture Reflex Comment Value: Reflex conditions for urine culture (WBC >10) not met. URINALYSIS AND REFLEX TO MICROSCOPIC AND CULTURE Color, ur Yellow Clarity, ur Clear Specific gravity, ur 1.027 pH, urine 5.0 Protein, ur ql Negative Glucose, ur ql Negative Ketones, ur Negative Bilirubin, ur Negative Blood, ur Negative Urobilinogen, ur <2.0 Nitrite, ur Negative Leukocyte esterase, ur Negative UA reflex comment Reflex to microscopic UA will be performed. CBC WITH AUTO DIFFERENTIAL WBC 9.6 Hgb 16.4 Hct 47.4 Plt 155 MPV 10.3 RBC 5.29 MCV 89.6 MCH 31.0 MCHC 34.6 RDW CV 12.8 RDW SD 42.3 NRBC abs 0.00 LIPASE Lipase 32 DIFFERENTIAL AUTO Neutrophil abs 5.5 Imm gran abs 0.1 Lymphocyte abs 2.8 Monocyte abs 0.7 Eosinophil abs 0.5 Basophil abs 0.0 Neutrophil pct 58.0 Imm gran pct 0.7 Lymphocyte pct 29.2 Monocyte pct 7.0 Eosinophil pct 4.7 Basophil pct 0.4 EGFR eGFR 103 RADIOLOGY No results found. ED COURSE/MEDICAL DECISION MAKING ED Course as of 08/15/232103 Time: 08/15 1907 Comment: He came in for right lower quad abdominal pain from last approximately 1 week, on exam he does not appear to be in distress, does have a mild right lower quadrant abdominal tenderness on palpitation, negative McBurney sign, unremarkable leukocyte, and CMP By: Tori Bella NP Time: 08/15 2102 Comment: CT of his abdomen and pelvis is unremarkable for any acute finding, normal appendix. 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 He agrees with this plan. By: Tori Bella NP Procedures FINAL IMPRESSION Abdominal pain DISPOSITION: Home All findings were discussed with patient. Pt agreeable with plan. Non toxic appearing, vitals stable. Patient stable for discharge home. Given return to ER precautions Close outpatient follow-up with a low threshold to return has been mandated , concerning symptoms have been emphasized in detail, and this patient expresses understanding PATIENT INSTRUCTED TO FOLLOW UP No follow-up provider specified. DISCHARGE MEDICATIONS Your medication list START taking these medications Instructions Last Dose Given Next Dose Due ketorolac 10 mg tablet Commonly known as: TORADOL Take 1 tablet (10 mg total) by mouth every 6 (six) hours as needed for pain Where to Get Your Medications You can get these medications from any pharmacy Bring a paper prescription for each of these medications ketorolac 10 mg tablet This examination was transcribed using the [employer] voice recognition system without human luggage attendant. In an effort to expedite patient care, this report has not been adjusted for typographical, grammatical, and syntax by a trained manager medical affairs. Tori Bella NP 08/15/232103 Cosigned by Porsche Davis DO at 08/18/2023 6:02 AM CDT Associated attestation - Porsche Davis DO - 08/18/2023 6:02 AM CDT ED Attestation I did not see this patient. However, I was personally available for consultation in the ED for thispatient if the Advanced Practice Provider (FERMÍN) needed any assistance. The FERMÍN evaluated the patient independently and completed their own examination, documentation, and disposition. * Denice Damian RN - 08/15/2023 5:37 PM CDT Pt reports lower right groin pain that started one week ago. Pt denies any scrotal swelling, n/v/d or fevers. Pt reports pain is worse with cough and movement. No tenderness to abd on palp. documented in this encounter Plan of Treatment Not on file documented as of this encounter Procedures Procedure Name Priority Date/Time Associated Diagnosis Comments CT ABDOMEN PELVIS W CONTRAST ED 08/15/2023 7:35 PM CDT EGFR STAT 08/15/2023 5:45 PM CDT DIFFERENTIAL AUTO STAT 08/15/2023 5:4 5 PM CDT URINALYSIS AND REFLEX TO MICROSCOPIC AND CULTURE STAT 08/15/2023 5:45 PM CDT CBC WITH AUTO DIFFERENTIAL STAT 08/15/2023 5:45 PM CDT URINALYSIS, MICROSCOPIC ONLY STAT 08/15/2023 5:45 PM CDT LIPASE STAT 08/15/2023 5:45 PM CDT COMPREHENSIVE METABOLIC PANEL STAT 08/15/2023 5:45 PM CDT documented in this encounter Results * CT Abdomen Pelvis W Contrast (08/15/2023 7:35 PM CDT) Anatomical Region Laterality Modality Body N/A Computed Tomogra phy 08/15/2023 8:20 PM CDT Narrative 08/15/2023 8:30 PM CDT EXAM DESCRIPTION: ?? CT ABDOMEN PELVIS W CONTRAST REASON FOR STUDY: ?? RLQ pain ?? RLQ abdominal pain and groin pain x 1 week. Pt reports pain is worse with cough and movement. ?? TECHNIQUE: CT scan of the abdomen and pelvis performed with intravenous and ?? without ??oral contrast using helical scanning technique with dynamic intravenous contrast injection. Reconstructed coronal and sagittal MPR images reviewed. All images stored on PACS. Automated exposure control was used as a dose optimization technique for this examination. CONTRAST TYPE/DOSE: ?? 100mL of IOVERSOL 350 MG IODINE/ML INTRAVENOUS SYRINGE ?? injected via ?? intravenous COMPARISON: ?? None REFERENCE: Per ACR white paper recommendations, unless otherwise specified no follow-up imaging is recommended for incidental renal and adrenal lesions per consensus recommendations based on imaging criteria. Further lab evaluation could be pursued based on clinical findings. FINDINGS: LOWER CHEST: ?? No significant pulmonary abnormalities. No effusion. LIVER: ?? Normal size. ??No identified cystic or solid masses. GALLBLADDER: ?? No stones identified. No wall thickening or inflammatory changes. BILE DUCTS: ?? No intrahepatic or extrahepatic ductal dilatation. SPLEEN: ?? Normal size. ??No focal lesions. PANCREAS: ?? No identified cystic or solid masses. No significant calcifications. No adjacent inflammation or peripancreatic fluid collections. Pancreatic duct not dilated. ?? ADRENALS: ?? Normal. KIDNEYS/URINARY TRACT: ?? No identified significant cystic or solid masses. No visualized stones. No hydronephrosis or hydroureter. Symmetric enhancement. ? Urinary bladder is unremarkable. GI: ?? No dilated bowel loops. No obvious wall thickening. ??Normal appendix. ?? Mild colonic diverticulosis. ??No findings to suggest acute diverticulitis.. PERITONEUM: ?? No ascites or free air. RETROPERITONEUM: ?? No mass or adenopathy. REPRODUCTIVE: ?? No significant abnormality. VASCULATURE: ?? No abdominal aortic aneurysm. MUSCULOSKELETAL: ?? No significant abnormality. OTHER: ?? No other abnormality. IMPRESSION: ?? No acute findings of the abdomen or pelvis. THIS IS AN ELECTRONICALLY VERIFIED FINAL REPORT 08/15/2023 8:30 PM - Electronically signed by ??John Ivan M.D. KR: SARAH D: ??08/15/2023 8:30 PM T: ??08/15/2023 8:30 PM Report ID: [id number] Reading Location: ??[id number] Procedure Note John Ivan MD - 08/15/2023 EXAM DESCRIPTION: CT ABDOMEN PELVIS W CONTRAST REASON FOR STUDY: RLQ pain RLQ abdominal pain and groin pain x 1 week. Pt reports pain is worse with cough and movement. TECHNIQUE: CT scan of the abdomen and pelvis performed with intravenousand without oral contrast using helical scanning technique with dynamic intravenous contrast injection. Reconstructed coronal and sagittal MPRimages reviewed. All images stored on PACS. Automated exposure control was usedas a dose optimization technique for this examination. CONTRAST TYPE/DOSE: 100mL of IOVERSOL 350 MG IODINE/ML INTRAVENOUSSYRINGE injected via intravenous COMPARISON: None REFERENCE: Per ACR white paper recommendations, unless otherwise specifiedno follow-up imaging is recommended for incidental renal and adrenal lesionsper consensus recommendations based on imaging criteria. Further labevaluation could be pursued based on clinical findings. FINDINGS: LOWER CHEST: No significant pulmonary abnormalities. Noeffusion. LIVER: Normal size. No identified cystic or solid masses. GALLBLADDER: No stones identified. No wall thickening or inflammatory changes. BILE DUCTS: No intrahepatic or extrahepatic ductal dilatation. SPLEEN: Normal size. No focal lesions. PANCREAS: No identified cystic or solid masses. No significant calcifications. No adjacent inflammation or peripancreatic fluidcollections. Pancreatic duct not dilated. ADRENALS: Normal. KIDNEYS/URINARY TRACT: No identified significant cystic or solid masses.No visualized stones. No hydronephrosis or hydroureter. Symmetricenhancement. Urinary bladder is unremarkable. GI: No dilated bowel loops. No obvious wall thickening. Normalappendix. Mild colonic diverticulosis. No findings to suggest acutediverticulitis.. PERITONEUM: No ascites or free air. RETROPERITONEUM: No mass or adenopathy. REPRODUCTIVE: No significant abnormality. VASCULATURE: No abdominal aortic aneurysm. MUSCULOSKELETAL: No significant abnormality. OTHER: No other abnormality. IMPRESSION: No acute findings of the abdomen or pelvis. THIS IS AN ELECTRONICALLY VERIFIED FINAL REPORT 08/15/2023 8:30 PM - Electronically signed by John Ivan M.D. KR: SARAH Report ID: [id number] Reading Location: [place] [address] Tori Jena NP IM CT PROCEDURES Final Result * eGFR (08/15/2023 5:45 PM CDT) eGFR 103 mL/min/1. 73 m2 [facility] Comment: Interpretive [...] was last reviewed 2021. Testing performed by: [address] [address] Blood 08/15/2023 5:45 PM CDT 08/15/2023 5:49 PM CDT us Tori Bella NP LAB BLOOD ORDERABLES Final Resul t [facility] [address] [facility] [place] [address] * (ABNORMAL) Urinalysis, microscopic only (08/15/2023 5:45 PM CDT) WBC, ur 0-5 0 - 5 /HPF [facility] Comment:Testing performed by : [address] [address] RBC, ur 0-2 0 - 2 /HPF [facility] Comment:Testing performed by : [address] [address] Mucous, ur Present(A) [facility] Comment:Testing performed by : [address] [address] Culture Reflex Comment Reflex conditions for urine culture (WBC >10) not met. [facility] Comment:Testing performed by : [address] [address] Urine 08/15/2023 5:45 PM CDT 08/15/2023 5:49 PM CDT us Tori Bella NP LAB URINE ORDERABLES Final Resul t [facility] [address] [facility] [place] [address] * Differential, auto (08/15/2023 5:45 PM CDT) Neutrophil abs 5.5 1.7 - 6.5 K/cumm [facility] Comment:Testing performed by : [address] [address] Imm gran abs 0.1 0.0 - 0.1 K/cumm [facility] Comment:Testing performed by : [address] [address] Lymphocyte abs 2.8 0.8 - 3.3 K/cumm [facility] Comment:Testing performed by : [address] [address] Monocyte abs 0.7 0.2 - 0.8 K/cumm [facility] Comment:Testing performed by : [address] [address] Eosinophil abs 0.5 0.0 - 0.5 K/cumm [facility] Comment:Testing performed by : [address] [address] Basophil abs 0.0 0.0 - 0.1 K/cumm [facility] Comment:Testing performed by : [address] [address] Neutrophil pct 58.0 % [facility] Comment: Interpretive Data Percent cell count reference ranges are not reported, since discordance with absolute values may lead to misinterpretation of CBC data. Current Interpretive Data was last revised on 2018. Testing performed by: [address] [address] Imm gran pct 0.7 % [facility] Comment: Interpretive Data Percent cell count reference ranges are not reported, since discordance with absolute values may lead to misinterpretation of CBC data. Current Interpretive Data was last revised on 2018. Testing performed by: [address] [address] Lymphocyte pct 29.2 % [facility] Comment: Interpretive Data Percent cell count reference ranges are not reported, since discordance with absolute values may lead to misinterpretation of CBC data. Current Interpretive Data was last revised on 2018. Testing performed by: [address] [address] Monocyte pct 7.0 % [facility] Comment: Interpretive Data Percent cell count reference ranges are not reported, since discordance with absolute values may lead to misinterpretation of CBC data. Current Interpretive Data was last revised on 2018. Testing performed by: [address] [address] Eosinophil pct 4.7 % [facility] Comment: Interpretive Data Percent cell count reference ranges are not reported, since discordance with absolute values may lead to misinterpretation of CBC data. Current Interpretive Data was last revised on 2018. Testing performed by: [address] [address] Basophil pct 0.4 % [facility] Comment: Interpretive Data Percent cell count reference ranges are not reported, since discordance with absolute values may lead to misinterpretation of CBC data. Current Interpretive Data was last revised on 2018. Testing performed by: [address] [address] Blood 08/15/2023 5:45 PM CDT 08/15/2023 5:49 PM CDT us Tori Bella NP LAB BLOOD ORDERABLES Final Resul t [facility] [address] [facility] Department [place] [address] * Urinalysis reflex to microscopic and culture Urine (08/15/2023 5:45 PM CDT) Color, ur Yellow Yellow [facility] Comment:Testing performed by : [address] [address] Clarity, ur Clear Clear [facility] Comment:Testing performed by : [facility] [address] [place] [address]., [address] Specific gravity, ur 1.027 1.003 - 1.030 [facility] Comment:Testing performed by : [address] [address] pH, urine 5.0 [facility] Comment: Interpretive Data ? Urine pH is affected by diet, medications, systemic acid-base disturbances, and renal tubular function. ??pH may affect urinary stone formation. ??For example, urine pH below 6.0 may help reduce the tendency for calcium phosphate stones and pH greater than 6.0 may reduce the tendency for uric acid stone formation. Source: [facility] [employer] Current Interpretive Data was last revised on 2017 Testing performed by: [address] [address] Protein, ur ql Negative Negative [facility] Comment:Testing performed by : [address] [address] Glucose, ur ql Negative Negative [facility] Comment:Testing performed by : [address] [address] Ketones, ur Negative Negative [facility] Comment:Testing performed by : [address] [address] Bilirubin, ur Negative Negative [facility] Comment:Testing performed by : [address] [address] Blood, ur Negative Negative [facility] Comment:Testing performed by : [address] [address] Urobilinogen, ur <2.0 <2.0 mg/dL [facility] Comment:Testing performed by : [address] [place] [address] Nitrite, ur Negative Negative [facility] Comment:Testing performed by : [address] [address] Leukocyte esterase, ur Negative Negative [facility] Comment:Testing performed by : [facility], [address] [place] [address]., [address] UA reflex comment Reflex to microscopic UA will be performed. [facility] Comment:Testing performed by : [address] [address] Urine 08/15/2023 5:45 PM CDT 08/15/2023 5:49 PM CDT Tori Bella NP LAB MICROBIOLOGY - GENERAL ORDER GENE Final Result Performing Organization Address [facility] Co de Phone Number [id number] [place] [address] * Lipase (08/15/2023 5:45 PM CDT) Pathologist [facility] Lipase 32 10 - 99 Units/L [facility] Comment:Testing performed by : [address] [address] Blood (Blood, Venous) 08/15/2023 5:45 PM CDT 08/15/2023 5:49 PM CDT Tori Bella NP LAB BLOOD ORDERABLES Final Resul t Performing Organization Address City/[facility] Co de Phone Number [address] [address] * (ABNORMAL) Comprehensive metabolic panel (08/15/2023 5:45 PM CDT) Pathologist [facility] Sodium 141 135 - 145 mmol/L [facility] Comment:Testing performed by : [address] [address] Potassium, pl 3.8 3.3 - 4.9 mmol/L [facility] Comment:Testing performed by : [address] [address] Chloride 104 97 - 110 mmol/L [facility] Comment:Testing performed by : [address] [address] CO2 26 22 - 32 mmol/L [facility] Comment:Testing performed by : [address] [address] Anion gap 11 2 - 15 mmol/L [facility] Comment:Testing performed by : [address] [address] BUN 10 6 - 25 mg/dL [facility] Comment:Testing performed by : [address], [place]., [address] Creatinine 0.90 0.80 - 1.30 mg/dL [facility] Comment:Testing performed by : [address] [address] Glucose 95 70 - 199 mg/dL [facility] Comment: Interpretive Data Fasting glucose >/= 126 [...] was last revised 2022. Testing performed by: [address] [address] Calcium 9.6 8.5 - 10.3 mg/dL [facility] Comment:Testing performed by : [address] [address] Bilirubin, total 0.3 0.1 - 1.2 mg/dL [facility] Comment:Testing performed by : [address] [address] Protein, pl 7.7 6.5 - 8.5 g/dL [facility] Comment:Testing performed by : [address] [address] Albumin 4.9 3.5 - 5.0 g/dL [facility] Comment:Testing performed by : [address] [address] Alk phos 145(H) 40 - 130 Units/L [facility] Comment:Testing performed by : [address] [address] ALT 24 7 - 55 Units/L [facility] Comment:Testing performed by : [address] [address] AST 21 10 - 50 Units/L [facility] Comment:Testing performed by : [address] [address] Blood 08/15/2023 5:45 PM CDT 08/15/2023 5:49 PM CDT us Tori Bella NP LAB BLOOD ORDERABLES Final Resul t [facility] [place] [address] * CBC with auto differential (08/15/2023 5:45 PM CDT) WBC 9.6 3.8 - 9.9 K/cumm [facility] Comment:Testing performed by : [address] [address] Hgb 16.4 13.0 - 17.5 g/dL [facility] Comment:Testing performed by : [address] [address] Hct 47.4 38.9 - 50.3 % [facility] Comment:Testing performed by : [address] [address] Plt 155 150 - 400 K/cumm [facility] Comment:Testing performed by : [address] [address] MPV 10.3 9.1 - 12.3 fL [facility] Comment:Testing performed by : [address], [address] RBC 5.29 4.30 - 5.80 M/cumm [facility] Comment:Testing performed by : [address] [place]., [address] MCV 89.6 81.3 - 96.4 fL [facility] Comment:Testing performed by : [facility], [address] [place] [address]., [address] MCH 31.0 27.1 - 33.3 pg [facility] Comment:Testing performed by : [address] [address] MCHC 34.6 32.3 - 35.7 g/dL [facility] Comment:Testing performed by : [facility], [address] [place] [address], [address] RDW CV 12.8 11.1 - 14.9 % [facility] Comment:Testing performed by : [address], [address] RDW SD 42.3 35.7 - 48.1 fL [facility] Comment:Testing performed by : [facility], [address] [place] [address], [address] NRBC abs 0.00 0.00 - 0.01 K/cumm [facility] Comment:Testing performed by : [address], [address] Blood (Blood, Venous) 08/15/2023 5:45 PM CDT 08/15/2023 5:49 PM CDT us Tori Bella NP LAB BLOOD ORDERABLES Final Resul t [facility] [address] [facility] Department [place] [address] documented in this encounter Visit Diagnoses Diagnosis Abdominal pain- Primary Abdominal pain, unspecified site documented in this encounter Administered Medications Inactive Administered Medications - up to 3 most recent administrations Medication Order MAR Action Action Date Dose Rate Site ioversoL (OPTIRAY 350) syringe 100 mL 100 mL, intravenous, Once in imaging, contrast, Starting on Fri08/15/23 at 1919, For 1 dose Contrast Given 08/15/2023 7:29 PM CDT 100 mL Left Antecubital ketorolac (TORADOL) 30 mg/mL (1 mL) injection 30 mg 30 mg, intravenous, Once, On Fri08/15/23 at 2100, For 1 dose, For Adult IV push, administer over 15 seconds, Indications: Administration of General AnesthesiaIndications:Adm inistration of General Anesthesia Given 08/15/2023 9:03 PM CDT 30 mg documented in this encounter Active and Recently Administered Medications Times are shown in CDT. Scheduled Medication Order 08/13/2023 08/14/2023 08/15/2023 ketorolac (TORADOL) 30 mg/mL (1 mL) injection 30 mg (COMPLETED) 30 mg, intravenous, Once, On Fri08/15/23 at 2100, For 1 dose, For Adult IV push, administer over 15 seconds, Indications: Administration of General Anesthesia 2102 (Given - Provid er: Antonella Lawrence RN) PRN Medication Order 08/13/2023 08/14/2023 08/15/2023 ioversoL (OPTIRAY 350) syringe 100 mL (COMPLETED) 100 mL, intravenous, Once in imaging, contrast, Starting on Fri08/15/23 at 1919, For 1 dose 192 (Contrast Given - Provider: James Luque RT) documented in this encounter Orders IV Count Last Ordered Date First Orde red Date SALINE LOCK IV 1 08/15/2023 documented in this encounter Care Teams Dean Of Admissions Relationship Specialty Start Date End Date Elke Mcmillan MD [address] [place] [address] PCP - General Family Medicine 08/15/23 Lindsey Bal RN [address] [address] E Tailer 07/04/23 documented as of this encounter
--- OUTSIDE RECORDS SUMMARY | 2024-11-20 04:24 | XMS_ITS | Encounter Summary ---
Author Organization [facility] Healthcare Address [address] [place] [address] Care Team Providers Care Thoroughbred Horse Farm Manager Name Role Phone Lindsey Bal RN Unavailable [phone] Reason for Visit * Reason Onset Date Comments SETH Step 1 Attempt 07/08/2023 Encounter Details Date Type Department Care Team (Late st Contact Info) Description 07/08/2023 Documentation [facility] Transplant Kidney [address] [phone] [place] [address] Debi Valdes LCSW SETH Step 1 Attempt Social History Tobacco Use Types Packs/Day Years Used Date Smoking Tobacco: Never Assessed Sex and Gender Information Value Date Recorded Sex Assigned at Not on file Legal Sex Male 7:09 PM GENERAL MATCHER Gender Identity Not on file Sexual Orientation Not on file documented as of this encounter Progress Notes * Debi Valdes LCSW - 07/08/2023 10:37 AM CDT SETH called patient to complete living donor pre-assessment. Phone was not answered at that time. Voicemail left requesting a return call. Of note this is the first attempt to reach patient. TYRA Mendoza LCSW Independent Living Donor Advocate documented in this encounter Plan of Treatment Not on file documented as of this encounter Visit Diagnoses Not on filedocumented in this encounter Care Teams Thoroughbred Horse Farm Manager Relationship Specialty Start Date End Date Lindsey Bal RN [address] [place] [address] Electric Solderer 07/04/23 documented as of this encounter
--- OUTSIDE RECORDS SUMMARY | 2024-11-20 04:24 | XMS_ITS | Encounter Summary ---
Author Organization [facility] Healthcare Address [address] [place] [address] Care Team Providers Care Fishing Vessel Mate Name Role Phone Lindsey Bal RN Unavailable [phone] Elke Mcmillan MD Primary Care Provider Encounter Details Date Type Department Care Team (Late st Contact Info) Description 10/14/2023 Documentation [facility] Transplant Kidney [address] [facility] [address] [phone] [place] [address] Smita Lancaster Social History Tobacco Use Types [...] on file Legal Sex Male 7:09 PM DATA CLERK Gender Identity Not on file Sexual Orientation Not on file documented as of this encounter Progress Notes * Smita Lancaster - 10/14/2023 1:16 PM CST The following records have been requested via 2C2P: from [facility] Thank you! Your request was successfully submitted. Confirmation # [id number] CLERK documented in this encounter Plan of Treatment Not on file documented as of this encounter Visit Diagnoses Not on filedocumented in this encounter Care Teams Fishing Vessel Mate Relationship Specialty Start Date End Date Elke Mcmillan MD [address] [place] [address] PCP - General Family Medicine 08/15/23 Lindsey Bal, ROSANGELA [address] [facility] [address] [place] [address] Windows Systems Administrator 07/04/23 documented as of this encounter
--- OUTSIDE RECORDS SUMMARY | 2024-11-20 04:24 | XMS_ITS | Encounter Summary ---
Author Organization [facility] Healthcare Address [address] [place] [address] Care Team Providers Care Optical Instruments Supervisor Name Role Phone Lindsey Bal RN Unavailable [phone] Elke Mcmillan MD Primary Care Provider Encounter Details Date Type Department Care Team (Late st Contact Info) Description 10/16/2023 Documentation [facility] [address] [facility], 8th Floor, [place] [address] Jason Chambers LCSW Social History Tobacco Use Types Packs/Day Years Used Date Smoking Tobacco: Never Assessed Personal Safety Answer Date Recorded Have you ever been in or are you currently in a harmful physical or emotional relationship or is someone making you feel afraid or unsafe? Denies 08/18/2023 Sex and Gender Information Value Date Recorded Sex Assigned at Not on file Legal Sex Male 7:09 PM PRESS CUTTER Gender Identity Not on file Sexual Orientation Not on file documented as of this encounter Progress Notes * Jason Chambers LCSW - 10/16/2023 4:23 PM CST SETH called patient to complete living donor re-assessment (Step 3). Phone was not answered at thattime. Voicemail left requesting a return call. Of note this is the first attempt to reach patient. TYRA Francisco, LOGAN Independent Living Donor Advocate S CUTTER documented in this encounter Plan of Treatment Not on file documented as of this encounter Visit Diagnoses Not on filedocumented in this encounter Care Teams Optical Instruments Supervisor Relationship Specialty Start Date End Date Elke Mcmillan MD [address] [place] [address] PCP - General Family Medicine 08/15/23 Lindsey Bal RN [address] [address] Doctor Osteopathic 07/04/23 documented as of this encounter
--- OUTSIDE RECORDS SUMMARY | 2024-11-20 04:24 | XMS_ITS | Encounter Summary ---
Author Organization [facility] Healthcare Address [address] [place] [address] Care Team Providers Care Radiologist Physician Name Role Phone Unavailable Primary Care Provider Unavailabl e Encounter Details Date Type Department Care Team (Late st Contact Info) Description 06/18/2023 Documentation [facility] Transplant Kidney [address] [facility] [address] Mailstop [phone] [place] [address] Saida Garrison Social History Tobacco Use Types Packs/Day Years Used Date Smoking Tobacco: Never Assessed Sex and Gender Information Value Date Recorded Sex Assigned at Not on file Legal Sex Male 7: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
--- OUTSIDE RECORDS SUMMARY | 2024-11-20 04:24 | XMS_ITS | Encounter Summary ---
Author Organization [facility] Healthcare Address [address] [place] [address] Care Team Providers Care Conveyor Mechanic Name Role Phone Lindsey Bal RN Unavailable [phone] Elke Mcmillan MD Primary Care Provider Encounter Details Date Type Department Care Team (Late st Contact Info) Description 11/20/[address] [facility] Social Work [address] [place] [address] Charli Mooney MSW Social History Tobacco Use [...] on file Legal Sex Male 7:09 PM CANDY DECORATOR Gender Identity Not on file Sexual Orientation Not on file documented as of this encounter Miscellaneous Notes * Telephone Encounter - Charli Mooney MSW - 11/20/2023 12:36 PM CANDY DECORATOR KANDIS attempted to contact pt in order to complete/schedule donor social work assessment. Pt unavailable. KANDIS LVM asking for return call. Of note, this is second attempt. SW to remain available. TYRA Valles, TRICOT KNITTER Transplant Program Paraprofessional [phone] Y DECORATOR documented in this encounter Plan of Treatment Not on file documented as of this encounter Visit Diagnoses Not on filedocumented in this encounter Care Teams Conveyor Mechanic Relationship Specialty Start Date End Date Elke Mcmillan MD [address] [place] [address] PCP - General Family Medicine 08/15/23 Lindsey Bal, RN [address] [address] Manager Filter 07/04/23 documented as of this encounter
--- OUTSIDE RECORDS SUMMARY | 2024-11-20 04:24 | XMS_ITS | Encounter Summary ---
Author Organization [facility] Healthcare Address [address] [place] [address] Care Team Providers Care Truck Crane Operator Name Role Phone Lindsey Bal RN Unavailable [phone] Elke Mcmillan MD Primary Care Provider Encounter Details Date Type Department Care Team (Latest Contact Info) Description 11/19/2023 1:40 PM CONDEMNATION ENGINEER - 11/19/2023 11:59 PM CONDEMNATION ENGINEER Hospital Encounter [facility] [address] [place] [address] Kidney donor Discharge Disposition: Discharge to home [...] on file Legal Sex Male 7:09 PM CONDEMNATION ENGINEER Gender Identity Not on file Sexual [...] VIEWS Schedule Routine, Read Routine (OP Routine) 11/19/2023 1:48 PM CONDEMNATION ENGINEER Kidney donor documented in this encounter Results * XR Chest Pa Lateral 2 Views (11/19/2023 1:48 PM CONDEMNATION ENGINEER) Anatomical Region Laterality Modality Body, Chest N/A Computed Radiogr aphy 11/19/2023 1:56 PM CONDEMNATION ENGINEER Impressions 11/19/2023 2:36 PM CONDEMNATION ENGINEER No prior chest radiographs available for comparison. [...] Shazia Maciel M.D. Narrative 11/19/2023 2:36 PM CONDEMNATION ENGINEER EXAMINATION: 2 view chest radiograph Procedure Note [...] Morocho MD IMG XR PROCEDURES Final Result documented in this encounter Visit Diagnoses Diagnosis Kidney donor documented in this encounter Care Teams Truck Crane Operator Relationship Specialty Start Date End Date Elke Mcmillan MD [address] [place] [address] PCP - General Family Medicine 08/15/23 Lindsey Bal, ROSANGELA [address] [address] Chiropractic Practice Manager 07/04/23 documented as of this encounter
--- OUTSIDE RECORDS SUMMARY | 2024-11-20 04:24 | XMS_ITS | Encounter Summary ---
Author Organization [facility] Healthcare Address [address] [place] [address] Care Team Providers Care Adjunct English Instructor Name Role Phone Lindsey Bal RN Unavailable [phone] Elke Mcmillan MD Primary Care Provider Reason for Visit * Reason Onset Date Comments Lab Results 08/22/2023 Encounter Details Date Type Department Care Team (Late st Contact Info) Description 08/22/[address] [facility] Transplant Kidney [address] [facility] [address] Mail[address] [phone] [place] [address] Lindsey Bal, RN [address] [facility] [address] [place], [place] [id number] Lab Results Social History Tobacco Use Types [...] on file Legal Sex Male 7:09 PM PRESTIDIGITATOR Gender Identity Not on file Sexual Orientation Not on file documented as of this encounter Miscellaneous Notes * Telephone Encounter - Lindsey Bal RN - 08/25/2023 7:54 AM CDT HIs response: Great news! Dr. Itz Ybarra [phone] for colonoscopy results. Thank you so much! Smita- can we please request colonoscopy records from Dr. Itz Ybarra in [place], [place]. Completed 2021-present. * Telephone Encounter - Lindsey Bal RN - 08/22/2023 3:13 PM CDT Reviewed Cr Clearance of 146.4. Told him we are fine to proceed to last step of evaluation which would be appointments at [facility]. Advised that we cannot schedule until recipient has been listed and it doesn't appear that recipient has been listed yet. Told him that once recipient is listed, we can schedule appointments at [facility]. Advised that while we are waiting, I can work on getting colonoscopy records Asked him where I could get those from. documented in this encounter Plan of Treatment Not on file documented as of this encounter Visit Diagnoses Not on filedocumented in this encounter Care Teams Adjunct English Instructor Relationship Specialty Start Date End Date Elke Mcmillan MD [address] [place] [address] PCP - General Family Medicine 08/15/23 Lindsey Bal RN [address] [facility] [address] [place] [address] Stable Cleaner 07/04/23 documented as of this encounter
--- OUTSIDE RECORDS SUMMARY | 2024-11-20 04:24 | XMS_ITS | Encounter Summary ---
Author Organization [facility] Healthcare Address [address] [place] [address] Care Team Providers Care Circulator Name Role Phone Unavailable Primary Care Provider Unavailabl e Reason for Visit * Reason Onset Date Comments Referral - Donor Txp 06/17/2023 Encounter Details Date Type Department Care Team (Late st Contact Info) Description 06/17/2023 Telephone [facility] Transplant Kidney [address] [place] [address] [address] [phone] [place] [address] Saida Garrison Referral - Donor Txp Social History Tobacco Use Types Packs/Day Years Used Date Smoking Tobacco: Never Assessed Sex and Gender Information Value Date Recorded Sex Assigned at Not on file Legal Sex Male 7:09 PM ADJUNCT MATHEMATICS INSTRUCTOR Gender Identity Not on file Sexual Orientation Not on file documented as of this encounter Miscellaneous Notes * Telephone Encounter - Saida Garrison - 06/17/2023 10:24 AM CDT Completed pre screen with patient Will mail donor packet when in office 06/18/2023 documented in this encounter Plan of Treatment Not on file documented as of this encounter Visit Diagnoses Not on filedocumented in this encounter
--- OUTSIDE RECORDS SUMMARY | 2024-11-20 04:24 | XMS_ITS | Encounter Summary ---
Author Organization [facility] Healthcare Address [address] [place] [address] Care Team Providers Care Clerical Support Specialist Name Role Phone Lindsey Bal RN Unavailable [phone] Elke Mcmillan MD Primary Care Provider Reason for Referral * MRI/CAT/PET Scan (Routine) - Closed Specialty Diagnoses / Procedures Referred By Contac t Referred To Contact Radiology Diagnoses Kidney donor Procedures CTA Abdomen Pelvis Zach Morocho MD [address] [place] [address] [place] [address] Phone: tel: fax: [address] [address] Referral ID Status Reason Start Date Expiration Date Visits Re quested Visits Authorized [id number] Closed 10/14/2023 11/12/2024 1 1 F OF VITAL STATISTICS Reason for Visit * MRI/CAT/PET Scan (Routine) - Closed Specialty Diagnoses / Procedures Referred By Contac t Referred To Contact Radiology Diagnoses Kidney donor Procedures CTA Abdomen Pelvis Zach Morocho MD [address] [facility] [facility] [address] [address] Phone: tel: fax: [address] [address] Referral ID Status Reason Start Date Expiration Date Visits Re quested Visits Authorized [id number] Closed 10/14/2023 11/12/2024 1 1 Encounter Details Date Type Department Care Team (Latest Contact Info) Description 11/19/2023 11:58 AM CHIEF OF VITAL STATISTICS - 11/19/2023 11:59 PM CHIEF OF VITAL STATISTICS Hospital Encounter [facility] [address] [place] [address] Zach Morocho MD [address] [facility] [address] [place] [address] Kidney donor Discharge Disposition: Discharge to home [...] on file Legal Sex Male 7:09 PM CHIEF OF VITAL STATISTICS Gender Identity Not on file Sexual Orientation [...] Procedure Name Priority Date/Time Associated Diagnosis Comments CTA ABDOMEN PELVIS W WO CONTRAST Schedule Routine, Read Routine (OP Routine) 11/19/2023 1:29 PM CHIEF OF VITAL STATISTICS Kidney donor POCT CREATININE - DEVICE Routine 11/19/2023 12:48 PM CHIEF OF VITAL STATISTICS documented in this encounter Results * CTA Abdomen Pelvis (11/19/2023 1:29 PM CHIEF OF VITAL STATISTICS) Anatomical Region Laterality Modality Body N/A Computed Tomogra phy 11/20/2023 2:19 PM CHIEF OF VITAL STATISTICS Impressions 11/20/2023 4:09 PM CHIEF OF VITAL STATISTICS 1. No renal stones. ??4 mm cyst [...] Kelsey Gao M.D. Narrative 11/20/2023 4:09 PM CHIEF OF VITAL STATISTICS EXAMINATION: CT ANGIOGRAPHY OF THE ABDOMEN AND [...] Morocho MD IMG CT PROCEDURES Final Result * POCT creatinine (11/19/2023 12:48 PM CHIEF OF VITAL STATISTICS) Creatinine POC 0.8 0.7 - 1.3 mg/dL [facility] Blood 11/19/2023 12:4 8 PM CHIEF OF VITAL STATISTICS 11/19/2023 12:48 PM CHIEF OF VITAL STATISTICS Zach Morocho MD LAB POCT ORDERABLES - DEVICE Fi nal Result [facility] Department [place] [address] documented in this encounter Visit Diagnoses Diagnosis Kidney donor documented in this encounter Administered Medications Inactive Administered Medications - up to 3 most recent administrations Medication Order MAR Action Action Date Dose Rate Site ioversoL (OPTIRAY 350) injection 100 mL 100 mL, intravenous, Once in imaging, contrast, Starting on Fri11/19/23 at 1316, For 1 dose Contrast Given 11/19/2023 1:21 PM CHIEF OF VITAL STATISTICS 90 mL ioversoL (OPTIRAY 350) injection 50 mL 50 mL, intravenous, Once in imaging, contrast, Starting on Fri11/19/23 at 1316, For 1 dose Contrast Given 11/19/2023 1:21 PM CHIEF OF VITAL STATISTICS 35 mL documented in this encounter Care Teams Clerical Support Specialist Relationship Specialty Start Date End Date Elke Mcmillan MD [address] [place] [address] PCP - General Family Medicine 08/15/23 Lindsey Bal, ROSANGELA [address] [facility] [address] [place] [address] Soft Metals Engraver Hand 07/04/23 documented as of this encounter
--- OUTSIDE RECORDS SUMMARY | 2024-11-20 04:24 | XMS_ITS | Encounter Summary ---
Author Organization [facility] Healthcare Address [address] [place] [address] Care Team Providers Care Technician Name Role Phone Lindsey Bal RN Unavailable [phone] Elke Mcmillan MD Primary Care Provider Encounter Details Date Type Department Care Team (Late st Contact Info) Description 08/21/2023 Orders Only [facility] Health Information Management [address] [place] [address] Lindsey Bal, RN [address] [facility] [address] [place] [address] Social History Tobacco Use Types Packs/Day Years Used Date Smoking Tobacco: Never Assessed Personal Safety Answer Date Recorded Have you ever been in or are you currently in a harmful physical or emotional relationship or is someone making you feel afraid or unsafe? Denies 08/18/2023 Sex and Gender Information Value Date Recorded Sex Assigned at Not on file Legal Sex Male 7:09 PM UX DESIGNER Gender Identity Not on file Sexual Orientation Not on file documented as of this encounter Plan of Treatment Not on file documented as of this encounter Procedures Procedure Name Priority Date/Time Associated Diagnosis Comments SCAN - LABS 08/21/2023 1:57 PM CDT documented in this encounter Results * SCAN - LABS (08/21/2023 1:57 PM CDT) us Lindsey Bal RN Final Resu lt documented in this encounter Visit Diagnoses Not on filedocumented in this encounter Care Teams Technician Relationship Specialty Start Date End Date Elke Mcmillan MD [address] [place] [address] PCP - General Family Medicine 08/15/23 Lindsey Bal, ROSANGELA [address] [facility] [address] [place] [address] Director Of Occupational Health 07/04/23 documented as of this encounter
--- OUTSIDE RECORDS SUMMARY | 2024-11-20 04:24 | XMS_ITS | Encounter Summary ---
Author Organization [facility] Healthcare Address [address] [place] [address] Care Team Providers Care Gambling Dealer Name Role Phone Lindsey Bal RN Unavailable [phone] Elke Mcmillan MD Primary Care Provider Reason for Visit * Reason Onset Date Comments Medical Records Request 08/25/2023 Encounter Details Date Type Department Care Team (Late st Contact Info) Description 08/25/2023 Documentation [facility] Transplant Kidney [address] [facility] [address] Mail[address] [phone] [place] [address] Saida Garrison Medical Records Request Social History [...] on file Legal Sex Male 7:09 PM SPAGHETTI PRESS HELPER Gender Identity Not on file Sexual Orientation Not on file documented as of this encounter Progress Notes * Saida Garrison - 08/25/2023 4:43 PM CDT Requested records via Blend Thank you! Your request was successfully submitted. Confirmation # [id number] documented in this encounter Plan of Treatment Not on file documented as of this encounter Visit Diagnoses Not on filedocumented in this encounter Care Teams Gambling Dealer Relationship Specialty Start Date End Date Elke Mcmillan MD [address] [place] [address] PCP - General Family Medicine 08/15/23 Lindsey Bal, RN [address] [facility] [address] [place] [address] Senior Contracts Manager 07/04/23 documented as of this encounter
--- OUTSIDE RECORDS SUMMARY | 2024-11-20 04:25 | XMS_ITS | Clinical Summary ---
Author Organization Formerly [facility], Later [facility] Address [address] [place] [address] Phone Care Team Providers Care Speech Communication Professor Name Role Phone Elke Mcmillan MD Primary Care Provider +1- [phone] Allergies No known active allergies Medications Medication Sig Dispensed Refills Start Date End Date Status carBAMazepine (TEGretol) 200 mg tablet Take by mouth daily. Active atorvastatin (LIPITOR) 10 mg tablet Take by mouth daily. Active naproxen (NAPROSYN) 500 mg tablet Take 1 Tablet (500 mg) by mouth every 12 hours as needed for Pain. 30 Tablet 01/28/2024 Active acetaminophen (TYLENOL) 500 mg tablet Take 2 Tablets (1,000 mg) by mouth every 6 hours as needed for Pain. 30 Tablet 01/28/2024 Active methocarbamoL (ROBAXIN) 500 mg tablet Take 1 Tablet (500 mg) by mouth 4 times daily. 30 Tablet 01/28/2024 Active lidocaine (Lidoderm) 5 % Adhesive Patch, Medicated Apply 1 Patch to affected area every 24 hours. 30 Patch 01/28/2024 Active Encounters Date Type Department Care Team Description 10/05/2024 External Device Data [facility] Provider, Abstract 09/20/2024 External Device Data [facility] Provider, Abstract 09/15/2024 External Device Data [facility] Provider, Abstract 08/31/2024 External Device Data [facility] Provider, Abstract 08/24/2024 External Device Data [facility] Provider, Abstract 08/24/2024 External Device Data [facility] Provider, Abstract from Last 3 Months Social History Tobacco Use Types Packs/Day Years Used Date Smoking Tobacco: Every Day Cigarettes Smokeless Tobacco: Never Tobacco Cessation:Ready to Q uit: Not Asked; Counseling Given: Not Answered Alcohol Use Standard Drinks/Week Comments Never 0 (1 standard drink = 0.6 oz pur e alcohol) Feeling Safe Answer Date Recorded Are you in a relationship wi th someone who hurts you emotionally and/or physically? No 01/28/2024 Sex and Gender Information Value Date Recorded Sex Assigned at Not on file Gender Identity Not on file Sexual Orientation Not on file Last Filed Vital Signs Vital Sign Reading Time Taken Comments Blood Pressure 148/81 01/28/2024 8:40 AM CDT Pulse 74 01/28/2024 9:05 AM CDT Temperature 37.1 ??C (98.7 ??F) 01/28/2024 7:45 AM CD T Respiratory Rate 16 01/28/2024 7:45 AM CDT Oxygen Saturation 98% 01/28/2024 9:05 AM CDT Inhaled Oxygen Concentration - - Weight 83.9 kg (185 lb) 01/28/2024 7:45 AM CDT Height 175.3 cm (5' 9 ) 01/28/2024 7:45 AM CDT Body Mass Index 27.32 01/28/2024 7:45 AM CDT Plan of Treatment Health Maintenance Due Date Last Done Comments Pre-Diabetes and Diabetes Screening 1971 PNEUMOCOCCAL VACCINE 0-64 YEARS (1 of 2 - PCV) 977 DTAP/TDAP/TD VACCINES (1 - Tdap) 1990 HEPATITIS B VACCINES (1 of 3 - 19+ 3-dose series) 07/19 COLORECTAL SCREENING 2016 Colorectal Cancer Screening 2016 FIT-DNA Q 3 years 2016 FIT/FOBT Q 1 year 2016 Flex Sig/CT Colonography Q 5 years 2016 ZOSTER VACCINE (1 of 2) 2021 INFLUENZA VACCINE (#1) 2024 Care Teams Speech Communication Professor Relationship Specialty Start Date End Date Elke Mcmillan MD [address] [facility] [address] [place] [address] PCP - General Family Practice 01/28/24
--- OUTSIDE RECORDS SUMMARY | 2024-11-20 04:25 | XMS_ITS | Encounter Summary ---
Author Organization [employer] Address [address] [place] [address] Care Team Providers Care Car Painter Name Role Phone Elke Mcmillan MD Primary Care Provider +1- [phone] Encounter Details Date Type Department Care Team (Late st Contact Info) Description 10/05/2024 External Device Data [facility] Provider, Abstract NO ADDRESS ON FILE Social History Tobacco Use Types Packs/Day Years Used Date Smoking Tobacco: Every Day Cigarettes Smokeless Tobacco: Never Alcohol Use Standard Drinks/Week Comments Never 0 [...] on filedocumented in this encounter Care Teams Car Painter Relationship Specialty Start Date End Date Elke Mcmillan MD [address] [facility] [address] [place] [address] PCP - General Family Practice 01/28/24 documented as of this encounter
--- OUTSIDE RECORDS SUMMARY | 2024-11-20 04:26 | XMS_ITS | Encounter Summary ---
Author Organization [facility] [employer] Address [address] [place] [address] Care Team Providers Care Grubber Name Role Phone Elke Mcmillan MD Primary Care Provider +1- [phone] Encounter Details Date Type Department Care Team (Late st Contact Info) Description 07/13/2024 External Device Data [facility] Provider, Abstract [...] on filedocumented in this encounter Care Teams Grubber Relationship Specialty Start Date End Date Elke Mcmillan MD [address] [facility] [address] [place] [address] PCP - General Family Practice 01/28/24 documented as of this encounter
--- OUTSIDE RECORDS SUMMARY | 2024-11-20 04:26 | XMS_ITS | Encounter Summary ---
Author Organization [employer] Address [address] [place] [address] Care Team Providers Care Division Head Name Role Phone Elke Mcmillan MD Primary Care Provider +1- [phone] Encounter Details Date Type Department Care Team (Late st Contact Info) Description 06/01/2024 External Device Data [facility] Provider, Abstract [...] on filedocumented in this encounter Care Teams Division Head Relationship Specialty Start Date End Date Elke Mcmillan MD [address] [facility] [address] [place] [address] PCP - General Family Practice 01/28/24 documented as of this encounter
--- OUTSIDE RECORDS SUMMARY | 2024-11-20 04:26 | XMS_ITS | Encounter Summary ---
Author Organization [facility] Address [address] [place] [address] Care Team Providers Care Hat Binder Name Role Phone Elke Mcmillan MD Primary Care Provider +1- [phone] Encounter Details Date Type Department Care Team (Late st Contact Info) Description 08/24/2024 External Device Data [facility] Provider, [...] on filedocumented in this encounter Care Teams Hat Binder Relationship Specialty Start Date End Date Elke Mcmillan MD [address] [facility] [address] [place] [address] PCP - General Family Practice 01/28/24 documented as of this encounter
--- OUTSIDE RECORDS SUMMARY | 2024-11-20 04:26 | XMS_ITS | Encounter Summary ---
Author Organization [employer] Address [address] [place] [address] Care Team Providers Care Keno Attendant Name Role Phone Elke Mcmillan MD Primary Care Provider +1- [phone] Encounter Details Date Type Department Care Team [...] on filedocumented in this encounter Care Teams Keno Attendant Relationship Specialty Start Date End Date Elke Mcmillan MD [address] [facility] [address] [place] [address] PCP - General Family Practice 01/28/24 documented as of this encounter
--- OUTSIDE RECORDS SUMMARY | 2024-11-20 04:26 | XMS_ITS | Encounter Summary ---
Author Organization [employer] Address [address] [place] [address] Care Team Providers Care Residential Program Manager Name Role Phone Elke Mcmillan MD Primary Care Provider +1- [phone] Encounter Details Date Type Department Care Team (Late st Contact Info) Description 03/02/2024 External Device Data [facility] Provider, Abstract [...] on filedocumented in this encounter Care Teams Residential Program Manager Relationship Specialty Start Date End Date Elke Mcmillan MD [address] [facility] [address] [place] [address] PCP - General Family Practice 01/28/24 documented as of this encounter
--- OUTSIDE RECORDS SUMMARY | 2024-11-20 04:26 | XMS_ITS | Encounter Summary ---
Author Organization [employer] Address [address] [place] [address] Care Team Providers Care Framer Name Role Phone Elke Mcmillan MD Primary Care Provider +1- [phone] Encounter Details Date Type Department Care Team [...] on filedocumented in this encounter Care Teams Framer Relationship Specialty Start Date End Date Elke Mcmillan MD [address] [facility] [address] [place] [address] PCP - General Family Practice 01/28/24 documented as of this encounter
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
--- OUTSIDE RECORDS SUMMARY | 2024-11-20 04:26 | XMS_ITS | Encounter Summary ---
Author Organization [employer] Address [address] [place] [address] Care Team Providers Care Outpatient Surgery Rn Name Role Phone Elke Mcmillan MD Primary Care Provider +1- [phone] Encounter Details Date Type Department Care Team (Late st Contact Info) Description 03/23/2024 External Device Data STL ABSTRACTION Provider, Abstract [...] on filedocumented in this encounter Care Teams Outpatient Surgery Rn Relationship Specialty Start Date End Date Elke Mcmillan MD [address] [facility] 120 [place] [address] PCP - General Family Practice 01/28/24 documented as of this encounter
--- OUTSIDE RECORDS SUMMARY | 2024-11-20 04:26 | XMS_ITS | Encounter Summary ---
Author Organization [employer] Address [address] [place] [address] Care Team Providers Care Physics Technical Officer Name Role Phone Elke Mcmillan MD Primary Care Provider +1- [phone] Encounter Details Date Type Department Care Team [...] on filedocumented in this encounter Care Teams Physics Technical Officer Relationship Specialty Start Date End Date Elke Mcmillan MD [address] [facility] 120 [place] [address] PCP - General Family Practice 01/28/24 documented as of this encounter
--- OUTSIDE RECORDS SUMMARY | 2024-11-20 04:26 | XMS_ITS | Encounter Summary ---
Author Organization [employer] Address [address] [place] [address] Care Team Providers Care Petroleum Engineering Teacher Name Role Phone Elke Mcmillan MD Primary Care Provider +1- [phone] Encounter Details Date Type Department Care Team (Late st Contact Info) Description 04/06/2024 External Device Data STL ABSTRACTION Provider, Abstract [...] on filedocumented in this encounter Care Teams Petroleum Engineering Teacher Relationship Specialty Start Date End Date Elke Mcmillan MD [address] [facility] 120 [place] [address] PCP - General Family Practice 01/28/24 documented as of this encounter
--- OUTSIDE RECORDS SUMMARY | 2024-11-20 04:26 | XMS_ITS | Encounter Summary ---
Author Organization [employer] Address [address] [place] [address] Care Team Providers Care Orientor Name Role Phone Elke Mcmillan MD Primary Care Provider +1- [phone] Encounter Details Date Type Department Care Team [...] on filedocumented in this encounter Care Teams Orientor Relationship Specialty Start Date End Date Elke Mcmillan MD [address] [facility] 120 [place] [address] PCP - General Family Practice 01/28/24 documented as of this encounter
--- OUTSIDE RECORDS SUMMARY | 2024-11-20 04:26 | XMS_ITS | Encounter Summary ---
Author Organization [employer] Address [address] [place] [address] Care Team Providers Care Mac Artist Name Role Phone Elke Mcmillan MD Primary Care Provider +1- [phone] Encounter Details Date Type Department Care Team (Late st Contact Info) Description 09/15/2024 External Device Data STL ABSTRACTION Provider, [...] on filedocumented in this encounter Care Teams Mac Artist Relationship Specialty Start Date End Date Elke Mcmillan MD [address] [facility] 120 [place] [address] PCP - General Family Practice 01/28/24 documented as of this encounter
--- OUTSIDE RECORDS SUMMARY | 2024-11-20 04:26 | XMS_ITS | Encounter Summary ---
Author Organization [employer] Address [address] [place] [address] Care Team Providers Care Flavor Tank Tender Name Role Phone Elke Mcmillan MD Primary Care Provider +1- [phone] Encounter Details Date Type Department Care Team (Late st Contact Info) Description 04/27/2024 External Device Data STL ABSTRACTION Provider, Abstract [...] on filedocumented in this encounter Care Teams Flavor Tank Tender Relationship Specialty Start Date End Date Elke Mcmillan MD [address] [facility] 120 [place] [address] PCP - General Family Practice 01/28/24 documented as of this encounter
--- OUTSIDE RECORDS SUMMARY | 2024-11-20 04:26 | XMS_ITS | Encounter Summary ---
Author Organization [employer] Address [address] [place] [address] Care Team Providers Care Guitar Maker Hand Name Role Phone Elke Mcmillan MD Primary Care Provider +1- [phone] Encounter Details Date Type Department Care Team [...] filedocumented in this encounter Care Teams Guitar Maker Hand Relationship Specialty Start Date End Date Elke Mcmillan MD [address] [facility] 120 [place] [address] PCP - General Family Practice 01/28/24 documented as of this encounter
--- OUTSIDE RECORDS SUMMARY | 2024-11-20 04:26 | XMS_ITS | Encounter Summary ---
Author Organization [employer] Address [address] [place] [address] Care Team Providers Care Aviation Manager Name Role Phone Elke Mcmillan MD Primary Care Provider +1- [phone] Encounter Details Date Type Department Care Team [...] on filedocumented in this encounter Care Teams Aviation Manager Relationship Specialty Start Date End Date Elke Mcmillan MD [address] [facility] 120 [place] [address] PCP - General Family Practice 01/28/24 documented as of this encounter
--- OUTSIDE RECORDS SUMMARY | 2024-11-20 04:26 | XMS_ITS | Encounter Summary ---
Author Organization [employer] Address [address] [place] [address] Care Team Providers Care Patrol Police Lieutenant Name Role Phone Elke Mcmillan MD Primary Care Provider +1- [phone] Encounter Details Date Type Department Care Team (Late st Contact Info) Description 07/20/2024 External Device Data STL ABSTRACTION Provider, Abstract [...] on filedocumented in this encounter Care Teams Patrol Police Lieutenant Relationship Specialty Start Date End Date Elke Mcmillan MD [address] [facility] 120 [place] [address] PCP - General Family Practice 01/28/24 documented as of this encounter
--- OUTSIDE RECORDS SUMMARY | 2024-11-20 04:26 | XMS_ITS | Encounter Summary ---
Author Organization [employer] Address [address] [place] [address] Care Team Providers Care Electric Meter Installer Name Role Phone Elke Mcmillan MD Primary Care Provider +1- [phone] Encounter Details Date Type Department Care Team (Late st Contact Info) Description 08/10/2024 External Device Data STL ABSTRACTION Provider, Abstract [...] on filedocumented in this encounter Care Teams Electric Meter Installer Relationship Specialty Start Date End Date Elke Mcmillan MD [address] [facility] 120 [place] [address] PCP - General Family Practice 01/28/24 documented as of this encounter
--- OUTSIDE RECORDS SUMMARY | 2024-11-20 04:26 | XMS_ITS | Encounter Summary ---
Author Organization [employer] Address [address] [place] [address] Care Team Providers Care Drum Reel Cutter Name Role Phone Elke Mcmillan MD Primary Care Provider +1- [phone] Encounter Details Date Type Department Care Team (Late st Contact Info) Description 02/03/2024 External Device Data STL ABSTRACTION Provider, Abstract [...] on filedocumented in this encounter Care Teams Drum Reel Cutter Relationship Specialty Start Date End Date Elke Mcmillan MD [address] [facility] 120 [place] [address] PCP - General Family Practice 01/28/24 documented as of this encounter
--- OUTSIDE RECORDS SUMMARY | 2024-11-20 04:26 | XMS_ITS | Encounter Summary ---
Author Organization [employer] Address [address] [place] [address] Care Team Providers Care Correspondence Clerk Name Role Phone Elke Mcmillan MD Primary Care Provider +1- [phone] Encounter Details Date Type Department Care Team [...] on filedocumented in this encounter Care Teams Correspondence Clerk Relationship Specialty Start Date End Date Elke Mcmillan MD [address] [facility] 120 [place] [address] PCP - General Family Practice 01/28/24 documented as of this encounter
--- OUTSIDE RECORDS SUMMARY | 2024-11-20 04:26 | XMS_ITS | Encounter Summary ---
Author Organization [employer] Address [address] [place] [address] Care Team Providers Care Accident Examiner Name Role Phone Elke Mcmillan MD Primary Care Provider +1- [phone] Encounter Details Date Type Department Care Team (Late st Contact Info) Description 02/17/2024 External Device Data STL ABSTRACTION Provider, Abstract [...] on filedocumented in this encounter Care Teams Accident Examiner Relationship Specialty Start Date End Date Elke Mcmillan MD [address] [facility] 120 [place] [address] PCP - General Family Practice 01/28/24 documented as of this encounter
--- OUTSIDE RECORDS SUMMARY | 2024-11-20 04:26 | XMS_ITS | Encounter Summary ---
Author Organization [facility] Address [address] Attn: Epic Prelude ADT [place] [address] Care Team Providers Care Erecting Engineer Name Role Phone Elke Mcmillan MD Primary Care Provider +1- [phone] Encounter Details Date Type Department Care Team (Latest Contact Info) Description 01/28/2024 Travel Social History Tobacco Use Types Packs/Day Years [...] on filedocumented in this encounter Care Teams Erecting Engineer Relationship Specialty Start Date End Date Elke Mcmillan MD [address] [facility] [address] [place] [address] PCP - General Family Practice 01/28/24 documented as of this encounter
--- OUTSIDE RECORDS SUMMARY | 2024-11-20 04:26 | XMS_ITS | Encounter Summary ---
Author Organization [employer] Address [address] [place] [address] Care Team Providers Care Cider Maker Name Role Phone Elke Mcmillan MD Primary Care Provider +1- [phone] Encounter Details Date Type Department Care Team (Late st Contact Info) Description 07/14/2024 External Device Data STL ABSTRACTION Provider, Abstract [...] on filedocumented in this encounter Care Teams Cider Maker Relationship Specialty Start Date End Date Elke Mcmillan MD [address] [facility] 120 [place] [address] PCP - General Family Practice 01/28/24 documented as of this encounter
--- OUTSIDE RECORDS SUMMARY | 2024-11-20 04:26 | XMS_ITS | Encounter Summary ---
Author Organization [employer] Address [address] [place] [address] Care Team Providers Care Systems Integration Manager Name Role Phone Elke Mcmillan MD Primary Care Provider +1- [phone] Encounter Details Date Type Department Care Team (Late st Contact Info) Description 01/30/2024 External Device Data STL ABSTRACTION Provider, Abstract [...] on filedocumented in this encounter Care Teams Systems Integration Manager Relationship Specialty Start Date End Date Elke Mcmillan MD [address] [facility] 120 [place] [address] PCP - General Family Practice 01/28/24 documented as of this encounter
--- OUTSIDE RECORDS SUMMARY | 2024-11-20 04:26 | XMS_ITS | Encounter Summary ---
Author Organization [employer] Address [address] [place] [address] Care Team Providers Care Coat Operator Name Role Phone Elke Mcmillan MD Primary Care Provider +1- [phone] Encounter Details Date Type Department Care Team (Late st Contact Info) Description 08/03/2024 External Device Data STL ABSTRACTION Provider, Abstract [...] on filedocumented in this encounter Care Teams Coat Operator Relationship Specialty Start Date End Date Elke Mcmillan MD [address] [facility] 120 [place] [address] PCP - General Family Practice 01/28/24 documented as of this encounter
--- OUTSIDE RECORDS SUMMARY | 2024-11-20 04:26 | XMS_ITS | Encounter Summary ---
Author Organization [employer] Address [address] [place] [address] Care Team Providers Care Creative Strategist Name Role Phone Elke Mcmillan MD Primary Care Provider +1- [phone] Encounter Details Date Type Department Care Team [...] on filedocumented in this encounter Care Teams Creative Strategist Relationship Specialty Start Date End Date Elke Mcmillan MD [address] [facility] 120 [place] [address] PCP - General Family Practice 01/28/24 documented as of this encounter
--- OUTSIDE RECORDS SUMMARY | 2024-11-20 04:26 | XMS_ITS | Encounter Summary ---
Author Organization [employer] Address [address] [place] [address] Care Team Providers Care Resin Shaver Name Role Phone Elke Mcmillan MD Primary Care Provider +1- [phone] Encounter Details Date Type Department Care Team [...] on filedocumented in this encounter Care Teams Resin Shaver Relationship Specialty Start Date End Date Elke Mcmillan MD [address] [facility] 120 [place] [address] PCP - General Family Practice 01/28/24 documented as of this encounter
--- OUTSIDE RECORDS SUMMARY | 2024-11-20 04:26 | XMS_ITS | Encounter Summary ---
Author Organization [employer] Address [address] [place] [address] Care Team Providers Care Perioperative Manager Name Role Phone Elke Mcmillan MD Primary Care Provider +1- [phone] Encounter Details Date Type Department Care Team (Late st Contact Info) Description 09/20/2024 External Device Data STL ABSTRACTION Provider, [...] on filedocumented in this encounter Care Teams Perioperative Manager Relationship Specialty Start Date End Date Elke Mcmillan MD [address] [facility] 120 [place] [address] PCP - General Family Practice 01/28/24 documented as of this encounter
== END 2024-11-13 07:07 | disposition home or self-care (01) ==
PROVIDERS: PCP Family Medicine; Visit Provider Student in an Organized Health Care Education/Training Program
DX: Z52.4 Kidney donor (principal); E78.2 Mixed hyperlipidemia
CPT/HCPCS: 36415; 80053; 80061; 80069; 85025

== ENCOUNTER 2025-05-13 15:57 | Outpatient (CLI) | payer OTHER, SELFPAY ==
--- NOTE | ~2025-05-13 | XR_ITS ---
HISTORY: M25.559 - Pain in unspecified hip COMPARISON: None TECHNIQUE: 2 views of the bilateral hips along with an AP view of the pelvis FINDINGS: No acute fracture or dislocation is identified. Superior lateral sclerosis of the bilateral femoral acetabular joint spaces are present consistent wi th osteoarthritis. Joint space narrowing detected within the bilateral SI joints with sclerosis. Age-appropriate mineralization IMPRESSION: Degenerative disease without acute fracture or dislocation Reviewed, dictated and finalized at location A.
--- NOTE | ~2025-05-13 | XR_ITS ---
[id number] Ordering provider: Camila Sun PA-C History: . M25.559 - Pain in unspecified hip . Comparison: None. FINDINGS: BONES: No acute fracture or dislocation. JOINT SPACES: Normal. SOFT TISSUES: Normal. Ossification of the insertion of the patellar tendon IMPRESSION: No acute osseous abnormality left knee. Reviewed, dictated and finalized at location A.
--- NOTE | ~2025-05-13 | XR_ITS ---
[id number] Ordering provider: Camila Sun PA-C History: . M25.559 - Pain in unspecified hip . Comparison: None. FINDINGS: BONES: No acute fracture or dislocation. JOINT SPACES: Normal. SOFT TISSUES: Normal. Ossification of the insertion of the patellar tendon. IMPRESSION: No acute osseous abnormality right knee. Reviewed, dictated and finalized at location A.
[2025-05-13 16:21] LABS: Basophils Percent Auto 0.5 % (0.2-1.2); Eosinophils Absolute Auto 0.3 K/mm3 (0-0.3); Eosinophils Percent Auto 3.6 % (0-4.4); Hematocrit 44.9 % (42.0-52.0); Hemoglobin 15.1 g/dL (14.0-18.0); Immature Granulocyte Absolute 0.02 K/mm3 (0.00-0.031); Immature Granulocyte Percent A 0.2 % (0-0.5); Lymphocytes Absolute Auto 2.65 K/mm3 (0.9-3.2); Lymphocytes Percent Auto 30.2 % (18.3-44.2); Mean Corpuscular HGB Conc 33.6 g/dl (32-36); Mean Corpuscular Hemoglobin 30.3 pg (26-34); Mean Platelet Volume 10.9 fl (7.4-10.4); Monocytes Absolute Auto 0.7 K/mm3 (0.1-0.6); Neutrophils Percent Auto 57.5 % (45.5-73.1); Platelet Count Result 159 k/mm3 (150-375); Red Blood Count 4.99 M/mm3 (4.6-6.20); Red Cell Distribution Width 12.8 % (11.5-14.5); White Blood Count 8.8 K/mm3 (4.5-10.0)
[2025-05-13 16:31] LABS: Hemoglobin A1C. 5.3 % (<5.7)
[2025-05-13 16:46] LABS: Alanine Aminotransferase 24 U/L (6-50); Albumin Level 4.6 g/dL (3.5-5.1); Alkaline Phosphatase 107 U/L (38-126); Anion Gap 8 mmol/L (4-12); Aspartate Amino Transferase 31 U/L (17-59); Bilirubin,Total 0.5 mg/dL (0.2-1.3); Blood Urea Nitrogen 15 mg/dL (9-20); Calcium 9.2 mg/dL (8.4-10.2); Carbon Dioxide 25 mmol/L (22-30); Chloride 108 mmol/L (98-107); Estimated Glomerular Filt Rate 55; Glucose 83 mg/dL (65-110); Potassium 4.2 mmol/L (3.4-5.0); Sodium 141 mmol/L (137-145); Total Protein 7.6 g/dL (6.3-8.2)
[2025-05-13 17:16] LABS: Prostate Specific Antigen 0.7 ng/mL (< OR = 4.0)
== END 2025-05-13 15:58 | disposition home or self-care (01) ==
PROVIDERS: PCP Family Medicine
DX: M16.0 Bilateral primary osteoarthritis of hip (principal); E78.2 Mixed hyperlipidemia; Z13.1 Encounter for screening for diabetes mellitus; Z12.5 Encounter for screening for malignant neoplasm of prostate
CPT/HCPCS: 36415; 73521; 73560; 80053; 83036; 84153; 84443; 85025; G0103

== ENCOUNTER 2025-10-05 13:07 | Outpatient (CLI) | payer OTHER, SELFPAY ==
--- NOTE | ~2025-10-05 | XR_ITS ---
EXAMINATION: XR knee RT min 4V, 10/05/2025 13:15 TRAIN DISPATCHER HISTORY: Chondromalacia patellae CHRONIC RT KNEE PAIN COMPARISON: No comparisons available. Findings: No acute fracture or malalignment. No significant degenerative changes. Soft tissues unremarkable. Impression: No acute fracture or malalignment. Reviewed, dictated and finalized at location P. N DISPATCHER Impression: No acute fracture or malalignment.
--- NOTE | ~2025-10-05 | XR_ITS ---
EXAMINATION: XR knee LT min 4V, 10/05/2025 13:15 REMEDY DEVELOPER HISTORY: Chondromalacia patellae, CHRONIC LT KNEE PAIN COMPARISON: No comparisons available. Findings: No acute fracture or malalignment. No significant degenerative changes. Soft tissues unremarkable. Impression: No acute fracture or malalignment. Reviewed, dictated and finalized at location P. DY DEVELOPER Impression: No acute fracture or malalignment.
== END 2025-10-05 13:08 | disposition home or self-care (01) ==
LOC: MICIMG 13:09
PROVIDERS: PCP Orthopaedic Surgery; Visit Provider Orthopaedic Surgery
DX: M22.41 Chondromalacia patellae, right knee (principal); M22.42 Chondromalacia patellae, left knee
CPT/HCPCS: 73564